=== PATIENT | male | born 1965 | race Caucasian/White ===

== ENCOUNTER 2023-05-30 07:38 | Outpatient (OUT) | payer BC, SELFPAY ==
--- NOTE | 2023-05-30 08:00 | XR_ITS ---
The [address] [address] Patient Name: OSCAR RILEY MRN: [id number] date: 1965 Sex: M Assigned Patient Location: LAB Current Patient Location: LAB Accession/Order Number: [id number] Exam Date: 05/30/2023 07:53 Report Date: 05/30/2023 08:59 At the request of: ADELITA KAPLAN Procedure: XR abdomen 1V EXAMINATION: XR abdomen 1V HISTORY: Unspecified Abdominal Pain R10.9 COMPARISON: No relevant comparison available. FINDINGS: KIDNEY/URETER - RIGHT: No visible renal or ureteral calcifications. KIDNEY/URETER - LEFT: No visible renal or ureteral calcifications. PELVIS: Right lower pelvic calcification, indeterminate BOWEL: No abnormal dilation or deviation. BONES: No acute abnormality. Degenerative spondylosis OTHER: Negative. No abnormal gaseous collections. XR/XR abdomen 1V IMPRESSION: Right pelvic calcification, phlebolith versus distal ureterolith Electronically authenticated by: LEANDRO LOPEZ Date: 05/30/2023 08:59
[2023-05-30 08:29] LABS: Basophils Percent Auto 0.4 % (0.2-2.0); Eosinophils Absolute Auto 0.3 10^3/uL (0.0-0.7); Eosinophils Percent Auto 3.2 % (0.9-7.0); Hematocrit 43.1 % (42.0-54.0); Hemoglobin 14.2 g/dL (14.0-18.0); Immature Granulocytes Abs Auto 0.06 10^3/uL (0.00-0.03); Immature Granulocytes Pct Auto 0.6 % (0.0-0.5); Lymphocytes Absolute Auto 2.9 10^3/uL (1.2-3.8); Lymphocytes Percent Auto 26.8 % (20.5-60.0); Mean Corpuscular HGB Conc 32.9 g/dL (29.9-35.2); Mean Corpuscular Hemoglobin 28.9 pg (25.9-34.0); Mean Corpuscular Volume 87.6 fL (80.0-94.0); Mean Platelet Volume 10.6 fL (9.5-13.5); Monocytes Absolute Auto 0.5 10^3/uL (0.3-0.8); Monocytes Percent Auto 4.6 % (1.7-12.0); Neutrophils Absolute Auto 6.9 10^3/uL (1.4-6.5); Neutrophils Percent Auto 64.4 % (43.0-75.0); Platelet Count 259 10^3/uL (150-450); Red Blood Count 4.92 10^6/uL (4.70-6.10); Red Cell Distribution Width 13.4 % (11.0-15.0); White Blood Count 10.7 10^3/uL (4.0-11.0)
[2023-05-30 09:02] LABS: Estimated Average Glucose 280 mg/dL; Glycohemoglobin A1C 11.4 % (4.5-6.2)
[2023-05-30 09:08] LABS: Alanine Aminotransferase 35 U/L (16-63); Albumin Globulin Ratio 0.9; Albumin Level 3.6 g/dL (3.4-5.0); Alkaline Phosphatase 123 U/L (46-116); Anion Gap 11.1; Aspartate Amino Transferase 14 U/L (15-37); BUN Creatinine Ratio 23.4; Bilirubin Total 0.7 mg/dL (0.2-1.0); Calcium 9.2 mg/dL (8.5-10.1); Carbon Dioxide 31.2 mmol/L (21.0-32.0); Chloride 97 mmol/L (98-107); Chol HDL Ratio 3.4; Cholesterol 125 mg/dL (<=200); Estimated GFR (African America >60 (>=60); Estimated GFR (Non-African Ame >60 (>=60); Globulin 3.9 g/dL; Glucose 231 mg/dL (74-106); HDL Cholesterol 37 mg/dL (40-60); Potassium 4.3 mmol/L (3.5-5.1); Sodium 135 mmol/L (136-145); Total Protein 7.5 g/dL (6.4-8.2); Triglycerides 188 mg/dL (<=150); VLDL CHOLESTEROL 37.6 mg/dL
[2023-05-30 09:42] LABS: Prostate Specific Antigen Scrn 0.48 ng/mL (<=4.00)
[2023-05-30 10:27] LABS: Bilirubin Urine NEGATIVE (NEGATIVE); Blood Urine NEGATIVE (NEGATIVE); Clarity Urine CLEAR (CLEAR); Color Urine LT. YELLOW (YELLOW); Glucose Urine UA 250 mg/dL (NEGATIVE); Ketones Urine NEGATIVE (NEGATIVE); Leukocyte Esterase Urine TRACE (NEGATIVE); Nitrite Urine NEGATIVE (NEGATIVE); Protein Urine NEGATIVE (NEG/TRACE); Specific Gravity Urine 1.025 (1.005-1.025); Urobilinogen Urine 0.2 EU/dL (0.2-1.0)
== END 2023-05-30 07:39 | disposition home or self-care (01) ==
LOC: LAB 07:41
PROVIDERS: PCP Family Medicine; Visit Provider Family Medicine
DX: Z00.00 Encounter for general adult medical examination without abnormal findings (principal); Z12.5 Encounter for screening for malignant neoplasm of prostate; R10.9 Unspecified abdominal pain
CPT/HCPCS: 36415; 74018; 80053; 80061; 81003; 82043; 83036; 85025; G0103

== ENCOUNTER 2023-07-19 07:00 | Outpatient (OUT) | payer BC, SELFPAY ==
[2023-07-19 07:15] LABS: Estimated GFR (African America >60 (>=60); Estimated GFR (Non-African Ame >60 (>=60)
--- NOTE | 2023-07-19 08:04 | CT_ITS ---
[address] [address] Patient Name: OSCAR RILEY MRN: [id number] date: 1965 Sex: M Assigned Patient Location: LAB Current Patient Location: Accession/Order Number: [id number] Exam Date: 07/19/2023 07:52 Report Date: 07/20/2023 13:09 At the request of: LAXMI QUINTERO Procedure: CT pelvis w con EXAMINATION: CT pelvis w con HISTORY: Testicle pain COMPARISON: No relevant comparison available. TECHNIQUE: Axial, Coronal, and Sagittal images were created without and with non-ionic intravenous contrast material.Dose reduction techniques were achieved by using automated exposure control and/or adjustment of mA and/or kV according to patient size and/or use of iterative reconstruction technique. FINDINGS: BOWEL/MESENTERY: No visible mass, obstruction, or bowel wall thickening. VASCULAR: Atherosclerosis RETROPERITONEUM: No mass or adenopathy. LYMPH NODES: No adenopathy. URINARY BLADDER: No visible focal wall thickening, lesion, or calculus. PELVIC ORGANS: Heterogeneous prostate gland without focal mass ABDOMINAL WALL: No mass or hernia. BONES: Degenerative changes of the spine OTHER: Negative. CT/CT pelvis w con IMPRESSION: No inguinal hernia observed Electronically authenticated by: LEANDRO LOPEZ Date: 07/20/2023 13:09
== END 2023-07-19 07:01 | disposition home or self-care (01) ==
LOC: LAB 07:00
PROVIDERS: PCP Family Medicine; Visit Provider Urology
DX: N50.811 Right testicular pain (principal)
CPT/HCPCS: 36415; 72193; 82565; Q9967

== ENCOUNTER 2023-08-08 12:33 | Outpatient (OUT) | payer BC, SELFPAY ==
--- NOTE | 2023-08-08 | US_ITS ---
The [address] [address] Patient Name: OSCAR RILEY MRN: [id number] date: 1965 Sex: M Assigned Patient Location: US Current Patient Location: US Accession/Order Number: [id number] Exam Date: 08/08/2023 12:45 Report Date: 08/08/2023 16:56 At the request of: LAXMI QUINTERO Procedure: US scrotum doppler US scrotum doppler, 08/08/2023 12:45 PM EST INDICATION:Testicular pain. Right groin pain x1 month. COMPARISON: Contrast-enhanced CT of the pelvis 07/19/2023 GRAYSCALE TECHNIQUE: Multi-planar real-time high-resolution ultrasound of the scrotum was performed. DOPPLER TECHNIQUE: Color and/or power Doppler combined with spectral Doppler analysis to evaluate blood flow to and from the testes was performed. FINDINGS: Right testicle: Normal size and echotexture 2.4 x 1.5 x 1.9 cm. Right epididymis: Vascularity is within normal limits. Left testicle: Normal size and echotexture 2.6 x 1.2 x 1.9 cm. Left epididymis: Vascularity is within normal limits. Normal color Doppler with arterial/venous spectral tracing to both testicles. No varicocele or hydrocele. No right inguinal hernia. US/US scrotum doppler IMPRESSION: Normal scrotal ultrasound. Electronically authenticated by: SCOTT RAPHAEL Date: 08/08/2023 16:56
== END 2023-08-08 12:34 | disposition home or self-care (01) ==
LOC: US 12:33
PROVIDERS: PCP Family Medicine; Visit Provider Urology
DX: N50.819 Testicular pain, unspecified (principal)
CPT/HCPCS: 76870; 93976

== ENCOUNTER 2024-12-27 07:21 | Outpatient (OUT) | payer BC, SELFPAY ==
--- OUTSIDE RECORDS SUMMARY | 2024-12-27 07:26 | XMS_ITS | CCD ---
Author Organization [facility] Care Team Providers Care Ad Operations Associate Name Role Phone REJI YUN Referring Unavailable AL-HOURANIREYES Admitting Unavailable AL-HOURANI, REYES Attending Unavailable ANGELA KAPLAN Primary Care Unavailable UNKNOWN, PROVIDER Surgeon Unavailable ME Procedure Practitioner Unavailab le ME Procedure Practitioner Unavailab EDGAR Roldan Surgeon Unavailable MEDICAL, MESFIN Primary Care Physician Unavailab le MOUKARBEL, DR ROGERS Admitting Unavailable MOUKARBEL, DR ROGERS Attending Unavailable KAPLAN, DR ANGELA Rosen Primary Care Unavailable MOUKARBEL, DR ROGERS Consulting Unavailable MOUKARBEL, DR ROGERS Admitting Unavailable MOUKARBEL, DR ROGERS Attending Unavailable KAPLAN, DR ANGELA Rosen Primary Care Unavailable MOUKARBEL, DR ROGERS Consulting Unavailable AGGIE, WILFRED Admitting Unavailable AGGIE, WILFRED Attending Unavailable KAPLAN, DR ANGELA Rosen Primary Care Unavailable AGGIE, WILFRED Consulting Unavailable KAPLAN, DR ANGELA Rosen Primary Care Unavailable HAY, DR RODRIGUEZ Admitting Unavailable HAY, DR RODRIGUEZ Attending Unavailable HAY, DR RODRIGUEZ Consulting Unavailable PRO, HENRY Consulting Unavailable KAPLAN, DR ANGELA Rosen Admitting Unavailable KAPLAN, DR ANGELA Rosen Attending Unavailable KAPLAN, DR ANGELA Rosen Primary Care Unavailable MOUKARBEL, DR ROGERS Admitting Unavailable MOUKARBEL, DR ROGERS Attending Unavailable KAPLAN, DR ANGELA Rosen Primary Care Unavailable Angela Kaplan Unavailable ANGELA KAPLAN Primary Care Physician [phone] ANGELA KAPLAN Referring Unavailable Henry MOJICA Attending Unavailable NILLHenry Attending Unavailable MOUKARBEL, KEN Attending Unavailable MOUKARBEL, KEN Attending Unavailable Allergies Allergy Classification Reported Allergen(s) Allergy Type Date of Onset Reaction(s) Facility (4 sources) Eggs or Egg-derived Products Drug allergy Unknown Tred Other (2 sources) Pollen Allergy to substance 4 Congested [facility] (2 sources) Egg Derived Allergy to substance 4 Upset stomach [facility] (1 source) No Known Medication Allergies; Translations: [No Known Medication Allergies] Propensity to adverse reactions (disorder) [facility] Repository Medications Current Medications Medication Drug Class(es) Dates Sig (Normalized) Sig (Original) acetaminophen 325 mg oral tablet (1 source) Start: 01-28-2015 Tylenol 325 mg, Oral, Refills(s) 0 Start Date: 01/28/15 Status: Ordered Allopurinol (11 sources) Xanthine Oxidase Inhibitor Start: 02-19-2024 Allopurinol Active 0 .ROUTE .COMPLEX 90 February 19, 2024 3:33pm TAKE 1 TABLET DAILY Start: 01-26-2015 End: 02-19-2024 take 300 mg by mouth once daily Allopurinol Discontinued 300 MG PO Daily February 19, 2024 12:00am February 19, 2024 3:33pm aspirin 81 mg delayed release oral tablet (5 sources) Platelet Aggregation Inhibitor, Nonsteroidal Anti-inflammatory Drug Start: 07-23-2024 take 1 tablet by mouth once daily aspirin 81 mg Oral EC Tab 81 mg = 1 tab(s), Oral, Daily, Refills(s) 0 Start Date: 07/23/24 Status: Ordered Start: 06-13-2022 take 1 tablet by jaylin th every twenty-four hours Aspirin Low Dose 81 MG 1 tablet Orally Once a day for 0 days May, Active atenolol 25 mg oral tablet (1 source) beta-Adrenergic Moncho Start: 01-26-2015 atenolol 25 mg oral tablet Refills(s) 0 Start Date: 01/26/15 Status: Ordered BD Pen Needle Jeanne U/F (4 sources) Start: 02-27-2022 BD Pen Needle Jeanne U/F BD Pen Needle Jeanne U/F , 1 (one) Each Each daily # 90, 02/27/2022, Ref. x3. Active daily for 0 for Levemir Feb, Active cholecalciferol 0.05 mg oral tablet (4 sources) Vitamin D Start: 06-13-2022 take 1 tablet by mouth every twenty-four hours Vitamin D 50 MCG (1999 UT) 1 tablet Orally Once a day for 0 days 27 Sep, 2022 Active clopidogrel 75 mg oral tablet (8 sources) P2Y12 Platelet Inhibitor Start: 06-13-2022 take 75 mg by mouth once daily Clopidogrel Active 75 MG PO Daily June 24, 2024 12:00am cyclobenzaprine hydrochloride 5 mg oral tablet (1 source) Muscle Relaxant Start: 06-21-2017 take 5 mg by mouth three times daily cyclobenzaprine 5 mg, Oral, TID, Refills(s) 0 Start Date: 06/21/17 Status: Ordered ezetimibe 10 mg oral tablet (9 sources) Dietary Cholesterol Absorption Inhibitor Start: 06-30-2024 take 1 tablet by mouth once daily Zetia 10 mg Tab 10 mg = 1 tab(s), Oral, Daily, Refills(s) 0 Start Date: 06/30/24 Status: Ordered Start: 06-24-2024 take 10 mg by mouth once daily Ezetimibe Active 10 MG PO Daily June 24, 2024 12:00am Start: 01-26-2015 Zetia 10 mg or al tablet Refills(s) 0 Start Date: 01/26/15 Status: Ordered FreeStyle [place] 14 Day [place] (4 sources) Start: 12-02-2020 FreeStyle Libr e 14 Day [place] FreeStyle [place] 14 Day [place] , 1 (one) Device Device q 2 weeks # 1, 12/02/2020, No Refill. Active q 2 weeks for 0 Nov, Active FreeStyle [place] 14 Day Sensor (4 sources) Start: 12-02-2020 FreeStyle Libr e 14 Day Sensor FreeStyle [place] 14 Day Sensor , 1 (one) Each Each q 2 weeks # 2, 12/02/2020, Ref. x3. Active q 2 weeks for 0 Nov, Active 3 ml insulin degludec 100 unt/ml pen injector (2 sources) Insulin Analog Start: 06-30-2024 inject 10 [IU] by subcutaneous injection once daily Tresiba FlexTouch 100 units/mL subcutaneous solution 10 unit(s), SubCutaneous, Daily, Refills(s) 0 Start Date: 06/30/24 Status: Ordered inject 10 [IU] by riojas bcutaneous injection once daily Tresiba FlexTouch 100 UNIT/ML 10 units Subcutaneous daily for 90 days Active Insulin Degludec (Tresiba Flextouch U-100) 100 unit/mL (3 mL) insulin pen (8 sources) Start: 05-05-2024 inject 10 [IU] by subcutaneous injection once daily Insulin Degludec (Tresiba Flextouch U-100) 100 unit/mL (3 mL) insulin pen Active 10 UNIT SUBCUT Daily May 05, 2024 11:15am Start: 04-02-2024 End: 05-05-2024 inject 10 [IU] by subcutaneous injection once daily Insulin Degludec (Tresiba Flextouch U-100) 100 unit/mL (3 mL) insulin pen Discontinued 10 UNIT SUBCUT Daily April 02, 2024 8:49am May 05, 2024 11:15am Start: 02-07-2024 End: 04-02-2024 inject 10 [IU] by subcutaneous injection once daily Insulin Degludec (Tresiba Flextouch U-100) 100 unit/mL (3 mL) insulin pen Discontinued 10 UNIT SUBCUT Daily February 07, 2024 4:20pm April 02, 2024 8:49am Start: 02-04-2024 End: 02-07-2024 inject 10 [IU] by subcutaneous injection once daily Insulin Degludec (Tresiba Flextouch U-100) 100 unit/mL (3 mL) insulin pen Discontinued 10 UNIT SUBCUT Daily February 04, 2024 12:00am February 07, 2024 4:20pm 3 ml insulin detemir 100 unt/ml pen injector (3 sources) Insulin Analog Start: 07-02-2023 Levemir FlexPe n 100 units/mL subcutaneous solution Refills(s) 0 Start Date: 07/02/23 Status: Ordered inject 10 [IU] by riojas bcutaneous injection once daily Levemir FlexPen 100 UNIT/ML INJECT 10 UNITS UNDER THE SKIN DAILY Active Levemir FlexTouch 100 UNIT/M L (2 sources) Levemir FlexTouc h 100 UNIT/ML 25 units daily Subcutaneous for 30 days 3 mL pen Active inject 10 [IU] by riojas bcutaneous injection once daily Levemir FlexTouch 100 UNIT/ML 10 units daily Subcutaneous for 30 days 3 mL pen Active lisinopril 30 mg oral tablet (9 sources) Angiotensin Converting Enzyme Inhibitor Start: 06-30-2024 take 1 tablet by mouth once daily lisinopril 30 mg Tab 30 mg = 1 tab(s), Oral, Daily, Refills(s) 0 Start Date: 06/30/24 Status: Ordered Start: 06-24-2024 take 30 mg by mouth once daily Lisinopril Active 30 MG PO Daily June 24, 2024 12:00am Start: 01-26-2015 lisinopril 40 mg Tab Refills(s) 0 Start Date: 01/26/15 Status: Ordered meloxicam 15 mg oral tablet (1 source) Nonsteroidal Anti-inflammatory Drug Start: 06-21-2017 take 1 tablet by mouth once daily meloxicam 15 mg Tab 15 mg = 1 tab(s), Oral, Daily, Refills(s) 0 Start Date: 06/21/17 Status: Ordered metFORMIN (10 sources) Biguanide Start: 03-31-2024 Metformin Acti ve 0 .ROUTE .COMPLEX 180 March 31, 2024 9:56am TAKE 1 TABLET TWICE A DAY Start: 07-02-2023 End: 03-31-2024 take 500 mg by mouth twice daily Metformin Discontinued 500 MG PO Twice daily March 31, 2024 12:00am March 31, 2024 9:56am metoprolol tartrate 25 mg oral tablet (8 sources) beta-Adrenergic Moncho Start: 07-02-2023 take 25 mg by mouth once daily Metoprolol Tartrate Active 25 MG PO Daily June 24, 2024 12:00am Start: 06-13-2022 take 1 tablet by jaylin th every twelve hours Metoprolol Tartrate 25 MG 1 tablet with food Orally Twice a day for 0 days May, Active Aleve (1 source) Nonsteroidal Anti-inflammatory Drug Start: 06-18-2015 Aleve Refills(s) 0 Start Date: 06/18/15 Status: Ordered simvastatin 40 mg oral tablet (9 sources) HMG-CoA Reductase Inhibitor Start: 06-30-2024 take 1 tablet by mouth once daily in the evening simvastatin 40 mg Tab 40 mg = 1 tab(s), Oral, qPM, Refills(s) 0 Start Date: 06/30/24 Status: Ordered Start: 06-24-2024 take 40 mg by mouth once daily Simvastatin Active 40 MG PO Daily June 24, 2024 12:00am Start: 06-13-2022 take 1 tablet by jaylin th every twenty-four hours Simvastatin 40 MG 1 tablet in the evening Orally Once a day for 0 days May, Active Start: 01-26-2015 simvastatin 20 mg Tab Refills(s) 0 Start Date: 01/26/15 Status: Ordered Problems Active Problems Problem Classification Problem Date Documented Date Episodic/Chronic Abdominal pain (1 source) Unspecified abdominal pain Episodic Acute myocardial infarction (1 source) Acute non-ST segment elevation myocardial infarction Onset: 04-01-2021 06-26-2024 Chronic Calculus of urinary tract (2 sources) Kidney stone 07-02-2023 Episodic Coronary atherosclerosis and other heart disease (9 sources) Atherosclerotic heart disease of [place] coronary artery without angina pectoris; Translations: [Coronary atherosclerosis] Onset: 04-01-2021 Chronic Coronary atherosclerosis and other heart disease (2 sources) Presence of coronary angioplasty implant and graft; Translations: [Presence of coronary angioplasty implant and graft] Onset: 12-22-2024 Episodic Diabetes mellitus with complications (14 sources) Type 2 diabetes mellitus; Translations: [Type 2 diabetes mellitus with hyperglycemia] Chronic Diabetes mellitus without complication (3 sources) Type 2 diabetes mellitus without complications; Translations: [Type 2 diabetes mellitus] Onset: 06-02-2022 07-02-2023 Chronic Disorders of lipid metabolism (7 sources) Hypercholesterolemia; Translations: [Pure hypercholesterolemia, unspecified] Onset: 08-15-2021 01-26-2015 Chronic Essential hypertension (16 sources) Hypertensive disorder; Translations: [Essential (primary) hypertension] Onset: 08-15-2021 01-26-2015 Chronic Genitourinary congenital anomalies (1 source) Absence and aplasia of testis Chronic Gout and other crystal arthropathies (4 sources) Gout 01-26-2015 Chronic Malaise and fatigue (4 sources) Other fatigue; Translations: [OTHER FATIGUE] Onset: 05-26-2022 Episodic Other aftercare (4 sources) Long-term current use of insulin; Translations: [[facility] (current) use of insulin] Episodic Other and ill-defined heart disease (2 sources) Heart disease Onset: 05-25-2022 07-02-2023 Chronic Other injuries and conditions due to external causes (1 source) Injury of head; Translations: [Unspecified injury of head, initial encounter] Onset: 07-03-2022 Episodic Other lower respiratory disease (2 sources) Shortness of breath; Translations: [Shortness of breath] Onset: 12-22-2024 Episodic Other male genital disorders (1 source) Pain in testicle; Translations: [Right testicular pain] Onset: 07-02-2023 Episodic Other male genital disorders (2 sources) Pain of right testicle 07-02-2023 Episodic Other nutritional; endocrine; and metabolic disorders (1 source) Morbid (severe) obesity due to excess calories; Translations: [Morbid (severe) obesity due to excess calories] Chronic Other nutritional; endocrine; and metabolic disorders (3 sources) Morbid obesity; Translations: [Morbid (severe) obesity due to excess calories] Chronic Other nutritional; endocrine; and metabolic disorders (1 source) Body mass index 30+ - obesity 07-23-2024 Chronic Other nutritional; endocrine; and metabolic disorders (1 source) Obese class III 06-30-2024 Chronic Other screening for suspected conditions (not mental disorders or infectious disease) (1 source) Encounter for screening for malignant neoplasm of prostate Episodic Other skin disorders (1 source) Trichilemmal cyst; Translations: [Pilar cyst] Onset: 07-23-2024 Episodic Other skin disorders (1 source) Pilar cyst of scalp 07-23-2024 Episodic Other upper respiratory disease (1 source) Nasal obstruction; Translations: [Other specified disorders of nose and nasal sinuses] 06-24-2024 Episodic Other upper respiratory disease (1 source) Other specified disorders of nose and nasal sinuses; Translations: [Other disease of nasal cavity and sinuses] 06-24-2024 Episodic Residual codes; unclassified (1 source) Obstructive sleep apnea (adult) (pediatric); Translations: [Obstructive sleep apnea] Chronic Residual codes; unclassified (4 sources) Obstructive sleep apnea syndrome; Translations: [Obstructive sleep apnea (adult) (pediatric)] 06-30-2024 Chronic Skin and subcutaneous tissue infections (2 sources) Abscess of scalp; Translations: [Cutaneous abscess of head [any part, except face]] 06-24-2024 Episodic Skull and face fractures (2 sources) Fractured nasal bones; Translations: [Fracture of nasal bones, initial encounter for closed fracture] 06-24-2024 Episodic Past or Other Problems Problem Classification Problem Date Documented Da te Episodic/Chronic E Codes: Natural/environment (1 source) Other and unspecified overexertion or strenuous movements or postures, initial encounter; Translations: [OTH AND UNS OVREXRT/STRN MVMT/POS INT] Onset: 08-15-2021 Episodic Other aftercare (1 source) [facility] (current) use of oral hypoglycemic drugs; Translations: [FISHER OYSTER USE ORAL HYPOGLYCEMIC DX] Onset: 08-15-2021 Episodic Other aftercare (1 source) [facility] (current) use of aspirin; Translations: [SHELTER CURRENT USE OF ASPIRIN] Onset: 08-15-2021 Episodic Other aftercare (1 source) Other half-way (current) drug therapy; Translations: [OTH SHELTER CURRENT DRUG THERAPY] Onset: 08-15-2021 Episodic Other non-traumatic joint disorders (3 sources) Pain in left ankle and joints of left foot; Translations: [PAIN IN LEFT ANKLE] Onset: 08-12-2021 Episodic Sprains and strains (1 source) Sprain of unspecified ligament of left ankle, initial encounter; Translations: [SPRAIN UNS LIGAMENT LT ANKLE INIT] Onset: 08-15-2021 Episodic Results Test Name Value Interpretation Reference Range Facility Office Visiton 12-22-2024 Follow-up visit [id number] Jah Riley 1965 M Date Provider Department Center 12/22/2024 KEN BLACKWOOD [facility] Family History Problem Relation Age of Onset Stroke Mother Cancer Father Family Status - Relation Status Age at Mother Alive Father Brother Alive Level of Service:87870 ME OFFICE/OUTPATIENT ESTABLISHED MOD MDM [address] [facility] 36on 08-04-[address] Mojica's office se nt paper requesting Plavix hold prior to cyst removal. Per Dr. Mukherjee's note from December 2023, Plavix was discontinued at that time. Echo that was ordered has not been completed yet. Per Dr. Mojica's office - patient is still taking Plavix. I asked them to have the patient contact us with questions, and to let him know order for echo has been refaxed to [facility]. She told me Dr. Mojica will be using local anesthetic for cyst removal so patient does not need cardiac clearance. [facility] Ambulatory Visit Summaryon 1 09-22-2023 Ambulatory Visit Summary Ambulatory Visit Summary RAN RILEY :1965 Visit Date:07/23/2024 Ambulatory Visit Instructions Your Care Team Attending Physician - MAGALY REED, Henry Arreaga Primary Care Physician - ANGELA KAPLAN MD Referring Physician - ANGELA KAPLAN MD This Is Your Medications List Contact prescribing physician if questions or concerns allopurinol (allopurinol 300 mg Tab) aspirin (aspirin 81 mg Oral EC Tab) clopidogrel (clopidogrel 75 mg Tab) ezetimibe (Zetia 10 mg Tab) insulin degludec (Tresiba FlexTouch 100 units/mL subcutaneous solution) lisinopril (lisinopril 30 mg Tab) metformin (metformin 500 mg Tab) metoprolol (Lopressor 25 mg oral tablet) simvastatin (simvastatin 40 mg Tab) Procedures Performed Appendectomy, Cardiac catheterization, Coronary artery stent. Discharge Vitals Heart Rate (Peripheral) 68 Respiratory Rate 16 Blood Pressure 116/66 Height 178 cm Height 70 in Weight 126 kg Weight 277.2 lb BMI 39.77 What to do next Scheduled Follow-Up Appointments Sunday 2:00 PM EST With: MAGALY REED, Henry Arreaga Where: [address] [address]- Medications What How Much When Instructions Unchanged allopurinol (allopurinol 300 mg Tab) 1 Tablets By Mouth Every day Contact prescribing physician if questions or concerns Unchanged aspirin (aspirin 81 mg Oral EC Tab) 1 Tablets By Mouth Every day Contact prescribing physician if questions or concerns Unchanged clopidogrel (clopidogrel 75 mg Tab) 1 Tablets By Mouth Every day Contact prescribing physician if questions or concerns Unchanged ezetimibe (Zetia 10 mg Tab) 1 Tablets By Mouth Every day Contact prescribing physician if questions or concerns Unchanged insulin degludec (Tresiba FlexTouch 100 units/ mL subcutaneous solution) 10 Units Subcutaneous Every day Contact prescribing physician if questions or concerns Unchanged lisinopril (lisinopril 30 mg Tab) 1 Tablets By Mouth Every day Contact prescribing physician if questions or concerns Unchanged metformin (metformin 500 mg Tab) 1 Tablets By Mouth 2 times a day Contact prescribing physician if questions or concerns Unchanged metoprolol (Lopressor 25 mg oral tablet) 1 Tablets By Mouth Every day Contact prescribing physician if questions or concerns Unchanged simvastatin (simvastatin 40 mg Tab) 1 Tablets By Mouth Once a day (in the evening) Contact prescribing physician if questions or concerns Allergies No Known Allergies No Known Medication Allergies Problems Ongoing - Any problem that you are currently receiving treatment for. Acute non-ST segment elevation myocardial infarction BMI 39.0-39.9,adult Class 3 obesity Coronary atherosclerosis Gout Heart disease HTN (hypertension) Kidney stone MARNI (obstructive sleep apnea) Pure hypercholesterolemia Type 2 diabetes mellitus Historical - Any problem that you are no longer receiving treatment for. Gout Hypercholesterolemia Hypertension Testicular pain, right Patient Survey You may receive a survey via text or e-mail asking about your office visit. Please share your experience with us by completing your survey. We appreciate your feedback and thank you for choosing us for your care. Normal [facility] Office Visiton 01-11-2024 Follow-up visit [id number] Jah Riley 1965 M Date Provider Department Center 01/11/2024 KEN BLACKWOOD [facility] Family History Problem Relation Age of Onset Stroke Mother Family Status - Relation Status Age at Mother Level of Service:[id number] ME OFFICE/OUTPATIENT ESTABLISHED MOD MDM 30 MIN Reason for Visit and Comments: Follow-up [192243] - 6 months Normal [facility] RAD - Ultrasound Reporton RAD - Ultrasound Report [id number] Normal [facility] T3, TOTAL (TRIIODOTHYRONINE) on 05-27-2022 T3, TOTAL 133 ng/dL Normal 71-180 [facility] Comment on above: Performed By: #### T 3TOTAL #### [facility] [address] [address] [address] Derek Frankel CRPon 05-26-2022 CRP 0.3 mg/dL Normal <=1.0 [facility] Comment on above: Performed By: #### C RP, TSH, CMP #### [facility] [address] [address] [address] Derek Frankel FREE T4on 05-26-2022 Free T4 [Mass/Vol] 1.03 ng/dL Normal 0.76-1.46 [facility] Comment on above: Performed By: #### F T4 #### [facility] [address] [place] [address] Dr. Derek Frankel GLYCOHEMOGLOBIN A1Con 2021 ADA RECOMMENDATION SEE BELOW Normal [facility] Comment on above: Result Comment: ADA RECOMMENDED LIMIT 4.0 - 6.0 ADA THERAPEUTIC TARGET < 7.0 ACTION SUGGESTED > 7.0 Performed By: #### A 1C #### [facility] [address] [place] [address] Dr. Derek Frankel Glucose [Mass/Vol] 283 mg/dL Normal [facility] Comment on above: Performed By: #### A 1C #### [facility] [address] [place] [address] Dr. Derek Frankel HbA1c (Bld) [Mass fraction] 11.5 % Critically high 4.5-6.2 [facility] Comment on above: Performed By: #### A 1C #### [facility] [address] [place] [address] Dr. Derek Frankel HEMOGRAM AND PLATELon 2021 Hematocrit (Bld) [Volume fraction] 44.1 % Normal 42.0-54.0 [facility] Comment on above: Performed By: #### H H #### [facility] [address] [place] [address] Dr. Derek Frankel Hemoglobin (Bld) [Mass/Vol] 14.7 g/dL Normal 14.0-18.0 [facility] Comment on above: Performed By: #### H H #### [facility] [address] [place] [address] Dr. Derek Frankel MCH (RBC) [Entitic mass] 29.2 pg Normal 25.9-34.0 [facility] Comment on above: Performed By: #### H H #### [facility] [address] [place] [address] Dr. Derek Frankel MCHC (RBC) [Mass/Vol] 33.3 g/dL Normal 29.9-35.2 [facility] Comment on above: Performed By: #### H H #### [facility] [address] [place] [address] Dr. Derek Frankel MCV (RBC) [Entitic vol] 87.7 fL Normal 80.0-94.0 [facility] Comment on above: Performed By: #### H H #### [facility] [address] [place] [address] Dr. Derek Frankel PLT 259 103/ul Normal 150-450 [facility] Comment on above: Performed By: #### H H #### [facility] [address] [place] [address] Dr. Derek Frankel RBC 5.03 106/ul Normal 4.70-6.10 [facility] Comment on above: Performed By: #### H H #### [facility] [address] [place] [address] Dr. Derek Frankel WBC 8.7 103/ul Normal 4.0-11.0 [facility] Comment on above: Performed By: #### H H #### [facility] [address] [place] [address] Dr. Derek Frankel PROF 14(COMP METB)on 022 Albumin [Mass/Vol] 3.7 g/dL Normal 3.4-5.0 [facility] Comment on above: Performed By: #### C RP, TSH, CMP #### [facility] [address] [place] [address] Dr. Derek Frankel Albumin/Globulin [Mass ratio] 0.9 {ratio} Normal [facility] Comment on above: Performed By: #### C RP, TSH, CMP #### [facility] [address] [place] [address] Dr. Derek Frankel ALP [Catalytic activity/Vol] 160 U/L Critically high 46-116 [facility] Comment on above: Performed By: #### C RP, TSH, CMP #### [facility] [address] [place] [address] Dr. Derek Frankel ALT [Catalytic activity/Vol] 41 U/L Normal 16-63 [facility] Comment on above: Performed By: #### C RP, TSH, CMP #### [facility] [address] [place] [address] Dr. Derek Frankel Anion gap [Moles/Vol] 13.3 mmol/L Normal [facility] Comment on above: Performed By: #### C RP, TSH, CMP #### [facility] [address] [place] [address] Dr. Derek Farnkel AST [Catalytic activity/Vol] 20 U/L Normal 15-37 [facility] Comment on above: Performed By: #### C RP, TSH, CMP #### [facility] [address] [place] [address] Dr. Derek Frankel Bilirubin [Mass/Vol] 0.6 mg/dL Normal 0.2-1.0 [facility] Comment on above: Performed By: #### C RP, TSH, CMP #### [facility] [address] [place] [address] Dr. Derek Frankel Calcium [Mass/Vol] 8.9 mg/dL Normal 8.5-10.1 [facility] Comment on above: Performed By: #### C RP, TSH, CMP #### [facility] [address] [place] [address] Dr. Derek Frankel Chloride [Moles/Vol] 94 mmol/L Critically low 98-107 [facility] Comment on above: Performed By: #### C RP, TSH, CMP #### [facility] [address] [place] [address] Dr. Derek Frankel CO2 [Moles/Vol] 29.2 mmol/L Normal 21.0-32.0 [facility] Comment on above: Performed By: #### C RP, TSH, CMP #### [facility] [address] [place] [address] Dr. Derek Frankel Creatinine [Mass/Vol] 0.98 mg/dL Normal 0.70-1.30 [facility] Comment on above: Performed By: #### C RP, TSH, CMP #### [facility] [address] [place] [address] Dr. Derek Frankel EGFR-AF KAZAKH >60 Normal >=60 [facility] Comment on above: Performed By: #### C RP, TSH, CMP #### [facility] [address] [place] [address] Dr. Derek Frankel EGFR-NON AF KAZAKH >60 Normal >=60 [facility] Comment on above: Performed By: #### C RP, TSH, CMP #### [facility] [address] [place] [address] Dr. Derek Frankel Globulin (S) [Mass/Vol] 3.9 g/dL Normal [facility] Comment on above: Performed By: #### C RP, TSH, CMP #### [facility] [address] [place] [address] Dr. Derek Frankel Glucose [Mass/Vol] 378 mg/dL Critically high 74-106 [facility] Comment on above: Performed By: #### C RP, TSH, CMP #### [facility] [address] [place] [address] Dr. Derek Frankel Potassium [Moles/Vol] 4.5 mmol/L Normal 3.5-5.1 [facility] Comment on above: Performed By: #### C RP, TSH, CMP #### [facility] [address] [place] [address] Dr. Derek Frankel Protein [Mass/Vol] 7.6 g/dL Normal 6.4-8.2 [facility] Comment on above: Performed By: #### C RP, TSH, CMP #### [facility] [address] [place] [address] Dr. Derek Frankel Sodium [Moles/Vol] 132 mmol/L Critically low 136-145 [facility] Comment on above: Performed By: #### C RP, TSH, CMP #### [facility] [address] [place] [address] Dr. Derek Frankel Urea nitrogen [Mass/Vol] 14.0 mg/dL Normal 7.0-18.0 [facility] Comment on above: Performed By: #### C RP, TSH, CMP #### [facility] [address] [place] [address] Dr. Derek Frankel Urea nitrogen/Creatinine [Mass ratio] 14.3 mg/mg Normal [facility] Comment on above: Performed By: #### C RP, TSH, CMP #### [facility] [address] [address] [address] Derek Frankel [facility] SED [facility]ATE 38 mm/hr Critically high <=20 [facility] Comment on above: Performed By: #### S EDR #### [facility] [address] [address] [address] Derek Frankel TSHon 05-26-2022 TSH 1.636 uIU/mL Normal 0.358-3.740 [facility] Comment on above: Performed By: #### C RP, TSH, CMP #### [facility] [address] [address] [address] Derek Frankel LIPID PROFILEon 05-25-2022 CHOL-HDL RATIO NORM SEE BELOW Normal [facility] Comment on above: Result Comment: 3.3 - 4.4 LOW RISK 4.4 - 7.1 AVERAGE RISK 7.1 - 11.0 MODERATE RISK >11.0 HIGH RISK Performed By: #### L IPID #### [facility] [address] [address] [address] Derek Frankel Cholesterol [Mass/Vol] 164 mg/dL Normal <=200 [facility] Comment on above: Performed By: #### L IPID #### [facility] [address] [address] [address] Derek Frankel Cholesterol in HDL [Mass/Vol] 36 mg/dL Critically low 40-60 [facility] Comment on above: Performed By: #### L IPID #### [facility] [address] [address] [address] Derek Frankel Cholesterol in LDL [Mass/Vol] 69.8 mg/dL Normal [facility] Comment on above: Performed By: #### L IPID #### [facility] [address] [address] [address] Derek Frankel Cholesterol.total/C holesterol in HDL [Mass ratio] 4.6 {ratio} Normal [facility] Comment on above: Performed By: #### L IPID #### [facility] [address] [address] [address] Derek Frankel HDL NORMAL > or = 60 mg/dl - LO W CARDIOVASCULAR RISK <40 mg/dl - HIGH CARDIOVASCULAR RISK Normal [facility] Comment on above: Performed By: #### L IPID #### [facility] [address] [address] [address] Derek Frankel LDL CALC NORMAL SEE BELOW Normal [facility] Comment on above: Result Comment: <100 mg/dl OPTIMAL 100 - 129 mg/dl NEAR OR ABOVE OPTIMAL 130 - 159 mg/dl BORDERLINE HIGH 160 - 189 mg/dl HIGH >190 mg/dl VERY HIGH Performed By: #### L IPID #### [facility] [address] [address] [address] Derek Frankel Triglyceride [Mass/Vol] 291 mg/dL Critically high <=150 [facility] Comment on above: Performed By: #### L IPID #### [facility] [address] [address] [address] Derek Frankel VLDL CALC 58.2 mg/dL Normal [facility] Comment on above: Performed By: #### L IPID #### [facility] [address] [address] [address] Derek Frankel LIPID PROFILEon 08-30-2021 CHOL-HDL RATIO NORM SEE BELOW Normal [facility] Comment on above: Result Comment: 3.3 - 4.4 LOW RISK 4.4 - 7.1 AVERAGE RISK 7.1 - 11.0 MODERATE RISK >11.0 HIGH RISK Performed By: #### L IPID ####[facility] [address] [id number]. Derek Frankel Cholesterol [Mass/Vol] 172 mg/dL Normal <=200 [facility] Comment on above: Performed By: #### L IPID ####[facility] [address] [id number]. Derek Frankel Cholesterol in HDL [Mass/Vol] 36 mg/dL Normal [facility] Comment on above: Performed By: #### L IPID ####[facility] [address] [id number]. Derek Frankel Cholesterol in LDL [Mass/Vol] 83.6 mg/dL Normal [facility] Comment on above: Performed By: #### L IPID ####[facility] [address] [id number]. Derek Frankel Cholesterol.total/C holesterol in HDL [Mass ratio] 4.8 {ratio} Normal [facility] Comment on above: Performed By: #### L IPID ####[facility] [address] [id number]. Derek Frankel HDL NORMAL > or = 60 mg/dl - LO W CARDIOVASCULAR RISK <40 mg/dl - HIGH CARDIOVASCULAR RISK Normal [facility] Comment on above: Performed By: #### L IPID ####[facility] [address] [id number]. Derek Frankel LDL CALC NORMAL SEE BELOW Normal [facility] Comment on above: Result Comment: <100 mg/dl OPTIMAL 100 - 129 mg/dl NEAR OR ABOVE OPTIMAL 130 - 159 mg/dl BORDERLINE HIGH 160 - 189 mg/dl HIGH >190 mg/dl VERY HIGH Performed By: #### L IPID ####[facility] [address] [id number]. Derek Frankel Triglyceride [Mass/Vol] 262 mg/dL Critically high <=150 [facility] Comment on above: Performed By: #### L IPID ####[facility] [address] [id number]. Derek Frankel VLDL CALC 52.4 mg/dL Normal [facility] Comment on above: Performed By: #### L IPID ####[facility] [address] [id number]. Derek Frankel XR ANKLE LT MIN 3 Von 2020 XR ANKLE LT MIN 3 V EXAM: Left ankle HISTORY: Pain for 2 days after a fall. TECHNIQUE: 3 views of the left ankle were obtained. FINDINGS: There is no evidence of fracture or dislocation. There are no suspicious bone lesions. There is a heel spur and a small tug enthesophyte at the insertion of the Achilles tendon. There is circumferential soft tissue swelling and a small joint effusion. IMPRESSION: No acute osseous injury. Circumferential soft tissue swelling with small joint effusion. Evidence of prior plantar fasciitis and Achilles tendinosis. Electronically authenticated by: HENRY MAST Date: 2021-08-12 08:21 Normal [facility] BASIC METABOLIC PANELon - Calcium [Mass/Vol] 9.2 mg/dL Normal 8.6-10.3 [facility] Comment on above: Order Comment: No: D o not add to previous draw Performed By: #### 1 0, 62222, 38972 #### [facility] [address] [place] [address], [place] Chloride [Moles/Vol] 96 mmol/L Low 98-107 [facility] Comment on above: Order Comment: No: D o not add to previous draw Performed By: #### 1 0, 58052, 29076 #### [facility] [address] [place] [address], [place] CO2 [Moles/Vol] 28 mmol/L Normal 21-31 [facility] Comment on above: Order Comment: No: D o not add to previous draw Performed By: #### 1 0, 81159, 74809 #### [facility] [address] [place] [address], [place] Creatinine [Mass/Vol] 0.73 mg/dL Normal 0.70-1.30 [facility] Comment on above: Order Comment: No: D o not add to previous draw Performed By: #### 1 0, 24146, 36259 #### [facility] [address] [place] [address], [place] GFR/1.73 sq M.predicted among blacks MDRD (S/P/Bld) [Vol rate/Area] mL/min/{1.73_m2} Normal >60 [facility] Comment on above: Order Comment: No: D o not add to previous draw Performed By: #### 1 0, 72066, 38114 #### [facility] [address] [place] [address], [place] GFR/1.73 sq M.predicted among non-blacks MDRD (S/P/Bld) [Vol rate/Area] mL/min/{1.73_m2} Normal >60 [facility] Comment on above: Order Comment: No: D o not add to previous draw Performed By: #### 1 0, 12495, 09856 #### [facility] [address] [place] [id number], [facility] Glucose [Mass/Vol] 290 mg/dL High 70-100 [facility] Comment on above: Order Comment: No: D o not add to previous draw Performed By: #### 1 0, 83214, 33150 #### [facility] [address] [place] [id number], [facility] Potassium [Moles/Vol] 4.3 mmol/L Normal 3.5-5.1 [facility] Comment on above: Order Comment: No: D o not add to previous draw Performed By: #### 1 0, 22289, 54695 #### [facility] [address] [place] [address], [facility] Sodium [Moles/Vol] 132 mmol/L Low 136-145 [facility] Comment on above: Order Comment: No: D o not add to previous draw Performed By: #### 1 0, 79392, 64113 #### [facility] [address] [place] [id number], [facility] Urea nitrogen [Mass/Vol] 13 mg/dL Normal 7-25 [facility] Comment on above: Order Comment: No: D o not add to previous draw Performed By: #### 1 0, 35187, 11969 #### [facility] [address] [place] [id number], [facility] CBC COMPLETE BLOOD COUNTon 0 6- Erythrocyte distribution width (RBC) [Ratio] 13.3 % Normal 11.5-15.0 [facility] Comment on above: Order Comment: No: D o not add to previous draw Performed By: #### 8 5499 #### [facility] [address] [place] [address], [facility] Hematocrit (Bld) [Volume fraction] 44.0 % Normal 39.0-50.0 [facility] Comment on above: Order Comment: No: D o not add to previous draw Performed By: #### 8 5499 #### [facility] [address] [place] [address], [facility] Hemoglobin (Bld) [Mass/Vol] 14.2 g/dL Normal 13.0-17.0 [facility] Comment on above: Order Comment: No: D o not add to previous draw Performed By: #### 8 5499 #### [facility] [address] [place] [id number], [facility] MCH (RBC) [Entitic mass] 28.6 pg Normal 27.0-33.0 [facility] Comment on above: Order Comment: No: D o not add to previous draw Performed By: #### 8 5499 #### [facility] [address] [place] [id number], [facility] MCHC (RBC) [Mass/Vol] 32.3 g/dL Normal 32.0-35.0 [facility] Comment on above: Order Comment: No: D o not add to previous draw Performed By: #### 8 5499 #### [facility] [address] [place] [id number], [facility] MCV (RBC) [Entitic vol] 88.7 fL Normal 82.0-98.0 [facility] Comment on above: Order Comment: No: D o not add to previous draw Performed By: #### 8 5499 #### [facility] [address] [place] [id number], [facility] Nucleated RBC/100 WBC (Bld) [Ratio] 0 % Normal 0-0 [facility] Comment on above: Order Comment: No: D o not add to previous draw Performed By: #### 8 5499 #### [facility] [address] [facility] [place] [address], [facility] PLAT CNT 228 10*3/uL Normal 150-400 [facility] Comment on above: Order Comment: No: D o not add to previous draw Performed By: #### 8 5499 #### [facility] [address] [facility] [place] [address], [facility] RBC (Bld) [#/Vol] 4.96 10*6/uL Normal 4.20-5.70 [facility] Comment on above: Order Comment: No: D o not add to previous draw Performed By: #### 8 5499 #### [facility] [address] [facility] [place] [address], [facility] WBC (Bld) [#/Vol] 11.47 10*3/uL High 4.00-10.60 [facility] Comment on above: Order Comment: No: D o not add to previous draw Performed By: #### 8 5499 #### [facility] [address] Cardiovascular Lab Reporton 03-04-2021 Cardiovascular Lab Report [facility] Patient Name: Ran Riley MR #: [id number] [facility] Physician: Ken Mukherjee M.D. Department of Service Date: 03/03/2021 Medicine Birthdate: 1965 Division of Room #: 3AB [id number] Cardiology Adult Cardiovascular Services [place] [address] Cardiovascular Laboratory Report INDICATION: The patient is a 55-year-old man who presented to the [facility] with chest pain and elevated cardiac enzymes. He was referred to our center for cardiac catheterization. PROCEDURE: 1. Bilateral selective coronary angiography from the right radial access. 2. Successful balloon angioplasty and drug-eluting stenting of 99% stenosis in the distal RCA as well as 100% occlusion of the ostial PDA with both reduced to 0% by deployment of a Synergy 2.75 x 20 mm drug-eluting stent post dilated to 3.0 mm at high pressures. 3. Administration of intracoronary nitroglycerin. METHODS: Procedure was explained to the patient with risks and benefits. He signed the informed consent. He was brought to cytology laboratory manager in a fasting state. The right wrist area was prepped and draped in usual fashion. Modified Sigifredo's test was favorable. Access in the right radial artery was obtained using micropuncture technique. A 6-Setswana x 11 cm Hydrophilic sheath was advanced. Verapamil was given through the sheath and heparin was administered intravenously. Bilateral selective coronary angiography was then performed using 6-Setswana JL3.5 and JR5 diagnostic catheters. Additional heparin was given as needed and therapeutic ACT confirmed during the rest of the procedure. A 6-Setswana JR4 guiding catheter was then advanced and used to engage the right coronary ostium. A Guided Surgery Solutionswater wire was advanced into the distal RCA and used to cross the 99% stenosis in the distal RCA as well as the 100% occlusion in the ostial PDA. Balloon angioplasty was performed using Emerge 2.5 x 15 mm balloon, inflated at 18 atmospheres with recanalization of the PDA. A Synergy 2.75 x 20 mm drug-eluting stent was then deployed covering both distal RCA and ostial PDA stenosis. This was deployed at 11 atmospheres and post dilated using NC Emerge 3.0 x 15 mm noncompliant balloon inflated at 20 atmospheres repeatedly. Angiography after administration of intracoronary nitroglycerin showed excellent result with reduction of the stenosis to 0%. No evidence of dissection or perforation. During angiography, there was inadvertent injection of air bubbles that was seen on fluoroscopy. The patient showed evidence of slight ST elevation on EKG that resolved immediately after placing the patient on high-flow oxygen. The episode was short-lived. Angiography was repeated confirming LIDA-3 flow in the right coronary artery and branches. The patient was hemodynamically stable with no chest pain and EKG returned promptly to baseline. Guiding catheter was removed. A TR band was used for hemostasis in the right radial artery. He was loaded with 600 mg of Plavix at the end of the procedure. He was transferred back to his room. TOTAL FLUORO TIME: 19 minutes. TOTAL AIR KERMA: 2511 mGy. TOTAL CONTRAST VOLUME: 215 mL. TOTAL SEDATION TIME: 83 minutes. HEMODYNAMICS: AO 106/76, mean 90. CORONARY ANGIOGRAPHY: This is a right dominant circulation. Left main: This arises from left coronary cusp. It bifurcates into left anterior descending and circumflex vessels. The left main has a 20% diffuse ostial to proximal stenosis. Left anterior descending: This has diffuse 30% mid segment stenosis. Circumflex vessel: This is large and nondominant. It gives rise to a moderate-sized 1st obtuse marginal branch, which has mild disease in the proximal segment. The circumflex in the mid segment has a tubular 60% stenosis. Right coronary artery: This arises from the right coronary cusp. It is a large and dominant vessel. It has mild diffuse disease throughout its proximal to mid segment. Distally, there is a 99% stenosis right before the bifurcation of PDA and PLV branches, following which the PDA branch appears to be occluded at its ostium with retrograde filling seen from the left coronary circulation. The distal RCA stenosis and ostial PDA occlusion were recanalized by balloon angioplasty and a Synergy drug-eluting stent. SUMMARY OF THE FINDINGS: 1. Severe single-vessel coronary artery disease. 2. 99% distal RCA stenosis and 100% occlusion of the ostial PDA, both were reduced to 0% by a Synergy drug-eluting stent. 3. 20% left main, 30% mid LAD, and 60% mid circumflex stenosis. RECOMMENDATIONS: 1. Aspirin and statin therapy for life. 2. Plavix therapy for a minimum of 1 year after acute CO and drug-eluting stenting. 3. Follow up in Cardiology Clinic. Electronically Signed by: Ken Mukherjee M.D. 03/08/2021 07:01 A (more content not included)... Normal [facility] MAGNESIUM BLOODon 03-04-2021 Magnesium [Mass/Vol] 1.7 mg/dL Low 1.9-2.7 [facility] Comment on above: Order Comment: No: D o not add to previous draw Performed By: #### 1 0070, 58891, 17171 #### [facility] [address] [place] [address], [facility] POC GLUCOSE LABon 03-04-2021 Glucose [Mass/Vol] 260 mg/dL High 70-100 [facility] Comment on above: Performed By: #### 8 3879 #### [facility] [address] [place] [address], [facility] Glucose [Mass/Vol] 252 mg/dL High 70-100 [facility] Comment on above: Performed By: #### 8 5499 #### [facility] [address] [place] [address], [facility] TROPONIN-Ion 03-04-2021 Troponin I.cardiac [Mass/Vol] 1.04 ng/mL Critically high 0.00-0.04 [facility] Comment on above: Order Comment: No: D o not add to previous draw Result Comment: M-ME EVIOUS CRITICAL RESULT REFERENCE RANGES: 0.00 - 0.04 ng/ml NORMAL 0.05 - 0.50 ng/ml INDETERMINATE > 0.50 ng/ml CONSISTENT WITH AN M.I. Performed By: #### 1 0070, 87700, 52842 #### [facility] [address] [facility] [place] [address], [facility] APTTon 03-03-2021 aPTT Coag (Bld) [Time] 27.1 s Normal 25.0-35.0 [facility] Comment on above: Order Comment: No: D o not add to previous draw Result Comment: ALL RESULTS MUST BE INTERPRETED WITH RESPECT TO BLOOD DRAWING ARTIFACT OR DILUTION ERROR OF ANTICOAGULANT AT THE TIME OF SAMPLING. THE APTT SHOULD NOT BE USED TO MONITOR UNFRACTIONATED HEPARIN THERAPY, THIS LABORATORY NO LONGER HAS AN ESTABLISHED THERAPEUTIC RANGE BASED ON THE APTT. IT IS RECOMMENDED THAT THE UFH - HEPARIN ASSAY (ANTI-XA ACTIVITY) BE USED FOR THIS PURPOSE. Performed By: #### 8 5499 #### [facility] [address] [facility]. [place] [id number], [facility] BASIC METABOLIC PANELon 02-15 Calcium [Mass/Vol] 9.4 mg/dL Normal 8.6-10.3 [facility] Comment on above: Order Comment: No: D o not add to previous draw Performed By: #### 9 9909, 12773, 03209, 78078 #### [facility] [address] [place] [address], [place] Chloride [Moles/Vol] 95 mmol/L Low 98-107 [facility] Comment on above: Order Comment: No: D o not add to previous draw Performed By: #### 9 9909, 17271, 95953, 83939 #### [facility] [address] [place] [address], [place] CO2 [Moles/Vol] 30 mmol/L Normal 21-31 [facility] Comment on above: Order Comment: No: D o not add to previous draw Performed By: #### 9 9909, 71569, 13123, 55462 #### [facility] [address] [place] [address], [place] Creatinine [Mass/Vol] 0.73 mg/dL Normal 0.70-1.30 [facility] Comment on above: Order Comment: No: D o not add to previous draw Performed By: #### 9 9909, 29309, 68250, 31608 #### [facility] [address] [place] [address], [place] GFR/1.73 sq M.predicted among blacks MDRD (S/P/Bld) [Vol rate/Area] mL/min/{1.73_m2} Normal >60 [facility] Comment on above: Order Comment: No: D o not add to previous draw Performed By: #### 9 9909, 70770, 85174, 12386 #### [facility] [address] [place] [address], [place] GFR/1.73 sq M.predicted among non-blacks MDRD (S/P/Bld) [Vol rate/Area] mL/min/{1.73_m2} Normal >60 [facility] Comment on above: Order Comment: No: D o not add to previous draw Performed By: #### 9 9909, 17976, 78961, 31728 #### [facility] [address] [place] [address], [place] Glucose [Mass/Vol] 169 mg/dL High 70-100 [facility] Comment on above: Order Comment: No: D o not add to previous draw Performed By: #### 9 9909, 51189, 06983, 41772 #### [facility] [address] [place] [address], [place] Potassium [Moles/Vol] 4.2 mmol/L Normal 3.5-5.1 [facility] Comment on above: Order Comment: No: D o not add to previous draw Performed By: #### 9 9909, 62084, 45094, 18834 #### [facility] [address] [place] [address], [place] Sodium [Moles/Vol] 133 mmol/L Low 136-145 [facility] Comment on above: Order Comment: No: D o not add to previous draw Performed By: #### 9 9909, 52760, 55125, 00753 #### [facility] [address] [place] [address], [facility] Urea nitrogen [Mass/Vol] 15 mg/dL Normal 7-25 [facility] Comment on above: Order Comment: No: D o not add to previous draw Performed By: #### 9 9909, 43985, 14467, 29220 #### [facility] [address] [place] [address], [facility] CBC COMPLETE BLOOD COUNTon 0 - Erythrocyte distribution width (RBC) [Ratio] 13.4 % Normal 11.5-15.0 [facility] Comment on above: Order Comment: No: D o not add to previous draw Performed By: #### 5 0608 #### [facility] [address] [place] [address], [place] Hematocrit (Bld) [Volume fraction] 43.2 % Normal 39.0-50.0 [facility] Comment on above: Order Comment: No: D o not add to previous draw Performed By: #### 5 0608 #### [facility] [address] [place] [address], [facility] Hemoglobin (Bld) [Mass/Vol] 14.2 g/dL Normal 13.0-17.0 [facility] Comment on above: Order Comment: No: D o not add to previous draw Performed By: #### 5 0608 #### [facility] [address] [place] [address], [facility] MCH (RBC) [Entitic mass] 28.8 pg Normal 27.0-33.0 [facility] Comment on above: Order Comment: No: D o not add to previous draw Performed By: #### 5 0608 #### [facility] [address] [facility] [place] [address], [facility] MCHC (RBC) [Mass/Vol] 32.9 g/dL Normal 32.0-35.0 [facility] Comment on above: Order Comment: No: D o not add to previous draw Performed By: #### 5 0608 #### [facility] [address] [place] [id number], [facility] MCV (RBC) [Entitic vol] 87.6 fL Normal 82.0-98.0 [facility] [facility] Comment on above: Order Comment: No: D o not add to previous draw Performed By: #### 5 [id number] #### [facility] [address] [place] [address], [facility] Nucleated RBC/100 WBC (Bld) [Ratio] 0 % Normal 0-0 [facility] Comment on above: Order Comment: No: D o not add to previous draw Performed By: #### 5 [id number] #### [facility] [address] [place] [address], [facility] PLAT CNT 239 10*3/uL Normal 150-400 [facility] Comment on above: Order Comment: No: D o not add to previous draw Performed By: #### 5 [id number] #### [facility] [address] [place] [id number], [facility] RBC (Bld) [#/Vol] 4.93 10*6/uL Normal 4.20-5.70 [facility] Comment on above: Order Comment: No: D o not add to previous draw Performed By: #### 5 [id number] #### [facility] [address] [place] [address], [place] WBC (Bld) [#/Vol] 11.12 10*3/uL High 4.00-10.60 [facility] Comment on above: Order Comment: No: D o not add to previous draw Performed By: #### 5 [id number] #### [facility] [address] [place] [address], [facility] HEMOGLOBIN A1Con 03-03-2021 Glucose [Moles/Vol] 286 mmol/L Normal [facility] Comment on above: Order Comment: Yes: Add to Previous draw if able Performed By: #### 3 1791 #### [facility] [address] [place] [address], [facility] HbA1c (Bld) [Mass fraction] 11.6 % High 4.0-6.0 [facility] Comment on above: Order Comment: Yes: Add to Previous draw if able Performed By: #### 3 1791 #### [facility] [address] [place] [address], [facility] LIPID PROFILEon 03-03-2021 Cholesterol [Mass/Vol] 163 mg/dL Normal 120-200 [facility] Comment on above: Result Comment: CHOL ESTEROL REFERENCE RANGE: 20 YEARS AND OLDER CARDIOVASCULAR RISK Less than 200 mg/dl Low Risk 200 to 239 mg/dl Borderline Risk 240 mg/dl and greater High Risk Performed By: #### 9 [id number], 41762, 80972, 90221 #### [facility] [address] [place] [address], [place] Cholesterol in HDL [Mass/Vol] 30 mg/dL Normal 23-92 [facility] Comment on above: Result Comment: Slig ht variation in normal range could be due to gender and/or age. HDL CHOLESTEROL REFERENCE RANGE: 20 years and older Cardiovascular Risk > or =60 mg/dL Desirable 40 TO 59 mg/dL Low Risk <40 mg/dL High Risk Performed By: #### 9 [id number], 08704, 56303, 67473 #### [facility] [address] [place] [address], [place] Cholesterol in LDL [Mass/Vol] 66 mg/dL Normal 0-130 [facility] Comment on above: Result Comment: LDL IS A CALCULATION LDL IS ONLY VALID IF THE TRIG IS LESS THAN 400. Performed By: #### 9 9909, 22944, 25443, 38492 #### [facility] [address] [place] [address], [facility] Cholesterol.total/C holesterol in HDL [Mass ratio] 5.4 {ratio} High 0.0-4.5 [facility] Comment on above: Performed By: #### 9 99, 42302, 45426, 25600 #### [facility] [address] [place] [address], [place] NON-HDL CHOLESTEROL 133 mg/dL Normal [facility] Comment on above: Performed By: #### 9 99, 07153, 92133, 89087 #### [facility] [address] [place] [address], [place] Triglyceride [Mass/Vol] 333 mg/dL High 40-149 [facility] Comment on above: Result Comment: TRIG LYCERIDE REFERENCE RANGE: 20 YEARS AND OLDER CARDIOVASCULAR RISK LESS THAN 150 mg/dl LOW RISK 150 TO 199 mg/dl BORDERLINE RISK 200 mg/dl AND GREATER HIGH RISK Performed By: #### 9 9909, 55476, 14591, 15236 #### [facility] [address] [place] [address], [place] VLDL CHOL 67 mg/dL High 0-40 [facility] Comment on above: Performed By: #### 9 9909, 57273, 82842, 51043 #### [facility] [address] [place] [address], [place] LIVER BATTERYon 03-03-2021 Albumin [Mass/Vol] 4.0 g/dL Normal 3.5-5.7 [facility] Comment on above: Order Comment: No: D o not add to previous draw Performed By: #### 9 9909, 29932, 23452, 49538 #### [facility] [address] [place] [address], [place] ALKALINE PHOSPH 96 IU/L Normal 34-104 [facility] Comment on above: Order Comment: No: D o not add to previous draw Performed By: #### 9 9909, 53494, 71335, 92445 #### [facility] [address] [place] [address], [place] ALT [Catalytic activity/Vol] 20 U/L Normal 7-52 [facility] Comment on above: Order Comment: No: D o not add to previous draw Performed By: #### 9 9909, 90996, 52164, 06144 #### [facility] [address] [place] [address], [place] AST [Catalytic activity/Vol] 19 U/L Normal 13-39 [facility] Comment on above: Order Comment: No: D o not add to previous draw Performed By: #### 9 9909, 56558, 07455, 51435 #### [facility] [address] [place] [address], [place] Bilirubin [Mass/Vol] 0.7 mg/dL Normal 0.3-1.0 [facility] Comment on above: Order Comment: No: D o not add to previous draw Performed By: #### 9 9909, 33559, 92546, 15974 #### [facility] [address] [place] [address], [place] Bilirubin.direct [Mass/Vol] 0.1 mg/dL Normal 0.0-0.2 [facility] Comment on above: Order Comment: No: D o not add to previous draw Performed By: #### 9 9909, 11683, 71620, 37320 #### [facility] [address] [place] [address], [facility] Protein [Mass/Vol] 6.7 g/dL Normal 6.0-8.3 [facility] Comment on above: Order Comment: No: D o not add to previous draw Performed By: #### 9 9909, 41398, 28349, 80821 #### [facility] [address] [place] [address], [facility] TROPONIN-Ion 03-03-2021 Troponin I.cardiac [Mass/Vol] 1.12 ng/mL Critically high 0.00-0.04 [facility] Comment on above: Order Comment: No: D o not add to previous draw Result Comment: M-TR OPONIN INITIAL CRITICAL HIGH; RESPUN AND RETESTED M-CRITICAL RESULT(S) REVIEWED, CALLED TO AND READ BACK BY Adriana Phelan RN at 1930. REFERENCE RANGES: 0.00 - 0.04 ng/ml NORMAL 0.05 - 0.50 ng/ml INDETERMINATE > 0.50 ng/ml CONSISTENT WITH AN M.I. Performed By: #### 8 [id number] #### [facility] [address] UFH HEPARIN ASSAYon 03-03-20 21 UNFRACTIONATED HEPARIN <0.10 Critically low 0.30-0.70 [facility] Comment on above: Result Comment: Mikki roxaban and Apixaban will interfere with the anti Xa assay used to monitor UFH and LMWH. RESULTS CHECKED AND CALLED. ACCURATELY READ BACK BY kevan sauceda r.n. 2056 Performed By: #### 8 5499 #### [facility] [address] Vital Signs Date Time Vital Sign Value Performing Clinician Facility 07-23-2024 13:34-0500 Blood Pressure Location Henry MOJICA [facility] 07-23-2024 13:34-0500 Diastolic blood pressure 66 mm[Hg] Henry NILL [facility] 07-23-2024 13:34-0500 Heart rate 68 /min Henry NILL [facility] 07-23-2024 13:34-0500 Respiratory rate 16 /min Henry NILL [facility] 07-23-2024 13:34-0500 Systolic blood pressure 116 mm[Hg] Henry NILL [facility] 06-24-2024 08:17-0400 Body height 177.8 cm [facility] 06-24-2024 08:17-0400 Body mass index (BMI) [Ratio] 39.2 kg/m2 [facility] 06-24-2024 08:17-0400 Body weight 123.94 kg [facility] 06-24-2024 08:17-0400 Diastolic blood pressure 80 mm[Hg] [facility] 06-24-2024 08:17-0400 Heart rate 73 /min [facility] 06-24-2024 08:17-0400 Respiratory rate 16 /min [facility] 06-24-2024 08:17-0400 SaO2% (BldA) [Mass fraction] 98 % [facility] 06-24-2024 08:17-0400 Systolic blood pressure 118 mm[Hg] [facility] 07-02-2023 13:41-0400 Blood Pressure Location Pedrito QUINTERO [facility] 07-02-2023 13:41-0400 Diastolic blood pressure 87 mm[Hg] Pedrito QUINTERO [facility] 07-02-2023 13:41-0400 Heart rate 80 /min Pedrito QUINTERO [facility] 07-02-2023 13:41-0400 Respiratory rate 16 /min Pedrito QUINTERO [facility] 07-02-2023 13:41-0400 Systolic blood pressure 141 mm[Hg] Pedrito QUINTERO [facility] 07-02-2023 09:00-0400 Body height 177.8 cm Angela Kaplan Other [facility] [employer] Other 07-02-2023 09:00-0400 Body mass index (BMI) [Ratio] 40.69 kg/m2 Angela Kaplan Other [facility] Other 07-02-2023 09:00-0400 Body weight 128.64 kg Angela Kaplan Other [facility] Other 07-02-2023 09:00-0400 Diastolic blood pressure 75 mm[Hg] Angela Kaplan Other [facility] Other 07-02-2023 09:00-0400 Systolic blood pressure 111 mm[Hg] Angela Kaplan Other [facility] Other 05-28-2023 08:45-0400 Body height 177.8 cm Angela Kaplan Other [facility] Other 05-28-2023 08:45-0400 Body mass index (BMI) [Ratio] 41 kg/m2 Angela Kaplan Other [facility] Other 05-28-2023 08:45-0400 Body weight 129.64 kg Angela Kaplan Other [facility] Other 05-28-2023 08:45-0400 Diastolic blood pressure 76 mm[Hg] Angela Kaplan Other [facility] [employer] Other 05-28-2023 08:45-0400 Respiratory rate 16 /min Angela Kaplan Other [facility] Other 05-28-2023 08:45-0400 Systolic blood pressure 109 mm[Hg] Angela Kaplan Other [facility] Other 07-03-2022 12:18-0400 Body temperature 97.7 [degF] [facility] 07-03-2022 12:18-0400 Diastolic blood pressure 72 mm[Hg] [facility] 07-03-2022 12:18-0400 Heart rate 88 /min [facility] 07-03-2022 12:18-0400 Respiratory rate 18 /min [facility] 07-03-2022 12:18-0400 SaO2% (BldA) [Mass fraction] 93 % [facility] 07-03-2022 12:18-0400 Systolic blood pressure 147 mm[Hg] [facility] Encounters Encounter Date Encounter Type Care Provider Facility Start: 12-22-2024 End: 12-22-2024 ambulatory [facility] Start: 09-02-2024 ambulatory [facility] Start: 07-23-2024 End: 07-23-2024 ambulatory ANGELA KAPLAN Facility:[facility] Start: 07-23-2024 End: 07-23-2024 Patient encounter procedure Henry MOJICA [facility] [place] Start: 07-21-2024 ambulatory ANGELA KAPLAN Facility:[facility] Start: 06-26-2024 ambulatory ANGELA KAPLAN Facility:[facility] Start: 06-24-2024 Patient encounter status [facility] Start: 06-24-2024 End: 06-24-2024 ambulatory [facility] Work Phone: Start: 06-24-2024 End: 06-24-2024 Encounter for general adult medical examination without abnormal findings [facility] Start: 06-24-2024 End: 06-24-2024 Patient encounter procedure [facility] Work Phone: Start: 01-11-2024 End: 01-11-2024 ambulatory [facility] Start: 08-30-2023 End: 08-30-2023 ambulatory Angela Kaplan Other [facility] Other Start: 08-30-2023 Telephone encounter Angela Kaplan [facility] Start: 07-02-2023 End: 07-02-2023 ambulatory Angela Kaplan Other [facility] Other Start: 07-02-2023 Office outpatient vi sit 15 minutes Angela Kaplan [facility] Start: 07-02-2023 End: 07-02-2023 Patient encounter procedure Pedrito QUINTERO [facility] Start: 06-06-2023 End: 06-06-2023 ambulatory Angela Kaplan Other [facility] Other Start: 06-06-2023 Telephone encounter Angela Kaplan [facility] Start: 05-28-2023 End: 05-28-2023 ambulatory Angela Kaplan Other [facility] Other Start: 05-28-2023 Office outpatient vi sit 25 minutes Angela Kaplan [facility] Start: 07-05-[address] ANGELA KAPLAN [facility] ity:[facility]1 Start: 07-03-2022 End: 07-03-2022 Emergency department patient visit [facility] Start: 05-26-2022 End: 05-27-2022 ambulatory WILFREDCOCO MARCIAL Facility:[facility] Start: 05-25-2022 End: 05-26-[address] KEN MUKHERJEE Facility:[facility] Start: 02-16-[address] KEN MUKHERJEE Fac ility:[facility] Start: 08-30-2021 End: 08-31-[address] KEN MUKHERJEE Facility:[facility] Start: 08-12-2021 End: 08-12-[address] ANGELA KAPLAN Facility:[facility] Start: 03-03-2021 End: 03-04-2021 Evaluation and management of inpatient REJI YUN Facility:[facility] Procedures Date Procedure Procedure Detail Performing Clinician Start: 03-03-2021 DILATION OF 1 COR AR T WITH DRUG-ELUT INTRA, PERC APPROACH KEN MUKHERJEE Start: 03-03-2021 FLUOROSCOPY OF MULT COR ART USING L OSM CONTRAST KEN MUKHERJEE Start: 03-03-2021 MEASURE OF CARDIAC S AMPL \T\ PRESSURE, L HEART, PERC APPROACH KEN MUKHERJEE Start: 03-03-2021 ULTRASONOGRAPHY OF R IGHT AND LEFT HEART, TRANSESOPHAGEAL SAMER J ADRIANNA Appendectomy [facility] Comment on above: 2005 Cardiac catheterization Vladimir MOJICA Coronary artery sten t (physical object) Pedrito QUINTERO Plan of Treatment Date Care Activity Detail Author Start: 06-24-2024 Patient referral [facility] Work Phone: Comprehensive metabo lic 2000 panel - Serum or Plasma [facility] Microalbumin [Mass/v olume] in Urine [facility] Patient referral [facility] Work Phone: [facility] Immunizations Immunization Date Immunization Notes Care Provider Lu nugent 06-27-2021 SARS-CoV-2 (COVID-19 ) mRNA-1273 vaccine Henry MOJICA [facility] [place] 05-28-2021 SARS-CoV-2 (COVID-19 ) mRNA-1273 vaccine Henry MOJICA [facility] [place] Payers Date Payer Category Payer Unknown [id number] 47 1966 Unknown [id number] 93 1966 Unknown [id number] 93 1966 Unknown [id number] 93 1966 Unknown [id number] 93 1966 Unknown [id number] 93 1966 Unknown [id number] 93 1966 Unknown [id number] 27 1966 Unknown [id number] 27 1959 Self-pay [id number] 1959 Unknown [id number] Worker's Compensation [employer] Misc [id number] Social History Date Type Detail Facility Tobacco smoking status [facility] Sex Assigned At Male [facility] Start: 07-02-2023 End: 07-23-2024 Tobacco smoking status Never smoked tobacco (finding) [facility] Tobacco smoking status Never [facility] Start: 1965 Sex Assigned At Male [facility] Functional Status Date Assessment Result Facility 07-23-2024 Functional Status N/A [facility] 07-02-2023 Functional Status N/A [facility] 07-03-2022 Functional Status N/A [facility] Clinical Notes 03-07-2021 to 12-22-2024 Note Date & Type Note Facility 12-22-2024 Note [facility] Subjective Ran Riley is a 59 y.o. year old male patient being seen for 1 year follow up. Echo not done. Patient states he is feel good other than seasonal allergies have kicked in. Denies chest pain, palpitation, abnormal bleeding/bruising. Leg swelling while standing at work, and dyspnea on exertion. Patient Active Problem List Diagnosis Other abscess of pharynx Coronary atherosclerosis H/O non-ST elevation myocardial infarction (NSTEMI) Diabetes mellitus (CMS/HCC) Essential hypertension History of percutaneous coronary intervention Back pain DDD (degenerative disc disease), lumbar High cholesterol Sprain of lumbar region Family History Problem Relation Name Age of Onset Stroke Mother Cancer Father Social History Tobacco Use Smoking status: Never Passive exposure: Never Smokeless tobacco: Former Types: Snuff Substance Use Topics Alcohol use: Never Drug use: Never HPI Ran is seen in follow-up. He is a 59-year-old man who was admitted with NSTEMI in February 2021 and underwent PCI to the RCA and ostial PDA using a drug-eluting stent. At that time he had mild to moderate disease in the left coronary system. He has not required any intervention since the procedure. He has not had any cardiac testing since the procedure. PMHx: CAD with CO s/p PCI RCA 03/03/21, HTN, DM type II, obesity I last saw him on 01/11/2024 and I had ordered an cardiogram but this has not been done. At that visit I also reduce lisinopril from 40 mg daily to 30 mg daily due to low blood pressure. I also stopped Plavix given that it had been 3 years since the ACS and SANDEEP. Today he reports that he has been free from chest pain. He does have shortness of breath on going up 3 flights of stairs at work. He says that this has been stable. He has mild occasional lower extremity edema. No palpitations. No dizziness or lightheadedness. His blood pressure has been well-controlled. Review of Systems Constitutional: Negative. Cardiovascular: Positive for dyspnea on exertion and leg swelling (while standing at work). Negative for chest pain, claudication, cyanosis, irregular heartbeat, near-syncope, orthopnea, palpitations, paroxysmal nocturnal dyspnea and syncope. All other systems reviewed and are negative. Objective Visit Vitals BP 110/78 (BP Location: Left arm, Patient Position: Sitting) Pulse 84 Ht 1.778 m (5' 10 ) Wt 118 kg (260 lb) SpO2 93% BMI 37.31 kg/m??? Smoking Status Never BSA 2.41 m??? Physical Exam Constitutional: Appearance: He is well-developed. He is obese. He is not ill-appearing. HENT: Head: Normocephalic and atraumatic. Nose: Nose normal. Eyes: General: No scleral icterus. Pupils: Pupils are equal, round, and reactive to light. Neck: Thyroid: No thyromegaly. Vascular: No JVD. Cardiovascular: Rate and Rhythm: Normal rate and regular rhythm. Pulses: Radial pulses are 2+ on the right side and 2+ on the left side. Heart sounds: Normal heart sounds. No murmur heard. No friction rub. No gallop. Pulmonary: Effort: Pulmonary effort is normal. No respiratory distress. Breath sounds: Normal breath sounds. No wheezing or rales. Chest: Chest wall: No tenderness. Abdominal: General: Bowel sounds are normal. There is no distension. Palpations: Abdomen is soft. Tenderness: There is no abdominal tenderness. Musculoskeletal: General: No swelling. Cervical back: Neck supple. Skin: General: Skin is warm and dry. Neurological: General: No focal deficit present. Mental Status: He is alert and oriented to person, place, and time. Psychiatric: Mood and Affect: Mood normal. Behavior: Behavior is cooperative. Judgment: Judgment normal. Allergies No Known Allergies Medications Current Outpatient Medications: allopurinol (Zyloprim) 300 mg tablet, Take 300 mg by mouth in the morning., Disp: , Rfl: aspirin 81 mg chewable tablet, aspirin 81 mg chewable tablet TAKE ONE TABLET BY MOUTH EVERY DAY, Disp: , Rfl: cetirizine (ZyrTEC) 10 mg tablet, Take 10 mg by mouth in the morning., Disp: , Rfl: cholecalciferol (Vitamin D3) 25 MCG (1000 units) tablet, Take 2,000 Units by mouth in the morning., Disp: , Rfl: ezetimibe (Zetia) 10 mg tablet, TAKE 1 TABLET DAILY DIRECTED, Disp: 90 tablet, Rfl: 3 glipiZIDE XL (Glucotrol XL) 10 mg 24 hr tablet, glipizide ER 10 mg tablet, extended release 24 hr TK 1 T PO QD AT NOON, Disp: , Rfl: lisinopril 30 mg tablet, Take 1 tablet (30 mg) by mouth in the morning., Disp: 90 tablet, Rfl: 3 metFORMIN (Glucophage) 500 mg tablet, Take 500 mg by mouth in the morning and at bedtime., Disp: , Rfl: metoprolol tartrate (Lopressor) 25 mg tablet, TAKE 1 TABLET IN THE MORNING AND AT BEDTIME, Disp: 180 tablet, Rfl: 3 simvastatin (Zocor) 40 mg tablet, TAKE 1 TABLET AT BEDTIME, Disp: 90 tablet, Rfl: 3 Tresiba FlexTouch U-100 100 unit/mL (3 mL) injection, , D (more content not included)... [facility] 07-23-2024 Note General Surgery Offi ce/Clinic Note Chief Complaint consultation for scalp cyst HPI Staff 58 year old male presents on consultation from Dr. Kaplan for posterior scalp cyst. Reports noting hard nodule at base of neck approximately one year ago. Denies change in size since first noted. Reports recent episode of increased pain. He squeezed area with minimal serous drainage. Patient on Plavix for history of coronary artery stent. History of Present Illness 58 yo male with h/o CAD, CO, cardiac stenting, DMII, htn, hypercholesterolemia, MARNI, referred for enlarging scalp cyst; present for 1 year, got sore and patient tried to squeeze it, only serous drainage; no pain currently, increasing in size. on Plavix and baby asa daily, no NSAID use; no tobacco use. Review of Systems PHQ Score Initial Depression Screen Score: 0 SCORE ROS - Provider Constitutional: no fever, no sweats, no weight loss. Eyes: no glasses, no blurred vision, no visual loss. ENMT: no dentures, no hoarseness, no swallowing difficulties, no hearing loss, no ear infection(s), no nose bleeds. Cardiovascular: normal blood pressure, no chest pain, regular heartbeat, no heart murmur. Respiratory: no shortness of breath, no cough, no asthma, no wheezing. Gastrointestinal: no nausea, no vomiting, no diarrhea, no constipation, no blood in stool, no change in bowel habits, no abdominal pain, no hepatitis. Genitourinary: no kidney stones, no urine infection, no dysuria. Musculoskeletal: no pain, no weakness. Skin: no changing moles, no rash, yes skin lumps. Neurologic: no seizures, no epilepsy, no headache. Psychiatric: no emotional or psychiatric problem. Heme/Lymph: no bleeding problems, no anemia, no blood clots, no transfusions. Allergy/Immunologic: no swollen lymph nodes/glands, no IV drug abuse. Other: Additional ROS info: Except as noted in the above Review of Systems and in the History of Present Illness, all other systems have been reviewed and are negative or noncontributory. Physical Exam Vitals & Measurements HR: 68(Peripheral) RR: 16 BP: 116/66 HT: 70 in HT: 178 cm WT: 126 kg WT: 277.2 lb BMI: 39.77 HEENT: normal conjunctiva, sclera clear, no scleral icterus, EOM intact, PERRLA, oral mucosa moist without lesions. Neck: trachea midline, no mass, symmetric, no thyromegaly or nodules, no adenopathy Respiratory: lungs CTA, respirations non labored. Cardiovascular: regular rate and rhythm, no murmur, no pedal edema or varicosities. Musculoskeletal: normal gait, digits and nails without infection, nodes, cyanosis, clubbing. Skin: no rashes, no lesions, no ulcers, 2.5 cm mid occipital cyst, firm, no erythema or drainage Psychiatric/Neuro: oriented to time, place, person, judgement normal, affect appropriate for age, insight intact, no focal deficits. Tests: review of old records completed , Discussed surgical options, risks, and possible complications with patient. Assessment/Plan 1. Pilar cyst of scalp (L72.11: Pilar cyst) plan excisional biopsy under local anesthesia at [facility], informed consent obtained. Follow-up No qualifying data available Problem List/Past Medical History Ongoing Acute non-ST segment elevation myocardial infarction BMI 39.0-39.9,adult Class 3 obesity Coronary atherosclerosis Gout Heart disease HTN (hypertension) Kidney stone MARNI (obstructive sleep apnea) Pilar cyst of scalp Pure hypercholesterolemia Type 2 diabetes mellitus Historical Gout Hypercholesterolemia Hypertension Testicular pain, right Procedure/Surgical History Appendectomy, Cardiac catheterization, Coronary artery stent. Medications allopurinol 300 mg Tab, 300 mg= 1 tab(s), Oral, Daily aspirin 81 mg Oral EC Tab, 81 mg= 1 tab(s), Oral, Daily clopidogrel 75 mg Tab, 75 mg= 1 tab(s), Oral, Daily lisinopril 30 mg Tab, 30 mg= 1 tab(s), Oral, Daily Lopressor 25 mg oral tablet, 25 mg= 1 tab(s), Oral, Daily metformin 500 mg Tab, 500 mg= 1 tab(s), Oral, BID simvastatin 40 mg Tab, 40 mg= 1 tab(s), Oral, qPM Tresiba FlexTouch 100 units/mL subcutaneous solution, 10 unit(s), SubCutaneous, Daily Zetia 10 mg Tab, 10 mg= 1 tab(s), Oral, Daily Allergies No Known Allergies No Known Medication Allergies Social History Alcohol - Denies Alcohol Use, 01/26/2015 Never., 07/18/2024 Substance Abuse - Denies Substance Abuse, 01/26/2015 Never., 07/18/2024 Tobacco - Denies Tobacco Use, 01/26/2015 Never (less than 100 in lifetime) Tobacco Use:. Smokeless tobacco user within last 30 days Smokeless Tobacco Use:. Oral, Yes, 07/23/2024 Family History Heart disease: Mother and Father. Hypertension: Mother and Father. Immunizations Vaccine Date Status SARS-CoV-2 (COVID-19) mRNA-1273 vaccine 06/27/2021 Recorded SARS-CoV-2 (COVID-19) mRNA-1273 vaccine 05/28/2021 Recorded [facility] Comment on above: Result Comment: Elec tronically Signed By: MAGALY REED, Henry Faustin\Date and Time Signed: 07/23/24 14:24 EST 01-11-2024 Note [place] [facility] Subjective Ran Riley is a 58 y.o. year old male patient being seen for Follow-up (6 months) Patient Active Problem List Diagnosis Other abscess of pharynx Coronary atherosclerosis H/O non-ST elevation myocardial infarction (NSTEMI) Diabetes mellitus (CMS/HCC) Essential hypertension History of percutaneous coronary intervention Back pain DDD (degenerative disc disease), lumbar High cholesterol Sprain of lumbar region Family History Problem Relation Name Age of Onset Stroke Mother Social History Tobacco Use Smoking status: Never Passive exposure: Never Smokeless tobacco: Former Types: Snuff Substance Use Topics Alcohol use: Never Drug use: Never HPI Ran is seen in follow-up. He is a 58-year-old man who was admitted with NSTEMI in February 2021 and underwent PCI to the RCA and ostial PDA using a drug-eluting stent. At that time he had mild to moderate disease in the left coronary system. He has not required any intervention since the procedure. He has not had any cardiac testing since the procedure. PMHx: CAD with CO s/p PCI RCA 03/03/21, HTN, DM type II, obesity He is doing well with no chest pain, no shortness of breath. No palpitations and no leg edema. He is taking medications as prescribed. No bleeding issues. His blood pressure today is low. He does not feel dizzy or lightheaded. Review of Systems Cardiovascular: Negative. Negative for chest pain, claudication, cyanosis, dyspnea on exertion, irregular heartbeat, leg swelling, near-syncope, orthopnea, palpitations, paroxysmal nocturnal dyspnea and syncope. Objective Visit Vitals BP 98/62 (BP Location: Left arm, Patient Position: Sitting, BP Cuff Size: Adult) Pulse 73 Resp 16 Ht 1.778 m (5' 10 ) Wt 126 kg (277 lb 6.4 oz) SpO2 93% BMI 39.80 kg/m??? Smoking Status Never BSA 2.49 m??? Physical Exam Constitutional: Appearance: He is well-developed. He is obese. He is not ill-appearing. HENT: Head: Normocephalic and atraumatic. Nose: Nose normal. Eyes: General: No scleral icterus. Pupils: Pupils are equal, round, and reactive to light. Neck: Thyroid: No thyromegaly. Vascular: No JVD. Cardiovascular: Rate and Rhythm: Normal rate and regular rhythm. Pulses: Radial pulses are 2+ on the right side and 2+ on the left side. Heart sounds: Normal heart sounds. No murmur heard. No friction rub. No gallop. Pulmonary: Effort: Pulmonary effort is normal. No respiratory distress. Breath sounds: Normal breath sounds. No wheezing or rales. Chest: Chest wall: No tenderness. Abdominal: General: Bowel sounds are normal. There is no distension. Palpations: Abdomen is soft. Tenderness: There is no abdominal tenderness. Musculoskeletal: General: No swelling. Cervical back: Neck supple. Skin: General: Skin is warm and dry. Neurological: General: No focal deficit present. Mental Status: He is alert and oriented to person, place, and time. Psychiatric: Mood and Affect: Mood normal. Behavior: Behavior is cooperative. Judgment: Judgment normal. Allergies No Known Allergies Medications Current Outpatient Medications: allopurinol (Zyloprim) 300 mg tablet, Take 300 mg by mouth in the morning., Disp: , Rfl: aspirin 81 mg chewable tablet, aspirin 81 mg chewable tablet TAKE ONE TABLET BY MOUTH EVERY DAY, Disp: , Rfl: cetirizine (ZyrTEC) 10 mg tablet, Take 10 mg by mouth in the morning., Disp: , Rfl: cholecalciferol (Vitamin D3) 25 MCG (1000 units) tablet, Take 2,000 Units by mouth in the morning., Disp: , Rfl: clopidogrel (Plavix) 75 mg tablet, Take 1 tablet (75 mg) by mouth in the morning., Disp: 90 tablet, Rfl: 3 ezetimibe (Zetia) 10 mg tablet, Take 1 tablet (10 mg) by mouth once daily as directed., Disp: 90 tablet, Rfl: 3 glipiZIDE XL (Glucotrol XL) 10 mg 24 hr tablet, glipizide ER 10 mg tablet, extended release 24 hr TK 1 T PO QD AT NOON, Disp: , Rfl: metFORMIN (Glucophage) 500 mg tablet, Take 500 mg by mouth in the morning and at bedtime., Disp: , Rfl: metoprolol tartrate (Lopressor) 25 mg tablet, Take 1 tablet (25 mg) by mouth in the morning and at bedtime., Disp: 180 tablet, Rfl: 3 simvastatin (Zocor) 40 mg tablet, Take 1 tablet (40 mg) by mouth at bedtime., Disp: 90 tablet, Rfl: 3 Levemir FlexPen 100 unit/mL (3 mL) pen, INJECT 10 UNITS UNDER THE SKIN DAILY, Disp: , Rfl: lisinopril 30 mg tablet, Take 1 tablet (30 mg) by mouth in the morning., Disp: 90 tablet, Rfl: 3 Tresiba FlexTouch U-100 100 unit/mL (3 mL) injection, , Disp: , Rfl: Recent Labs No visits with results within 6 Month(s) from this visit. Latest known visit with results is: [facility] on 03/04/2021 Component Date Value Glucose POC 03/04/2021 260 (H) Blood testing 05/30/23: CBC stable, BUN 18, CR 0.77- normal, K+ 4.3 LFT normal, Chol 125, Trig 188, HDL 37, LDL 51, A1C 11.4 Lipids 03/03/2021: Cholesterol 163, trig 333, HD (more content not included)... [facility] 07-02-2023 Hospital Discharge instructions Patient Education 07/02/2023 14:43:30 How to Take a Sitz Bath How to Take a Sitz Bath A sitz bath is a warm water bath that may be used to care for your rectum, genital area, or the area between your rectum and genitals (perineum). In a sitz bath, the water only comes up to your hips and covers your buttocks. A sitz bath may be done in a bathtub or with a portable sitz bath that fits over the toilet. Your health care provider may recommend a sitz bath to help: Relieve pain and discomfort after delivering a baby. Relieve pain and itching from hemorrhoids or anal fissures. Relieve pain after certain surgeries. Relax muscles that are sore or tight. How to take a sitz bath Take 3 4 sitz baths a day, or as many as told by your health care provider. Bathtub sitz bath To take a sitz bath in a bathtub: 1.Partially fill a bathtub with warm water. The water should be deep enough to cover your hips and buttocks when you are sitting in the tub. 2.Follow your health care provider's instructions if you are told to put medicine in the water. 3.Sit in the water. Open the tub drain a little, and leave it open during your bath. 4.Turn on the warm water again, enough to replace the water that is draining out. Keep the water running throughout your bath. This helps keep the water at the right level and temperature. 5.Soak in the water for 15 20 minutes, or as long as told by your health care provider. 6.When you are done, be careful when you stand up. You may feel dizzy. 7.After the sitz bath, pat yourself dry. Do not rub your skin to dry it. Rvmu-knj-otnypi sitz bath To take a sitz bath with an jycz-lll-pynkhs basin: 1.Follow the manager fitness's instructions. 2.Fill the basin with warm water. 3.Follow your health care provider's instructions if you were told to put medicine in the water. 4.Sit on the seat. Make sure the water covers your buttocks and perineum. 5.Soak in the water for 15 20 minutes, or as long as told by your health care provider. 6.After the sitz bath, pat yourself dry. Do not rub your skin to dry it. 7.Clean and dry the basin between uses. 8.Discard the basin if it cracks, or according to the manager fitness's instructions. Contact a health care provider if: Your pain or itching gets worse. Do not continue with sitz baths if your symptoms get worse. You have new symptoms. Do not continue with sitz baths until you talk with your health care provider. Summary A sitz bath is a warm water bath in which the water only comes up to your hips and covers your buttocks. A sitz bath may help relieve pain and discomfort after delivering a baby. It also may help with pain and itching from hemorrhoids or anal fissures, or pain after certain surgeries. It can also help to relax muscles that are sore or tight. Take 3 4 sitz baths a day, or as many as told by your health care provider. Soak in the water for 15 20 minutes. Do not continue with sitz baths if your symptoms get worse. This information is not intended to replace advice given to you by your health care provider. Make sure you discuss any questions you have with your health care provider. Document Revised: 05/17/2021 Document Reviewed: 05/19/2021 [employer] Patient Education 2022 [email or web address]. Follow Up Care 07/02/2023 09:18:48 With:INGRID REED, Pedrito Arreaga, URL Address: [facility] [address] , [place] [address]- When: Unknown Comments:Will call pt pending CT results. [facility] 07-02-2023 Evaluation note Encounter Date Diagnosis Assessment Notes Jun, Absence of testicle in scrotum (ICD-10 - Q55.0) Diagnose based on patient's report. He states this has been a problem for a month. When he was here 1 month ago, he talked about R lumbar pain radiating to his abd. I called [facility] and they will see him today at 1:15. Notes faxed over. 16 Jun, 2023 Type 2 diabetes mellitus with hyperglycemia (ICD-10 - E11.65) Glucose 226 fasting. Increase insulin to 25 units. [facility] 09-11-2023 Evaluation note* Encounter Date Diagnosis Assessment Notes Treatment Notes Treatment Clinical Notes May, Right flank pain (ICD-10 - R10.9) Discussed options of CT v. KUB. With his insurance, he opts for KUB. Will also assess UA for hematuria to r/o kidney stone. May, Controlled type 2 diabetes mellitus with hyperglycemia (ICD-10 - E11.65) Handwrote order for new glucometer Check A1C Healthy diet and exercise encouraged. Weight loss helps to reduce blood sugars and A1C. Wear supportive shoes, avoid open toed shoes. Check feet daily. May, Essential hypertension (ICD-10 - I10) Low sodium (2gm) diet was advised. Limit caffeine. Routine CV exercise also recommended Will have labs also sent to [facility] who he sees next month. May, Prostate cancer screening (ICD-10 - Z12.5) [facility] 10-17-2022 Hospital Discharge instructions Patient Education 07/03/2022 13:34:22 Concussion, Adult, Ksfo-tw-Fitg Concussion, Adult A concussion is a brain injury from a hard, direct hit (trauma) to your head or body. This direct hit causes the brain to quickly shake back and forth inside the skull. A concussion may also be called a mild traumatic brain injury (TBI). Healing from this injury can take time. What are the causes? This condition is caused by: A direct hit to your head, such as: ?Running into a player during a game. ?Being hit in a fight. ?Hitting your head on a hard surface. A quick and sudden movement (jolt) of the head or neck, such as in a car crash. What are the signs or symptoms? The signs of a concussion can be hard to notice. They may be missed by you, family members, and doctors. You may look fine on the outside but may not act or feel normal. Physical symptoms Headaches. Being tired (fatigued). Being dizzy. Problems with body balance. Problems seeing or hearing. Being sensitive to light or noise. Feeling sick to your stomach (nausea) or throwing up (vomiting). Not sleeping or eating as you used to. Loss of feeling (numbness) or tingling in the body. Seizure. Mental and emotional symptoms Problems remembering things. Trouble focusing your mind (concentrating), organizing, or making decisions. Being slow to think, act, react, speak, or read. Feeling grouchy (irritable). Having mood changes. Feeling worried or nervous (anxious). Feeling sad (depressed). How is this treated? This condition may be treated by: Stopping sports or activity if you are injured. If you hit your head or have signs of concussion: ?Do not return to sports or activities the same day. ?Get checked by a doctor before you return to your activities. Resting your body and your mind. Being watched carefully, often at home. Medicines to help with symptoms such as: ?Feeling sick to your stomach. ?Headaches. ?Problems with sleep. ?Avoid taking strong pain medicines (opioids) for a concussion. Avoiding alcohol and drugs. Being asked to go to a concussion clinic or a place to help you recover (rehabilitation center). Recovery from a concussion can take time. Return to activities only: When you are fully healed. When your doctor says it is safe. Follow these instructions at home: Activity Limit activities that need a lot of thought or focus, such as: ?Homework or work for your job. ?Watching TV. ?Using the computer or phone. ?Playing memory games and puzzles. Rest. Rest helps your brain heal. Make sure you: ?Get plenty of sleep. Most adults should get 7 9 hours of sleep each night. ?Rest during the day. Take naps or breaks when you feel tired. Avoid activity like exercise until your doctor says its safe. Stop any activity that makes symptomsworse. Do not do activities that could cause a second concussion, such as riding a bike or playing sports. Ask your doctor when you can return to your normal activities, such as school, work, sports, and driving. Your ability to react may be slower. Do not do these activities if you are dizzy. General instructions Take cvmw-fey-znbdkdl and prescription medicines only as told by your doctor. Do not drink alcohol until your doctor says you can. Watch your symptoms and tell other people to do the same. Other problems can occur after a concussion. Older adults have a higher risk of serious problems. Tell your panel lay up worker, teachers, school nurse, school counselor, assistant men's soccer coach, or field trainer about your injury and symptoms. Tell them about what you can or cannot do. Keep all follow-up visits as told by your doctor. This is important. How is this prevented? It is very important that you do not get another brain injury. In rare cases, another injury can cause brain damage that will not go away, brain swelling, or . The risk of this is greatest in the first 7 10 days after a head injury. To avoid injuries: ?Stop activities that could lead to a second concussion, such as contact sports, until your doctor says it is okay. ?When you return to sports or activities: ?Do not crash into other players. This is how most concussions happen. ?Follow the rules. ?Respect other players. ?Get regular exercise. Do strength and balance training. ?Wear a helmet that fits you well during sports, biking, or other activities. ?Helmets can help protect you from serious skull and brain injuries, but they do not protect you from a concussion. Even when wearing a helmet, you should avoid being hit in the head. Contact a doctor if: Your symptoms get worse or they do not get better. You have new symptoms. You have another injury. Get help right away if: You have bad headaches or your headaches get worse. You feel weak or numb in any part of your body. You are mixed up (confused). Your balance gets worse. You keep throwing up. You feel more sleepy than normal. Your speech is not clear (is slurred). You cannot recognize people or places. You have a seizure. Others have trouble waking you up. You have behavior changes. You have changes in how you see (vision). You pass out (lose consciousness). Summary A concussion is a brain injury from a hard, direct hit (trauma) to your head or body. This condition is treated with rest and careful watching of symptoms. If you keep having symptoms, call your doctor. This information is not intended to replace advice given to you by your health care provider. Make sure you discuss any questions you have with your health care provider. Document Released: 08/22/2010 Document Revised: 04/24/2019 Document Reviewed: 04/24/2019 [employer] Patient Education 2020 [email or web address]. 07/03/2022 13:34:22 Head Injury, Adult Head Injury, Adult There are many types of head injuries. Head injuries can be as minor as a bump, or they can be a serious medical issue. More severe head injuries include: A jarring injury to the brain (concussion). A bruise (contusion) of the brain. This means there is bleeding in the brain that can cause swelling. A cracked skull (skull fracture). Bleeding in the brain that collects, clots, and forms a bump (hematoma). After a head injury, most problems occur within the first 24 hours, but side effects may occur up to 7 10 days after the injury. It is important to watch your condition for any changes. You may need to be observed in the emergency department or urgent care, or you may be admitted to the hospital. What are the causes? There are many possible causes of a head injury. A serious head injury may be caused by a car accident, bicycle or motorcycle accidents, sports injuries, and falls. What are the symptoms? Symptoms of a head injury include a contusion, bump, or bleeding at the site of the injury. Other physical symptoms may include: Headache. Nausea or vomiting. Dizziness. Feeling tired. Being uncomfortable around bright lights or loud noises. Seizures. Trouble being awakened. Fainting. Mental or emotional symptoms may include: Irritability. Confusion and memory problems. Poor attention and concentration. Changes in eating or sleeping habits. Anxiety or depression. How is this diagnosed? This condition can usually be diagnosed based on your symptoms, a description of the injury, and a physical exam. You may also have imaging tests done, such as a CT scan or MRI. How is this treated? Treatment for this condition depends on the severity and type of injury you have. The main goal of treatment is to prevent complications and to allow the brain time to heal. Mild head injury If you have a mild head injury, you may be sent home and treatment may include: Observation. A responsible adult should stay with you for 24 hours after your injury and check on you often. Physical rest. Brain rest. Pain medicines. Severe head injury If you have a severe head injury, treatment may include: Close observation. This includes hospitalization with frequent physical exams. Medicines to relieve pain, prevent seizures, and decrease brain swelling. Breathing support. This may include using a ventilator. Treatments to manage the swelling inside the brain. Brain surgery. This may be needed to: ?Remove a blood clot. ?Stop the bleeding. ?Remove a part of the skull to allow room for the brain to swell. Follow these instructions at home: Activity Rest and avoid activities that are physically hard or tiring. Make sure you get enough sleep. Limit activities that require a lot of thought or attention, such as: ?Watching TV. ?Playing memory games and puzzles. ?Job-related work or homework. ?Working on the computer, using social media, and texting. Avoid activities that could cause another head injury, such as playing sports, until your health care provider approves. Having another head injury, especially before the first one has healed, can bedangerous. Ask your health care provider when it is safe for you to return to your regular activities, including work or school. Ask your health care provider for a impv-if-efof plan for gradually returning to activities. Ask your health care provider when you can drive, ride a bicycle, or use heavy machinery. Your ability to react may be slower after a brain injury. Do not do these activities if you are dizzy. Lifestyle Do not drink alcohol until your health care provider approves. Do not use drugs. Alcohol and certain drugs may slow your recovery and can put you at risk of further injury. If it is harder than usual to remember things, write them down. If you are easily distracted, try to do one thing at a time. Talk with family members or close friends when making important decisions. Tell your friends, family, a trusted colleague, and panel lay up worker about your injury, symptoms, and restrictions. Have them watch for any new or worsening problems. General instructions Take qrtl-pvp-ebevixs and prescription medicines only as told by your health care provider. Have someone stay with you for 24 hours after your head injury. This person should watch you for any changes in your symptoms and be ready to seek medical help. Keep all follow-up visits as told by your health care provider. This is important. How is this prevented? Work on improving your balance and strength to avoid falls. Wear a seatbelt when you are in a moving vehicle. Wear a helmet when riding a bicycle, skiing, or doing any other sport or activity that has a risk of injury. If you drink alcohol: ?Limit how much you use to: ?0 1 drink a day for women. ?0 2 drinks a day for men. ?Be aware of how much alcohol is in your drink. In the [place] one drink equals one 12 oz bottle of beer (355 mL), one 5 oz glass of wine (148 mL), or one 1 oz glass of hard liquor (44 mL). Take safety measures in your home, such as: ?Removing clutter and tripping hazards from floors and stairways. ?Using grab bars in bathrooms and handrails by stairs. ?Placing non-slip mats on floors and in bathtubs. ?Improving lighting in dim areas. Get help right away if: You have: ?A severe headache that is not helped by medicine. ?Trouble walking or weakness in your arms and legs. ?Clear or bloody fluid coming from your nose or ears. ?Changes in your vision. ?A seizure. You lose your balance. You vomit. Your pupils change size. Your speech is slurred. Your dizziness gets worse. You faint. You are sleepier than normal and have trouble staying awake. Your symptoms get worse. These symptoms may represent a serious problem that is an emergency. Do not wait to see if the symptoms will go away. Get medical help right away. Call your local emergency services (911 in the [place] Do not drive yourself to the hospital. Summary Head injuries can be minor or they can be a serious medical issue requiring immediate attention. Treatment for this condition depends on the severity and type of injury you have. Ask your health care provider when it is safe for you to return to your regular activities, including work or school. Head injury prevention includes wearing a seat belt in a motor vehicle, using a helmet on a bicycle, limiting alcohol use, and taking safety measures in your home. This information is not intended to replace advice given to you by your health care provider. Make sure you discuss any questions you have with your health care provider. Document Released: 09/03/2006 Document Revised: 10/01/2019 Document Reviewed: 09/26/2019 [employer] Patient Education 2019 [email or web address]. Follow Up Care 07/03/2022 12:15:09 With:[facility] Address:Unknown When:07/06/2022 13:18:40 Comments:Follow-up with your primary care provider in 3 to 5 days. If symptoms worsen, do not improve, or new symptoms arise please report back to emergency department for further evaluation. [facility]10-17-2022 Evaluation + Plan noteExtracted from: Title:ED Note Author:Josh Murphy PA-C te:07/03/22 Closed head injury without l oss of consciousness (S09.90XA: Unspecified injury of head, initial encounter) [facility]06-21-2021 NoteMR#: [id number] I [facility] Pt. Name: Ran Riley Admitted: 03/03/2021 Discharged: 03/04/2021 Date of : 1965 Physician: Reyes Thompson MD DISCHARGE SUMMARY PRIMARY DIAGNOSIS: Non-ST segment elevation myocardial infarction. SECONDARY DIAGNOSES: 1. Hypertension. 2. Diabetes. 3. Obesity. HISTORY OF PRESENT ILLNESS: This patient is a 55-year-old male with past history of hypertension and diabetes, who was sent from [facility] due to NSTEMI. The patient presented to the ER due to substernal pressure-like chest pain radiated to his left arm. His troponin was elevated. HOSPITAL COURSE: 1. NSTEMI status post PCI. The patient was discharged on aspirin, Plavix, Lopressor, and simvastatin. T 2. Iqa-aenqyoi-aiunkvutc diabetes, uncontrolled. His A1c was 11. The patient is on metformin. The patient stated that his PCP is going to start him on insulin. Continue to follow up with PCP. 2. Hypertension. The patient si to continue lisinopril. PHYSICAL EXAMINATION: GENERAL: Alert and oriented, not in acute distress. NECK: Supple. CARDIOVASCULAR: Normal rhythm. No murmur. RESPIRATORY: Lungs are clear to auscultation. GI: Soft. Nontender, nondistended. EXTREMITIES: No pitting edema. DISCHARGE MEDICATIONS: Allopurinol 100 mg daily, aspirin 81 mg daily, Plavix 75 mg daily, lisinopril 40 mg daily, metformin 500 mg daily, Lopressor 25 mg b.i.d., simvastatin 20 mg daily, Zetia 10 mg daily. DISPOSITION: Discharged home in stable condition. INSTRUCTION: The patient to take cardiac medications. The patient followup with Cardiology and PCP. TIME SPENT: 45 minutes spent with the patient working on discharge planning. Electronically Signed by: Reyes Thompson MD 03/07/2021 02:34 P Reyes Thompson MD Date Dict: 03/07/2021/08:40 A/Reyes Thompson MD Date Trans: 03/07/2021 08:53 A/germaine [id number] cc: Reji Yun M.D. [address] [id number] Future Appointments Appointment Date:09/02/2024 02:00:00 PM Scheduled Provider:Henry MOJICA MD Location:[facility] Appointment Type: Post Op 15 [facility] Evaluation noteNo InformationNortUniversal Health Services Incident [employer] Other Evaluation note* Diagnosis Onset Date Resolution Status Essential hypertension acute Type 2 diabetes mellitus with hyperglycemia acute Wellness examination [facility] Work Phone: Evaluation note* Diagnosis Onset Date Resolution Status Abscess, scalp acute Essential hypertension acute Nasal fracture acute Nasal obstruction acute Type 2 diabetes mellitus with hyperglycemia acute Wellness examination [facility] Work Phone: History general Narrative - Reported* Type Description Date Medical History Obstructive sleep apnea Medical History Essential hypertension Medical History Controlled type 2 diabetes melli tus with hyperglycemia Medical History Morbid (severe) obesity due to e xcess calories Surgical History Appendectomy Surgical History PCI, WITH STENT INSERTION Hospitalization History see surgical history [facility] Other Hospital course Narrative No data available for this section [facility]* Referral to ENT Time Frame: 06/24/24, Location: None Selected * Referral to General Surgery Time Frame: 06/24/24, Location: None Selected [facility] Work Phone: Hospital Discharge instructions No data available for this section [facility] General Surgery [place] Progress note No data available for this section [facility] Summary Purpose Family History No Family History Records FoundNo Family History Records Found No data available for this section No data available for this section No Family History Records FoundNo Family History Records Found Advance Directives No Advanced Directives Records Found Advance Directive Response Recorded Date/ Time Advance Directives No June 24, 2024 8:45am Chief Complaint and Reason for Visit Chief Complaint Wellness Reason for Visit Essential hypertensi on Type 2 diabetes mellitus with hyperglycemia Wellness examination Chief Complaint Wellness Reason for Visit Abscess, scalp Essential hypertension Nasal fracture Nasal obstruction Type 2 diabetes mellitus with hyperglycemia Wellness examination Additional Source Comments (unrecognized sect ion and content) No Status Records FoundNo Status Records FoundNo Status Records FoundNo Status Records Found INFORMATION SOURCE (unrecogn ized section and content) DATE CREATED AUTHOR 03/08/2021 [facility] DATE CREATED AUTHOR AUTHOR'S ORGANIZ ATION 07/24/2022 [facility] DATE CREATED AUTHOR AUTHOR'S ORGANIZ ATION 07/25/2024 [facility] DATE CREATED AUTHOR AUTHOR'S ORGANIZ ATION 12/23/2024 [facility] Patient Care team informatio n (unrecognized section and content) Team Status: Active Member Role Status Dates Angela Kaplan MD Primary Care Provider Active Team Status: Inactive Member Role Status Dates Angela Kaplan MD Primary Care Provide r, Attending Provider Active Start: June 24, 2024 End: June 24, 2024 REASON FOR VISIT (unrecogniz ed section and content) possible kidney stoneresults pain in groinmessage Goals (unrecognized section and content) Goals may be documented in a n alternate section FOR RECORDS PERTAINING TO PATIENTS WHO ARE OR HAVE BEEN ENROLLED IN A CHEMICAL DEPENDENCY/SUBSTANCEABUSE PROGRAM, SOME INFORMATION MAY BE OMITTED. This clinical summary was aggregated from multiple sources. Caution should be exercised in using it in the provision of clinical care. This summary normalizes information from multiple sources, and as a consequence, information in this document may materially change the coding, format and clinical context of patient data. In addition, data may be omitted in some cases. CLINICAL DECISIONS SHOULD BE BASED ON THE PRIMARY CLINICAL RECORDS. [facility]. provides no warranty or guarantee of the accuracy or completeness of information in this document.
[2024-12-27 07:38] LABS: Basophils Absolute Auto 0.1 10^3/uL (0.0-0.1); Basophils Percent Auto 0.6 % (0.2-2.0); Eosinophils Absolute Auto 0.6 10^3/uL (0.0-0.7); Eosinophils Percent Auto 5.7 % (0.9-7.0); Hemoglobin 14.9 g/dL (14.0-18.0); Immature Granulocytes Abs Auto 0.06 10^3/uL (0.00-0.03); Immature Granulocytes Pct Auto 0.6 % (0.0-0.5); Lymphocytes Absolute Auto 3.2 10^3/uL (1.2-3.8); Lymphocytes Percent Auto 33.1 % (20.5-60.0); Mean Corpuscular HGB Conc 33.9 g/dL (29.9-35.2); Mean Corpuscular Hemoglobin 29.7 pg (25.9-34.0); Mean Corpuscular Volume 87.8 fL (80.0-94.0); Mean Platelet Volume 10.8 fL (9.5-13.5); Monocytes Absolute Auto 0.5 10^3/uL (0.3-0.8); Monocytes Percent Auto 5.4 % (1.7-12.0); Neutrophils Absolute Auto 5.2 10^3/uL (1.4-6.5); Neutrophils Percent Auto 54.6 % (43.0-75.0); Platelet Count 246 10^3/uL (150-450); Red Blood Count 5.01 10^6/uL (4.70-6.10); Red Cell Distribution Width 12.4 % (11.0-15.0); White Blood Count 9.6 10^3/uL (4.0-11.0)
[2024-12-27 08:04] LABS: Alanine Aminotransferase 22 U/L (16-63); Albumin Globulin Ratio 1.1; Alkaline Phosphatase 138 U/L (46-116); Anion Gap 10.2; Aspartate Amino Transferase 14 U/L (15-37); BUN Creatinine Ratio 15.9; Bilirubin Total 0.8 mg/dL (0.2-1.0); Calcium 9.4 mg/dL (8.5-10.1); Carbon Dioxide 31.2 mmol/L (21.0-32.0); Chloride 99 mmol/L (98-107); Chol HDL Ratio 3.6; Cholesterol 131 mg/dL (<=200); Estimated GFR (African America >60 (>=60 mL/min/1.73m^2); Estimated GFR (Non-African Ame >60 (>=60 mL/min/1.73m^2); Globulin 3.6 g/dL; Glucose 275 mg/dL (74-106); HDL Cholesterol 36 mg/dL (40-60); Potassium 4.4 mmol/L (3.5-5.1); Sodium 136 mmol/L (136-145); Total Protein 7.6 g/dL (6.4-8.2); Triglycerides 308 mg/dL (<=150); VLDL CHOLESTEROL 61.6 mg/dL
== END 2024-12-27 07:22 | disposition home or self-care (01) ==
PROVIDERS: PCP Family Medicine; Visit Provider Internal Medicine Interventional Cardiology
DX: I25.10 Atherosclerotic heart disease of native coronary artery without angina pectoris (principal); I10 Essential (primary) hypertension; E78.2 Mixed hyperlipidemia
CPT/HCPCS: 36415; 80053; 80061; 85025

== ENCOUNTER 2025-02-12 07:03 | Outpatient (OUT) | payer BC, SELFPAY ==
--- OUTSIDE RECORDS SUMMARY | 2025-02-12 07:04 | XMS_ITS | Clinical Summary ---
Author Organization [facility] Address [address] [place] [address] Care Team Providers Care Power System Operator Name Role Phone Angela Robles MD Primary Care Provider [phone] Allergies No known active allergies Medications Medication Sig Dispensed Refills Start Date End Date Status allopurinol (Zyloprim) 300 mg tablet Take 300 mg by mouth in the morning. 11/25/2022 Active aspirin 81 mg chewable tablet aspirin 81 mg chewable tablet TAKE ONE TABLET BY MOUTH EVERY DAY Active glipiZIDE XL (Glucotrol XL) 10 mg 24 hr tablet glipizide ER 10 mg tablet, extended release 24 hr TK 1 T PO QD AT NOON Active Levemir FlexPen 100 unit/mL (3 mL) pen INJECT 10 UNITS UNDER THE SKIN DAILY 12/07/2022 Active metFORMIN (Glucophage) 500 mg tablet Take 500 mg by mouth in the morning and at bedtime. 10/23/2022 Active cholecalciferol (Vitamin D3) 25 MCG (1000 units) tablet Take 2,000 Units by mouth in the morning. Active Tresiba FlexTouch U-100 100 unit/mL (3 mL) injection 11/27/2023 Active cetirizine (ZyrTEC) 10 mg tablet Take 10 mg by mouth in the morning. Active lisinopril 30 mg tabletIndications:Pr imary hypertension Take 1 tablet (30 mg) by mouth in the morning. 90 tablet 3 01/11/2024 Active simvastatin (Zocor) 40 mg tabletIndications:Co ronary artery disease, unspecified vessel or lesion type, unspecified whether angina present, unspecified whether [place] or transplanted heart TAKE 1 TABLET AT BEDTIME 90 tablet 3 05/13/2024 Active ezetimibe (Zetia) 10 mg tabletIndications:Co ronary artery disease, unspecified vessel or lesion type, unspecified whether angina present, unspecified whether [place] or transplanted heart TAKE 1 TABLET DAILY DIRECTED 90 tablet 3 05/13/2024 Active metoprolol tartrate (Lopressor) 25 mg tabletIndications:Pa lpitations TAKE 1 TABLET IN THE MORNING AND AT BEDTIME 180 tablet 3 06/27/2024 Active Active Problems Problem Noted Date Diagnosed Date Back pain 12/15/2022 High cholesterol 12/15/2022 Assessment & Plan (07/06/2023 4:57 PM EDT): Lipid abnormalities are currently well controlled, continue simvastatin, and zetia Assessment & Plan (12/15/2022 11:19 AM EDT): Lipid abnormalities are well controlled with simvastatin Other abscess of pharynx 04/01/2021 Coronary atherosclerosis 04/01/2021 Assessment & Plan (07/06/2023 1:44 PM EDT): Coronary artery disease is stable Continue GDMT- ASA, plavix, zocor, zetia, metoprolol, lisinopril continue risk factor modifications- heart healthy diet, regular exercise as tolerated and continue all medications. Assessment & Plan (12/15/2022 11:07 AM EDT): Coronary artery disease is stable Continue GDMT- ASA, simvastatin, metoprolol, plavix and lisinopril. continue risk factor modifications- heart healthy diet, regular exercise as tolerated and continue all medications. H/O non-ST elevation myocardial infarction (NSTE SD) 04/01/2021 Assessment & Plan (12/15/2022 11:20 AM EDT): Stable Essential hypertension 04/01/2021 Assessment & Plan (07/06/2023 1:43 PM EDT): Hypertension is well controlled 113/77 continue lisinopril, metoprolol Assessment & Plan (12/15/2022 11:07 AM EDT): Hypertension is well controlled 120/81 Continue lisinopril and metoprolol History of percutaneous coronary intervention Diabetes mellitus 09/05/2016 Assessment & Plan (12/15/2022 11:20 AM EDT): Diabetes is referral to endocrinology in [place] DDD (degenerative disc disease), lumbar 05/27/20 15 Sprain of lumbar region 05/27/2015 Encounters Date Type Department Care Team Description 01/21/2025 [address] [facility] [address] [place] [address] Maribell Arndt MA 12/22/2024 3:00 PM EDT Office Visit [facility] [address] [facility] [place] [phone] Franco Fox MD Coronary artery disease involving [place] coronary artery of [place] heart without angina pectoris (Primary Dx); Shortness of breath; Status post insertion of drug eluting coronary artery stent; Primary hypertension; Mixed hyperlipidemia; History of myocardial infarction from Last 3 Months Immunizations Name Administration Dates Next Due Moderna SARS-CoV-2 Vaccination 06/27/2021,2020 Family History Medical History Relation Name Comments Cancer Father Stroke Mother Relation Name Status Comments Brother Alive Father Mother Alive Social History Tobacco Use Types Packs/Day Years Used Date Smoking Tobacco: Never Passive Smoke Exposure: Never Smokeless Tobacco: Former Snuff Alcohol Use Standard Drinks/Week Comments Never 0 (1 standard drink = 0.6 oz pur e alcohol) [place] Safety & Environment Answer Date Rec orded Fear of Current or Ex-Partner Not on file Emotionally Abused Not on file 11/08/2023 Physically Abused Not on file 11/08/2023 Sexually Abused Not on file 11/08/2023 Physically or Sexually Abused Not on file Sex and Gender Information Value Date Recorded Sex Assigned at Not on file Gender Identity Not on file Sexual Orientation Not on file Last Filed Vital Signs Vital Sign Reading Time Taken Comments Blood Pressure 110/78 12/22/2024 3:31 PM EDT Pulse 84 12/22/2024 3:31 PM EDT Temperature - - Respiratory Rate 16 01/11/2024 10:06 AM EDT Oxygen Saturation 93% 12/22/2024 3:31 PM EDT Inhaled Oxygen Concentration - - Weight 118 kg (260 lb) 12/22/2024 3:31 PM EDT Height 177.8 cm (5' 10 ) 12/22/2024 3:31 PM EDT Body Mass Index 37.31 12/22/2024 3:31 PM EDT Plan of Treatment Health Maintenance Due Date Last Done Comments CT Colonography 1966 Colonoscopy 1966 Colorectal Cancer Screening 1966 FIT-DNA 1966 FIT 1966 FOBT 1966 Sigmoidoscopy 1966 Pneumococcal Vaccine: Pediatrics (0 to 5 Years) and At-Risk Patients (6 to 64 Years) (1 of 2 - PCV) 1972 Diabetes: Retinopathy Screening 1976 Depression Screening 1978 Diabetes: Urine Protein Screening 1985 Hepatitis B Vaccines (1 of 3 - 19+ 3-dose series) 1985 Adult Tetanus 1988 Zoster Vaccines (1 of 2) 2016 Diabetes: Hemoglobin A1C 06/03/2021 03/03/2021 COVID-19 Vaccine ( season) 2024 06/27/2021, 06/27/2021, 05/28/2021, Additional history exists Influenza Vaccine (Season Ended) 2025 HIB Vaccines Aged Out No longer eligi ble based on patient's age to complete this topic HPV Vaccines Aged Out No longer eligi ble based on patient's age to complete this topic IPV Vaccines Aged Out No longer eligi ble based on patient's age to complete this topic Meningococcal B Vaccine Aged Out No l onger eligible based on patient's age to complete this topic Meningococcal Vaccine Aged Out No carina gardenia eligible based on patient's age to complete this topic Rotavirus Vaccines Aged Out No longer eligible based on patient's age to complete this topic Procedures Procedure Name Priority Date/Time Associated Diagnosis Comments HEMOGLOBIN A1C Routine 03/03/2021 4:48 PM EDT from Last 3 Months or Most Recently Relevant to Health Maintenance Results * (ABNORMAL) Hemoglobin A1c (03/03/2021 4:48 PM EDT) Hemoglobin A1C 11.6(H) 4.0 - 6.0 % LAB CONVERSIONS Estimated Average Glucose 286 mmol/L LAB CONVERSIONS 03/03/2021 4:48 PM EDT 03/03/2021 5:47 PM EDT Narrative LAB CONVERSIONS - 03/04/2021 11:00 AM EDT Yes: Add to Previous draw if able Generic Provider Conversion LAB BLOOD OR DERABLES LAB CONVERSIONS from Last 3 Months or Most Recently Relevant to Health Maintenance Care Teams Power System Operator Relationship Specialty Start Date End Date Angela Robles MD [address] [facility] PCP - General 12/15/22
--- OUTSIDE RECORDS SUMMARY | 2025-02-12 07:04 | XMS_ITS | Clinical Summary ---
Author Organization [facility] Address [address] [place], [place] [id number] Care Team Providers Care Door To Door Lead Generation Name Role Phone Donn Lebron JrHernesto Primary Care Provider [phone] Allergies No known active allergies Medications lisinopril (ZESTRIL, PRINIVIL) 40 mg tablet Take 40 mg by mouth once daily. Active ezetimibe (ZETIA) 10 mg tablet Take 10 mg by mouth once daily. Active atenolol (TENORMIN) 25 mg tablet Take 25 mg by mouth once daily. Active allopurinol (ZYLOPRIM) 300 mg tablet Take 300 mg by mouth once daily. Active simvastatin (ZOCOR) 20 mg tablet Take 20 mg by mouth daily at bedtime. Active naproxen (NAPROSYN) 500 mg tablet Take 500 mg by mouth twice daily with meals. Active Active Problems Problem Noted Date Diagnosed Date Sprain of lumbar region 05/27/2015 DDD (degenerative disc disease), lumbar 05/27/20 15 High blood pressure High cholesterol Back pain Family History Medical History Relation Comments Cancer Other Stroke Other high blood pressure [Other] Other Relation Status Comments Other Social History Tobacco Use Types Packs/Day Years Used Date Smoking Tobacco: Never Smokeless Tobacco: Former Chew Comments:quit age 43, chewed 1 can over 2 days Alcohol Use Standard Drinks/Week Comments No 0 (1 standard drink = 0.6 oz pur e alcohol) Sex and Gender Information Value Date Recorded Sex Assigned at Not on file Legal Sex Male 9:50 AM EDT Gender Identity Not on file Sexual Orientation Not on file 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 Not on file Not on file Not on file Last Filed Vital Signs Vital Sign Reading Time Taken Comments Blood Pressure 108/68 05/27/2015 12:50 PM EDT Pulse 68 05/27/2015 12:50 PM EDT Temperature - - Respiratory Rate 20 05/27/2015 12:5 0 PM EDT Oxygen Saturation - - Inhaled Oxygen Concentration - - Weight 117.9 kg (260 lb) 05/27/2015 12: 50 PM EDT self report ht/wt Height 177.8 cm (5' 10 ) 05/27/2015 12: 50 PM EDT Body Mass Index 37.31 05/27/2015 12:50 PM EDT Plan of Treatment Health Maintenance Due Date Last Done Comments Anxiety Screening 1984 Depression Screening 1984 HIV Screening 1984 Hepatitis C Screening 1984 DTaP,Tdap,Td Vaccine (1 - Tdap) 1985 Hepatitis B Vaccine (1 of 3 - 19+ 3-dose series) 11/[address] Colonography 2011 Cologuard (FIT-DNA) 2011 Colonoscopy 2011 Colorectal Cancer Screening 2011 Diabetes Screening 2011 Fecal Occult Blood 2011 Prostate Cancer Screening Discussion 2011 Sigmoidoscopy 2011 Pneumococcal Vaccine: 50+ (1 of 1 - PCV) 2016 Shingrix Vaccine (1 of 2) 2016 Covid-19 Vaccine ( - 2023- season) 2024 Influenza Vaccine (Season Ended) 2025 Insurance [facility] Care Teams Door To Door Lead Generation Relationship Specialty Start Date End Date Donn Lebron Jr. [address] [place] [address] PCP - General Orthopedics 05/17/15
--- OUTSIDE RECORDS SUMMARY | 2025-02-12 07:05 | XMS_ITS | CCD ---
Author Organization [facility] Care Team Providers Care Genetics Teacher Name Role Phone REJI YUN Referring Unavailable AL-HOURANIREYES Admitting Unavailable AL-HOURANI, REYES Attending Unavailable ANGELA KAPLAN Primary Care Unavailable UNKNOWN, PROVIDER Surgeon Unavailable MT Procedure Practitioner Unavailab le MT Procedure Practitioner Unavailab EDGAR Roldan Surgeon Unavailable MEDICAL, MESFIN Primary Care Physician Unavailab le MOUKARBEL, DR ROGERS Admitting Unavailable MOUKARBEL, DR ROGERS Attending Unavailable KAPLAN, DR ANGELA Rosen Primary Care Unavailable MOUKARBEL, DR ROGERS Consulting Unavailable MOUKARBEL, DR ROGERS Admitting Unavailable MOUKARBEL, DR ROGERS Attending Unavailable KAPLAN, DR ANGELA Rosen Primary Care Unavailable MOUKARBEL, DR ROGERS Consulting Unavailable AGGIE, WILFRED Admitting Unavailable AGGIEWILFRED Attending Unavailable KAPLAN, DR ANGELA Rosen Primary [...] Kaplan Unavailable ANGELA KAPLAN Primary Care Physician [phone] ANGELA KAPLAN Referring Unavailable Henry MOJICA Attending Unavailable NILLHenry Attending Unavailable MOUKARBEL, KEN Attending Unavailable Allergies Allergy Classification Reported Allergen(s) Allergy Type Date of Onset Reaction(s) Facility (4 sources) Eggs or Egg-derived Products Drug allergy Unknown [place] Other (2 sources) Pollen Allergy to substance 4 [facility] (2 sources) Egg Derived Allergy to substance Upset stomach [facility] (1 source) No Known Medication Allergies; Translations: [No Known Medication Allergies] Propensity to adverse reactions (disorder) [facility] Repository Medications Current Medications Medication Drug Class(es) [...] a day for 0 days May, Active clopidogrel 75 mg oral tablet (8 [...] 01/26/15 Status: Ordered FreeStyle [place] 14 Day [place] (4 sources) Start: 12-02-2020 FreeStyle Libr e 14 Day [place] FreeStyle [place] 14 Day [place] , 1 (one) Device Device q 2 [...] disease (9 sources) Atherosclerotic heart disease of [place] coronary artery without angina pectoris; Translations: [Coronary [...] sources) Long-term current use of insulin; Translations: [FCI (current) use of insulin] Episodic Other and [...] Onset: 08-15-2021 Episodic Other aftercare (1 source) 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; Translations: [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 USE ORAL HYPOGLYCEMIC DX] Onset: 08-15-2021 Episodic Other aftercare (1 source) 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; Translations: [SENIOR LIVING CURRENT USE OF ASPIRIN] Onset: 08-15-2021 Episodic Other aftercare (1 source) 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; Translations: [OTH 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 CURRENT DRUG THERAPY] Onset: 08-15-2021 Episodic Other non-traumatic joint disorders (3 sources) Pain in left ankle and joints of left foot; Translations: [PAIN IN LEFT ANKLE] Onset: 08-12-2021 Episodic Sprains and strains (1 source) Sprain of unspecified ligament of left ankle, initial encounter; Translations: [SPRAIN UNS LIGAMENT LT ANKLE INIT] Onset: 08-15-2021 Episodic Results Test Name Value Interpretation Reference Range Facility 36on 01-21-2025 36 Regarding lab result s from 12/27/2024: MD Maribell Stovall MA His triglycerides are high and this is due to uncontrolled diabetes (blood sugar 275!) he need to discuss with his PCP. Has he had the echo? Confirmed with [facility] scheduling that echo has not been performed yet. They have left him messages with no call back. I just left him a message also. Lab results faxed to Dr. Kaplan. [facility] Office Visiton 12-22-2024 Follow-up visit [id number] Jah Riley 1965 M Date Provider Department Center 12/22/2024 Crystal-KEN MUKHERJEE SANDY [facility] Family History Problem Relation Age of Onset Stroke Mother Cancer Father Family Status - Relation Status Age at Mother Alive Father Brother Alive Level of Service:65203 MT OFFICE/OUTPATIENT ESTABLISHED MOD MDM 30 MIN [facility] 36on 08-04-[address] Mojica's office se [...] order for echo has been refaxed to [facility]. She told me Dr. Mojica will be using local anesthetic for cyst removal so patient does not need cardiac clearance. [facility] Ambulatory Visit Summaryon 1 09-22-2023 Ambulatory Visit Summary Ambulatory Visit Summary RAN RILEY :1965 Visit Date:07/23/2024 Ambulatory Visit Instructions Your Care Team Attending Physician - MAGALY REED, Henry Arreaga Primary Care Physician - EUSEBIO REED, ANGELA Referring Physician - ANGELA KAPLAN MD This [...] EST With: MAGALY REED, Henry Arreaga Where: [facility] [address], [address], [place] [address]- Medications What How Much When Instructions Unchanged [...] for choosing us for your care. Normal [facility] RAD - Ultrasound Reporton RAD - Ultrasound Report [id number] Normal [facility] T3, TOTAL (TRIIODOTHYRONINE) on 05-27-2022 T3, TOTAL 133 ng/dL Normal 71-180 [facility] Comment on above: Performed By: #### T 3TOTAL #### [facility] [address] [address] [address] Derek Frankel CRPon 05-26-2022 CRP 0.3 mg/dL Normal <=1.0 [facility] Comment on above: Performed By: #### C RP, TSH, CMP #### [facility] [address] [address] [address] Derek Frankel FREE T4on 05-26-2022 Free T4 [Mass/Vol] 1.03 ng/dL Normal 0.76-1.46 [facility] Comment on above: Performed By: #### F T4 #### [facility] [address] [place] [address] Dr. Derek Frankel GLYCOHEMOGLOBIN A1Con 2021 ADA RECOMMENDATION SEE BELOW Normal [facility] Comment on above: Result Comment: ADA RECOMMENDED LIMIT 4.0 - 6.0 ADA THERAPEUTIC TARGET < 7.0 ACTION SUGGESTED > 7.0 Performed By: #### A 1C #### [facility] [address] [place] [address] Dr. Derek Frankel Glucose [Mass/Vol] 283 mg/dL Normal [facility] Comment on above: Performed By: #### A 1C #### [facility] [address] [place] [address] Dr. Derek Frankel HbA1c (Bld) [Mass fraction] 11.5 % Critically high 4.5-6.2 [facility] Comment on above: Performed By: #### A 1C #### [facility] [address] [place] [address] Dr. Derek Frankel HEMOGRAM AND PLATELon 2021 Hematocrit (Bld) [Volume fraction] 44.1 % Normal 42.0-54.0 [facility] Comment on above: Performed By: #### H H #### [facility] [address] [place] [address] Dr. Derek Frankel Hemoglobin (Bld) [Mass/Vol] 14.7 g/dL Normal 14.0-18.0 [facility] Comment on above: Performed By: #### H H #### [facility] [address] [place] [address] Dr. Derek Frankel MCH (RBC) [Entitic mass] 29.2 pg Normal 25.9-34.0 [facility] Comment on above: Performed By: #### H H #### [facility] [address] [place] [address] Dr. Dreek Frankel MCHC (RBC) [Mass/Vol] 33.3 g/dL Normal 29.9-35.2 [facility] Comment on above: Performed By: #### H H #### [facility] [address] [place] [address] Dr. Derek Frankel MCV (RBC) [Entitic vol] 87.7 fL Normal 80.0-94.0 [facility] Comment on above: Performed By: #### H H #### [facility] [address] [place] [address] Dr. Derek Frankel PLT 259 103/ul Normal 150-450 [facility] Comment on above: Performed By: #### H H #### [facility] [address] [place] [address] Dr. Derek Frankel RBC 5.03 106/ul Normal 4.70-6.10 [facility] Comment on above: Performed By: #### H H #### [facility] [address] [place] [address] Dr. Derek Frankel WBC 8.7 103/ul Normal 4.0-11.0 [facility] Comment on above: Performed By: #### H H #### [facility] [address] [place] [address] Dr. Derek Frankel PROF 14(COMP METB)on 022 Albumin [Mass/Vol] 3.7 g/dL Normal 3.4-5.0 [facility] Comment on above: Performed By: #### C RP, TSH, CMP #### [facility] [address] [place] [address] Dr. Derek Frankel Albumin/Globulin [Mass ratio] 0.9 {ratio} Normal [facility] Comment on above: Performed By: #### C RP, TSH, CMP #### [facility] [address] [place] [address] Dr. Derek Frankel ALP [Catalytic activity/Vol] 160 U/L Critically high 46-116 [facility] Comment on above: Performed By: #### C RP, TSH, CMP #### [facility] [address] [place] [address] Dr. Derek Frankel ALT [Catalytic activity/Vol] 41 U/L Normal 16-63 [facility] Comment on above: Performed By: #### C RP, TSH, CMP #### [facility] [address] [place] [address] Dr. Derek Frankel Anion gap [Moles/Vol] 13.3 mmol/L Normal [facility] Comment on above: Performed By: #### C RP, TSH, CMP #### [facility] [address] [place] [address] Dr. Derek Frankel AST [Catalytic activity/Vol] 20 U/L Normal 15-37 [facility] Comment on above: Performed By: #### C RP, TSH, CMP #### [facility] [address] [place] [address] Dr. Derek Frankel Bilirubin [Mass/Vol] 0.6 mg/dL Normal 0.2-1.0 [facility] Comment on above: Performed By: #### C RP, TSH, CMP #### [facility] [address] [place] [address] Dr. Derek Frankel Calcium [Mass/Vol] 8.9 mg/dL Normal 8.5-10.1 [facility] Comment on above: Performed By: #### C RP, TSH, CMP #### [facility] [address] [place] [address] Dr. Derek Frankel Chloride [Moles/Vol] 94 mmol/L Critically low 98-107 [facility] Comment on above: Performed By: #### C RP, TSH, CMP #### [facility] [address] [place] [address] Dr. Derek Frankel CO2 [Moles/Vol] 29.2 mmol/L Normal 21.0-32.0 [facility] Comment on above: Performed By: #### C RP, TSH, CMP #### [facility] [address] [place] [address] Dr. Derek Frankel Creatinine [Mass/Vol] 0.98 mg/dL Normal 0.70-1.30 [facility] Comment on above: Performed By: #### C RP, TSH, CMP #### [facility] [address] [place] [address] Dr. Derek Frankel EGFR-AF BENINESE >60 Normal >=60 [facility] Comment on above: Performed By: #### C RP, TSH, CMP #### [facility] [address] [place] [address] Dr. Derek Frankel EGFR-NON AF BENINESE >60 Normal >=60 [facility] Comment on above: Performed By: #### C RP, TSH, CMP #### [facility] [address] [address] [address] Derek Frankel Globulin (S) [Mass/Vol] 3.9 g/dL Normal [facility] Comment on above: Performed By: #### C RP, TSH, CMP #### [facility] [address] [address] [address] Derek Frankel Glucose [Mass/Vol] 378 mg/dL Critically high 74-106 [facility] Comment on above: Performed By: #### C RP, TSH, CMP #### [facility] [address] [place] [address] Dr. Derek Frankel Potassium [Moles/Vol] 4.5 mmol/L Normal 3.5-5.1 [facility] Comment on above: Performed By: #### C RP, TSH, CMP #### [facility] [address] [place] [address] Dr. Derek Frankel Protein [Mass/Vol] 7.6 g/dL Normal 6.4-8.2 [facility] Comment on above: Performed By: #### C RP, TSH, CMP #### [facility] [address] [place] [address] Dr. Derek Frankel Sodium [Moles/Vol] 132 mmol/L Critically low 136-145 [facility] Comment on above: Performed By: #### C RP, TSH, CMP #### [facility] [address] [place] [address] Dr. Derek Frankel Urea nitrogen [Mass/Vol] 14.0 mg/dL Normal 7.0-18.0 [facility] Comment on above: Performed By: #### C RP, TSH, CMP #### [facility] [address] [place] [address] Dr. Derek Frankel Urea nitrogen/Creatinine [Mass ratio] 14.3 mg/mg Normal [facility] Comment on above: Performed By: #### C RP, TSH, CMP #### [facility] [address] [address] [address] Derek Frankel SED RATE WESTERGRENon 2021 SED RATE 38 mm/hr Critically high <=20 [facility] Comment on above: Performed By: #### S EDR #### [facility] [address] [address] [address] Derek Frankel TSHon 05-26-2022 TSH 1.636 uIU/mL Normal 0.358-3.740 [facility] Comment on above: Performed By: #### C RP, TSH, CMP #### [facility] [address] [address] [address] Derek Frankel LIPID PROFILEon 05-25-2022 CHOL-HDL RATIO NORM SEE BELOW Normal [facility] Comment on above: Result Comment: 3.3 - 4.4 LOW RISK 4.4 - 7.1 AVERAGE RISK 7.1 - 11.0 MODERATE RISK >11.0 HIGH RISK Performed By: #### L IPID #### [facility] [address] [address] [address] Derek Frankel Cholesterol [Mass/Vol] 164 mg/dL Normal <=200 [facility] Comment on above: Performed By: #### L IPID #### [facility] [address] [place] [address] Dr. Derek Frankel Cholesterol in HDL [Mass/Vol] 36 mg/dL Critically low 40-60 [facility] Comment on above: Performed By: #### L IPID #### [facility] [address] [address] [address] Derek Frankel Cholesterol in LDL [Mass/Vol] 69.8 mg/dL Normal [facility] Comment on above: Performed By: #### L IPID #### [facility] [address] [address] [address] Derek Frankel Cholesterol.total/C holesterol in HDL [Mass ratio] 4.6 {ratio} Normal [facility] Comment on above: Performed By: #### L IPID #### [facility] [address] [address] [address] Derek Frankel HDL NORMAL > or = 60 mg/dl - LO W CARDIOVASCULAR RISK <40 mg/dl - HIGH CARDIOVASCULAR RISK Normal [facility] Comment on above: Performed By: #### L IPID #### [facility] [address] [place], [place] [address] Dr. Derek Frankel LDL CALC NORMAL SEE BELOW Normal [facility] Comment on above: Result Comment: <100 mg/dl OPTIMAL 100 - 129 mg/dl NEAR OR ABOVE OPTIMAL 130 - 159 mg/dl BORDERLINE HIGH 160 - 189 mg/dl HIGH >190 mg/dl VERY HIGH Performed By: #### L IPID #### [facility] [address] [address] [address] Derek Frankel Triglyceride [Mass/Vol] 291 mg/dL Critically high <=150 [facility] Comment on above: Performed By: #### L IPID #### [facility] [address] [address] [address] Derek Frankel VLDL CALC 58.2 mg/dL Normal [facility] Comment on above: Performed By: #### L IPID #### [facility] [address] [id number] Derek Frankel LIPID PROFILEon 08-30-2021 CHOL-HDL RATIO NORM SEE BELOW Normal [facility] Comment on above: Result Comment: 3.3 - 4.4 LOW RISK 4.4 - 7.1 AVERAGE RISK 7.1 - 11.0 MODERATE RISK >11.0 HIGH RISK Performed By: #### L IPID ####[facility] [address] [id number][address] Derek Frankel Cholesterol [Mass/Vol] 172 mg/dL Normal <=200 [facility] Comment on above: Performed By: #### L IPID ####[facility] [address] [place], [place] [address]WiDr. Derek Frankel Cholesterol in HDL [Mass/Vol] 36 mg/dL Normal [facility] Comment on above: Performed By: #### L IPID ####[facility] [address] [place], [place] [address]GsDr. Derek Frankel Cholesterol in LDL [Mass/Vol] 83.6 mg/dL Normal [facility] Comment on above: Performed By: #### L IPID ####[facility] [address] [id number][address] Derek Frankel Cholesterol.total/C holesterol in HDL [Mass ratio] 4.8 {ratio} Normal [facility] Comment on above: Performed By: #### L IPID ####[facility] [address] [id number]. Derek Frankel HDL NORMAL > or = 60 mg/dl - LO W CARDIOVASCULAR RISK <40 mg/dl - HIGH CARDIOVASCULAR RISK Normal [facility] Comment on above: Performed By: #### L IPID ####[facility] [address] [place] [id number]. Derek Frankel LDL CALC NORMAL SEE BELOW Normal [facility] Comment on above: Result Comment: <100 mg/dl OPTIMAL 100 - 129 mg/dl NEAR OR ABOVE OPTIMAL 130 - 159 mg/dl BORDERLINE HIGH 160 - 189 mg/dl HIGH >190 mg/dl VERY HIGH Performed By: #### L IPID ####[facility] [address] [id number]. Derek Frankel Triglyceride [Mass/Vol] 262 mg/dL Critically high <=150 [facility] Comment on above: Performed By: #### L IPID ####[facility] [address] [place], [place] [address]Pq. Derek Frankel VLDL CALC 52.4 mg/dL Normal [facility] Comment on above: Performed By: #### L IPID ####[facility] [address] [place], [place] [address]Cv. Derek Frankel XR ANKLE LT MIN 3 [...] and Achilles tendinosis. Electronically authenticated by: HENRY PRO Date: 2021-08-12 08:21 Normal [facility] BASIC METABOLIC PANEL 02-15 Calcium [Mass/Vol] 9.2 mg/dL Normal 8.6-10.3 [facility] Comment on above: Order Comment: No: D o not add to previous draw Performed By: #### 1 0070, 07378, 67507 #### [facility] [address] [place] [address], [place] Chloride [Moles/Vol] 96 mmol/L Low 98-107 [facility] Comment on above: Order Comment: No: D o not add to previous draw Performed By: #### 1 0, 37777, 47511 #### [facility] [address] [place] [address], [place] CO2 [Moles/Vol] 28 mmol/L Normal 21-31 [facility] Comment on above: Order Comment: No: D o not add to previous draw Performed By: #### 1 0, 68480, 96408 #### [facility] [address] [place] [address], [place] Creatinine [Mass/Vol] 0.73 mg/dL Normal 0.70-1.30 [facility] Comment on above: Order Comment: No: D o not add to previous draw Performed By: #### 1 0, 16055, 67214 #### [facility] [address] [place] [address], [place] GFR/1.73 sq M.predicted among blacks MDRD (S/P/Bld) [Vol rate/Area] mL/min/{1.73_m2} Normal >60 [facility] Comment on above: Order Comment: No: D o not add to previous draw Performed By: #### 1 0, 39362, 89796 #### [facility] [address] [place] [address], [place] GFR/1.73 sq M.predicted among non-blacks MDRD (S/P/Bld) [Vol rate/Area] mL/min/{1.73_m2} Normal >60 [facility] Comment on above: Order Comment: No: D o not add to previous draw Performed By: #### 1 0, 15588, 72057 #### [facility] [address] [place] [address], [facility] Glucose [Mass/Vol] 290 mg/dL High 70-100 [facility] Comment on above: Order Comment: No: D o not add to previous draw Performed By: #### 1 0, 67398, 92848 #### [facility] [address] [place] [id number], [facility] Potassium [Moles/Vol] 4.3 mmol/L Normal 3.5-5.1 [facility] Comment on above: Order Comment: No: D o not add to previous draw Performed By: #### 1 0, 37524, 11366 #### [facility] [address] [place] [address], [facility] Sodium [Moles/Vol] 132 mmol/L Low 136-145 [facility] Comment on above: Order Comment: No: D o not add to previous draw Performed By: #### 1 0, 45192, 76554 #### [facility] [address] [place] [address], [facility] Urea nitrogen [Mass/Vol] 13 mg/dL Normal 7-25 [facility] Comment on above: Order Comment: No: D o not add to previous draw Performed By: #### 1 0, 59846, 70270 #### [facility] [address] [place] [address], [facility] CBC COMPLETE BLOOD COUNTon 0 03-04-2021 Erythrocyte distribution width (RBC) [Ratio] 13.3 % Normal 11.5-15.0 [facility] Comment on above: Order Comment: No: D o not add to previous draw Performed By: #### 8 5499 #### [facility] [address] [place] [address], [facility] Hematocrit (Bld) [Volume fraction] 44.0 % Normal 39.0-50.0 [facility] Comment on above: Order Comment: No: D o not add to previous draw Performed By: #### 8 5499 #### [facility] [address] [place] [address], [facility] Hemoglobin (Bld) [Mass/Vol] 14.2 g/dL Normal 13.0-17.0 [facility] Comment on above: Order Comment: No: D o not add to previous draw Performed By: #### 8 5499 #### [facility] [address] [place] [id number], [facility] MCH (RBC) [Entitic mass] 28.6 pg Normal 27.0-33.0 [facility] Comment on above: Order Comment: No: D o not add to previous draw Performed By: #### 8 5499 #### [facility] [address] [place] [address], [facility] MCHC (RBC) [Mass/Vol] 32.3 g/dL Normal 32.0-35.0 [facility] Comment on above: Order Comment: No: D o not add to previous draw Performed By: #### 8 5499 #### [facility] [address] [place] [address], [facility] MCV (RBC) [Entitic vol] 88.7 fL Normal 82.0-98.0 [facility] Comment on above: Order Comment: No: D o not add to previous draw Performed By: #### 8 5499 #### [facility] [address] [place] [id number], [facility] Nucleated RBC/100 WBC (Bld) [Ratio] 0 % Normal 0-0 [facility] Comment on above: Order Comment: No: D o not add to previous draw Performed By: #### 8 5499 #### [facility] [address] [facility] [place] [address], [facility] PLAT CNT 228 10*3/uL Normal 150-400 [facility] Comment on above: Order Comment: No: D o not add to previous draw Performed By: #### 8 5499 #### [facility] [address] [place] [address], [facility] RBC (Bld) [#/Vol] 4.96 10*6/uL Normal 4.20-5.70 [facility] Comment on above: Order Comment: No: D o not add to previous draw Performed By: #### 8 5499 #### [address] WBC (Bld) [#/Vol] 11.47 10*3/uL High 4.00-10.60 [facility] Comment on above: Order Comment: No: D o not add to previous draw Performed By: #### 8 5499 #### [address] Cardiovascular Lab Reporton 03-04-2021 Cardiovascular Lab Report [facility] Patient Name: Ran Riley MR #: [id number] [facility] Physician: Ken Mukherjee M.D. Department of Service Date: 03/03/2021 Medicine Birthdate: 1965 Division of Room #: 3AB [id number] Cardiology Adult Cardiovascular Services [place] [address] Cardiovascular Laboratory Report INDICATION: The patient is a 55-year-old man who presented to the [facility] with chest pain and elevated cardiac [...] the informed consent. He was brought to rags laborer in a fasting state. The right wrist area was prepped and draped in usual fashion. Modified Sigifredo's test was favorable. Access in the right radial artery was obtained using micropuncture technique. A 6-Icelandic x 11 cm Hydrophilic sheath was advanced. Verapamil was given through the sheath and heparin was administered intravenously. Bilateral selective coronary angiography was then performed using 6-Icelandic JL3.5 and JR5 diagnostic catheters. Additional heparin was given as needed and therapeutic ACT confirmed during the rest of the procedure. A 6-Icelandic JR4 guiding catheter was then advanced and used to engage the right coronary ostium. A [place] wire was advanced into the distal RCA [...] a minimum of 1 year after acute DE and drug-eluting stenting. 3. Follow up in Cardiology Clinic. Electronically Signed by: Ken Mukherjee M.D. 03/08/2021 07:01 A (more content not included)... Normal [facility] MAGNESIUM BLOODon 03-04-2021 Magnesium [Mass/Vol] 1.7 mg/dL Low 1.9-2.7 [facility] Comment on above: Order Comment: No: D o not add to previous draw Performed By: #### 1 0070, 54875, 01023 #### [facility] [address] POC GLUCOSE LABon 03-04-2021 Glucose [Mass/Vol] 260 mg/dL High 70-100 [facility] Comment on above: Performed By: #### 8 [id number] #### [facility] [address] [place] [address], [facility] Glucose [Mass/Vol] 252 mg/dL High 70-100 [facility] Comment on above: Performed By: #### 8 5499 #### [facility] [address] [place] [address], [facility] TROPONIN-Ion 03-04-2021 Troponin I.cardiac [Mass/Vol] 1.04 ng/mL Critically high 0.00-0.04 [facility] Comment on above: Order Comment: No: D o not add to previous draw Result Comment: M-MT EVIOUS CRITICAL RESULT REFERENCE RANGES: 0.00 - 0.04 ng/ml NORMAL 0.05 - 0.50 ng/ml INDETERMINATE > 0.50 ng/ml CONSISTENT WITH AN M.I. Performed By: #### 1 0070, 81098, 78540 #### [facility] [address] [facility]. [address] APTTon 03-03-2021 aPTT Coag (Bld) [Time] 27.1 s Normal 25.0-35.0 [facility] Comment on above: Order Comment: No: [...] PURPOSE. Performed By: #### 8 5499 #### [facility] [address] [facility] [place] [address], [facility] BASIC METABOLIC PANELon 02-15 Calcium [Mass/Vol] 9.4 mg/dL Normal 8.6-10.3 [facility] Comment on above: Order Comment: No: D o not add to previous draw Performed By: #### 9 9909, 70662, 40643, 34449 #### [facility] [address] [facility] [place] [address], [place] Chloride [Moles/Vol] 95 mmol/L Low 98-107 [facility] Comment on above: Order Comment: No: D o not add to previous draw Performed By: #### 9 9909, 53000, 92154, 19580 #### [facility] [address] [place] [address], [place] CO2 [Moles/Vol] 30 mmol/L Normal 21-31 [facility] Comment on above: Order Comment: No: D o not add to previous draw Performed By: #### 9 9909, 80624, 57352, 62826 #### [facility] [address] [place] [address], [place] Creatinine [Mass/Vol] 0.73 mg/dL Normal 0.70-1.30 [facility] Comment on above: Order Comment: No: D o not add to previous draw Performed By: #### 9 9909, 73674, 11245, 95467 #### [facility] [address] [place] [address], [place] GFR/1.73 sq M.predicted among blacks MDRD (S/P/Bld) [Vol rate/Area] mL/min/{1.73_m2} Normal >60 [facility] Comment on above: Order Comment: No: D o not add to previous draw Performed By: #### 9 9909, 07093, 49808, 37756 #### [facility] [address] [place] [address], [place] GFR/1.73 sq M.predicted among non-blacks MDRD (S/P/Bld) [Vol rate/Area] mL/min/{1.73_m2} Normal >60 [facility] Comment on above: Order Comment: No: D o not add to previous draw Performed By: #### 9 9909, 08128, 54838, 51666 #### [facility] [address] [place] [address], [place] Glucose [Mass/Vol] 169 mg/dL High 70-100 [facility] Comment on above: Order Comment: No: D o not add to previous draw Performed By: #### 9 9909, 00864, 00369, 47605 #### [facility] [address] [place] [address], [place] Potassium [Moles/Vol] 4.2 mmol/L Normal 3.5-5.1 [facility] Comment on above: Order Comment: No: D o not add to previous draw Performed By: #### 9 9909, 92156, 37905, 28716 #### [facility] [address] [place] [address], [place] Sodium [Moles/Vol] 133 mmol/L Low 136-145 [facility] Comment on above: Order Comment: No: D o not add to previous draw Performed By: #### 9 9909, 04690, 46651, 07085 #### [facility] [address] [place] [address], [place] Urea nitrogen [Mass/Vol] 15 mg/dL Normal 7-25 [facility] Comment on above: Order Comment: No: D o not add to previous draw Performed By: #### 9 9909, 95777, 43687, 64912 #### [facility] [address] [place] [address], [facility] CBC COMPLETE BLOOD COUNTon 0 - Erythrocyte distribution width (RBC) [Ratio] 13.4 % Normal 11.5-15.0 [facility] Comment on above: Order Comment: No: D o not add to previous draw Performed By: #### 5 0608 #### [facility] [address] [place] [address], [place] Hematocrit (Bld) [Volume fraction] 43.2 % Normal 39.0-50.0 [facility] Comment on above: Order Comment: No: D o not add to previous draw Performed By: #### 5 0608 #### [facility] [address] [place] [address], [facility] Hemoglobin (Bld) [Mass/Vol] 14.2 g/dL Normal 13.0-17.0 [facility] Comment on above: Order Comment: No: D o not add to previous draw Performed By: #### 5 0608 #### [facility] [address] [place] [id number], [facility] MCH (RBC) [Entitic mass] 28.8 pg Normal 27.0-33.0 [facility] Comment on above: Order Comment: No: D o not add to previous draw Performed By: #### 5 0608 #### [facility] [address] [place] [address], [facility] MCHC (RBC) [Mass/Vol] 32.9 g/dL Normal 32.0-35.0 [facility] Comment on above: Order Comment: No: D o not add to previous draw Performed By: #### 5 0608 #### [facility] [address] [place] [address], [facility] MCV (RBC) [Entitic vol] 87.6 fL Normal 82.0-98.0 [facility] Comment on above: Order Comment: No: D o not add to previous draw Performed By: #### 5 0608 #### [facility] [address] [facility] [place] [address], [facility] Nucleated RBC/100 WBC (Bld) [Ratio] 0 % Normal 0-0 [facility] Comment on above: Order Comment: No: D o not add to previous draw Performed By: #### 5 0608 #### [facility] [address] [facility] [place] [address], [facility] PLAT CNT 239 10*3/uL Normal 150-400 [facility] Comment on above: Order Comment: No: D o not add to previous draw Performed By: #### 5 0608 #### [facility] [address] [place] [address], [facility] RBC (Bld) [#/Vol] 4.93 10*6/uL Normal 4.20-5.70 [facility] Comment on above: Order Comment: No: D o not add to previous draw Performed By: #### 5 0608 #### [facility] [address] [place] [address], [place] WBC (Bld) [#/Vol] 11.12 10*3/uL High 4.00-10.60 [facility] Comment on above: Order Comment: No: D o not add to previous draw Performed By: #### 5 0608 #### [facility] [address] [place] [address], [facility] HEMOGLOBIN A1Con 03-03-2021 Glucose [Moles/Vol] 286 mmol/L Normal [facility] Comment on above: Order Comment: Yes: Add to Previous draw if able Performed By: #### 3 1791 #### [facility] [address] [place] [address], [facility] HbA1c (Bld) [Mass fraction] 11.6 % High 4.0-6.0 [facility] Comment on above: Order Comment: Yes: Add to Previous draw if able Performed By: #### 3 1791 #### [facility] [address] [place] [address], [facility] LIPID PROFILEon 03-03-2021 Cholesterol [Mass/Vol] 163 mg/dL Normal 120-200 [facility] Comment on above: Result Comment: CHOL ESTEROL REFERENCE RANGE: 20 YEARS AND OLDER CARDIOVASCULAR RISK Less than 200 mg/dl Low Risk 200 to 239 mg/dl Borderline Risk 240 mg/dl and greater High Risk Performed By: #### 9 9909, 38141, 11878, 39355 #### [facility] [address] [place] [address], [place] Cholesterol in HDL [Mass/Vol] 30 mg/dL Normal 23-92 [facility] Comment on above: Result Comment: Slig ht variation in normal range could be due to gender and/or age. HDL CHOLESTEROL REFERENCE RANGE: 20 years and older Cardiovascular Risk > or =60 mg/dL Desirable 40 TO 59 mg/dL Low Risk <40 mg/dL High Risk Performed By: #### 9 9909, 45881, 31932, 72933 #### [facility] [address] [place] [address], [facility] Cholesterol in LDL [Mass/Vol] 66 mg/dL Normal 0-130 [facility] Comment on above: Result Comment: LDL IS A CALCULATION LDL IS ONLY VALID IF THE TRIG IS LESS THAN 400. Performed By: #### 9 9909, 06285, 70608, 13898 #### [facility] [address] [place] [address], [facility] Cholesterol.total/C holesterol in HDL [Mass ratio] 5.4 {ratio} High 0.0-4.5 [facility] Comment on above: Performed By: #### 9 99, 53330, 01769, 64179 #### [facility] [address] [place] [address], [place] NON-HDL CHOLESTEROL 133 mg/dL Normal [facility] Comment on above: Performed By: #### 9 99, 13670, 34541, 68960 #### [facility] [address] [place] [address], [place] Triglyceride [Mass/Vol] 333 mg/dL High 40-149 [facility] Comment on above: Result Comment: TRIG LYCERIDE REFERENCE RANGE: 20 YEARS AND OLDER CARDIOVASCULAR RISK LESS THAN 150 mg/dl LOW RISK 150 TO 199 mg/dl BORDERLINE RISK 200 mg/dl AND GREATER HIGH RISK Performed By: #### 9 9909, 45120, 08109, 30088 #### [facility] [address] [place] [address], [place] VLDL CHOL 67 mg/dL High 0-40 [facility] Comment on above: Performed By: #### 9 9909, 03476, 66833, 79923 #### [facility] [address] [place] [address], [place] LIVER BATTERYon 03-03-2021 Albumin [Mass/Vol] 4.0 g/dL Normal 3.5-5.7 [facility] Comment on above: Order Comment: No: D o not add to previous draw Performed By: #### 9 9909, 57499, 16038, 70179 #### [facility] [address] [place] [address], [place] ALKALINE PHOSPH 96 IU/L Normal 34-104 [facility] Comment on above: Order Comment: No: D o not add to previous draw Performed By: #### 9 9909, 47522, 26318, 67198 #### [facility] [address] [place] [address], [place] ALT [Catalytic activity/Vol] 20 U/L Normal 7-52 [facility] Comment on above: Order Comment: No: D o not add to previous draw Performed By: #### 9 9909, 16324, 84328, 60952 #### [facility] [address] [place] [address], [place] AST [Catalytic activity/Vol] 19 U/L Normal 13-39 [facility] Comment on above: Order Comment: No: D o not add to previous draw Performed By: #### 9 9909, 77657, 75784, 45448 #### [facility] [address] [place] [address], [place] Bilirubin [Mass/Vol] 0.7 mg/dL Normal 0.3-1.0 [facility] Comment on above: Order Comment: No: D o not add to previous draw Performed By: #### 9 9909, 21466, 42640, 20790 #### [facility] [address] [place] [address], [place] Bilirubin.direct [Mass/Vol] 0.1 mg/dL Normal 0.0-0.2 [facility] Comment on above: Order Comment: No: D o not add to previous draw Performed By: #### 9 9909, 07020, 12525, 85581 #### [facility] [address] [place] [address], [facility] Protein [Mass/Vol] 6.7 g/dL Normal 6.0-8.3 [facility] Comment on above: Order Comment: No: D o not add to previous draw Performed By: #### 9 9909, 15891, 68199, 77847 #### [facility] [address] [place] [address], [facility] TROPONIN-Ion 03-03-2021 Troponin I.cardiac [Mass/Vol] 1.12 ng/mL Critically high 0.00-0.04 [facility] Comment on above: Order Comment: No: D o not add to previous draw Result Comment: M-TR OPONIN INITIAL CRITICAL HIGH; RESPUN AND RETESTED M-CRITICAL RESULT(S) REVIEWED, CALLED TO AND READ BACK BY Adriana Phelan RN at 1930. REFERENCE RANGES: 0.00 - 0.04 ng/ml NORMAL 0.05 - 0.50 ng/ml INDETERMINATE > 0.50 ng/ml CONSISTENT WITH AN M.I. Performed By: #### 8 5499 #### [facility] [address] [facility] [address] UFH HEPARIN ASSAYon 03-03-20 21 UNFRACTIONATED HEPARIN <0.10 Critically low 0.30-0.70 [facility] Comment on above: Result Comment: Mikki roxaban and Apixaban will interfere with the anti Xa assay used to monitor UFH and LMWH. RESULTS CHECKED AND CALLED. ACCURATELY READ BACK BY kevan sauceda r.n. 2056 Performed By: #### 8 5499 #### [facility] [address] Vital Signs Date Time Vital Sign Value Performing Clinician Facility 07-23-2024 13:34-0500 Blood Pressure Location Henry MAGALY [facility] 07-23-2024 13:34-0500 Diastolic blood pressure 66 mm[Hg] Henry NILL [facility] 07-23-2024 13:34-0500 Heart rate 68 /min Henry NILL [facility] 07-23-2024 13:34-0500 Respiratory rate 16 /min Henry NILL [facility] 07-23-2024 13:34-0500 Systolic blood pressure 116 mm[Hg] Henry NILL [facility] 06-24-2024 08:17-0400 Body height 177.8 cm [facility] 06-24-2024 08:17-0400 Body mass index (BMI) [Ratio] 39.2 kg/m2 [facility] 06-24-2024 08:17-0400 Body weight 123.94 kg [facility] 06-24-2024 08:17-0400 Diastolic blood pressure 80 mm[Hg] [facility] 06-24-2024 08:17-0400 Heart rate 73 /min [facility] 06-24-2024 08:17-0400 Respiratory rate 16 /min [facility] 06-24-2024 08:17-0400 SaO2% (BldA) [Mass fraction] 98 % [facility] 06-24-2024 08:17-0400 Systolic blood pressure 118 mm[Hg] [facility] 07-02-2023 13:41-0400 Blood Pressure Location Pedrito QUINTERO [facility] 07-02-2023 13:41-0400 Diastolic blood pressure 87 mm[Hg] Pedrito QUINTERO [facility] 07-02-2023 13:41-0400 Heart rate 80 /min Pedrito QUINTERO [facility] 07-02-2023 13:41-0400 Respiratory rate 16 /min Pedrito QUINTERO [facility] 07-02-2023 13:41-0400 Systolic blood pressure 141 mm[Hg] Pedrito QUINTERO [facility] 07-02-2023 09:00-0400 Body height 177.8 cm Angela Kaplan Other [facility] [employer] Other 07-02-2023 09:00-0400 Body mass index (BMI) [Ratio] 40.69 kg/m2 Angela Kaplan Other [facility] Other 07-02-2023 09:00-0400 Body weight 128.64 kg Angela Kaplan Other [facility] Other 07-02-2023 09:00-0400 Diastolic blood pressure 75 mm[Hg] Angela Kaplan Other [facility] Other 07-02-2023 09:00-0400 Systolic blood pressure 111 mm[Hg] Angela Kaplan Other [facility] Other 05-28-2023 08:45-0400 Body height 177.8 cm Angela Kaplan Other [facility] Other 05-28-2023 08:45-0400 Body mass index (BMI) [Ratio] 41 kg/m2 Angela Kaplan Other [facility] Other 05-28-2023 08:45-0400 Body weight 129.64 kg Angela Kaplan Other [facility] Other 05-28-2023 08:45-0400 Diastolic blood pressure 76 mm[Hg] Angela Kaplan Other [place] [employer] Other 05-28-2023 08:45-0400 Respiratory rate 16 /min Angela Kaplan Other [facility] Other 05-28-2023 08:45-0400 Systolic blood pressure 109 mm[Hg] Angela Kaplan Other [facility] Other 07-03-2022 12:18-0400 Body temperature 97.7 [degF] [facility] 07-03-2022 12:18-0400 Diastolic blood pressure 72 mm[Hg] [facility] 07-03-2022 12:18-0400 Heart rate 88 /min [facility] 07-03-2022 12:18-0400 Respiratory rate 18 /min [facility] 07-03-2022 12:18-0400 SaO2% (BldA) [Mass fraction] 93 % [facility] 07-03-2022 12:18-0400 Systolic blood pressure 147 mm[Hg] [facility] Encounters Encounter Date Encounter Type Care Provider Facility Start: 12-22-2024 End: 12-22-2024 ambulatory [facility] Start: 09-02-2024 ambulatory Henry MOJICA Facility : [place] Start: 07-23-2024 End: 07-23-2024 ambulatory ANGELA KAPLAN Facility: [place] Start: 07-23-2024 End: 07-23-2024 Patient encounter procedure Henry MOJICA [facility] [place] Start: 07-21-2024 ambulatory ANGELA KAPLAN Facility:[facility] Start: 06-26-2024 ambulatory ANGELA KAPLAN Facility:[facility] Start: 06-24-2024 Patient encounter status [facility] Start: 06-24-2024 End: 06-24-2024 ambulatory [facility] Work Phone: Start: 06-24-2024 End: 06-24-2024 Encounter for general adult medical examination without abnormal findings [facility] Start: 06-24-2024 End: 06-24-2024 Patient encounter procedure [facility] Work Phone: Start: 08-30-2023 End: 08-30-2023 ambulatory Angela Kaplan Other [facility] Other Start: 08-30-2023 Telephone encounter Angela Kaplan [facility] Start: 07-02-2023 End: 07-02-2023 ambulatory Angela Kaplan Other [facility] Other Start: 07-02-2023 Office outpatient vi sit 15 minutes Angela Kaplan [facility] Start: 07-02-2023 End: 07-02-2023 Patient encounter procedure Pedrito QUINTERO [facility] Start: 06-06-2023 End: 06-06-2023 ambulatory Angela Kaplan Other [facility] Other Start: 06-06-2023 Telephone encounter Angela Kaplan [facility] Start: 05-28-2023 End: 05-28-2023 ambulatory Angela Kaplan Other [facility] Other Start: 05-28-2023 Office outpatient vi sit 25 minutes Angela Kaplan [facility] Start: 07-05-[address] ANGELA KAPLAN Facil ity:[facility] Start: 07-03-2022 End: 07-03-2022 Emergency department patient visit Abrahamjose carlos [facility] Start: 05-26-2022 End: 05-27-2022 ambulatory WILFRED MARCIAL Facility:[facility] Start: 05-25-2022 End: 05-26-[address] KEN MUKHERJEE Facility:[facility] Start: 02-16-[address] KEN MUKHERJEE Fac ility:[facility] Start: 08-30-2021 End: 08-31-[address] KEN MUKHERJEE Facility:[facility] Start: 08-12-2021 End: 08-12-[address] ANGELA KAPLAN Facility:[facility] Start: 03-03-2021 End: 03-04-2021 Evaluation and management of inpatient REJI YUN Facility:[facility] Procedures Date Procedure Procedure Detail [...] ADRIANNA Append[facility] [place] Comment on above: 2006 Cardiac catheterization Vladimir MOJICA Coronary artery sten t (physical object) Pedrito INGRID Plan of Treatment Date Care Activity Detail Author Start: 06-24-2024 Patient referral [facility] Work Phone: Comprehensive metabo lic 2000 panel - Serum or Plasma [facility] Microalbumin [Mass/v olume] in Urine [facility] Patient referral [facility] Work Phone: [facility] Immunizations Immunization Date Immunization Notes Care Provider Fa raffi 06-27-2021 SARS-CoV-2 (COVID-19 ) mRNA-1273 vaccine Henry MOJICA [facility] [place] 05-28-2021 SARS-CoV-2 (COVID-19 ) mRNA-1273 vaccine Henry MOJICA [facility] Payers Date Payer Category Payer Unknown [id number] 47 1966 Unknown [id number] 93 1966 Unknown [id number] 93 1966 Unknown [id number] 93 1966 Unknown [id number] 93 1966 Unknown [id number] 93 1966 Unknown [id number] 93 1966 Unknown [id number] 27 1966 Unknown [id number] 27 1959 Self-pay [id number] 1959 Unknown [id number] Worker's Compensation [employer] [facility] [id number] Social History Date Type Detail Facility Tobacco smoking status [facility] Sex Assigned At Male [facility] Start: 07-02-2023 End: 07-23-2024 Tobacco smoking status Never smoked tobacco (finding) [facility] Tobacco smoking status Never [facility] Start: 1965 Sex Assigned At Male [facility] Functional Status Date Assessment Result Facility 07-23-2024 Functional Status N/A [facility] [place] 07-02-2023 Functional Status N/A [facility] 07-03-2022 Functional Status N/A [facility] Clinical Notes 03-07-2021 to 12-22-2024 Note Date & Type Note Facility 12-22-2024 Note [place] [facility] Subjective Ran Riley is a [...] testing since the procedure. PMHx: CAD with DE s/p PCI RCA 03/03/21, HTN, DM type [...] injection, , D (more content not included)... [facility] 07-23-2024 Note General Surgery Offi ce/Clinic [...] Illness 58 yo male with h/o CAD, DE, cardiac stenting, DMII, htn, hypercholesterolemia, MARNI, referred [...] plan excisional biopsy under local anesthesia at [facility], informed consent obtained. Follow-up No qualifying [...] Recorded SARS-CoV-2 (COVID-19) mRNA-1273 vaccine 05/28/2021 Recorded [facility] Comment on above: Result Comment: Elec tronically Signed By: MAGALY REED, Henry Faustin\Date and Time Signed: 07/23/24 14:24 EST 07-02-2023 Hospital Discharge instructions Patient Education 07/02/2023 [...] not rub your skin to dry it. Epgm-vkw-bckkge sitz bath To take a sitz bath with an kags-vlb-bsbcot basin: 1.Follow the sales representative's instructions. 2.Fill the basin with warm water. [...] if it cracks, or according to the sales representative's instructions. Contact a health care provider if: [...] provider. Document Revised: 05/17/2021 Document Reviewed: 05/19/2021 [employer] [place] Patient Education 2022 [employer]. Follow Up Care 07/02/2023 09:18:48 With:INGRID REED, Pedrito Arreaga, URL Address: [facility] [address] , [place] [address]- When: Unknown Comments:Will call pt pending CT results. [facility] 07-02-2023 Evaluation note Encounter Date Diagnosis Assessment [...] him today at 1:15. Notes faxed over. Jun, Type 2 diabetes mellitus with hyperglycemia (ICD-10 - E11.65) Glucose 226 fasting. Increase insulin to 25 units. [facility] Other 09-11-2023 Evaluation note* Encounter Date Diagnosis [...] recommended Will have labs also sent to [facility] Cardiology who he sees next month. May, Prostate cancer screening (ICD-10 - Z12.5) [facility] Other 10-17-2022 Hospital Discharge instructions Patient Education 07/03/2022 13:34:22 Concussion, Adult, Dedi-hk-Kyuw Concussion, Adult A concussion is a brain [...] if you are dizzy. General instructions Take njpg-qic-blminpv and prescription medicines only as told by your doctor. Do not drink alcohol until your doctor says you can. Watch your symptoms and tell other people to do the same. Other problems can occur after a concussion. Older adults have a higher risk of serious problems. Tell your billet worker, teachers, school nurse, school counselor, middle school volleyball coach, or certified athletic trainer about your injury and symptoms. Tell [...] 08/22/2010 Document Revised: 04/24/2019 Document Reviewed: 04/24/2019 [employer] Patient Education 2020 [employer] 07/03/2022 13:34:22 Head Injury, Adult Head Injury, [...] Ask your health care provider for a [id number] plan for gradually returning to activities. Ask [...] your friends, family, a trusted colleague, and billet worker about your injury, symptoms, and restrictions. Have them watch for any new or worsening problems. General instructions Take ydtq-tvf-zaebzuc and prescription medicines only as told by [...] 09/03/2006 Document Revised: 10/01/2019 Document Reviewed: 09/26/2019 [employer] Patient Education 2020 [employer]. Follow Up Care 07/03/2022 12:15:09 With:[facility] Address:Unknown When:07/06/2022 13:18:40 Comments:Follow-up with your primary care provider in 3 to 5 days. If symptoms worsen, do not improve, or new symptoms arise please report back to emergency department for further evaluation. [facility]10-17-2022 Evaluation + Plan noteExtracted from: Title:ED Note Author:Josh Murphy PA-C te:07/03/22 Closed head injury without l oss of consciousness (S09.90XA: Unspecified injury of head, initial encounter) [facility]06-21-2021 NoteMR#: [id number] I [facility] Pt. Name: Ran Riley Admitted: 03/03/2021 Discharged: 03/04/2021 Date of : 1965 Physician: Reyes Thompson MD DISCHARGE SUMMARY PRIMARY DIAGNOSIS: Non-ST segment elevation myocardial infarction. SECONDARY DIAGNOSES: 1. Hypertension. 2. Diabetes. 3. Obesity. HISTORY OF PRESENT ILLNESS: This patient is a 55-year-old male with past history of hypertension and diabetes, who was sent from [facility] due to NSTEMI. The patient presented to the ER due to substernal pressure-like chest pain radiated to his left arm. His troponin was elevated. HOSPITAL COURSE: 1. NSTEMI status post PCI. The patient was discharged on aspirin, Plavix, Lopressor, and simvastatin. T 2. Wvt-nxdeqeo-wymtdanus diabetes, uncontrolled. His A1c was 11. The [...] Thompson MD Date Trans: 03/07/2021 08:53 A/germaine [id number] cc: Reji Yun M.D. [address] [facility] [address]BwdKindred HealthcareEvaluation + Plan note Future Appointments Appointment Date:09/02/2024 02:00:00 PM Scheduled Provider:Henry MOJICA MD Location:[facility] [place] Appointment Type:GS Post Op 15 [facility] Evaluation noteNo [facility]No[facility] [employer] Other Evaluation note* Diagnosis Onset Date Resolution Status Essential hypertension acute Type 2 diabetes mellitus with hyperglycemia acute Wellness examination acute [facility] Work Phone: Evaluation note* Diagnosis Onset Date Resolution Status Abscess, scalp acute Essential hypertension acute Nasal fracture acute Nasal obstruction acute Type 2 diabetes mellitus with hyperglycemia acute Wellness examination acute [facility] Work Phone: History general Narrative - Reported* Type Description Date Medical History Obstructive sleep apnea Medical History Essential hypertension Medical History Controlled type 2 diabetes melli tus with hyperglycemia Medical History Morbid (severe) obesity due to e xcess calories Surgical History Appendectomy Surgical History PCI, WITH STENT INSERTION Hospitalization History see surgical history [facility] [employer] Other Hospital course Narrative No data available for this section [facility] Orders* Referral to ENT Time Frame: 06/24/24, Location: None Selected * Referral to General Surgery Time Frame: 06/24/24, Location: None Selected [facility] Work Phone: Hospital Discharge instructions No data available for this section [facility] Progress note No data available for this section [facility] Summary Purpose Family History No Family History [...] section and content) DATE CREATED AUTHOR 03/08/2021 [facility] DATE CREATED AUTHOR AUTHOR'S ORGANIZ ATION 07/24/2022 [facility] DATE CREATED AUTHOR AUTHOR'S ORGANIZ ATION 07/25/2024 [facility] DATE CREATED AUTHOR AUTHOR'S ORGANIZ ATION 01/24/2025 [facility] Patient Care team informatio n (unrecognized [...] BE BASED ON THE PRIMARY CLINICAL RECORDS. [facility] [employer] [facility]. provides no warranty or guarantee of the accuracy or completeness of information in this document.
--- NOTE | 2025-02-12 07:15 | CA_ITS ---
Patient Name: OSCAR RILEY MR#: [id number] : 1965 Exam Date: 02/12/2025 Ordering Doctor: DR KEN FOX M.D. ECHOCARDIOGRAM REPORT PROCEDURE: CA ECHO DOPPLER COMPLETE INDICATIONS: Coronary artery disease, AK, cardiac stents, hypertension, diabetes COMPARISON: None. DESCRIPTION: COMPLETE ECHOCARDIOGRAM Real-time transthoracic echocardiography with 2D, M-mode, spectral and color flow Doppler performed. QUALITY: Technical quality was good. LEFT VENTRICLE: Normal chamber size. Moderate concentric left ventricular hypertrophy. Normal systolic function. LV EF: Normal left ventricular ejection fraction, (55%). DIASTOLIC: Normal diastolic function. ATRIAL SEPTUM: Visually appears intact. LEFT ATRIUM: Normal chamber size. RIGHT ATRIUM: Normal chamber size. RIGHT VENTRICLE: Normal chamber size. Normal right ventricular systolic function. TRICUSPID VALVE: Normal mobility and thickness. No stenosis with no regurgitation. Unable to assess right-sided pressures due to lack of measurable tricuspid regurgitation. MITRAL VALVE: Normal mobility and thickness. No evidence of mitral valve stenosis. There is no mitral annular calcification. No mitral regurgitation. AORTIC VALVE: Normal trileaflet appearance. No visible sclerosis. Normal leaflet mobility. No evidence of aortic valve stenosis. No aortic regurgitation. AORTIC ROOT: Normal diameter and appearance, measuring 3.8 cm. Ascending aorta is normal in size, measuring 2.9 cm. PULMONIC VALVE: Normal thickness and mobility. No stenosis. Trivial regurgitation. PERICARDIUM: No evidence of pericardial effusion. IVC: Collapses with inspirations. IVC is normal in size. PLEURA: CONCLUSION: 1. Moderate concentric left ventricular hypertrophy with normal systolic function. LVEF is estimated at 55%. 2. Normal right ventricular size and systolic function. 3. Normal diastolic function. 4. No significant valvular dysfunction. 5. Unable to assess right-sided pressures due to lack of measurable tricuspid regurgitation. Adult Echocardiography Procedure Report Left Ventricle LVEDD (3.7 - 5.6 cm): 4.50 cm LVESD (2.2 - 4.0 cm): 2.78 cm LVIVS thickness (0.6 - 1.2 cm): 1.52 cm LVPW thickness (0.5 - 1.0 cm): 1.18 cm e': 0.11 m/s E - e': 6.66 LVOT Max Gradient: 2.92 mm[Hg] LVOT Area (cm2): 0.86 m/s Peak Velocity (LVOT): 0.86 m/s Mean Velocity (LVOT): 0.50 m/s LVOT Diameter 2.49 cm Left Atrium LA Volume Index (2D A2C): 30.08 ml/m2 Left Atrium Systolic Dimension: 3.59 cm Mitral Valve MV E to A Ratio: 1.21 Mitral Valve A-Wave Peak Velocity: 0.62 m/s Mitral Valve E-Wave Peak Velocity: 0.75 m/s Right Ventricle Aorta AO Root Diam: 3.8 cm Ascending Ao Diam: 2.95 cm Aortic Valve AoV Area (Peak Oliver): 4.67 cm2, 4.67 cm2 AoV Area (VTI): 4.80 cm2, 4.80 cm2 Peak Velocity(Antegrade Flow): 0.89 m/s Peak Gradient(Antegrade Flow): 3.16 mm[Hg] Mean Velocity(Antegrade Flow): 0.53 m/s Mean Gradient(Antegrade Flow): 1.40 mm[Hg] Velocity Time Integral: 18.91 cm Tricuspid Valve Pulmonic Valve Mean Gradient: 1.39 mm[Hg] Mean Velocity: 0.53 m/s Peak Velocity: 0.89 m/s, 0.87 m/s Peak Gradient: 3.01 mm[Hg], 3.17 mm[Hg] Right Atrium Right Atrium Systolic Pressure: 44.73 ml, 44.73 ml Dictated by: Ken Fox M.D. on 02/12/2025 at 20:34 Approved by: Ken Fox M.D. on 02/12/2025 at 20:38
== END 2025-02-12 07:04 | disposition home or self-care (01) ==
LOC: CARD 07:03
PROVIDERS: PCP Family Medicine; Visit Provider Internal Medicine Interventional Cardiology
DX: I25.10 Atherosclerotic heart disease of native coronary artery without angina pectoris (principal); Z95.5 Presence of coronary angioplasty implant and graft
CPT/HCPCS: 93306

== ENCOUNTER 2025-04-03 07:28 | Outpatient (OUT) | payer OTHER, BC, SELFPAY ==
--- OUTSIDE RECORDS SUMMARY | 2025-04-03 07:29 | XMS_ITS | Clinical Summary ---
Author Organization [facility] Address [address] [place] [address] Care Team Providers Care Dietary Internship Name Role Phone Angela Robles MD Primary Care Provider [phone] Allergies No known active allergies Medications allopurinol (Zyloprim) 300 mg tablet Take 300 mg by mouth in the morning. 11/26/19 23 Active aspirin 81 mg chewable tablet aspirin 81 mg chewable tablet TAKE ONE TABLET BY MOUTH EVERY DAY Active glipiZIDE XL (Glucotrol XL) 10 mg 24 hr tablet glipizide ER 10 mg tablet, extended release 24 hr TK 1 T PO QD AT NOON Active Levemir FlexPen 100 unit/mL (3 mL) pen INJECT 10 UNITS UNDER THE SKIN DAILY 12/08/19 23 Active metFORMIN (Glucophage) 500 mg tablet Take 500 mg by mouth in the morning and at bedtime. 10/23/19 23 Active cholecalciferol (Vitamin D3) 25 MCG (1000 units) tablet Take 2,000 Units by mouth in the morning. Active Tresiba FlexTouch U-100 100 unit/mL (3 mL) injection 11/27/19 24 Active cetirizine (ZyrTEC) 10 mg tablet Take 10 mg by mouth in the morning. Active simvastatin (Zocor) 40 mg tabletIndication s:Coronary artery disease, unspecified vessel or lesion type, unspecified whether angina present, unspecified whether grayling or transplanted heart TAKE 1 TABLET AT BEDTIME 90 tablet 3 05/13/20 24 Active ezetimibe (Zetia) 10 mg tabletIndication s:Coronary artery disease, unspecified vessel or lesion type, unspecified whether angina present, unspecified whether grayling or transplanted heart TAKE 1 TABLET DAILY DIRECTED 90 tablet 3 05/13/20 24 Active metoprolol tartrate (Lopressor) 25 mg tabletIndication s:Palpitations TAKE 1 TABLET IN THE MORNING AND AT BEDTIME 180 tablet 3 06/27/20 24 Active lisinopril 30 mg tabletIndication s:Primary hypertension TAKE 1 TABLET IN THE MORNING 90 tablet 3 03/10/20 25 Active lisinopril 30 mg tabletIndication s:Primary hypertension Take 1 tablet (30 mg) by mouth in the morning. 90 tablet 3 01/11/20 24 025 Discontinued Active Problems Problem Noted Date Diagnosed Date [...] medications. H/O non-ST elevation myocardial infarction (NSTE MO) 04/01/2021 Assessment & Plan (12/15/2022 11:20 AM [...] EDT): Diabetes is referral to endocrinology in [place] DDD (degenerative disc disease), lumbar 05/27/20 15 Sprain of lumbar region 05/27/2015 Encounters Date Type Department Care Team Description 03/07/2025 Refill [facility] [address] [place] [facility] [address] Franco Fox MD Primary hypertension (Primary Dx) 02/19/2025 Telephone [facility] [address] [place] [facility] [place] [address] Amber Cancino MA 02/13/2025 Orders Only [facility] [address] [place] [facility] [place] [address] Provider, MD Shantal 01/21/2025 Telephone [facility] [address] [place] [facility] [place] [address] YrisMaribell MA from Last 3 Months Immunizations Immunization Administration Dates Next Due Moderna SARS-CoV-2 Vaccination [...] at Not on file Legal Sex Male 10:59 PM EDT Gender Identity Not on file Sexual [...] 1965 FIT 1965 FOBT 1965 Sigmoidoscopy 1965 Diabetes: Retinopathy Screening 1976 Depression Screening 1978 Diabetes: Urine Protein Screening 1985 Hepatitis B Vaccines (1 of 3 - 19+ 3-dose series) 1985 Pneumococcal Vaccine: Pediatrics (0 to 5 Years) and At-Risk Patients (6 to 64 Years) (1 of 2 - PCV) 1985 Adult Tetanus 1988 Zoster Vaccines (1 of 2) 2016 Diabetes: Hemoglobin A1C 06/03/2021 03/03/2021 COVID-19 Vaccine ( season) 2024 06/27/2021, 06/27/2021, 05/28/2021, Additional history exists Influenza Vaccine (#1) 2025 HIB Vaccines Aged Out No longer [...] Procedure Name Priority Date/Time Associated Diagnosis Comments COMPLETE TRANSTHORACIC ECHO (TTE) W/WO IMAGING AGENT, STRAIN, 3D, BUBBLE STUDY Routine 02/12/2025 9:41 AM EDT HEMOGLOBIN A1C Routine 03/03/2021 4:48 PM EDT from Last 3 Months or Most Recently Relevant to Health Maintenance Results * Complete Echo (TTE) w/wo Imaging Agent, Strain, 3D, Bubble Study (02/12/2025 9:41 AM EDT) Anatomical Region Laterality Modality Ultrasound us Historical Provider MD ROSAS ECHO PROCEDURES Final Result * (ABNORMAL) Hemoglobin A1c (03/03/2021 4:48 PM EDT) Hemoglobin A1C 11.6(H) 4.0 - 6.0 % LAB CONVERSIONS Estimated Average Glucose 286 mmol/L LAB CONVERSIONS 03/03/2021 4:48 PM EDT 03/03/2021 5:47 PM EDT Narrative LAB CONVERSIONS - 03/04/2021 11:00 AM EDT Yes: Add to Previous draw if able us Generic Provider Conversion LAB BLOOD ORDERABLES Final Result LAB CONVERSIONS from Last 3 Months or Most Recently Relevant to Health Maintenance [place] [address] [place] [phone] Care Teams Dietary Internship Relationship Specialty [place] [address] [place] [address] #A PCP - General 12/15/22
--- OUTSIDE RECORDS SUMMARY | 2025-04-03 07:29 | XMS_ITS | Clinical Summary ---
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 [address] [place] [address] PCP - General Orthopedics 05/17/15
--- OUTSIDE RECORDS SUMMARY | 2025-04-03 07:29 | XMS_ITS | CCD ---
Author Organization [facility] Care Team Providers Care Pharmaceutical Laboratory Technician Name Role Phone REJI YUN Referring Unavailable AL-HOURANIREYES Admitting Unavailable AL-HOURANI, REYES Attending Unavailable ANGELA KPALAN Primary Care Unavailable UNKNOWN, PROVIDER Surgeon Unavailable MD Procedure Practitioner Unavailab le MD Procedure Practitioner Unavailab EDGAR Roldan Surgeon Unavailable MEDICAL, MESFIN Primary Care Physician Unavailab le MOUKARBAILEEN, DR ROGERS Admitting Unavailable MOUKARBEL, DR ROGERS Attending Unavailable KAPLAN, DR ANGELA Rosen Primary Care Unavailable MOUKARBEL, DR ROGERS Consulting Unavailable MOUKARBEL, DR ROGERS Admitting Unavailable MOUKARBEL, DR ROGERS Attending Unavailable KAPLAN, DR ANGELA Rosen Primary Care Unavailable MOUKARBEL, DR ROGERS Consulting Unavailable AGGIEWILFRED Admitting Unavailable AGGIE, WILFRED Attending Unavailable KAPLAN, DR ANGELA Rosen Primary Care Unavailable AGGIEWILFRED [place] Consulting Unavailable KAPLAN, DR ANGELA Rosen Primary Care Unavailable HAY, DR RODRIGUEZ Admitting Unavailable HAY, DR RODRIGUEZ Attending Unavailable HAY, DR RODRIGUEZ Consulting Unavailable PROHENRY Unavailable KAPLAN, DR ANGELA Rosen Admitting Unavailable KAPLAN, DR ANGELA Rosen Attending Unavailable EUSEBIO, DR ANGELA Rosen Primary Care Unavailable MOUKARBEL, DR ROGERS Admitting Unavailable MOUKARBEL, DR ROGERS Attending Unavailable KAPLAN, DR ANGELA Rosen Primary Care Unavailable Angela Kaplan Unavailable ANGELA KAPALN Primary Care Physician ANGELA KAPLAN Referring Unavailable Henry MOJICA Attending Unavailable Henry MOJICA Attending Unavailable MOUKAKEN BLEDSOE Attending Unavailable Angela Kaplan MD Primary Care Provider [phone] Angela Kaplan MD Attending Provider [phone] Ba Moscoso APRN Attending Provider [phone] Doe Culp DO Attending Provider Angela Kaplan Primary Care Unavailable Doe Culp Jr Attending Unavailable Doe Culp Jr Admitting Unavailable Allergies Allergy Classification Reported Allergen(s) Allergy Type Date of Onset Reaction(s) Facility (4 sources) Eggs or Egg-derived Products Drug allergy Unknown [facility] Other (5 sources) Pollen; Translations: [pollen extracts] Allergy to substance 4 Congested [facility] Comment on above: sneezing (5 sources) Egg Derived; Translations: [Egg Derived] Allergy to substance 4 Upset stomach [facility] (1 source) No Known Medication Allergies; Translations: [No Known Medication Allergies] Propensity to adverse reactions (disorder) [facility] Repository Medications Current Medications Medication Drug Class(es) Dates Sig (Normalized) Sig (Original) acetaminophen 325 mg oral tablet (1 source) Start: 01-28-2015 Tylenol 325 mg, Oral, Refills(s) 0 Start Date: 01/28/15 Status: Ordered allopurinol 300 mg oral tablet (19 sources) Xanthine Oxidase Inhibitor Start: 02-02-2025 Allopurinol 300 mg tablet Active 0 .ROUTE .COMPLEX February 02, 2025 12:27pm TAKE 1 TABLET DAILY Start: 02-19-2024 End: 02-02-2025 Allopurinol 300 mg tablet Discontinued 0 .ROUTE .COMPLEX August 26, 2024 9:27am February 02, 2025 12:27pm TAKE 1 TABLET DAILY Start: 02-19-2024 End: 08-26-2024 Allopurinol 300 mg tablet Discontinued 0 .ROUTE .COMPLEX February 19, 2024 3:33pm August 26, 2024 9:27am TAKE 1 TABLET DAILY Start: 02-19-2024 Allopurinol Ac tive 0 .ROUTE .COMPLEX February 19, 2024 3:33pm TAKE 1 TABLET DAILY Start: 01-26-2015 End: 02-19-2024 take 1 tablet by mouth once daily Allopurinol 300 mg tablet Discontinued 300 MG PO Daily February 19, 2024 12:00am February 19, 2024 3:33pm aspirin 81 mg oral tablet (7 sources) Platelet Aggregation Inhibitor, Nonsteroidal Anti-inflammatory Drug Start: 02-12-2025 take 1 tablet by mouth once daily Start: 07-23-2024 take 1 tablet by jaylin th once daily aspirin 81 mg Oral EC Tab 81 mg = 1 tab(s), Oral, Daily, Refills(s) 0 Start Date: 07/23/24 Status: Ordered Start: 06-13-2022 take 1 tablet by jaylin every twenty-four hours Aspirin Low Dose 81 [...] daily for 0 for Levemir Feb, Active Blood-Glucose Sensor (Freestyle Chioma 3 Plus Sensor) device (2 sources) Start: 02-12-2025 Blood-Glucose Sensor (Freestyle Chioma 3 Plus Sensor) device Active 0 .ROUTE .MEDSUPPLY February 12, 2025 12:00am change every 15 days cholecalciferol 0.025 mg oral capsule (6 sources) Vitamin D Start: 02-12-2025 take 1 capsule by mouth once daily Start: 06-13-2022 take 1 tablet by [facility] every twenty-four hours Vitamin D 50 MCG (1999 UT) 1 tablet Orally Once a day for 0 days May, Active clopidogrel 75 mg oral tablet (10 sources) P2Y12 Platelet Inhibitor Start: 06-13-2022 take 1 tablet by mouth once daily cyclobenzaprine hydrochloride 5 mg oral tablet (1 source) Muscle Relaxant Start: 06-21-2017 take 5 mg by mouth three times daily cyclobenzaprine 5 mg, Oral, TID, Refills(s) 0 Start Date: 06/21/17 Status: Ordered empagliflozin 25 mg oral tablet (2 sources) Sodium-Glucose Cotransporter 2 Inhibitor Start: 02-12-2025 take 1 tablet by mouth once daily ezetimibe 10 mg oral tablet (11 sources) Dietary Cholesterol Absorption Inhibitor Start: 06-24-2024 take 1 tablet by mouth once daily Start: 01-26-2015 Zetia 10 mg or al tablet Refills(s) 0 Start Date: 01/26/15 Status: Ordered FreeStyle Chioma 14 Day Goodman (4 sources) Start: 12-02-2020 FreeStyle Libr e 14 Day Goodman FreeStyle Chioma 14 Day Goodman , 1 (one) Device Device q 2 [...] ml insulin degludec 100 unt/ml pen injector (9 sources) Insulin Analog Start: 02-12-2025 Start: 06-30-2024 inject 10 [IU] by riojas bcutaneous injection once daily Tresiba FlexTouch 100 units/mL subcutaneous solution 10 unit(s), SubCutaneous, Daily, Refills(s) 0 Start Date: 06/30/24 Status: Ordered Start: 02-04-2024 End: 02-12-2025 inject 10 [IU] by subcutaneous injection once daily Insulin Degludec (Tresiba Flextouch U-100) 100 unit/mL (3 mL) insulin pen Discontinued 10 UNIT SUBCUT Daily August 27, 2024 2:37pm February 12, 2025 10:45am inject 10 [IU] by riojas bcutaneous injection once daily Tresiba FlexTouch 100 UNIT/ML 10 units Subcutaneous daily for 90 days Active Insulin Degludec (Tresiba Flextouch U-100) 100 unit/mL (3 mL) insulin pen (15 sources) Start: 02-12-2025 Insulin Deglud ec (Tresiba Flextouch U-100) 100 unit/mL (3 mL) insulin pen Active 20 UNIT SUBCUT Every morning February 12, 2025 10:43am Start: 08-27-2024 End: 02-12-2025 inject 10 [IU] by subcutaneous injection once daily Insulin Degludec (Tresiba Flextouch U-100) 100 unit/mL (3 mL) insulin pen Discontinued 10 UNIT SUBCUT Daily August 27, 2024 2:37pm February 12, 2025 10:45am Start: 07-14-2024 End: 08-27-2024 inject 10 [IU] by subcutaneous injection once daily Insulin Degludec (Tresiba Flextouch U-100) 100 unit/mL (3 mL) insulin pen Discontinued 10 UNIT SUBCUT Daily July 14, 2024 4:18pm August 27, 2024 2:37pm Start: 05-05-2024 End: 07-14-2024 inject 10 [IU] by subcutaneous injection once daily Insulin Degludec (Tresiba Flextouch U-100) 100 unit/mL (3 mL) insulin pen Discontinued 10 UNIT SUBCUT Daily May 05, 2024 11:15am July 14, 2024 4:18pm Start: 05-05-2024 inject 10 [IU] by riojas bcutaneous injection once daily Insulin Degludec (Tresiba Flextouch [...] pen Active lisinopril 30 mg oral tablet (11 sources) Angiotensin Converting Enzyme Inhibitor Start: 06-24-2024 take 1 tablet by mouth once daily Start: 01-26-2015 lisinopril 40 mg Tab Refills(s) 0 Start Date: 01/26/15 Status: Ordered meloxicam 15 mg oral tablet (1 source) Nonsteroidal Anti-inflammatory Drug Start: 06-21-2017 take 1 tablet by mouth once daily meloxicam 15 mg Tab 15 mg = 1 tab(s), Oral, Daily, Refills(s) 0 Start Date: 06/21/17 Status: Ordered metFORMIN hydrochloride 500 mg oral tablet (16 sources) Biguanide Start: 06-30-2024 Metformin 500 mg tablet Active 0 .ROUTE .COMPLEX 180 June 30, 2024 8:21am TAKE 1 TABLET TWICE A DAY Start: 03-31-2024 End: 06-30-2024 Start: 03-31-2024 End: 06-30-2024 Metformin 500 mg tablet Disc ontinued 0 .ROUTE .COMPLEX 180 March 31, 2024 9:56am June 30, 2024 8:21am TAKE 1 TABLET TWICE A DAY Start: 03-31-2024 Metformin Acti ve 0 .ROUTE .COMPLEX 180 March 31, 2024 9:56am TAKE 1 TABLET TWICE A DAY Start: 07-02-2023 End: 03-31-2024 take 1 tablet by mouth twice daily Metformin 500 mg tablet Discontinued 500 MG PO Twice daily March 31, 2024 12:00am March 31, 2024 9:56am metoprolol tartrate 25 mg oral tablet (10 sources) beta-Adrenergic Moncho Start: 07-02-2023 take 1 tablet by mouth once daily Start: 06-13-2022 take 1 tablet by jaylin th every twelve hours Metoprolol Tartrate 25 MG 1 tablet with food Orally Twice a day for 0 days May, Active Aleve (1 source) Nonsteroidal Anti-inflammatory Drug Start: 06-18-2015 Aleve Refills(s) 0 Start Date: 06/18/15 Status: Ordered Semaglutide (2 sources) Start: 02-12-2025 Start: 02-12-2025 Semaglutide (O zempic) 0.25 mg or 0.5 mg (2 mg/3 mL) pen injector Active 0.5 MG SUBCUT every week February 12, 2025 12:00am simvastatin 40 mg oral tablet (13 sources) HMG-CoA Reductase Inhibitor Start: 06-24-2024 End: 02-12-2025 take 1 tablet by mouth once daily at bedtime Start: 06-13-2022 take 1 tablet by jaylin th every twenty-four hours Simvastatin 40 MG 1 tablet in the evening Orally Once a day for 0 days May, Active Start: 01-26-2015 simvastatin 20 mg Tab Refills(s) 0 Start Date: 01/26/15 Status: Ordered Completed/Discontinued Medications Medication Drug Class(es) Dates Sig (Normalized) Sig (Original) Blood-Glucose Meter misc (2 sources) Start: 06-25-2024 End: 02-12-2025 Blood-Glucose Meter misc Discontinued 0 .Route 1 June 25, 2024 12:00am February 12, 2025 10:44am to test blood sugar once daily Problems Active Problems Problem Classification Problem Date Documented Date Episodic/Chronic Abdominal pain (1 source) Unspecified abdominal pain Episodic Acute myocardial infarction (1 source) Acute non-ST segment elevation myocardial infarction Onset: 04-01-2021 06-26-2024 Chronic Administrative/social admission (4 sources) Patient encounter status; Translations: [Dietary counseling and surveillance] 02-12-2025 Episodic Calculus of urinary tract (2 sources) Kidney stone 07-02-2023 Episodic Coronary atherosclerosis and other heart disease (11 sources) Atherosclerotic heart disease of [place] coronary artery without angina pectoris; Translations: [Coronary atherosclerosis] Onset: 04-01-2021 Chronic Coronary atherosclerosis and other heart disease (2 sources) Presence of coronary angioplasty implant and graft; Translations: [Presence of coronary angioplasty implant and graft] Onset: 12-22-2024 Episodic Diabetes mellitus with complications (18 sources) Type 2 diabetes mellitus; Translations: [Type 2 diabetes mellitus with hyperglycemia] Chronic Diabetes mellitus without complication (3 sources) Type 2 diabetes mellitus without complications; Translations: [Type 2 diabetes mellitus] Onset: 06-02-2022 07-02-2023 Chronic Disorders of lipid metabolism (11 sources) Hypercholesterolemia; Translations: [Pure hypercholesterolemia, unspecified] Onset: 08-15-2021 01-26-2015 Chronic Essential hypertension (20 sources) Hypertensive disorder; Translations: [Essential (primary) hypertension] Onset: 08-15-2021 01-26-2015 Chronic Genitourinary congenital anomalies (1 source) Absence and aplasia of testis Chronic Gout and other crystal arthropathies (4 sources) Gout 01-26-2015 Chronic Malaise and fatigue (4 sources) Other fatigue; Translations: [OTHER FATIGUE] Onset: 05-26-2022 Episodic Other aftercare (4 sources) Long-term current use of insulin; Translations: [intermediate card tender (current) use of insulin] Episodic Other and [...] source) Obese class III 06-30-2024 Chronic Other nutritional; endocrine; and metabolic disorders (2 sources) Obese class II; Translations: [Class 2 obesity] 02-12-2025 Chronic Other screening for suspected conditions (not mental disorders or infectious disease) (3 sources) Encounter for screening for malignant neoplasm of prostate; Translations: [Patient encounter status] Episodic Other skin disorders (1 source) Trichilemmal cyst; Translations: [Pilar cyst] Onset: 07-23-2024 Episodic Other skin disorders (1 source) Pilar cyst of scalp 07-23-2024 Episodic Other upper respiratory disease (3 sources) Nasal obstruction; Translations: [Other specified disorders of [...] 06-30-2024 Chronic Skin and subcutaneous tissue infections (4 sources) Abscess of scalp; Translations: [Cutaneous abscess of head [any part, except face]] 06-24-2024 Episodic Skull and face fractures (4 sources) Fractured nasal bones; Translations: [Fracture of nasal bones, initial encounter for closed fracture] 06-24-2024 Episodic Sprains and strains (2 sources) Sprain of unspecified ligament of left ankle, initial encounter; Translations: [Unspecified sprain of left shoulder joint, initial encounter] Onset: 08-15-2021 Episodic Past or Other Problems Problem Classification Problem Date Documented Da te Episodic/Chronic E Codes: Natural/environment (1 source) Other and unspecified overexertion or strenuous movements or postures, initial encounter; Translations: [OTH AND UNS OVREXRT/STRN MVMT/POS INT] Onset: 08-15-2021 Episodic Other aftercare (1 source) snf (current) use of oral hypoglycemic drugs; Translations: [INDUSTRIAL NURSE USE ORAL HYPOGLYCEMIC DX] Onset: 08-15-2021 Episodic Other aftercare (1 source) snf (current) use of aspirin; Translations: [INDUSTRIAL NURSE CURRENT USE OF ASPIRIN] Onset: 08-15-2021 Episodic Other aftercare (1 source) Other exterminator termite (current) drug therapy; Translations: [OTH INDUSTRIAL NURSE CURRENT DRUG THERAPY] Onset: 08-15-2021 Episodic Other non-traumatic joint disorders (3 sources) Pain in left ankle and joints of left foot; Translations: [PAIN IN LEFT ANKLE] Onset: 08-12-2021 Episodic Results Test Name Value Interpretation Reference Range Facility X-ray reportOrdered By: Gera Hale on 03-25-2025 Study report [facility] [address] [place] [address] XRay Report Signed Patient: Ran Riley MR#: [id number] : 1965 Acct:[id number] Age/Sex: 59 / M ADM Date: 5 Loc: [place] Room: Type: [facility] Attending Dr: Doe Culp Jr, DO Copies to: Doe Culp DO~ Ordering Provider: Doe Culp DO Date of Service: 03/25/25 XR/XR shoulder LT min 2V*: [facility] XR shoulder LT min 2V* 03/25/2025 9:05 AM SIGNS AND SYMPTOMS: Pain in the head of the humerus with tingling into left arm and wrist PROTOCOL: Frontal, Grashey, and scapular Y views of the left shoulder COMPARISON: None FINDINGS: There is mild narrowing of the glenohumeral joint. The acromioclavicular joint is preserved. No acute displaced fracture. Mild subcortical sclerosis is notedalong the greater tuberosity of the humeral head suspicious for underlying rotator cuff pathology. The visualized left hemithorax is grossly intact. XR/XR shoulder LT min 2V* IMPRESSION: No fracture or dislocation. Mild degenerative changes are noted in the glenohumeral joint with findings suspicious for underlying rotator cuff pathology as above. Impression dictated by: Gera Hale M.D. 03/25/2025 9:07 AM Dictation Location: [place] [address] Transcribed By: [facility] 03/25/25 09 Dictated By: Gera Hale II, MD 03/25/25 09 Signed By: 03/25/25906 [facility] Work Phone: XR shoulder LT min 2V*on XR shoulder LT min 2V* [facility] [address] [facility] [address] [place] [id number] XRay Report Signed Patient: Ran Riley MR#: [id number] : 1965 Acct:[id number] Age/Sex: 59 / M ADM Date: 03/25/25 Loc: [place] Room: Type: [facility] Attending Dr: Doe Culp Jr, DO Copies to: Doe Culp DO Ordering Provider: Doe Culp DO Date of Service: 03/25/25 XR/XR shoulder LT min 2V*: [facility] XR shoulder LT min 2V* 03/25/2025 9:05 AM SIGNS AND SYMPTOMS: Pain in the head of the humerus with tingling into left arm and wrist PROTOCOL: Frontal, Grashey, and scapular Y views of the left shoulder COMPARISON: None FINDINGS: There is mild narrowing of the glenohumeral joint. The acromioclavicular joint is preserved. No acute displaced fracture. Mild subcortical sclerosis is noted along the greater tuberosity of the humeral head suspicious for underlying rotator cuff pathology. The visualized left hemithorax is grossly intact. XR/XR shoulder LT min 2V* IMPRESSION: No fracture or dislocation. Mild degenerative changes are noted in the glenohumeral joint with findings suspicious for underlying rotator cuff pathology as above. Impression dictated by: Gera Hale M.D. 03/25/2025 9:07 AM Dictation Location: [place] [address] Transcribed By: [facility] 03/25/25906 Dictated By: Gera Hale II, MD 03/25/25905 Signed By: 03/25/25906 Normal [facility] 36on 02-19-2025 36 ----- Message ----- From: Ken Mukherjee MD Sent: 02/14/2025 3:56 PM EDT To: Maribell Arndt MA His echo is ok. Blood testing is ok except for high glucose and triglycerides. He needs better control of diabetes, to discuss with PCP. Advised patient of Dr. Mukherjee's findings. Patient states he is seeing a Diabetic provider in [place] and is starting to get better control of his diabetes. [facility] Orders Onlyon 02-13-2025 Orders Only [id number] Jah Riley Silas 1965 M Date Provider Department Center 02/13/2025 [id number], HISTORICAL CARD [facility] Family History Problem Relation Age of Onset Stroke Mother Cancer Father Family Status - Relation Status Age at Mother Alive Father Brother Alive [facility] HbA1c HPLC (Bld) [Mass fract ion]on 02-12-2025 HbA1c (Bld) [Mass fraction] 10.5 % [facility] No Panel Informationon 02-12 Bedside Glucose 222 [facility] 36on 01-21-2025 36 Regarding lab result s from 12/27/2024: MD Maribell Stovall MA His triglycerides are high and this is due to uncontrolled diabetes (blood sugar 275!) he need to discuss with his PCP. Has he had the echo? Confirmed with [facility] scheduling that echo has not been performed yet. They have left him messages with no call back. I just left him a message also. Lab results faxed to Dr. Kaplan. [facility] Basophils Auto (Bld) [#/Vol] on 12-27-2024 Basophils (Bld) [#/Vol] Automated basophil count 0.0-0.1 [facility] Basophils (Bld) [#/Vol] 0.1 10 3/uL 0.0-0.1 [facility] Basophils/100 WBC Auto (Bld) on 12-27-2024 Basophils/100 WBC (Bld) Automated basophil % 0.2-2.0 [facility] Basophils/100 WBC (Bld) 0.6 % 0.2-2.0 [facility] Cholesterol in LDL Calc [Mas s/Vol]on 12-27-2024 Cholesterol in LDL [Mass/Vol] Cholesterol in LDL [Mass/volume] in Serum or Plasma by calculation [facility] Comment on above: <100 mg/dl [id number] 0-129 mg/dl NEAR OR ABOVE [id number] mg/dl BORDERLINE [id number] mg/dl HIGH>190 mg/dl VERY HIGH Cholesterol in LDL [Mass/Vol] 34.0 mg/dL [facility] Comment on above: <100 mg/dl [id number] 0-129 mg/dl NEAR OR ABOVE [id number] mg/dl BORDERLINE [id number] mg/dl HIGH>190 mg/dl VERY HIGH Cholesterol in VLDL Calc [Ma ss/Vol]on 12-27-2024 Cholesterol in VLDL [Mass/Vol] Cholesterol in VLDL [Mass/volume] in Serum or Plasma by calculation [facility] Cholesterol in VLDL [Mass/Vol] 61.6 mg/dL [facility] Eosinophils/100 WBC Auto (Bl d)on 12-27-2024 Eosinophils/100 WBC (Bld) Automated eosinophil % 0.9-7.0 [facility] Eosinophils/100 WBC (Bld) 5.7 % 0.9-7.0 [facility] Erythrocyte distribution wid th Auto (RBC) [Ratio]on 12-27-2024 Erythrocyte distribution width (RBC) [Ratio] Erythrocyte distribution width [Ratio] by Automated count 11.0-15.0 [facility] Erythrocyte distribution width (RBC) [Ratio] 12.4 % 11.0-15.0 [facility] Estimated glomerular filtrat ion rate (GFR) non- Americanon 12-27-2024 GFR/1.73 sq M.predicted among non-blacks MDRD (S/P/Bld) [Vol rate/Area] Estimated glomerular filtration rate (GFR) non- >=60 mL/min/1.73m 2 [facility] GFR/1.73 sq M.predicted among non-blacks MDRD (S/P/Bld) [Vol rate/Area] mL/min/{1.73_m2} >=60 mL/min/1.73m 2 [facility] Globulin Calc (S) [Mass/Vol] on 12-27-2024 Globulin (S) [Mass/Vol] Serum globulin measurement by calculation (mass/volume) [facility] Globulin (S) [Mass/Vol] 3.6 g/dL [facility] Hematocrit Auto (Bld) [Volum e fraction]on 12-27-2024 Hematocrit (Bld) [Volume fraction] Hematocrit [Volume Fraction] of Blood by Automated count 42.0-54.0 [facility] Hematocrit (Bld) [Volume fraction] 44.0 % 42.0-54.0 [facility] Hemoglobin [Mass/volume] in Bloodon 12-27-2024 Hemoglobin (Bld) [Mass/Vol] Hemoglobin [Mass/volume] in Blood 14.0-18.0 [facility] Hemoglobin (Bld) [Mass/Vol] 14.9 g/dL 14.0-18.0 [facility] Laboratory - Chemistry and C hemistry - challengeon 12-27-2024 Albumin [Mass/Vol] 4.0 g/dL 3.4-5.0 [facility] ALP [Catalytic activity/Vol] 138 U/L High 46-116 [facility] ALT [Catalytic activity/Vol] 22 U/L 16-63 [facility] AST [Catalytic activity/Vol] 14 U/L Low 15-37 [facility] Bilirubin [Mass/Vol] 0.8 mg/dL 0.2-1.0 [facility] Calcium [Mass/Vol] 9.4 mg/dL 8.5-10.1 [facility] Chloride [Moles/Vol] 99 mmol/L 98-107 [facility] Cholesterol [Mass/Vol] 131 mg/dL <=200 [facility] Cholesterol in HDL [Mass/Vol] 36 mg/dL Low 40-60 [facility] Comment on above: > or =60 mg/dl - LOW CARDIOVASCULAR RISK<40 mg/dl - HIGH CARDIOVASCULAR RISK CO2 [Moles/Vol] 31.2 mmol/L 21.0-32.0 [facility] Creatinine [Mass/Vol] 0.88 mg/dL 0.70-1.30 [facility] GFR/1.73 sq M.predicted MDRD (S/P/Bld) [Vol rate/Area] mL/min/{1.73_m2} >=60 mL/min/1.73m 2 [facility] Glucose [Mass/Vol] 275 mg/dL High 74-106 [facility] Potassium [Moles/Vol] 4.4 mmol/L 3.5-5.1 [facility] Protein [Mass/Vol] 7.6 g/dL 6.4-8.2 [facility] Sodium [Moles/Vol] 136 mmol/L 136-145 [facility] Triglyceride [Mass/Vol] 308 mg/dL High <=150 [facility] Urea nitrogen [Mass/Vol] 14.0 mg/dL 7.0-18.0 [facility] Urea nitrogen/Creatinine [Mass ratio] 15.9 mg/mg [facility] Laboratory - Hematology and Cell countson 12-27-2024 Immature granulocytes/100 WBC (Bld) 0.6 % High 0.0-0.5 [facility] Leukocytes [#/volume] correc [place] for nucleated erythrocytes in Blood by Automated counon 12-27-2024 WBC corrected for nucl RBC Auto (Bld) [#/Vol] Leukocytes [#/volume] corrected for nucleated erythrocytes in Blood by Automated coun .0-11.0 [facility] WBC corrected for nucl RBC Auto (Bld) [#/Vol] 9.6 10 3/uL 4.0-11.0 [facility] Lymphocytes Auto (Bld) [#/Vo l]on 12-27-2024 Lymphocytes (Bld) [#/Vol] Lymphocytes [#/volume] in Blood by Automated count 1.2-3.8 [facility] Lymphocytes (Bld) [#/Vol] 3.2 10 3/uL 1.2-3.8 [facility] Lymphocytes/100 WBC Auto (Bl d)on 12-27-2024 Lymphocytes/100 WBC (Bld) Lymphocytes/100 leukocytes in Blood by Automated count 20.5-60.0 [facility] Lymphocytes/100 WBC (Bld) 33.1 % 20.5-60.0 [facility] MCH Auto (RBC) [Entitic mass ]on 12-27-2024 MCH (RBC) [Entitic mass] MCH [Entitic mass] by Automated count 25.9-34.0 [facility] MCH (RBC) [Entitic mass] 29.7 pg 25.9-34.0 [facility] MCHC Auto (RBC) [Mass/Vol]on 12-27-2024 MCHC (RBC) [Mass/Vol] MCHC [Mass/volume] by Automated count 29.9-35.2 [facility] MCHC (RBC) [Mass/Vol] 33.9 g/dL 29.9-35.2 [facility] MCV Auto (RBC) [Entitic vol] on 12-27-2024 MCV (RBC) [Entitic vol] MCV [Entitic volume] by Automated count 80.0-94.0 [facility] MCV (RBC) [Entitic vol] 87.8 fL 80.0-94.0 [facility] Monocytes Auto (Bld) [#/Vol] on 12-27-2024 Monocytes (Bld) [#/Vol] Automated blood monocyte count 0.3-0.8 [facility] Monocytes (Bld) [#/Vol] 0.5 10 3/uL 0.3-0.8 [facility] Monocytes/100 WBC Auto (Bld) on 12-27-2024 Monocytes/100 WBC (Bld) Automated monocyte % 1.7-12.0 [facility] Monocytes/100 WBC (Bld) 5.4 % 1.7-12.0 [facility] Neutrophils Auto (Bld) [#/Vo l]on 12-27-2024 Neutrophils (Bld) [#/Vol] Neutrophils [#/volume] in Blood by Automated count 1.4-6.5 [facility] Neutrophils (Bld) [#/Vol] 5.2 10 3/uL 1.4-6.5 [facility] Neutrophils/100 WBC Auto (Bl d)on 12-27-2024 Neutrophils/100 WBC (Bld) Automated neutrophil % 43.0-75.0 [facility] Neutrophils/100 WBC (Bld) 54.6 % 43.0-75.0 [facility] No Panel Informationon 12-27 Eosinophils # (Auto) 0.6 10 3/uL 0.0-0.7 [facility] Immature Granulocyte # (Auto) 0.06 10 3/uL High 0.00-0.03 [facility] Platelet mean volume Auto (B ld) [Entitic vol]on 12-27-2024 Platelet mean volume (Bld) [Entitic vol] Platelet mean volume [Entitic volume] in Blood by Automated count 9.5-13.5 [facility] Platelet mean volume (Bld) [Entitic vol] 10.8 fL 9.5-13.5 [facility] Platelets Auto (Bld) [#/Vol] on 12-27-2024 Platelets (Bld) [#/Vol] Platelets [#/volume] in Blood by Automated count 150-450 [facility] Platelets (Bld) [#/Vol] 246 10 3/uL 150-450 [facility] RBC Auto (Bld) [#/Vol]on RBC (Bld) [#/Vol] Erythrocytes [#/volu me] in Blood by Automated count 4.70-6.10 [facility] RBC (Bld) [#/Vol] 5.01 10 6/uL 4.70-6.10 [facility] Serum or plasma albumin/glob ulin mass ratioon 12-27-2024 Albumin/Globulin [Mass ratio] Serum or plasma albumin/globulin mass ratio [facility] Albumin/Globulin [Mass ratio] 1.1 {ratio} [facility] Serum or plasma anion gap de terminationon 12-27-2024 Anion gap [Moles/Vol] Serum or plasma anion gap determination [facility] Anion gap [Moles/Vol] 10.2 mmol/L [facility] Serum or plasma total choles terol/high density lipoprotein (HDL) cholesterol mass gustavo 12-27-2024 Cholesterol.total/C holesterol in HDL [Mass ratio] Serum or plasma total cholesterol/high density lipoprotein (HDL) cholesterol mass rat [facility] Comment on above: 3.3 - 4.4 LOW RISK4. 4 - 7.1 AVERAGE RISK7.1 - 11.0 MODERATE RISK>11.0 HIGH RISK Cholesterol.total/C holesterol in HDL [Mass ratio] 3.6 {ratio} [facility] Comment on above: 3.3 - 4.4 LOW RISK4. 4 - 7.1 AVERAGE RISK7.1 - 11.0 MODERATE RISK>11.0 HIGH RISK Office Visiton 12-22-2024 Follow-up visit [id number] Jah Riley n E 1965 M Date Provider Department Center 12/22/2024 KEN BLACKWOOD [facility] Family History Problem Relation Age of Onset Stroke Mother Cancer Father Family Status - Relation Status Age at Mother Alive Father Brother Alive Level of Service:95247 MD OFFICE/OUTPATIENT ESTABLISHED MOD MDM 30 MIN [facility] 36on 08-04-[address] Mojica's office [...] order for echo has been refaxed to [facility]. She told me Dr. Mojica will be using local anesthetic for cyst removal so patient does not need cardiac clearance. [facility] Ambulatory Visit Summaryon 1 09-22-2023 Ambulatory [...] EST With: MAGALY REED, Henry Arreaga Where: [facility] General Surgery [address], [address], [place] [id number]- Medications What How Much When Instructions Unchanged [...] for choosing us for your care. Normal [facility] [place] RAD - Ultrasound Reporton RAD - Ultrasound Report [id number] Normal [facility] [place] T3, TOTAL (TRIIODOTHYRONINE) on 05-27-2022 T3, TOTAL 133 ng/dL Normal 71-180 [facility] Comment on above: Performed By: #### T 3TOTAL #### [facility] Laboratory [address] [place] [address] Dr. Derek Frankel CRPon 05-26-2022 CRP 0.3 mg/dL Normal <=1.0 [facility] Comment on above: Performed By: #### C RP, TSH, CMP #### [facility] Laboratory [address] [place] [address] Dr. Derek Frankel FREE T4on 05-26-2022 Free T4 [Mass/Vol] 1.03 ng/dL Normal 0.76-1.46 [facility] Comment on above: Performed By: #### F T4 #### [facility] [address] [place] [address] Dr. Derek Frankel GLYCOHEMOGLOBIN A1Con 2021 ADA RECOMMENDATION SEE BELOW Normal [facility] Comment on above: Result Comment: ADA RECOMMENDED LIMIT 4.0 - 6.0 ADA THERAPEUTIC TARGET < 7.0 ACTION SUGGESTED > 7.0 Performed By: #### A 1C #### [facility] [address] [place] [address] Dr. Derek Frankel Glucose [Mass/Vol] 283 mg/dL Normal [facility] Comment on above: Performed By: #### A 1C #### [facility] [address] [place] [address] Dr. Derek Frankel HbA1c (Bld) [Mass fraction] 11.5 % Critically high 4.5-6.2 [facility] Comment on above: Performed By: #### A 1C #### [facility] [address] [place] [address] Dr. Derek Frankel HEMOGRAM AND PLATELon 2021 Hematocrit (Bld) [Volume fraction] 44.1 % Normal 42.0-54.0 [facility] Comment on above: Performed By: #### H H #### [facility] [address] [place] [address] Dr. Derek Frankel Hemoglobin (Bld) [Mass/Vol] 14.7 g/dL Normal 14.0-18.0 [facility] Comment on above: Performed By: #### H H #### [facility] [address] [place] [address] [address] Derek Frankel MCH (RBC) [Entitic mass] 29.2 pg Normal 25.9-34.0 [facility] Comment on above: Performed By: #### H H #### [facility] [address] [place] [address] Dr. Derek Frankel MCHC (RBC) [Mass/Vol] 33.3 g/dL Normal 29.9-35.2 [facility] Comment on above: Performed By: #### H H #### [facility] [address] [place] [address] Dr. Derek Frankel MCV (RBC) [Entitic vol] 87.7 fL Normal 80.0-94.0 [facility] Comment on above: Performed By: #### H H #### [facility] [address] [place] [address] Dr. Derek Frankel PLT 259 103/ul Normal 150-450 [facility] Comment on above: Performed By: #### H H #### [facility] [address] [place] [address] Dr. Derek Frankel RBC 5.03 106/ul Normal 4.70-6.10 [facility] Comment on above: Performed By: #### H H #### [facility] [address] [place] [address] Dr. Derek Frankel WBC 8.7 103/ul Normal 4.0-11.0 [facility] Comment on above: Performed By: #### H H #### [facility] [address] [place] [address] Dr. Derek Frankel PROF 14(COMP METB)on 022 Albumin [Mass/Vol] 3.7 g/dL Normal 3.4-5.0 [facility] Comment on above: Performed By: #### C RP, TSH, CMP #### [facility] [address] [place] [address] Dr. Derek Frankel Albumin/Globulin [Mass ratio] 0.9 {ratio} Normal [facility] Comment on above: Performed By: #### C RP, TSH, CMP #### [facility] [address] [place] [address] [address] Derek Frankel ALP [Catalytic activity/Vol] 160 U/L Critically high 46-116 [facility] Comment on above: Performed By: #### C RP, TSH, CMP #### [facility] [address] [place] [address] [address] Derek Frankel ALT [Catalytic activity/Vol] 41 U/L Normal 16-63 [facility] Comment on above: Performed By: #### C RP, TSH, CMP #### [facility] [address] [place] [address] [address] Derek Frankel Anion gap [Moles/Vol] 13.3 mmol/L Normal [facility] Comment on above: Performed By: #### C RP, TSH, CMP #### [facility] [address] [place] [address] Dr. Derek Frankel AST [Catalytic activity/Vol] 20 U/L Normal 15-37 [facility] Comment on above: Performed By: #### C RP, TSH, CMP #### [facility] [address] [place] [address] [address] Derek Frankel Bilirubin [Mass/Vol] 0.6 mg/dL Normal 0.2-1.0 [facility] Comment on above: Performed By: #### C RP, TSH, CMP #### [facility] [address] [place] [address] [address] Derek Frankel Calcium [Mass/Vol] 8.9 mg/dL Normal 8.5-10.1 [facility] Comment on above: Performed By: #### C RP, TSH, CMP #### [facility] [address] [place] [address] [address] Derek Frankel Chloride [Moles/Vol] 94 mmol/L Critically low 98-107 [facility] Comment on above: Performed By: #### C RP, TSH, CMP #### [facility] [address] [place] [address] [address] Derek Frankel CO2 [Moles/Vol] 29.2 mmol/L Normal 21.0-32.0 [facility] Comment on above: Performed By: #### C RP, TSH, CMP #### [facility] [address] [place] [address] [address] Derek Frankel Creatinine [Mass/Vol] 0.98 mg/dL Normal 0.70-1.30 [facility] Comment on above: Performed By: #### C RP, TSH, CMP #### [facility] [address] [place] [address] [address] Derek Frankel EGFR-AF SIERRA LEONEAN >60 Normal >=60 [facility] Comment on above: Performed By: #### C RP, TSH, CMP #### [facility] [address] [place] [address] [address] Derek Frankel EGFR-NON AF SIERRA LEONEAN >60 Normal >=60 [facility] Comment on above: Performed By: #### C RP, TSH, CMP #### [facility] [address] [place] [address] [address] Derek Frankel Globulin (S) [Mass/Vol] 3.9 g/dL Normal [facility] Comment on above: Performed By: #### C RP, TSH, CMP #### [facility] [address] [place] [address] [address] Derek Frankel Glucose [Mass/Vol] 378 mg/dL Critically high 74-106 [facility] Comment on above: Performed By: #### C RP, TSH, CMP #### [facility] [address] [place] [address] [address] Derek Frankel Potassium [Moles/Vol] 4.5 mmol/L Normal 3.5-5.1 [facility] Comment on above: Performed By: #### C RP, TSH, CMP #### [facility] [address] [place] [address] [address] Derek Frankel Protein [Mass/Vol] 7.6 g/dL Normal 6.4-8.2 [facility] Comment on above: Performed By: #### C RP, TSH, CMP #### [facility] [address] [place] [address] [address] Derek Frankel Sodium [Moles/Vol] 132 mmol/L Critically low 136-145 [facility] Comment on above: Performed By: #### C RP, TSH, CMP #### [facility] [address] [place] [address] [address] Derek Frankel Urea nitrogen [Mass/Vol] 14.0 mg/dL Normal 7.0-18.0 [facility] Comment on above: Performed By: #### C RP, TSH, CMP #### [facility] [address] [place] [address] [address] Derek Frankel Urea nitrogen/Creatinine [Mass ratio] 14.3 mg/mg Normal [facility] Comment on above: Performed By: #### C RP, TSH, CMP #### [facility] [address] [place] [address] [address] Derek Frank[facility] 38 mm/hr Critically high <=20 [facility] Comment on above: Performed By: #### S EDR #### [facility] [address] [place] [address] Dr. Derek Frankel TSHon 05-26-2022 TSH 1.636 uIU/mL Normal 0.358-3.740 [facility] Comment on above: Performed By: #### C RP, TSH, CMP #### [facility] [address] [place] [address] Dr. Derek Frankel LIPID PROFILEon 05-25-2022 CHOL-HDL RATIO NORM SEE BELOW Normal [facility] Comment on above: Result Comment: 3.3 - 4.4 LOW RISK 4.4 - 7.1 AVERAGE RISK 7.1 - 11.0 MODERATE RISK >11.0 HIGH RISK Performed By: #### L IPID #### [facility] [address] [place] [address] Dr. Derek Frankel Cholesterol [Mass/Vol] 164 mg/dL Normal <=200 [facility] Comment on above: Performed By: #### L IPID #### [facility] [address] [place] [address] Dr. Derek Frankel Cholesterol in HDL [Mass/Vol] 36 mg/dL Critically low 40-60 [facility] Comment on above: Performed By: #### L IPID #### [facility] [address] [place] [address] [address] Derek Frankel Cholesterol in LDL [Mass/Vol] 69.8 mg/dL Normal [facility] Comment on above: Performed By: #### L IPID #### [facility] [address] [place] [address] [address] Derek Frankel Cholesterol.total/C holesterol in HDL [Mass ratio] 4.6 {ratio} Normal [facility] Comment on above: Performed By: #### L IPID #### [facility] [address] [place] [address] [address] Derek Frankel HDL NORMAL > or = 60 mg/dl - LO W CARDIOVASCULAR RISK <40 mg/dl - HIGH CARDIOVASCULAR RISK Normal [facility] Comment on above: Performed By: #### L IPID #### [facility] [address] [place] [address] Dr. Derek Frankel LDL CALC NORMAL SEE BELOW Normal [facility] Comment on above: Result Comment: <100 mg/dl OPTIMAL 100 - 129 mg/dl NEAR OR ABOVE OPTIMAL 130 - 159 mg/dl BORDERLINE HIGH 160 - 189 mg/dl HIGH >190 mg/dl VERY HIGH Performed By: #### L IPID #### [facility] [address] [address] [address] Derek Frankel Triglyceride [Mass/Vol] 291 mg/dL Critically high <=150 [facility] Comment on above: Performed By: #### L IPID #### [facility] [address] [place] [address] [address] Derek Frankel VLDL CALC 58.2 mg/dL Normal [facility] Comment on above: Performed By: #### L IPID #### [facility] [address] [place] [address] [address] Derek Frankel LIPID PROFILEon 08-30-2021 CHOL-HDL RATIO NORM SEE BELOW Normal [facility] Comment on above: Result Comment: 3.3 - 4.4 LOW RISK 4.4 - 7.1 AVERAGE RISK 7.1 - 11.0 MODERATE RISK >11.0 HIGH RISK Performed By: #### L IPID ####[facility] [address] [place], [place] [address]Vp. Derek Frankel Cholesterol [Mass/Vol] 172 mg/dL Normal <=200 [facility] Comment on above: Performed By: #### L IPID ####[facility] [address] [place], [place] [address]Gp. Derek Frankel Cholesterol in HDL [Mass/Vol] 36 mg/dL Normal [facility] Comment on above: Performed By: #### L IPID ####[facility] [id number] [place], [place] [address]Zy. Derek Frankel Cholesterol in LDL [Mass/Vol] 83.6 mg/dL Normal [facility] Comment on above: Performed By: #### L IPID ####[facility] [address] [place], [place] [address]Ei. Derek Frankel Cholesterol.total/C holesterol in HDL [Mass ratio] 4.8 {ratio} Normal [facility] Comment on above: Performed By: #### L IPID ####[facility] [address] [place], [place] [address]Au. Derek Frankel HDL NORMAL > or = 60 mg/dl - LO W CARDIOVASCULAR RISK <40 mg/dl - HIGH CARDIOVASCULAR RISK Normal [facility] Comment on above: Performed By: #### L IPID ####[facility] [id number] [place], [place] [address]Uj. Derek Frankel LDL CALC NORMAL SEE BELOW Normal [facility] Comment on above: Result Comment: <100 mg/dl OPTIMAL 100 - 129 mg/dl NEAR OR ABOVE OPTIMAL 130 - 159 mg/dl BORDERLINE HIGH 160 - 189 mg/dl HIGH >190 mg/dl VERY HIGH Performed By: #### L IPID ####[facility] [address] [place] [id number]. Derek Frankel Triglyceride [Mass/Vol] 262 mg/dL Critically high <=150 [facility] Comment on above: Performed By: #### L IPID ####[facility] [address] [place], [place] [address]Gv. Abiolamatthieu Jostin VLDL CALC 52.4 mg/dL Normal [facility] Comment on above: Performed By: #### L IPID ####[facility] [address] [place], [place] [address]JbHernesto Frankel XR ANKLE LT MIN 3 Von [...] HENRY MAST Date: 2021-08-12 08:21 Normal [facility] BASIC METABOLIC PANELon - Calcium [Mass/Vol] 9.2 mg/dL Normal 8.6-10.3 [facility] Comment on above: Order Comment: No: D o not add to previous draw Performed By: #### 1 0070, 87165, 78020 #### [facility] [address] [place] [address], [facility] Chloride [Moles/Vol] 96 mmol/L Low 98-107 [facility] Comment on above: Order Comment: No: D o not add to previous draw Performed By: #### 1 0070, 84751, 73383 #### [facility] [address] [place] [address], [place] CO2 [Moles/Vol] 28 mmol/L Normal 21-31 [facility] Comment on above: Order Comment: No: D o not add to previous draw Performed By: #### 1 0070, 77081, 92591 #### [facility] [address] [place] [address], [place] Creatinine [Mass/Vol] 0.73 mg/dL Normal 0.70-1.30 [facility] Comment on above: Order Comment: No: D o not add to previous draw Performed By: #### 1 0070, 18188, 42086 #### [facility] [address] [place] [address], [place] GFR/1.73 sq M.predicted among blacks MDRD (S/P/Bld) [Vol rate/Area] mL/min/{1.73_m2} Normal >60 [facility] Comment on above: Order Comment: No: D o not add to previous draw Performed By: #### 1 0, 16831, 47811 #### [facility] [address] [place] [address], [place] GFR/1.73 sq M.predicted among non-blacks MDRD (S/P/Bld) [Vol rate/Area] mL/min/{1.73_m2} Normal >60 [facility] Comment on above: Order Comment: No: D o not add to previous draw Performed By: #### 1 0, 85222, 33540 #### [facility] [address] [place] [address], [place] Glucose [Mass/Vol] 290 mg/dL High 70-100 [facility] Comment on above: Order Comment: No: D o not add to previous draw Performed By: #### 1 69, 77684, 94677 #### [facility] [address] [place] [address], [place] Potassium [Moles/Vol] 4.3 mmol/L Normal 3.5-5.1 [facility] Comment on above: Order Comment: No: D o not add to previous draw Performed By: #### 1 0, 31151, 13142 #### [facility] [address] [place] [address], [place] Sodium [Moles/Vol] 132 mmol/L Low 136-145 [facility] Comment on above: Order Comment: No: D o not add to previous draw Performed By: #### 1 0, 91705, 10996 #### [facility] [address] Urea nitrogen [Mass/Vol] 13 mg/dL Normal 7-25 [facility] Comment on above: Order Comment: No: D o not add to previous draw Performed By: #### 1 0070, 97610, 15924 #### [facility] [address] [place] [address], [facility] CBC COMPLETE BLOOD COUNTon 0 - Erythrocyte distribution width (RBC) [Ratio] 13.3 % Normal 11.5-15.0 [facility] Comment on above: Order Comment: No: D o not add to previous draw Performed By: #### 8 [id number] #### [facility] [address] [place] [address], [facility] Hematocrit (Bld) [Volume fraction] 44.0 % Normal 39.0-50.0 [facility] Comment on above: Order Comment: No: D o not add to previous draw Performed By: #### 8 [id number] #### [facility] [address] [place] [address], [facility] Hemoglobin (Bld) [Mass/Vol] 14.2 g/dL Normal 13.0-17.0 [facility] Comment on above: Order Comment: No: D o not add to previous draw Performed By: #### 8 [id number] #### [facility] [address] [place] [address], [facility] MCH (RBC) [Entitic mass] 28.6 pg Normal 27.0-33.0 [facility] Comment on above: Order Comment: No: D o not add to previous draw Performed By: #### 8 [id number] #### [facility] [address] [place] [address], [facility] MCHC (RBC) [Mass/Vol] 32.3 g/dL Normal 32.0-35.0 [facility] Comment on above: Order Comment: No: D o not add to previous draw Performed By: #### 8 5499 #### [facility] [address] [place] [address], [facility] MCV (RBC) [Entitic vol] 88.7 fL Normal 82.0-98.0 [facility] Comment on above: Order Comment: No: D o not add to previous draw Performed By: #### 8 [id number] #### [facility] [address] [facility] [place] [place] [address], [facility] Nucleated RBC/100 WBC (Bld) [Ratio] 0 % Normal 0-0 [facility] Comment on above: Order Comment: No: D o not add to previous draw Performed By: #### 8 [id number] #### [facility] [address] [facility] [address], [facility] PLAT CNT 228 10*3/uL Normal 150-400 [facility] Comment on above: Order Comment: No: D o not add to previous draw Performed By: #### 8 [id number] #### [facility] [address] [facility] [place] [address], [facility] RBC (Bld) [#/Vol] 4.96 10*6/uL Normal 4.20-5.70 [facility] Comment on above: Order Comment: No: D o not add to previous draw Performed By: #### 8 [id number] #### [facility] [address] [facility] [place] [address], [facility] WBC (Bld) [#/Vol] 11.47 10*3/uL High 4.00-10.60 [facility] Comment on above: Order Comment: No: D o not add to previous draw Performed By: #### 8 [id number] #### [facility] [address] [facility]. [address] Cardiovascular Lab Reporton 03-04-2021 Cardiovascular Lab Report [facility] Patient Name: Ran Riley MR #: [id number] [facility] Physician: Ken Mukherjee M.D. Department of Service Date: 03/03/2021 Medicine Birthdate: 1965 Division of Room #: 3AB [id number] Cardiology Adult Cardiovascular Services [facility] [address] Heydi King. [place] [id number] Cardiovascular Laboratory Report INDICATION: The patient is a 55-year-old man who presented to the [facility] with chest pain and elevated cardiac enzymes. [...] the informed consent. He was brought to manager labor delivery in a fasting state. The right wrist area was prepped and draped in usual fashion. Modified Sigifredo's test was favorable. Access in the right radial artery was obtained using micropuncture technique. A 6-Sami x 11 cm Hydrophilic sheath was advanced. Verapamil was given through the sheath and heparin was administered intravenously. Bilateral selective coronary angiography was then performed using 6-Sami JL3.5 and JR5 diagnostic catheters. Additional heparin was given as needed and therapeutic ACT confirmed during the rest of the procedure. A 6-Sami JR4 guiding catheter was then advanced and used to engage the right coronary ostium. A Prowater wire was advanced into the distal RCA [...] a minimum of 1 year after acute VA and drug-eluting stenting. 3. Follow up in Cardiology Clinic. Electronically Signed by: Ken Mukherjee M.D. 03/08/2021 07:01 A (more content not included)... Normal [facility] MAGNESIUM BLOODon 03-04-2021 Magnesium [Mass/Vol] 1.7 mg/dL Low 1.9-2.7 [facility] Comment on above: Order Comment: No: D o not add to previous draw Performed By: #### 1 0, 49825, 01080 #### [facility] [address] [place] [address], [facility] POC GLUCOSE LABon 03-04-2021 Glucose [Mass/Vol] 260 mg/dL High 70-100 [facility] Comment on above: Performed By: #### 8 5499 #### [facility] [address] [place] [address], [facility] Glucose [Mass/Vol] 252 mg/dL High 70-100 [facility] Comment on above: Performed By: #### 8 5499 #### [facility] [address] [facility] [place] [place] [address], [facility] TROPONIN-Ion 03-04-2021 Troponin I.cardiac [Mass/Vol] 1.04 ng/mL Critically high 0.00-0.04 [facility] Comment on above: Order Comment: No: D o not add to previous draw Result Comment: M-MD EVIOUS CRITICAL RESULT REFERENCE RANGES: 0.00 - 0.04 ng/ml NORMAL 0.05 - 0.50 ng/ml INDETERMINATE > 0.50 ng/ml CONSISTENT WITH AN M.I. Performed By: #### 1 0, 96780, 84995 #### [facility] [address] [place] [address], [facility] APTTon 03-03-2021 aPTT Coag (Bld) [Time] 27.1 s Normal 25.0-35.0 [facility] Comment on above: Order Comment: No: D [...] PURPOSE. Performed By: #### 8 5499 #### [facility] [address] [place] [address], [facility] BASIC METABOLIC PANELon 06- Calcium [Mass/Vol] 9.4 mg/dL Normal 8.6-10.3 [facility] Comment on above: Order Comment: No: D o not add to previous draw Performed By: #### 9 9909, 45198, 82709, 44107 #### [facility] [address] [place] [address], [facility] Chloride [Moles/Vol] 95 mmol/L Low 98-107 [facility] Comment on above: Order Comment: No: D o not add to previous draw Performed By: #### 9 9909, 93206, 43611, 14609 #### [facility] [address] [place] [address], [facility] CO2 [Moles/Vol] 30 mmol/L Normal 21-31 [facility] Comment on above: Order Comment: No: D o not add to previous draw Performed By: #### 9 9909, 14114, 67327, 41238 #### [facility] [address] [place] [address], [facility] Creatinine [Mass/Vol] 0.73 mg/dL Normal 0.70-1.30 [facility] Comment on above: Order Comment: No: D o not add to previous draw Performed By: #### 9 9909, 09040, 26050, 64066 #### [facility] [address] [place] [address], [place] GFR/1.73 sq M.predicted among blacks MDRD (S/P/Bld) [Vol rate/Area] mL/min/{1.73_m2} Normal >60 [facility] Comment on above: Order Comment: No: D o not add to previous draw Performed By: #### 9 9909, 18222, 83032, 20612 #### [facility] [address] [place] [address], [place] GFR/1.73 sq M.predicted among non-blacks MDRD (S/P/Bld) [Vol rate/Area] mL/min/{1.73_m2} Normal >60 [facility] Comment on above: Order Comment: No: D o not add to previous draw Performed By: #### 9 9909, 21276, 67205, 75320 #### [facility] [address] [place] [address], [place] Glucose [Mass/Vol] 169 mg/dL High 70-100 [facility] Comment on above: Order Comment: No: D o not add to previous draw Performed By: #### 9 9909, 41463, 27036, 29805 #### [facility] [address] [place] [address], [place] Potassium [Moles/Vol] 4.2 mmol/L Normal 3.5-5.1 [facility] Comment on above: Order Comment: No: D o not add to previous draw Performed By: #### 9 99, 84866, 21078, 91812 #### [facility] [address] [place] [address], [place] Sodium [Moles/Vol] 133 mmol/L Low 136-145 [facility] Comment on above: Order Comment: No: D o not add to previous draw Performed By: #### 9 9909, 70478, 63337, 61251 #### [facility] [address] [place] [address], [place] Urea nitrogen [Mass/Vol] 15 mg/dL Normal 7-25 [facility] Comment on above: Order Comment: No: D o not add to previous draw Performed By: #### 9 9909, 93299, 14199, 07916 #### [facility] [address] [place] [address], [place] CBC COMPLETE BLOOD COUNTon 0 03-03-2021 Erythrocyte distribution width (RBC) [Ratio] 13.4 % Normal 11.5-15.0 [facility] Comment on above: Order Comment: No: D o not add to previous draw Performed By: #### 5 0608 #### [facility] [address] [place] [address], [facility] Hematocrit (Bld) [Volume fraction] 43.2 % Normal 39.0-50.0 [facility] Comment on above: Order Comment: No: D o not add to previous draw Performed By: #### 5 0608 #### [facility] [address] [place] [address], [facility] Hemoglobin (Bld) [Mass/Vol] 14.2 g/dL Normal 13.0-17.0 [facility] Comment on above: Order Comment: No: D o not add to previous draw Performed By: #### 5 0608 #### [facility] [address] [place] [address], [facility] MCH (RBC) [Entitic mass] 28.8 pg Normal 27.0-33.0 [facility] Comment on above: Order Comment: No: D o not add to previous draw Performed By: #### 5 0608 #### [facility] [address] [place] [address], [facility] MCHC (RBC) [Mass/Vol] 32.9 g/dL Normal 32.0-35.0 [facility] Comment on above: Order Comment: No: D o not add to previous draw Performed By: #### 5 0608 #### [facility] [address] [place] [address], [facility] MCV (RBC) [Entitic vol] 87.6 fL Normal 82.0-98.0 [facility] Comment on above: Order Comment: No: D o not add to previous draw Performed By: #### 5 0608 #### [facility] [address] [place] [id number], [facility] Nucleated RBC/100 WBC (Bld) [Ratio] 0 % Normal 0-0 [facility] Comment on above: Order Comment: No: D o not add to previous draw Performed By: #### 5 0608 #### [facility] [address] [place] [address], [place] PLAT CNT 239 10*3/uL Normal 150-400 [facility] Comment on above: Order Comment: No: D o not add to previous draw Performed By: #### 5 0608 #### [facility] [address] [place] [address], [place] RBC (Bld) [#/Vol] 4.93 10*6/uL Normal 4.20-5.70 [facility] Comment on above: Order Comment: No: D o not add to previous draw Performed By: #### 5 0608 #### [facility] [address] [place] [address], [place] WBC (Bld) [#/Vol] 11.12 10*3/uL High 4.00-10.60 [facility] Comment on above: Order Comment: No: D o not add to previous draw Performed By: #### 5 0608 #### [facility] [address] [place] [address], [facility] HEMOGLOBIN A1Con 03-03-2021 Glucose [Moles/Vol] 286 mmol/L Normal [facility] Comment on above: Order Comment: Yes: Add to Previous draw if able Performed By: #### 3 1791 #### [facility] [address] [place] [address], [place] HbA1c (Bld) [Mass fraction] 11.6 % High 4.0-6.0 [facility] Comment on above: Order Comment: Yes: Add to Previous draw if able Performed By: #### 3 1791 #### [facility] [address] [place] [address], [facility] LIPID PROFILEon 03-03-2021 Cholesterol [Mass/Vol] 163 mg/dL Normal 120-200 [facility] Comment on above: Result Comment: CHOL ESTEROL REFERENCE RANGE: 20 YEARS AND OLDER CARDIOVASCULAR RISK Less than 200 mg/dl Low Risk 200 to 239 mg/dl Borderline Risk 240 mg/dl and greater High Risk Performed By: #### 9 9909, 94739, 62115, 78015 #### [facility] [address] [place] [address], [place] Cholesterol in HDL [Mass/Vol] 30 mg/dL Normal 23-92 [facility] Comment on above: Result Comment: Slig ht variation in normal range could be due to gender and/or age. HDL CHOLESTEROL REFERENCE RANGE: 20 years and older Cardiovascular Risk > or =60 mg/dL Desirable 40 TO 59 mg/dL Low Risk <40 mg/dL High Risk Performed By: #### 9 9909, 28431, 34892, 75371 #### [facility] [address] [place] [address], [place] Cholesterol in LDL [Mass/Vol] 66 mg/dL Normal 0-130 [facility] Comment on above: Result Comment: LDL IS A CALCULATION LDL IS ONLY VALID IF THE TRIG IS LESS THAN 400. Performed By: #### 9 9909, 74179, 68716, 13576 #### [facility] [address] [place] [address], [place] Cholesterol.total/C holesterol in HDL [Mass ratio] 5.4 {ratio} High 0.0-4.5 [facility] Comment on above: Performed By: #### 9 9909, 58454, 85348, 48001 #### [facility] [address] [place] [address], [place] NON-HDL CHOLESTEROL 133 mg/dL Normal [facility] Comment on above: Performed By: #### 9 9909, 63410, 16313, 74259 #### [facility] [address] [place] [address], [place] Triglyceride [Mass/Vol] 333 mg/dL High 40-149 [facility] Comment on above: Result Comment: TRIG LYCERIDE REFERENCE RANGE: 20 YEARS AND OLDER CARDIOVASCULAR RISK LESS THAN 150 mg/dl LOW RISK 150 TO 199 mg/dl BORDERLINE RISK 200 mg/dl AND GREATER HIGH RISK Performed By: #### 9 9909, 99037, 61167, 64946 #### [facility] [address] [place] [address], [place] VLDL CHOL 67 mg/dL High 0-40 [facility] Comment on above: Performed By: #### 9 9909, 30270, 71711, 15929 #### [facility] [address] [place] [address], [place] LIVER BATTERYon 03-03-2021 Albumin [Mass/Vol] 4.0 g/dL Normal 3.5-5.7 [facility] Comment on above: Order Comment: No: D o not add to previous draw Performed By: #### 9 9909, 99119, 35117, 33633 #### [facility] [address] [place] [address], [place] ALKALINE PHOSPH 96 IU/L Normal 34-104 [facility] Comment on above: Order Comment: No: D o not add to previous draw Performed By: #### 9 9909, 44393, 42202, 71368 #### [facility] [address] [place] [address], [place] ALT [Catalytic activity/Vol] 20 U/L Normal 7-52 [facility] Comment on above: Order Comment: No: D o not add to previous draw Performed By: #### 9 9909, 99612, 47101, 60463 #### [facility] [address] [place] [address], [place] AST [Catalytic activity/Vol] 19 U/L Normal 13-39 [facility] Comment on above: Order Comment: No: D o not add to previous draw Performed By: #### 9 9909, 83737, 75943, 66592 #### [facility] [address] [place] [address], [facility] Bilirubin [Mass/Vol] 0.7 mg/dL Normal 0.3-1.0 [facility] Comment on above: Order Comment: No: D o not add to previous draw Performed By: #### 9 9909, 75982, 60344, 54416 #### [facility] [address] [place] [address], [facility] Bilirubin.direct [Mass/Vol] 0.1 mg/dL Normal 0.0-0.2 [facility] Comment on above: Order Comment: No: D o not add to previous draw Performed By: #### 9 9909, 89259, 09364, 74802 #### [facility] [address] [place] [address], [facility] Protein [Mass/Vol] 6.7 g/dL Normal 6.0-8.3 [facility] Comment on above: Order Comment: No: D o not add to previous draw Performed By: #### 9 9909, 77103, 30464, 88374 #### [facility] [address] [place] [address], [facility] TROPONIN-Ion 03-03-2021 Troponin I.cardiac [Mass/Vol] 1.12 ng/mL Critically high 0.00-0.04 [facility] Comment on above: Order Comment: No: D o not add to previous draw Result Comment: M-TR OPONIN INITIAL CRITICAL HIGH; RESPUN AND RETESTED M-CRITICAL RESULT(S) REVIEWED, CALLED TO AND READ BACK BY Adriana Phelan RN at 1930. REFERENCE RANGES: 0.00 - 0.04 ng/ml NORMAL 0.05 - 0.50 ng/ml INDETERMINATE > 0.50 ng/ml CONSISTENT WITH AN M.I. Performed By: #### 8 5499 #### [facility] [address] UFH HEPARIN ASSAYon 03-03-20 UNFRACTIONATED HEPARIN <0.10 Critically low 0.30-0.70 [facility] Comment on above: Result Comment: Mikki roxaban and Apixaban will interfere with the anti Xa assay used to monitor UFH and LMWH. RESULTS CHECKED AND CALLED. ACCURATELY READ BACK BY kevan sauceda r.n. 2056 Performed By: #### 8 5499 #### [facility] [address] Vital Signs Date Time Vital Sign Value Performing Clinician Facility 02-12-2025 10:41-0400 Body height 177.8 cm [facility] 02-12-2025 10:41-0400 Body mass index (BMI) [Ratio] 37.3 kg/m2 [facility] 02-12-2025 10:41-0400 Body weight 117.9 kg [facility] 02-12-2025 10:41-0400 Diastolic blood pressure 72 mm[Hg] [facility] 02-12-2025 10:41-0400 Heart rate 66 /min [facility] 02-12-2025 10:41-0400 Respiratory rate 18 /min [facility] 02-12-2025 10:41-0400 SaO2% (BldA) [Mass fraction] 97 % [facility] 02-12-2025 10:41-0400 Systolic blood pressure 114 mm[Hg] [facility] 07-23-2024 13:34-0500 Blood Pressure Location [facility] 07-23-2024 13:34-0500 Diastolic blood pressure 66 mm[Hg] Henry CertessL [facility] 07-23-2024 13:34-0500 Heart rate 68 /min Henry CertessL [facility] 07-23-2024 13:34-0500 Respiratory rate 16 /min Henry MAURERL [facility] 07-23-2024 13:34-0500 Systolic blood pressure 116 mm[Hg] Henry MAURERL [facility] [place] 06-24-2024 08:17-0400 Body height 177.8 cm [facility] 06-24-2024 08:17-0400 Body mass index (BMI) [Ratio] 39.2 kg/m2 [facility] 06-24-2024 08:17-0400 Body weight 123.94 kg [facility] 06-24-2024 08:17-0400 Diastolic blood pressure 80 mm[Hg] [facility] 06-24-2024 08:17-0400 Heart rate 73 /min [facility] 06-24-2024 08:17-0400 Respiratory rate 16 /min [facility] 06-24-2024 08:17-0400 SaO2% (BldA) [Mass fraction] 98 % [facility] 06-24-2024 08:17-0400 Systolic blood pressure 118 mm[Hg] [facility] 07-02-2023 13:41-0400 Blood Pressure Location Pedrito QUINTERO [facility] 07-02-2023 13:41-0400 Diastolic blood pressure 87 mm[Hg] Pedrito QUINTERO [facility] 07-02-2023 13:41-0400 Heart rate 80 /min Pedrito QUINTERO [facility] 07-02-2023 13:41-0400 Respiratory rate 16 /min Pedrito QUINTERO [facility] 07-02-2023 13:41-0400 Systolic blood pressure 141 mm[Hg] Pedrito QUINTERO [facility] 07-02-2023 09:00-0400 Body height 177.8 cm Angela Kaplan Other [facility] Other 07-02-2023 09:00-0400 Body mass index (BMI) [Ratio] 40.69 kg/m2 Angela Kaplan Other [facility] Other 07-02-2023 09:00-0400 Body weight 128.64 kg Angela Kaplan Other [facility] Other 07-02-2023 09:00-0400 Diastolic blood pressure 75 mm[Hg] Angela Kaplan Other [facility] Other 07-02-2023 09:00-0400 Systolic blood pressure 111 mm[Hg] Angela Kaplan Other [facility] Other 05-28-2023 08:45-0400 Body height 177.8 cm Angela Kaplan Other [facility] Other 05-28-2023 08:45-0400 Body mass index (BMI) [Ratio] 41 kg/m2 Angela Kaplan Other [facility] Other 05-28-2023 08:45-0400 Body weight 129.64 kg Angela Kaplan Other [facility] Other 05-28-2023 08:45-0400 Diastolic blood pressure 76 mm[Hg] Angela Kaplan Other [facility] Other 05-28-2023 08:45-0400 Respiratory rate 16 /min Angela Kaplan Other [facility] Other 05-28-2023 08:45-0400 Systolic blood pressure 109 mm[Hg] Angela Kaplan Other [facility] Other 07-03-2022 12:18-0400 Body temperature 97.7 [degF] [facility] 07-03-2022 12:18-0400 Diastolic blood pressure 72 mm[Hg] [facility] 07-03-2022 12:18-0400 Heart rate 88 /min [facility] 07-03-2022 12:18-0400 Respiratory rate 18 /min [facility] 07-03-2022 12:18-0400 SaO2% (BldA) [Mass fraction] 93 % [facility] 07-03-2022 12:18-0400 Systolic blood pressure 147 mm[Hg] [facility] Encounters Encounter Date Encounter Type Care Provider Facility Start: 03-25-2025 End: 03-25-2025 Patient encounter procedure Doe Culp DO -[facility] [address] Work Phone: Start: 03-25-2025 End: 03-25-2025 ambulatory Angela Kaplan MD Work Phone: [facility] Work Phone: Start: 02-12-2025 End: 02-12-2025 ambulatory [facility] Work Phone: Start: 02-12-2025 End: 02-12-2025 Patient encounter procedure [facility] Work Phone: Start: 12-27-2024 Non-patient / Non-visit [facility] Work Phone: Start: 12-22-2024 End: 12-22-2024 ambulatory [facility] Start: 09-02-2024 ambulatory Henry MOJICA Facility : [place] Start: 07-23-2024 End: 07-23-2024 ambulatory ANGELA KAPLAN Facility: [place] Start: 07-23-2024 End: 07-23-2024 Patient encounter procedure Henry MOJICA [facility] Start: 07-21-2024 ambulatory ANGELA KAPLAN Facility:[facility] Start: 06-26-2024 ambulatory ANGELA KAPLAN Facility:[facility] Start: 06-24-2024 Patient encounter status [facility] Start: 06-24-2024 End: 06-24-2024 ambulatory [facility] Work Phone: Start: 06-24-2024 End: 06-24-2024 Encounter for general adult medical examination without abnormal findings [facility] Start: 06-24-2024 End: 06-24-2024 Patient encounter procedure [facility] Work Phone: Start: 08-30-2023 End: 08-30-2023 ambulatory Angela Kaplan Other [facility] Other Start: 08-30-2023 Telephone encounter Angela Kaplan [facility] Start: 07-02-2023 End: 07-02-2023 ambulatory Angela Kaplan Other [facility] Other Start: 07-02-2023 Office outpatient vi sit 15 minutes Angela Kaplan [facility] Start: 07-02-2023 End: 07-02-2023 Patient encounter procedure Pedrito QUINTERO [facility] Start: 06-06-2023 End: 06-06-2023 ambulatory Angela Kaplan Other [facility] Other Start: 06-06-2023 Telephone encounter Angela Kaplan [facility] Start: 05-28-2023 End: 05-28-2023 ambulatory Angela Kaplan Other [facility] Other Start: 05-28-2023 Office outpatient vi sit 25 minutes Angela Kaplan [facility] Start: 07-05-[address] ANGELA KAPLAN Facil ity:[facility] Start: 07-03-2022 End: 07-03-2022 Emergency department patient visit Pacheco Urrutia [facility] Start: 05-26-2022 End: 05-27-2022 ambulatory WILFRED MARCIAL Facility:[facility] Start: 05-25-2022 End: 05-26-[address] KEN MUKHERJEE Facility:[facility] Start: 02-16-[address] KEN MUKHERJEE Fac ility:[facility] Start: 08-30-2021 End: 08-31-[address] KEN MUKHERJEE Facility:[facility] Start: 08-12-2021 End: 08-12-[address] ANGELA KAPLAN Facility:[facility] Start: 03-03-2021 End: 03-04-2021 Evaluation and management of inpatient REJI YUN Facility:[facility] Procedures Date Procedure Procedure Detail Performing Clinician Start: 03-25-2025 Plain X-ray of left shoulder Angela Kaplan MD Work Phone: Start: 03-03-2021 DILATION OF 1 COR AR [...] Comment on above: 2005 Cardiac catheterization Vladimir ael NILL Coronary artery sten t (physical object) Pedrito QUINTERO Plan of Treatment Date Care Activity Detail Author Start: 06-24-2024 Patient referral [facility] Work Phone: Comprehensive metabo lic 2000 panel - Serum or Plasma [facility] Microalbumin [Mass/v olume] in Urine [facility] Patient Education Diabetes and diet [facility] Work Phone: Patient referral [facility] Work Phone: [facility] Immunizations Immunization Date Immunization Notes Care Provider Fa raffi 06-27-2021 SARS-CoV-2 (COVID-19 ) mRNA-1273 vaccine Henry MOJICA [facility] [place] 05-28-2021 SARS-CoV-2 (COVID-19 ) mRNA-1273 vaccine Henry MOJICA [facility] Payers Date Payer Category Payer Self-pay 2025 Worker's Compensation [id number] 1966 Unknown [id number] 2.16.8 [id number] 1966 Unknown [id number] 2.16.84 [id number] 1966 Unknown [id number] 2.16.84 [id number] 1966 Unknown [id number] 2.16.84 [id number] 1966 Unknown [id number] 2.16.84 [id number] 1966 Unknown [id number] 2.16.84 [id number] 1966 Unknown [id number] 2.16.84 [id number] 1966 Unknown [id number] 2.16.8 [id number] 1966 Unknown [id number] 2.16.8 [id number] 1959 Self-pay [id number] 1959 Unknown [id number] Unknown [id number] 2.16.8 [id number] Social History Date Type Detail Facility Tobacco smoking status [facility] Sex Assigned At Male [facility] Start: 07-02-2023 End: 07-23-2024 Tobacco smoking status Never smoked tobacco (finding) [facility] Tobacco smoking status Never [facility] Start: 1965 Sex Assigned At Male [facility] Start: 02-12-2025 Tobacco smoking stat us NHIS Ex-smoker (finding) [facility] Start: 02-12-2025 Sex Male (finding) [facility] Medical Equipment Procedure Code Equipment Code Equipment Origin al Text Equipment Identifier Dates Blood Sugar Diagnostic (Onetouch Verio Test Strips) strip Start: 06-25-2024 Lancets (Onetouc h Delica Safety Lancet) 30 gauge misc Start: 06-25-2024 Blood Sugar Diagnostic (Onetouch Verio Test Strips) strip Start: 06-25-2024 Lancets (Onetouc h Delica Safety Lancet) 30 gauge misc Start: 06-25-2024 Functional Status Date Assessment Result Facility 07-23-2024 Functional Status N/A [facility] General Surgery [place] 07-02-2023 Functional Status N/A [facility] 07-03-2022 Functional Status N/A [facility] Clinical Notes 03-07-2021 to 02-12-2025 Note Date & Type Note Facility 02-12-2025 Evaluation note Diagnosis Onset Date Resolution CAD (coronary artery disease) acute February 12, 2025 10:31am Dietary counseling and surveillance acute February 12, 2025 10:31am Essential hypertension acute Ma 2024 10:31am Mixed hyperlipidemia acute February 12, 2025 10:31am Obesity, Class II, BMI 35-39.9 acute February 12, 2025 10:31am Type 2 diabetes mellitus with hyperglycemia acute February 12 10:31am [facility] Work Phone: 1(113) 487-268004-07-2025 NoteUT Cardiology - [facility] Subjective Ran Riley is a 59 [...] testing since the procedure. PMHx: CAD with VA s/p PCI RCA 03/03/21, HTN, DM type [...] mL) injection, , D (more content not included)...[facility]11-06-2024 NoteGeneral Surgery Office/Clinic Note Chief Complaint consultation for scalp cyst [...] Illness 58 yo male with h/o CAD, VA, cardiac stenting, DMII, htn, hypercholesterolemia, MARNI, referred [...] swallowing difficulties, no hearing loss, no ear infection(s),no nose bleeds. Cardiovascular: normal blood pressure, no [...] plan excisional biopsy under local anesthesia at [facility], informed consent obtained. Follow-up No qualifying data [...] 06/27/2021 Recorded SARS-CoV-2 (COVID-19) mRNA-1273 vaccine 05/28/2021 RecordedKing[facility] OhioComment on above:Result Comment: Electronically Signed By: MAGALY REED, Henry Faustin\Date and Time Signed: 07/23/24 14:24 [id number] Hospital Discharge instructions Patient Education 07/02/2023 14:43:30 [...] not rub your skin to dry it. Xnnd-yic-bsgszv sitz bath To take a sitz bath with an bbyh-anu-dclcth basin: 1.Follow the painting machine operator's instructions. 2.Fill the basin with warm water. [...] if it cracks, or according to the painting machine operator's instructions. Contact a health care provider if: [...] provider. Document Revised: 05/17/2021 Document Reviewed: 05/19/2021 [employer] Patient Education 2022 [employer]. Follow Up Care 07/02/2023 09:18:48 With:INGRID REED, Pedrito Arreaga, URL Address: [facility] [address], [place] [address]- When: Unknown Comments:Will call pt pending CT results. [facility] 10-16-2023 Evaluation note* Encounter Date Diagnosis Assessment Notes Treatment Notes Treatment Clinical Notes Jun, Absence of testicle in scrotum [...] 226 fasting. Increase insulin to 25 units. [facility] Other 09-11-2023 Evaluation note* Encounter Date Diagnosis [...] recommended Will have labs also sent to [facility] who he sees next month. May, Prostate cancer screening (ICD-10 - Z12.5) [facility] Other 10-17-2022 Hospital Discharge instructions Patient Education 07/03/2022 13:34:22 Concussion, Adult, Hgqp-qe-Zynz Concussion, Adult A concussion is a brain [...] if you are dizzy. General instructions Take jviw-wih-umrbaim and prescription medicines only as told by your doctor. Do not drink alcohol until your doctor says you can. Watch your symptoms and tell other people to do the same. Other problems can occur after a concussion. Older adults have a higher risk of serious problems. Tell your dairy cattle farm worker, teachers, school nurse, school counselor, womens volleyball coach, or lion trainer about your injury and symptoms. Tell [...] 08/22/2010 Document Revised: 04/24/2019 Document Reviewed: 04/24/2019 [employer] Patient Education 2020 [employer]. 07/03/2022 13:34:22 Head Injury, Adult Head Injury, [...] Ask your health care provider for a fdcj-xh-fkps plan for gradually returning to activities. Ask [...] your friends, family, a trusted colleague, and dairy cattle farm worker about your injury, symptoms, and restrictions. Have them watch for any new or worsening problems. General instructions Take bsau-foo-cfdvjng and prescription medicines only as told by [...] 09/03/2006 Document Revised: 10/01/2019 Document Reviewed: 09/26/2019 [employer] Patient Education 2020 [employer]. Follow Up Care 07/03/2022 12:15:09 With:[facility] Address:Unknown When:07/06/2022 13:18:40 Comments:Follow-up with your primary care provider in 3 to 5 days. If symptoms worsen, do not improve, or new symptoms arise please report back to emergency department for further evaluation. [facility]10-17-2022 Evaluation + Plan noteExtracted from: Title:ED Note Author:Josh Murphy PA-C te:07/03/22 Closed head injury without l oss of consciousness (S09.90XA: Unspecified injury of head, initial encounter) [facility]06-21-2021 NoteMR#: [id number] I [facility] Pt. Name: Ran Riley Admitted: 03/03/2021 Discharged: 03/04/2021 Date of : 1965 Physician: Reyes Thompson MD DISCHARGE SUMMARY PRIMARY DIAGNOSIS: Non-ST segment elevation myocardial infarction. SECONDARY DIAGNOSES: 1. Hypertension. 2. Diabetes. 3. Obesity. HISTORY OF PRESENT ILLNESS: This patient is a 55-year-old male with past history of hypertension and diabetes, who was sent from [facility] due to NSTEMI. The patient presented to the ER due to substernal pressure-like chest pain radiated to his left arm. His troponin was elevated. HOSPITAL COURSE: 1. NSTEMI status post PCI. The patient was discharged on aspirin, Plavix, Lopressor, and simvastatin. T 2. Awj-ihufgus-ddjubobcm diabetes, uncontrolled. His A1c was 11. The [...] Thompson MD Date Trans: 03/07/2021 08:53 A/germaine DN_[id number] cc: Reji Yun M.D. [address] [place] [facility] [id number] HospitalEvaluation + Plan note Future Appointments Appointment Date:09/02/2024 02:00:00 PM Scheduled Provider:Henry MOJICA MD Location:[facility] Appointment Type: Post Op [facility] Surgery [place] Evaluation noteNo InformationNorth [employer] Other Evaluation note* Diagnosis Onset Date Resolution Status Essential hypertension acute Type 2 diabetes mellitus with hyperglycemia acute Wellness examination acute [facility] Work Phone: Evaluation note* Diagnosis Onset Date Resolution Status Abscess, scalp acute Essential hypertension acute Nasal fracture acute Nasal obstruction acute Type 2 diabetes mellitus with hyperglycemia acute Wellness examination acute [facility] Work Phone: Evaluation note* Diagnosis Onset Date Resolution Status Admit Date Dietary counseling and surveillance acute February 12, 2025 1 0:31am Essential hypertension acute Ma y 2024 10:31am Mixed hyperlipidemia acute February 12, 2025 10:31am Type 2 diabetes mellitus wit h hyperglycemia acute February 12, 2025 1 0:31am [facility] Work Phone: History general Narrative - Reported* Type Description Date Medical History Obstructive sleep apnea Medical History Essential hypertension Medical History Controlled type 2 diabetes nisha you with hyperglycemia Medical History Morbid (severe) obesity due to e xcess calories Surgical History Appendectomy Surgical History PCI, WITH STENT INSERTION Hospitalization History see surgical history [facility] Cell>Point Other Hospital course Narrative No data available for this section [facility] Dis[facility] instructionsAmbulatory Orders* Referral to ENT Time Frame: 06/24/24, Location: None Selected * Referral to General Surgery Time Frame: 06/24/24, Location: None Selected [facility] Work Phone: Hospital Discharge instructions No data available for this section [facility] General Surgery [place] Progress note No data available for this section [facility] HospitalReason for referral (narrative)No reason for referral information availableOhiohealth [facility] Work Phone: Summary Purpose Family History No Family History Records Found Relationship Condition Age at Onset Recorded Date/T elise mother Congestive heart failure Unknown Chronic obstructive pulmonary disease Unk nown father Unknown Malignant neoplasm Unknown Congestive heart failure Unknown brother Parkinson's disease Unknown Diabetes mellitus Unknown son End stage renal failure on dialysis Unkno wn Advance Directives No Advanced Directives Records Found [...] mellitus with hyperglycemia Wellness examination Chief Complaint Admit Date Dr. Ranjith bradley February 12, 2025 10:31 am Reason for Visit Admit Date Dietary counseling and surveillance February 12, 2025 10:31am Essential hypertension February 12, 2025 10 :31am Mixed hyperlipidemia February 12, 2025 10:3 1am Type 2 diabetes mellitus with hyperglyce fátima February 12, 2025 10:31am Chief Complaint Admit Date Dr. Ranjith bradley February 12, 2025 10:31 am [facility] kjbdqky-B-vlw March 25, 2025 8:46a m Reason for Visit Admit Date CAD (coronary artery disease) February 12, 2025 10:31am Dietary counseling and surveillance February 12, 2025 10:31am Essential hypertension February 12, 2025 10 :31am Mixed hyperlipidemia February 12, 2025 10:3 1am Obesity, Class II, BMI 35-39.9 February 12, 2025 10:31am Type 2 diabetes mellitus with hyperglyce fátima February 12, 2025 10:31am Additional Source Comments (unrecognized sect ion and content) No Status Records FoundNo Status Records FoundNo Status Records FoundNo Status Records FoundNo Status Records Found INFORMATION SOURCE (unrecogn ized section and content) DATE CREATED AUTHOR 03/08/2021 [facility] DATE CREATED AUTHOR AUTHOR'S ORGANIZ ATION 07/24/2022 [facility] DATE CREATED AUTHOR AUTHOR'S ORGANIZ ATION 07/25/2024 [facility] DATE CREATED AUTHOR AUTHOR'S ORGANIZ ATION 02/21/2025 [facility] DATE CREATED AUTHOR AUTHOR'S ORGANIZ ATION 03/29/2025 [facility] Patient Care team informatio n (unrecognized section and content) Team Status: Active Member Role Status Dates Angela Kaplan MD Primary Care Provider Active Team Status: Active Member Role Status Dates Angela Kaplan MD Primary Care Provide r, Attending Provider Active Start: December 27, 2024 Team Status: Inactive Member Role Status Dates Angela Kaplan MD Primary Care Provider Active Start: February 12, 2025 End: February 12, 2025 Ba Moscoso APRN Attending Provider Active Start: February 12, 2025 End: February 12, 2025 Team Status: Inactive Member Role Status Dates Angela Kaplan MD Primary Care Provide r, Attending Provider Active Start: June 24, 2024 End: June 24, 2024 Team Status: Active Member Role Status Dates Angela Kaplan MD Primary Care Provider Active Start: December 27, 2024 Angela Kaplan MD Attending Provider Active St art: December 27, 2024 Team Status: Inactive Member Role Status Dates Angela Kaplan MD Primary Care Provider Active Start: March 25, 2025 End: March 25, 2025 Doe Culp Jr, DO Attending Provider Active S tart: March 25, 2025 End: March 25, 2025 REASON FOR VISIT (unrecogniz ed section and [...] BE BASED ON THE PRIMARY CLINICAL RECORDS. [employer] provides no warranty or guarantee of the accuracy or completeness of information in this document.
--- NOTE | 2025-04-03 07:30 | MR_ITS ---
[place] [id number] Patient Name: OSCAR RILEY MRN: [id number] date: 1965 Sex: M Assigned Patient Location: MRI Current Patient Location: MRI Accession/Order Number: [id number] Exam Date: 04/03/2025 16:26 Report Date: 04/03/2025 16:33 At the request of: LOVELY LOPEZ DO Procedure: MR shoulder LT wo con MRI left Shoulder without contrast TECHNIQUE: Multiplanar T1 and T2-weighted imaging obtained without contrast. HISTORY: Acute left shoulder pain. Injury. COMPARISON: None BONE MARROW EDEMA: No bony contusion of the greater tuberosity. FRACTURE: Nondisplaced fracture of the greater tuberosity. AC JOINT: Degenerative spurring. Subchondral edema and soft tissue edema. SHOULDER ROOF LIGAMENTS: The coracoacromial and coracoclavicular ligaments are intact. ROTATOR CUFF: Heterogeneous signal changes of the supraspinatus tendon suggesting tendinosis. Thinning of the tendon articular region of greater tuberosity insertion. May suggest partial tear. No retracted full-thickness tear. Intact infraspinatus tendon. Intact teres minor tendon. Intact subscapularis tendon. ROTATOR CUFF INTERVAL: Unremarkable BURSAL FLUID: Moderate subacromial subdeltoid bursal fluid. May be secondary to trauma or inflammatory change. GLENOID: Intact BICEPS LABRAL COMPLEX: Intact LONG HEAD OF BICEPS TENDON: Tendon intact. Signal intensity adequate. Fluid surrounds the tendon and bicipital groove. May represent tenosynovitis. GLENOHUMERAL LIGAMENTS: The superior glenohumeral ligament is intact. The middle glenohumeral ligament is intact. The anterior and posterior glenohumeral ligaments are intact. JOINT EFFUSION: Small joint effusion MUSCLES: Normal signal intensity of the muscles. NO SUBCUTANEOUS TISSUES: No subcutaneous abnormalities identified. MR/MR shoulder LT wo con IMPRESSION: Bony contusion and incomplete fracture of the greater tuberosity. No significant retraction. Tendinosis of the supraspinatus tendon. Potential small articular surface tear near the greater tuberosity insertion. Moderate subacromial subdeltoid bursal fluid suggesting trauma or inflammatory change. Arthrosis of acromioclavicular joint with inflammatory change. Possible tenosynovitis of long head of biceps tendon. Impression dictated by: Sajan Worthy M.D. 04/03/2025 4:33 PM Dictation Location: [facility] Electronically authenticated by: [id number] Y Date: 04/03/2025 16:33
== END 2025-04-03 07:29 | disposition home or self-care (01) ==
LOC: MRI 07:28
PROVIDERS: PCP Family Medicine; Visit Provider Emergency Medicine Emergency Medical Services
DX: S43.402A Unspecified sprain of left shoulder joint, initial encounter (principal); S42.92XA Fracture of left shoulder girdle, part unspecified, initial encounter for closed fracture
CPT/HCPCS: 73221

== ENCOUNTER 2025-05-17 09:47 | Emergency (ER) | payer BC, SELFPAY ==
--- OUTSIDE RECORDS SUMMARY | 2025-05-13 08:45 | XMS_ITS | Encounter Summary ---
Author Organization [facility] Address [address] [place] [address] Care Team Providers Care Stoneworking Belt Sander Name Role Phone Angela Robles MD Primary Care Provider [phone] Encounter Details Date Type Department Care Team (Late st Contact Info) Description 05/13/2025 8:45 AM EDT Ancillary Procedure [facility] [address] [place] [address] Social History Tobacco Use Types Packs/Day Years Used Date Smoking Tobacco: Never Smokeless Tobacco: Never Alcohol Use Standard Drinks/Week Comments Not Currently 0 (1 standard drink = 0.6 oz pur e alcohol) Sex and Gender Information Value Date Recorded Sex Assigned at Not on file Legal Sex Male 1:03 PM EDT Gender Identity Not on file Sexual Orientation Not on file documented as of this encounter Plan of Treatment Upcoming Encounters Date Type Department Care Team (Late st Contact Info) Description 06/10/2025 8:30 AM EDT Office Visit [facility] [address] [place] [address] Fredy Cheng DO [address] [place] [place] [address] documented as of this encounter Procedures Procedure Name Priority Date/Time Associated Diagnosis Comments XR SHOULDER 2+ VIEWS LEFT Routine 05/13/2025 8:40 AM EDT Left shoulder pain, unspecified chronicity documented in this encounter Results * XR shoulder 2+ views left (05/13/2025 8:40 AM EDT) Anatomical Region Laterality Modality Upper Extremities, Shoulder Left Radi ographic Imaging Narrative 05/15/2025 8:04 AM EDT Imaging Result: X-rays 03-25-2025 coupled with AP and lateral views of the left shoulder here today with permanent images are saved to the record does show a downsloping acromion. He does have some sclerosis at the greater tuberosity. No evidence of fracture or healing fracture. The acromiohumeral interval is well maintained. us Fredy Cheng DO IMG XR PROCEDURES Final Result documented in this encounter Visit Diagnoses Not on filedocumented in this encounter Care Teams Stoneworking Belt Sander Relationship Specialty Start Date End Date Angela Robles MD PCP - General Family Medicine 06/25/24 documented as of this encounter
--- OUTSIDE RECORDS SUMMARY | 2025-05-13 08:45 | XMS_ITS | Encounter Summary ---
Author Organization [facility] Address [address] [facility] [place] [address] Care Team Providers Care Metal Sorter Name Role Phone Angela Robles MD Primary Care Provider [phone] Reason for Visit * Reason Comments Pain Encounter Details Date Type Department Care Team (Late st Contact Info) Description 05/13/2025 8:45 AM EDT Office Visit [facility] [address] [place] [address] Fredy Cheng DO [address] [place] [address] Left shoulder pain, unspecified chronicity [...] left shoulder injury. Consult from Dr. Culp, [facility]. HPI: Ran is a 59-year-old right hand dominant white male who presents with a left shoulder injury related to work. He does work at [employer]. Date of injury 03-11-2025. He states [...] not takebecause he did not have a [facility] card where it was covered. He has [...] of flexion abduction. He has no atrophy. Lander's is negative. Examination of the right shoulder [...] The acromiohumeral interval is wellmaintained. MRI 04-03-2025 [place], this is a relatively suboptimal study as [...] 06/10/2025 8:30 AM EDT Office Visit [facility] [address] [place] [address] Fredy Cheng DO [address] [place] [address] documented as of this encounter Procedures Procedure [...] encounter documented in this encounter Care Teams Metal Sorter Relationship Specialty Start Date End Date Angela Robles MD PCP - General Family Medicine 06/25/24 documented as of this encounter
[2025-05-17 09:51] VITALS: BP 124/76; PULSE 73; TEMP 36.8; O2SAT 95; BMI 33.7
--- OUTSIDE RECORDS SUMMARY | 2025-05-17 09:54 | XMS_ITS | Clinical Summary ---
Author Organization [facility] Address [address] [place] [address] Care Team Providers Care Vp Product Marketing Name Role Phone Angela Robles MD Primary Care Provider [phone] Allergies No known active allergies Medications allopurinol [...] mg by mouth in the morning. Active metoprolol tartrate (Lopressor) 25 mg tabletIndication s:Palpitations TAKE 1 TABLET IN THE MORNING AND AT BEDTIME 180 tablet 3 06/27/20 24 Active lisinopril 30 mg tabletIndication s:Primary hypertension TAKE 1 TABLET IN THE MORNING 90 tablet 3 03/10/20 25 Active ezetimibe (Zetia) 10 mg tabletIndication s:Coronary artery disease, unspecified vessel or lesion type, unspecified whether angina present, unspecified whether grayling or transplanted heart TAKE 1 TABLET DAILY DIRECTED 90 tablet 3 05/04/20 25 Active simvastatin (Zocor) 40 mg tabletIndication s:Coronary artery disease, unspecified vessel or lesion type, unspecified whether angina present, unspecified whether grayling or transplanted heart TAKE 1 TABLET AT BEDTIME 90 tablet 3 05/04/20 25 Active simvastatin (Zocor) 40 mg tabletIndication s:Coronary artery disease, unspecified vessel or lesion type, unspecified whether angina present, unspecified whether grayling or transplanted heart TAKE 1 TABLET AT BEDTIME 90 tablet 3 05/13/20 24 025 Discontinued ezetimibe (Zetia) 10 mg tabletIndication s:Coronary artery disease, unspecified vessel or lesion type, unspecified whether angina present, unspecified whether grayling or transplanted heart TAKE 1 TABLET DAILY DIRECTED 90 tablet 3 05/13/20 24 025 Discontinued Active Problems Problem Noted [...] medications. H/O non-ST elevation myocardial infarction (NSTE TX) 04/01/2021 Assessment & Plan (12/15/2022 11:20 AM [...] EDT): Diabetes is referral to endocrinology in [place] DDD (degenerative disc disease), lumbar 05/27/20 15 Sprain of lumbar region 05/27/2015 Encounters Date Type Department Care Team Description 05/02/[address] [place] [address] Franco Fox MD Coronary artery disease, unspecified vessel or lesion type, unspecified whether angina present, unspecified whether grayling or transplanted heart 03/07/[address] [place] [address] Franco Fox MD Primary hypertension (Primary Dx) 02/19/[address] [place] [address] Amber Cancino MA from Last 3 Months Immunizations Immunization [...] Most Recently Relevant to Health Maintenance Insurance Member Subscriber Plan / Payer (Ef fective 2015-Present) Name:Ran Jara Relation to Subscriber:Self Name:Ran Jara Payer ID:[id number] (NAIC) Type:Not on file Address: [facility] [id number] [place] [id number] Care Teams Vp Product Marketing Relationship Specialty Start Date End Date Angela Robles MD [address] [facility] [address] PCP - General 12/15/22
--- OUTSIDE RECORDS SUMMARY | 2025-05-17 09:54 | XMS_ITS | Encounter Summary ---
Author Organization [facility] Address [address] [facility] [place] [address] Care Team Providers Care Machine Adjuster Leader Name Role Phone Angela Robles MD Primary Care Provider [phone] Encounter Details Date Type Department Care Team (Late st Contact Info) Description 05/06/2025 Orders Only [place] [facility] [address] [place] [address] oDe Culp MD [address] [place] [address] Social History Tobacco Use Types Packs/Day Years Used Date Smoking Tobacco: Never Assessed Sex and Gender Information Value Date Recorded Sex Assigned at Not on file Legal Sex Male 1:03 PM EDT Gender Identity Not on file Sexual Orientation Not on file documented as of this encounter Plan of Treatment Upcoming Encounters Date Type Department Care Team (Late st Contact Info) Description 06/10/2025 8:30 AM EDT [facility] [address] [place] [address] Fredy Cheng DO [address] [place] [address] documented as of this encounter Procedures Procedure Name Priority Date/Time Associated Diagnosis Comments XR SHOULDER 2+ VIEWS LEFT Routine 03/25/2025 8:07 AM EDT documented in this encounter Results * XR shoulder 2+ views left (03/25/2025 8:07 AM EDT) Anatomical Region Laterality Modality Upper Extremities, Shoulder Left Radi ographic Imaging Doe Culp MD IMG XR PROCEDURES Final Resul t documented in this encounter Visit Diagnoses Not on filedocumented in this encounter Care Teams Machine Adjuster Leader Relationship Specialty Start Date End Date Angela Robles MD PCP - General Family Medicine 06/25/24 documented as of this encounter
--- OUTSIDE RECORDS SUMMARY | 2025-05-17 09:54 | XMS_ITS | Clinical Summary ---
Author Organization [facility] Address [address] [place] [address] Care Team Providers Care Rag Cutting Machine Feeder Name Role Phone Angela Robles MD Primary Care Provider [phone] Allergies Active Allergy Reactions Criticality Noted Date Comments Egg-Derived Products GI intolerance High 06/24/2024 Pollen Extract High 06/24/2024 Other Reaction(s): Congested Medications allopurinol (Zyloprim) 300 MG tablet Take 300 mg by mouth in the morning. Active aspirin 81 MG chewable tablet aspirin 81 mg chewable tablet TAKE ONE TABLET BY MOUTH EVERY DAY Active Continuous Glucose Sensor (FreeStyle Chioma 3 Plus Sensor) misc 5 Active Jardiance 25 MG 5 Active ezetimibe (Zetia) 10 MG tablet Take 10 mg by mouth in the morning. 4 Active Tresiba FlexTouch 100 UNIT/ML injection Inject under the skin 4 Active lisinopril 30 MG tablet Take 30 mg by mouth in the morning. 4 Active metFORMIN (Glucophage) 500 MG tablet 5 Active metoprolol tartrate (Lopressor) 25 MG tablet 25 mg in the morning and 25 mg in the evening. 4 Active Ozempic, 0.25 or 0.5 MG/DOSE, 2 MG/3ML solution pen-injector 5 Active simvastatin (Zocor) 40 MG tablet Take 40 mg by mouth at bedtime 4 Active diclofenac (Voltaren) 75 MG EC tabletIndication s:Left shoulder pain, unspecified chronicity Take 1 tablet (75 mg) by mouth in the morning and 1 tablet (75 mg) before bedtime. Do not crush, chew, or split. 60 tablet 2 5 06/12/20 25 Active Active Problems No known active problems Encounters Date Type Department Care Team Description 05/14/[address] [facility] [address] [place] [phone] Fredy Cheng, 05/13/2025 8:45 AM EDT Ancillary Procedure [facility] [address] [place] [address] 05/13/2025 8:45 AM EDT Office Visit [facility] [address] [place] [address] Fredy Cheng, Left shoulder pain, unspecified chronicity (Primary Dx); Sprain of left shoulder, subsequent encounter; Left shoulder strain, initial encounter 05/13/2025 Bamboo flowsheet [facility] [address] [facility] [address] [place] [address] Fredy Cheng, 05/13/2025 Travel 05/06/[address] [facility] [address] [facility] [place] [address] Doe Culp MD 05/05/[address] [facility] [address] [facility] [place] [address] Unallocated, Gómez Toro MD from Last 3 Months Family History Relation Name Status Comments Father Mother Alive Social History Tobacco Use [...] Mass Index 35.29 05/13/2025 8:30 AM EDT Plan of Treatment Upcoming Encounters Date Type Department Care Team (Late st Contact Info) Description 06/10/2025 8:30 AM EDT Office Visit [facility] [address] [facility] [place] [phone] Fredy Cheng DO [address] [place] [address] Health Maintenance Due Date Last Done Comments CT Colonography 1966 Colonoscopy 1966 Colorectal Cancer Screening 1966 FIT-DNA 1966 FIT 1966 FOBT 1966 Sigmoidoscopy 1966 Influenza Vaccine (#1) 2025 Procedures Procedure Name Priority Date/Time Associated Diagnosis Comments XR SHOULDER 2+ VIEWS LEFT Routine 05/13/2025 8:40 AM EDT Left shoulder pain, unspecified chronicity MR SHOULDER LEFT WO IV CONTRAST Routine 04/03/2025 3:29 PM EDT XR SHOULDER 2+ VIEWS LEFT Routine 03/25/2025 8:07 AM EDT from Last 3 Months Results * XR shoulder 2+ views left (05/13/2025 8:40 AM EDT) Only the most recent of2 resultswithin the time period is included. Anatomical Region Laterality Modality Upper Extremities, Shoulder [...] Cheng DO IMG XR PROCEDURES Final Result * MR shoulder left wo IV contrast (04/03/2025 3:29 PM EDT) Anatomical Region Laterality Modality Upper Extremities, Shoulder Left Magn etic Resonance us Noms Provider Unallocated MD PATEL MRI PROCEDURES Final Result from Last 3 Months Insurance Care Teams Rag Cutting Machine Feeder Relationship Specialty Start Date End Date Angela Robles MD PCP - General Family Medicine 06/25/24
--- OUTSIDE RECORDS SUMMARY | 2025-05-17 09:54 | XMS_ITS | Clinical Summary ---
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 Care Teams Research Food Technologist Relationship Specialty Start Date End Date Donn Lebron Jr. [address] [place] [id number] PCP - General Orthopedics 05/17/15
--- OUTSIDE RECORDS SUMMARY | 2025-05-17 09:54 | XMS_ITS | Encounter Summary ---
Author Organization [facility] Address [address] [facility] [place] [address] Care Team Providers Care Audio Recording Engineer Name Role Phone Angela Robles MD Primary Care Provider [phone] Encounter Details Date Type Department Care Team (Late Contact Info) Description 05/14/2025 Abstract [facility] [place] [facility] [address] [place] [address] Fredy Cheng DO [address] [place], [place] [phone] Social History Tobacco Use Types Packs/Day Years [...] Encounters Date Type Department Care Team (Late Contact Info) Description 06/10/2025 8:30 AM EDT [facility] [address] [place] [address] Fredy Cheng DO [address] [place], [place] [phone] documented as of this encounter Visit Diagnoses Not on filedocumented in this encounter Care Teams Audio Recording Engineer Relationship Specialty Start Date End Date Angela Robles MD PCP - General Family Medicine 06/25/24 documented as of this encounter
--- OUTSIDE RECORDS SUMMARY | 2025-05-17 09:54 | XMS_ITS | Encounter Summary ---
Author Organization [facility] Address [address] [facility] [place] [address] Care Team Providers Care Manager Assembly Name Role Phone Angela Robles MD Primary Care Provider [phone] Encounter Details Date Type Department Care Team (Late st Contact Info) Description 05/05/2025 Orders Only [facility] [address] [place] [address] Unallocated, Noms Provider, [address] [place] [address] Social History Tobacco Use Types Packs/Day Years [...] Description 06/10/2025 8:30 AM EDT Office Visit [facility] [address] [facility] [place] [address] Fredy Cheng DO [address] [place] [address] documented as of this encounter Procedures Procedure Name Priority Date/Time Associated Diagnosis Comments MR SHOULDER LEFT WO IV CONTRAST Routine 04/03/2025 3:29 PM EDT documented in this encounter Results * MR shoulder left wo IV contrast (04/03/2025 3:29 PM EDT) Anatomical Region Laterality Modality Upper Extremities, Shoulder Left Magn etic Resonance us Noms Provider Unallocated IMG MRI PROCEDURES Final Result documented in this encounter Visit Diagnoses Not on filedocumented in this encounter Care Teams Manager Assembly Relationship Specialty Start Date End Date Angela Robles MD PCP - General Family Medicine 06/25/24 documented as of this encounter
--- OUTSIDE RECORDS SUMMARY | 2025-05-17 09:54 | XMS_ITS | Encounter Summary ---
Author Organization [facility] Address [address] [place] [address] Care Team Providers Care Manuscripts Curator Name Role Phone Angela Robles MD Primary Care Provider [phone] Encounter Details Date Type Department Care Team (Latest Contact Info) Description 05/13/2025 Travel Social History Tobacco Use Types Packs/Day Years [...] 06/10/2025 8:30 AM EDT Office Visit [facility] [place] [facility] [address] [place] [phone] Fredy Cheng DO [address] [place] [address] documented as of this encounter Visit Diagnoses Not on filedocumented in this encounter Care Teams Manuscripts Curator Relationship Specialty Start Date End Date Angela Robles MD PCP - General Family Medicine 06/25/24 documented as of this encounter
--- OUTSIDE RECORDS SUMMARY | 2025-05-17 09:54 | XMS_ITS | Encounter Summary ---
Author Organization [facility] Address [address] [facility] [place] [address] Care Team Providers Care Fitness And Wellness Instructor Name Role Phone Angela Robles MD Primary Care Provider [phone] Encounter Details Date Type Department Care Team (Late st Contact Info) Description 05/13/2025 Bamboo flowsheet [facility] [facility] [address] [address] [facility] [address] [place] [address] Fredy Cheng DO [address] [place] [address] Social History Tobacco Use Types Packs/Day Years [...] 06/10/2025 8:30 AM EDT Office Visit [facility] [address] [facility] [place] [phone] Fredy Cheng DO [address] [place] [address] documented as of this encounter Visit Diagnoses Not on filedocumented in this encounter Care Teams Fitness And Wellness Instructor Relationship Specialty Start Date End Date Angela Robles MD PCP - General Family Medicine 06/25/24 documented as of this encounter
--- OUTSIDE RECORDS SUMMARY | 2025-05-17 09:55 | XMS_ITS | CCD ---
Author Organization [facility] Care Team Providers Care Funeral Location Manager Name Role Phone RAVINDRA YUN Referring Unavailable AL-HOURANIYANELI Admitting Unavailable AL-HOURANI, YANELI Attending Unavailable ADELITA KAPLAN Primary Care Unavailable UNKNOWN, PROVIDER Surgeon Unavailable [place] Procedure Practitioner Unavailab le [place] Procedure Practitioner Unavailab EDGAR Roldan Surgeon Unavailable MEDICAL, MESFIN Primary Care Physician Unavailab le MOUKARBEL, DR ROGERS Admitting Unavailable MOUKARBEL, DR ROGERS Attending Unavailable KAPLAN, DR ADLEITA Rosen Primary Care Unavailable MOUKARBEL, DR ROGERS Consulting Unavailable MOUKARBEL, DR ROGERS Admitting Unavailable MOUKARBEL, DR ROGERS Attending Unavailable KAPLAN, DR ADELITA Rosen Primary Care Unavailable MOUKARBEL, DR ROGERS Consulting Unavailable AGGIE, WILFRED Admitting Unavailable AGGIE, WILFRED Attending Unavailable KAPLAN, DR ADELITA Rosen Primary Care Unavailable AGGIE, WILFRED Consulting Unavailable KAPLAN, DR ADELITA Rosen Primary Care Unavailable HAY, DR RODRIGUEZ Admitting Unavailable HAY, DR RODRIGUEZ Attending Unavailable HAY, DR RODRIGUEZ Consulting Unavailable PRO, HENRY Barraza Unavailable KAPLAN, DR ADELITA Rosen Admitting Unavailable KAPLAN, DR ADELITA Rosen Attending Unavailable KAPLAN, DR ADELITA Rosen Primary Care Unavailable MOUKARBEL, DR ROGERS Admitting Unavailable MOUKARBEL, DR ROGERS Attending Unavailable KAPLAN, DR ADELITA Rosen Primary Care Unavailable Adelita Kaplan Unavailable ADELITA KAPLAN Primary Care Physician ADELITA KAPLAN Referring Unavailable Henry MOJICA Attending Unavailable Henry MOJICA Attending Unavailable MOUKARBKEN GALLAGHER Attending Unavailable Adelita Kaplan MD Primary Care Provider [phone] Adelita Kaplan MD Attending Provider Ba Moscoso APRN Attending Provider Doe Culp DO Attending Provider Adelita Kaplan MD Primary Care Provider Doe Culp Jr Attending Unavailable Adelita Kaplan Primary Care Unavailable Doe Culp Jr Admitting Unavailable Adelita Kaplan Primary Care Unavailable Suni Chen Edryan Admitting Unavailable Doe Culp Jr Attending Unavailable Adelita Kaplan MD Primary Care Provider LEANDRO SANTOYO Attending Unavailable LEANDRO SANTOYO Referring Unavailable Allergies Allergy Classification Reported Allergen(s) Allergy Type Date of Onset Reaction(s) Facility (4 sources) Eggs or Egg-derived Products Drug allergy Unknown [facility] Other (6 sources) Pollen; Translations: [pollen extracts] Allergy to substance 4 Congested [facility] Comment on above: sneezing (6 sources) Egg Derived; Translations: [Egg Derived] Allergy to substance 4 Upset stomach [facility] (1 source) No Known Medication Allergies; Translations: [No Known Medication Allergies] Propensity to adverse reactions (disorder) [facility] Repository (2 sources) Pollen Allergy to substance 4 [facility] Healthcare (2 sources) Egg-Derived Products Drug Allergy 4 GI intolerance [facility] Medications Current Medications Medication Drug Class(es) Dates Sig (Normalized) Sig (Original) acetaminophen 325 mg oral tablet (1 source) Start: 01-28-2015 Tylenol 325 mg, Oral, Refills(s) 0 Start Date: 01/28/15 Status: Ordered allopurinol 300 mg oral tablet (20 sources) Xanthine Oxidase Inhibitor Start: 02-02-2025 Allopurinol [...] 02-19-2024 Allopurinol Ac tive 0 .ROUTE .COMPLEX 90 February 19, 2024 3:33pm TAKE 1 TABLET DAILY Start: 01-26-2015 End: 02-19-2024 take 1 tablet by mouth once daily Allopurinol 300 mg tablet Discontinued 300 MG PO Daily February 19, 2024 12:00am February 19, 2024 3:33pm aspirin 81 mg oral tablet (10 sources) Platelet Aggregation Inhibitor, Nonsteroidal Anti-inflammatory Drug [...] a day for 0 days May, Active take 1 tablet by jaylin th once daily aspirin 81 MG chewable tablet aspirin 81 mg chewable tablet TAKE ONE TABLET BY MOUTH EVERY DAY Active atenolol 25 mg oral tablet (1 [...] Sensor (Freestyle Chioma 3 Plus Sensor) device (3 sources) Start: 02-12-2025 Blood-Glucose Sensor (Freestyle Chioma 3 Plus Sensor) device Active 0 .ROUTE .MEDSUPPLY February 12, 2025 12:00am change every 15 days cholecalciferol 0.025 mg oral capsule (7 sources) Vitamin D Start: 02-12-2025 take 1 capsule by mouth once daily Start: 06-13-2022 take 1 tablet by jaylin th every twenty-four hours Vitamin D 50 MCG (1999 UT) 1 tablet Orally Once a day for 0 days May, Active clopidogrel 75 mg oral tablet (11 sources) P2Y12 Platelet Inhibitor Start: 06-13-2022 take 1 tablet by mouth once daily Continuous Glucose Sensor (FreeStyle Chioma 3 Plus Sensor) [facility] (2 sources) Start: 04-30-2025 Continuous Glucose Sensor (FreeStyle Chioma 3 Plus Sensor) [facility] 04/30/2025 Active cyclobenzaprine hydrochloride 5 mg oral tablet (1 source) Muscle Relaxant Start: 06-21-2017 take 5 mg by mouth three times daily cyclobenzaprine 5 mg, Oral, TID, Refills(s) 0 Start Date: 06/21/17 Status: Ordered diclofenac sodium 75 mg delayed release oral tablet (2 sources) Nonsteroidal Anti-inflammatory Drug Start: 05-13-2025 End: 06-12-2025 take 1 tablet by mouth in the morning diclofenac (Voltaren) 75 MG EC tablet Indications: Left shoulder pain, unspecified chronicity Take 1 tablet (75 mg) by mouth in the morning and 1 tablet (75 mg) before bedtime. Do not crush, chew, or split. 60 tablet 2 05/13/2025 06/12/2025 Active empagliflozin 25 mg oral tablet (5 sources) Sodium-Glucose Cotransporter 2 Inhibitor Start: 02-12-2025 Jardiance 25 MG 02/12/2025 Active ezetimibe 10 mg oral tablet (14 sources) Dietary Cholesterol Absorption Inhibitor Start: 06-24-2024 take 1 tablet by mouth in the morning ezetimibe (Zetia) 10 MG tablet Take 10 mg by mouth in the morning. 06/24/2024 Active Start: 01-26-2015 Zetia 10 mg or al tablet Refills(s) 0 Start Date: 01/26/15 Status: Ordered FreeStyle Chioma 14 Day [place] (4 sources) Start: 12-02-2020 FreeStyle Libr e 14 Day [place] FreeStyle Chioma 14 Day [place] , 1 (one) Device Device q 2 [...] ml insulin degludec 100 unt/ml pen injector (18 sources) Insulin Analog Start: 02-12-2025 Start: 06-30-2024 Tresiba FlexTo uch 100 UNIT/ML injection Inject under the skin 06/30/2024 Active Start: 06-30-2024 inject 10 [IU] by riojas [...] pen Active lisinopril 30 mg oral tablet (14 sources) Angiotensin Converting Enzyme Inhibitor Start: 06-24-2024 take 1 tablet by mouth in the morning lisinopril 30 MG tablet Take 30 mg by mouth in the morning. 06/24/2024 Active Start: 01-26-2015 lisinopril 40 mg Tab Refills(s) 0 Start Date: 01/26/15 Status: Ordered meloxicam 15 mg oral tablet (1 source) Nonsteroidal Anti-inflammatory Drug Start: 06-21-2017 take 1 tablet by mouth once daily meloxicam 15 mg Tab 15 mg = 1 tab(s), Oral, Daily, Refills(s) 0 Start Date: 06/21/17 Status: Ordered metFORMIN hydrochloride 500 mg oral tablet (20 sources) Biguanide Start: 03-25-2025 metFORMIN (Glucophage) 500 MG tablet 03/25/2025 Active Start: 06-30-2024 Metformin 500 mg tablet Active [...] 9:56am metoprolol tartrate 25 mg oral tablet (13 sources) beta-Adrenergic Moncho Start: 07-02-2023 metopr olol tartrate (Lopressor) 25 MG tablet 25 mg in the morning and 25 mg in the evening. 06/24/2024 Active Start: 06-13-2022 take 1 tablet by jaylin th every twelve hours Metoprolol Tartrate 25 MG 1 tablet with food Orally Twice a day for 0 days May, Active Aleve (1 source) Nonsteroidal Anti-inflammatory Drug Start: 06-18-2015 Aleve Refills(s) 0 Start Date: 06/18/15 Status: Ordered Ozempic, 0.25 or 0.5 MG/DOSE, 2 MG/3ML solution pen-injector (2 sources) Start: 02-12-2025 Ozempic, 0.25 or 0.5 MG/DOSE, 2 MG/3ML solution pen-injector 02/12/2025 Active Semaglutide (3 sources) Start: 02-12-2025 Start: 02-12-2025 Semaglutide (O zempic) 0.25 mg or 0.5 mg (2 mg/3 mL) pen injector Active 0.5 MG SUBCUT every week February 12, 2025 12:00am simvastatin 40 mg oral tablet (17 sources) HMG-CoA Reductase Inhibitor Start: 06-24-2024 End: 02-12-2025 take 1 tablet by mouth at bedtime simvastatin (Zocor) 40 MG tablet Take 40 mg by mouth at bedtime 06/24/2024 Active Start: 06-13-2022 take 1 tablet by jaylin th every twenty-four hours Simvastatin 40 MG 1 tablet in the evening Orally Once a day for 0 days May, Active Start: 01-26-2015 simvastatin 20 mg Tab Refills(s) 0 Start Date: 01/26/15 Status: Ordered Completed/Discontinued Medications Medication Drug Class(es) Dates Sig (Normalized) Sig (Original) Blood-Glucose Meter misc (3 sources) Start: 06-25-2024 End: 02-12-2025 Blood-Glucose Meter misc Discontinued 0 .Route 1 June 25, 2024 12:00am February 12, 2025 10:44am to test blood sugar once daily Problems Active Problems Problem Classification Problem Date Documented Date Episodic/Chronic Abdominal pain (1 source) Unspecified abdominal pain Episodic Acute myocardial infarction (1 source) Acute non-ST segment elevation myocardial infarction Onset: 04-01-2021 06-26-2024 Chronic Administrative/social admission (6 sources) Patient encounter status; Translations: [Dietary counseling and surveillance] 02-12-2025 Episodic Calculus of urinary tract (2 sources) Kidney stone 07-02-2023 Episodic Coronary atherosclerosis and other heart disease (13 sources) Atherosclerotic heart disease of tribal coronary artery without angina pectoris; Translations: [Coronary atherosclerosis] Onset: 04-01-2021 Chronic Coronary atherosclerosis and other heart disease (2 sources) Presence of coronary angioplasty implant and graft; Translations: [Presence of coronary angioplasty implant and graft] Onset: 12-22-2024 Episodic Diabetes mellitus with complications (20 sources) Type 2 diabetes mellitus; Translations: [Type 2 diabetes mellitus with hyperglycemia] Chronic Diabetes mellitus without complication (3 sources) Type 2 diabetes mellitus without complications; Translations: [Type 2 diabetes mellitus] Onset: 06-02-2022 07-02-2023 Chronic Disorders of lipid metabolism (13 sources) Hypercholesterolemia; Translations: [Pure hypercholesterolemia, unspecified] Onset: [...] sources) Long-term current use of insulin; Translations: [[facility] (current) use of insulin] Episodic Other and [...] Pain of right testicle 07-02-2023 Episodic Other non-traumatic joint disorders (2 sources) Pain in left shoulder; Translations: [Pain in joint, shoulder region] 05-13-2025 Episodic Other nutritional; endocrine; and metabolic disorders [...] Chronic Other nutritional; endocrine; and metabolic disorders (4 sources) Obese class II; Translations: [Class 2 obesity] 02-12-2025 Chronic Other screening for suspected conditions (not mental disorders or infectious disease) (4 sources) Encounter for screening for malignant neoplasm of prostate; Translations: [Patient encounter status] Episodic Other skin disorders (1 source) Trichilemmal cyst; Translations: [Pilar cyst] Onset: 07-23-2024 Episodic Other skin disorders (1 source) Pilar cyst of scalp 07-23-2024 Episodic Other upper respiratory disease (4 sources) Nasal obstruction; Translations: [Other specified disorders [...] 06-30-2024 Chronic Skin and subcutaneous tissue infections (5 sources) Abscess of scalp; Translations: [Cutaneous abscess of head [any part, except face]] 06-24-2024 Episodic Skull and face fractures (5 sources) Fractured nasal bones; Translations: [Fracture of nasal bones, initial encounter for closed fracture] 06-24-2024 Episodic Sprains and strains (6 sources) Sprain of unspecified ligament of left ankle, initial encounter; Translations: [Unspecified sprain of left shoulder joint, initial encounter] Onset: 08-15-2021 05-13-2025 Episodic Past or Other Problems Problem Classification Problem Date Documented Da te Episodic/Chronic E Codes: Natural/environment (1 source) Other and unspecified overexertion or strenuous movements or postures, initial encounter; Translations: [OTH AND UNS OVREXRT/STRN MVMT/POS INT] Onset: 08-15-2021 Episodic Other aftercare (1 source) exterminator helper 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 (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) use of oral hypoglycemic drugs; Translations: [RESIDENTIAL USE ORAL HYPOGLYCEMIC DX] Onset: 08-15-2021 Episodic Other aftercare (1 source) exterminator helper termite (current) use of aspirin; Translations: [RESIDENTIAL CURRENT USE OF ASPIRIN] Onset: 08-15-2021 Episodic Other aftercare (1 source) Other spool winder (current) drug therapy; Translations: [OTH RESEARCH CONSULTANT CURRENT DRUG THERAPY] Onset: 08-15-2021 Episodic Other non-traumatic joint disorders (3 sources) Pain in left ankle and joints of left foot; Translations: [PAIN IN LEFT ANKLE] Onset: 08-12-2021 Episodic Results Test Name Value Interpretation Reference Range Facility X-ray reportOrdered By: Gera Hale on 03-25-2025 Study report [facility] [address] [place] [address] XRay Report Signed Patient: Oscar Riley MR#: [id number] : 1965 Acct:[id number] Age/Sex: 59 / M ADM Date: 5 Loc: [place] Room: Type: [facility] Attending Dr: Doe Culp Jr, DO Copies to: Doe Culp DO~ Ordering Provider: Doe Culp DO Date of Service: 03/25/25 XR/XR shoulder LT min 2V*: [facility] XR shoulder LT min 2V* 03/25/2025 9:05 [...] Hale M.D. 03/25/2025 9:07 AM Dictation Location: RADIO-PC-23 Transcribed By: KEYA 03/25/25906 Dictated By: Gera Hale II, MD 03/25/25905 Signed By: 03/25/25906 [facility] Work Phone: XR shoulder LT min 2V*on XR shoulder LT min 2V* [facility] [address] [place] [address] XRay Report Signed Patient: Oscar Riley MR#: [id number] : 1965 Acct:[id number] Age/Sex: 59 / M ADM Date: 03/25/25 Loc: [place] Room: Type: [facility] Attending Dr: Doe Culp Jr, DO Copies to: Doe Culp DO Ordering Provider: Doe Culp DO Date of Service: 03/25/25 XR/XR shoulder LT min 2V*: [facility] XR shoulder LT min 2V* 03/25/2025 9:05 [...] Hale M.D. 03/25/2025 9:07 AM Dictation Location: RADIO-PC-23 Transcribed By: KEYA 03/25/25906 Dictated By: Gera Hale II, MD 03/25/25905 Signed By: 07/09/25 0907 Normal [facility] 36on 02-19-2025 36 ----- Message ----- From: Ken Mukherjee MD Sent: 02/14/2025 3:56 PM EDT To: Maribell Arndt MA His echo is ok. Blood testing is ok except for high glucose and triglycerides. He needs better control of diabetes, to discuss with PCP. Advised patient of Dr. Mukherjee's findings. Patient states he is seeing a Diabetic provider in [place] and is starting to get better control of his diabetes. Normal [facility] Orders Onlyon 02-13-2025 Orders Only [id number] Jah Riley willian Rosen 1965 M Date Provider Department Center 02/13/2025 [id number], HISTORICAL SANDY Hansen Family History Problem Relation Age of Onset Stroke Mother Cancer Father Family Status - Relation Status Age at Mother Alive Father Brother Alive [facility] HbA1c HPLC (Bld) [Mass fract ion]on 02-12-2025 HbA1c (Bld) [Mass fraction] 10.5 % [facility] No Panel Informationon 02-12 Bedside Glucose 222 [facility] 36on 01-21-2025 36 Regarding lab result s from 12/27/2024: MD Maribell Stovall MA His triglycerides are high and this is due to uncontrolled diabetes (blood sugar 275!) he need to discuss with his PCP. Has he had the echo? Confirmed with [facility] scheduling that echo has not been performed yet. They have left him messages with no call back. I just left him a message also. Lab results faxed to Dr. Kaplan. [facility] Basophils Auto (Bld) [#/Vol] on 12-27-2024 Basophils (Bld) [#/Vol] Automated basophil count 0.0-0.1 [facility] Basophils (Bld) [#/Vol] 0.1 10 3/uL 0.0-0.1 [facility] Basophils/100 WBC Auto (Bld) on 12-27-2024 Basophils/100 WBC (Bld) Automated basophil % 0.2-2.0 [facility] Basophils/100 WBC (Bld) 0.6 % 0.2-2.0 [facility] Cholesterol in LDL Calc [Mas s/Vol]on 12-27-2024 Cholesterol in LDL [Mass/Vol] Cholesterol in LDL [Mass/volume] in Serum or Plasma by calculation [facility] Comment on above: <100 mg/dl [id number] 0-129 mg/dl NEAR OR ABOVE [id number] mg/dl BORDERLINE [id number] mg/dl HIGH>190 mg/dl VERY HIGH Cholesterol in LDL [Mass/Vol] 34.0 mg/dL [facility] Comment on above: <100 mg/dl [id number] 0-129 mg/dl NEAR OR ABOVE [id number] mg/dl BORDERLINE [id number] mg/dl HIGH>190 mg/dl VERY HIGH Cholesterol in VLDL Calc [Ma ss/Vol]on 12-27-2024 Cholesterol in VLDL [Mass/Vol] Cholesterol in VLDL [Mass/volume] in Serum or Plasma by calculation [facility] Cholesterol in VLDL [Mass/Vol] 61.6 mg/dL [facility] Eosinophils/100 WBC Auto (Bl d)on 12-27-2024 Eosinophils/100 WBC (Bld) Automated eosinophil % 0.9-7.0 [facility] Eosinophils/100 WBC (Bld) 5.7 % 0.9-7.0 [facility] Erythrocyte distribution wid th Auto (RBC) [Ratio]on 12-27-2024 Erythrocyte distribution width (RBC) [Ratio] Erythrocyte distribution width [Ratio] by Automated count 11.0-15.0 [facility] Erythrocyte distribution width (RBC) [Ratio] 12.4 % 11.0-15.0 [facility] Estimated glomerular filtrat ion rate (GFR) non- Americanon 12-27-2024 GFR/1.73 sq M.predicted among non-blacks MDRD (S/P/Bld) [Vol rate/Area] Estimated glomerular filtration rate (GFR) non- >=60 mL/min/1.73m 2 [facility] GFR/1.73 sq M.predicted among non-blacks MDRD (S/P/Bld) [Vol rate/Area] mL/min/{1.73_m2} >=60 mL/min/1.73m 2 [facility] Globulin Calc (S) [Mass/Vol] on 12-27-2024 Globulin (S) [Mass/Vol] Serum globulin measurement by calculation (mass/volume) [facility] Globulin (S) [Mass/Vol] 3.6 g/dL [facility] Hematocrit Auto (Bld) [Volum e fraction]on 12-27-2024 Hematocrit (Bld) [Volume fraction] Hematocrit [Volume Fraction] of Blood by Automated count 42.0-54.0 [facility] Hematocrit (Bld) [Volume fraction] 44.0 % 42.0-54.0 [facility] Hemoglobin [Mass/volume] in Bloodon 12-27-2024 Hemoglobin (Bld) [Mass/Vol] Hemoglobin [Mass/volume] in Blood 14.0-18.0 [facility] Hemoglobin (Bld) [Mass/Vol] 14.9 g/dL 14.0-18.0 [facility] Laboratory - Chemistry and C hemistry - challengeon 12-27-2024 Albumin [Mass/Vol] 4.0 g/dL 3.4-5.0 [facility] ALP [Catalytic activity/Vol] 138 U/L High 46-116 [facility] ALT [Catalytic activity/Vol] 22 U/L 16-63 [facility] AST [Catalytic activity/Vol] 14 U/L Low 15-37 [facility] Bilirubin [Mass/Vol] 0.8 mg/dL 0.2-1.0 [facility] Calcium [Mass/Vol] 9.4 mg/dL 8.5-10.1 [facility] Chloride [Moles/Vol] 99 mmol/L 98-107 [facility] Cholesterol [Mass/Vol] 131 mg/dL <=200 [facility] Cholesterol in HDL [Mass/Vol] 36 mg/dL Low 40-60 [facility] Comment on above: > or =60 mg/dl - LOW CARDIOVASCULAR RISK<40 mg/dl - HIGH CARDIOVASCULAR RISK CO2 [Moles/Vol] 31.2 mmol/L 21.0-32.0 [facility] Creatinine [Mass/Vol] 0.88 mg/dL 0.70-1.30 [facility] GFR/1.73 sq M.predicted MDRD (S/P/Bld) [Vol rate/Area] mL/min/{1.73_m2} >=60 mL/min/1.73m 2 [facility] Glucose [Mass/Vol] 275 mg/dL High 74-106 [facility] Potassium [Moles/Vol] 4.4 mmol/L 3.5-5.1 [facility] Protein [Mass/Vol] 7.6 g/dL 6.4-8.2 [facility] Sodium [Moles/Vol] 136 mmol/L 136-145 [facility] Triglyceride [Mass/Vol] 308 mg/dL High <=150 [facility] Urea nitrogen [Mass/Vol] 14.0 mg/dL 7.0-18.0 [facility] Urea nitrogen/Creatinine [Mass ratio] 15.9 mg/mg [facility] Laboratory - Hematology and Cell countson 12-27-2024 Immature granulocytes/100 WBC (Bld) 0.6 % High 0.0-0.5 [facility] Leukocytes [#/volume] correc [place] for nucleated erythrocytes in Blood by Automated counon 12-27-2024 WBC corrected for nucl RBC Auto (Bld) [#/Vol] Leukocytes [#/volume] corrected for nucleated erythrocytes in Blood by Automated coun .0-11.0 [facility] WBC corrected for nucl RBC Auto (Bld) [#/Vol] 9.6 10 3/uL 4.0-11.0 [facility] Lymphocytes Auto (Bld) [#/Vo l]on 12-27-2024 Lymphocytes (Bld) [#/Vol] Lymphocytes [#/volume] in Blood by Automated count 1.2-3.8 [facility] Lymphocytes (Bld) [#/Vol] 3.2 10 3/uL 1.2-3.8 [facility] Lymphocytes/100 WBC Auto (Bl d)on 12-27-2024 Lymphocytes/100 WBC (Bld) Lymphocytes/100 leukocytes in Blood by Automated count 20.5-60.0 [facility] Lymphocytes/100 WBC (Bld) 33.1 % 20.5-60.0 [facility] MCH Auto (RBC) [Entitic mass ]on 12-27-2024 MCH (RBC) [Entitic mass] MCH [Entitic mass] by Automated count 25.9-34.0 [facility] MCH (RBC) [Entitic mass] 29.7 pg 25.9-34.0 [facility] MCHC Auto (RBC) [Mass/Vol]on 12-27-2024 MCHC (RBC) [Mass/Vol] MCHC [Mass/volume] by Automated count 29.9-35.2 [facility] MCHC (RBC) [Mass/Vol] 33.9 g/dL 29.9-35.2 [facility] MCV Auto (RBC) [Entitic vol] on 12-27-2024 MCV (RBC) [Entitic vol] MCV [Entitic volume] by Automated count 80.0-94.0 [facility] MCV (RBC) [Entitic vol] 87.8 fL 80.0-94.0 [facility] Monocytes Auto (Bld) [#/Vol] on 12-27-2024 Monocytes (Bld) [#/Vol] Automated blood monocyte count 0.3-0.8 [facility] Monocytes (Bld) [#/Vol] 0.5 10 3/uL 0.3-0.8 [facility] Monocytes/100 WBC Auto (Bld) on 12-27-2024 Monocytes/100 WBC (Bld) Automated monocyte % 1.7-12.0 [facility] Monocytes/100 WBC (Bld) 5.4 % 1.7-12.0 [facility] Neutrophils Auto (Bld) [#/Vo l]on 12-27-2024 Neutrophils (Bld) [#/Vol] Neutrophils [#/volume] in Blood by Automated count 1.4-6.5 [facility] Neutrophils (Bld) [#/Vol] 5.2 10 3/uL 1.4-6.5 [facility] Neutrophils/100 WBC Auto (Bl d)on 12-27-2024 Neutrophils/100 WBC (Bld) Automated neutrophil % 43.0-75.0 [facility] Neutrophils/100 WBC (Bld) 54.6 % 43.0-75.0 [facility] No Panel Informationon 12-27 Eosinophils # (Auto) 0.6 10 3/uL 0.0-0.7 [facility] Immature Granulocyte # (Auto) 0.06 10 3/uL High 0.00-0.03 [facility] Platelet mean volume Auto (B ld) [Entitic vol]on 12-27-2024 Platelet mean volume (Bld) [Entitic vol] Platelet mean volume [Entitic volume] in Blood by Automated count 9.5-13.5 [facility] Platelet mean volume (Bld) [Entitic vol] 10.8 fL 9.5-13.5 [facility] Platelets Auto (Bld) [#/Vol] on 12-27-2024 Platelets (Bld) [#/Vol] Platelets [#/volume] in Blood by Automated count 150-450 [facility] Platelets (Bld) [#/Vol] 246 10 3/uL 150-450 [facility] RBC Auto (Bld) [#/Vol]on RBC (Bld) [#/Vol] Erythrocytes [#/volu me] in Blood by Automated count 4.70-6.10 [facility] RBC (Bld) [#/Vol] 5.01 10 6/uL 4.70-6.10 [facility] Serum or plasma albumin/glob ulin mass ratioon 12-27-2024 Albumin/Globulin [Mass ratio] Serum or plasma albumin/globulin mass ratio [facility] Albumin/Globulin [Mass ratio] 1.1 {ratio} [facility] Serum or plasma anion gap de terminationon 12-27-2024 Anion gap [Moles/Vol] Serum or plasma anion gap determination [facility] Anion gap [Moles/Vol] 10.2 mmol/L [facility] Serum or plasma total choles terol/high density lipoprotein (HDL) cholesterol mass gustavo 12-27-2024 Cholesterol.total/C holesterol in HDL [Mass ratio] Serum or plasma total cholesterol/high density lipoprotein (HDL) cholesterol mass rat [facility] Comment on above: 3.3 - 4.4 LOW RISK4. 4 - 7.1 AVERAGE RISK7.1 - 11.0 MODERATE RISK>11.0 HIGH RISK Cholesterol.total/C holesterol in HDL [Mass ratio] 3.6 {ratio} [facility] Comment on above: 3.3 - 4.4 LOW RISK4. 4 - 7.1 AVERAGE RISK7.1 - 11.0 MODERATE RISK>11.0 HIGH RISK Office Visiton 12-22-2024 Follow-up visit [id number] Jah Riley Silas 1965 M Date Provider Department Center 12/22/2024 Crystal-KEN MUKHERJEE CARD [facility] Family History Problem Relation Age of Onset Stroke Mother Cancer Father Family Status - Relation Status Age at Mother Alive Father Brother Alive Level of Service:26390 [place] OFFICE/OUTPATIENT ESTABLISHED MOD MDM 30 MIN [facility] 36on 08-04-[address] Mojica's [...] order for echo has been refaxed to [facility]. She told me Dr. Mojica will be using local anesthetic for cyst removal so patient does not need cardiac clearance. [facility] Ambulatory Visit Summaryon 1 09-22-2023 Ambulatory Visit Summary Ambulatory Visit Summary OSCAR RILEY :1965 Visit Date:07/23/2024 Ambulatory Visit Instructions Your Care Team Attending Physician - MAGALY REED, Henry Arreaga Primary Care Physician - ADELITA KAPLAN MD Referring Physician - ADELITA KAPLAN MD This Is Your Medications List [...] Follow-Up Appointments Sunday 2:00 PM EST With: Henry MOJICA MD Where: [address], [address], [place] [id number]- Medications What How Much When Instructions Unchanged [...] for choosing us for your care. Normal [facility] RAD - Ultrasound Reporton RAD - Ultrasound Report [id number] Normal [facility] T3, TOTAL (TRIIODOTHYRONINE) on 05-27-2022 T3, TOTAL 133 ng/dL Normal 71-180 [facility] Comment on above: Performed By: #### T 3TOTAL #### [facility] [address] [place] [address] Dr. Derek Frankel CRPon 05-26-2022 CRP 0.3 mg/dL Normal <=1.0 [facility] Comment on above: Performed By: #### C RP, TSH, CMP #### [facility] [address] [place] [address] Dr. Derek Frankel FREE T4on 05-26-2022 Free T4 [Mass/Vol] 1.03 ng/dL Normal 0.76-1.46 [facility] Comment on above: Performed By: #### F T4 #### [facility] [address] [place] [address] Dr. Derek Frankel GLYCOHEMOGLOBIN A1Con 2021 ADA RECOMMENDATION SEE BELOW Normal [facility] Comment on above: Result Comment: ADA RECOMMENDED LIMIT 4.0 - 6.0 ADA THERAPEUTIC TARGET < 7.0 ACTION SUGGESTED > 7.0 Performed By: #### A 1C #### [facility] [address] [place] [address] Dr. Derek Frankel Glucose [Mass/Vol] 283 mg/dL Normal [facility] Comment on above: Performed By: #### A 1C #### [facility] [address] [place] [address] Dr. Derek Frankel HbA1c (Bld) [Mass fraction] 11.5 % Critically high 4.5-6.2 [facility] Comment on above: Performed By: #### A 1C #### [facility] [address] [place] [address] Dr. Derek Frankel HEMOGRAM AND PLATELon 2021 Hematocrit (Bld) [Volume fraction] 44.1 % Normal 42.0-54.0 [facility] Comment on above: Performed By: #### H H #### [facility] [address] [place] [address] Dr. Derek Frankel Hemoglobin (Bld) [Mass/Vol] 14.7 g/dL Normal 14.0-18.0 [facility] Comment on above: Performed By: #### H H #### [facility] [address] [place] [address] Dr. Derek Frankel MCH (RBC) [Entitic mass] 29.2 pg Normal 25.9-34.0 [facility] Comment on above: Performed By: #### H H #### [facility] [address] [place] [address] Dr. Derek Frankel MCHC (RBC) [Mass/Vol] 33.3 g/dL Normal 29.9-35.2 [facility] Comment on above: Performed By: #### H H #### [facility] [address] [place] [address] Dr. Derek Frankel MCV (RBC) [Entitic vol] 87.7 fL Normal 80.0-94.0 [facility] Comment on above: Performed By: #### H H #### [facility] [address] [place] [address] Dr. Derek Frankel PLT 259 103/ul Normal 150-450 [facility] Comment on above: Performed By: #### H H #### [facility] [address] [place] [address] Dr. Derek Frankel RBC 5.03 106/ul Normal 4.70-6.10 [facility] Comment on above: Performed By: #### H H #### [facility] [address] [place] [address] Dr. Derek Frankel WBC 8.7 103/ul Normal 4.0-11.0 [facility] Comment on above: Performed By: #### H H #### [facility] [address] [place] [address] Dr. Derek Frankel PROF 14(COMP METB)on 022 Albumin [Mass/Vol] 3.7 g/dL Normal 3.4-5.0 [facility] Comment on above: Performed By: #### C RP, TSH, CMP #### [facility] [address] [place] [address] [address] Derek Frankel Albumin/Globulin [Mass ratio] 0.9 {ratio} Normal [facility] Comment on above: Performed By: #### C RP, TSH, CMP #### [facility] [address] [place] [address] [address] Derek Frankel ALP [Catalytic activity/Vol] 160 U/L Critically high 46-116 [facility] Comment on above: Performed By: #### C RP, TSH, CMP #### [facility] [address] [place] [address] [address] Derek Frankel ALT [Catalytic activity/Vol] 41 U/L Normal 16-63 [facility] Comment on above: Performed By: #### C RP, TSH, CMP #### [facility] [address] [place] [address] [address] Derek Frankel Anion gap [Moles/Vol] 13.3 mmol/L Normal [facility] Comment on above: Performed By: #### C RP, TSH, CMP #### [facility] [address] [place] [address] [address] Derek Frankel AST [Catalytic activity/Vol] 20 U/L Normal 15-37 [facility] Comment on above: Performed By: #### C RP, TSH, CMP #### [facility] [address] [place] [address] [address] Derek Frankel Bilirubin [Mass/Vol] 0.6 mg/dL Normal 0.2-1.0 [facility] Comment on above: Performed By: #### C RP, TSH, CMP #### [facility] [address] [place] [address] [address] Derek Frankel Calcium [Mass/Vol] 8.9 mg/dL Normal 8.5-10.1 [facility] Comment on above: Performed By: #### C RP, TSH, CMP #### [facility] [address] [place] [address] [address] Derek Frankel Chloride [Moles/Vol] 94 mmol/L Critically low 98-107 [facility] Comment on above: Performed By: #### C RP, TSH, CMP #### [facility] [address] [place] [address] [address] Derek Frankel CO2 [Moles/Vol] 29.2 mmol/L Normal 21.0-32.0 [facility] Comment on above: Performed By: #### C RP, TSH, CMP #### [facility] [address] [place] [address] [address] Derek Frankel Creatinine [Mass/Vol] 0.98 mg/dL Normal 0.70-1.30 [facility] Comment on above: Performed By: #### C RP, TSH, CMP #### [facility] [address] [place] [address] [address] Derek Frankel EGFR-AF SLOVENIAN >60 Normal >=60 [facility] Comment on above: Performed By: #### C RP, TSH, CMP #### [facility] [address] [place] [address] [address] Derek Frankel EGFR-NON AF SLOVENIAN >60 Normal >=60 [facility] Comment on above: Performed By: #### C RP, TSH, CMP #### [facility] [address] [place] [address] [address] Derek Frankel Globulin (S) [Mass/Vol] 3.9 g/dL Normal [facility] Comment on above: Performed By: #### C RP, TSH, CMP #### [facility] [address] [place] [address] [address] Derek Frankel Glucose [Mass/Vol] 378 mg/dL Critically high 74-106 [facility] Comment on above: Performed By: #### C RP, TSH, CMP #### [facility] [address] [place] [address] [address] Derek Frankel Potassium [Moles/Vol] 4.5 mmol/L Normal 3.5-5.1 [facility] Comment on above: Performed By: #### C RP, TSH, CMP #### [facility] [address] [place] [address] [address] Derek Frankel Protein [Mass/Vol] 7.6 g/dL Normal 6.4-8.2 [facility] Comment on above: Performed By: #### C RP, TSH, CMP #### [facility] [address] [place] [address] [address] Derek Frankel Sodium [Moles/Vol] 132 mmol/L Critically low 136-145 [facility] Comment on above: Performed By: #### C RP, TSH, CMP #### [facility] [address] [place] [address] Dr. Derek Frankel Urea nitrogen [Mass/Vol] 14.0 mg/dL Normal 7.0-18.0 [facility] Comment on above: Performed By: #### C RP, TSH, CMP #### [facility] [address] [place] [address] Dr. Derek Frankel Urea nitrogen/Creatinine [Mass ratio] 14.3 mg/mg Normal [facility] Comment on above: Performed By: #### C RP, TSH, CMP #### [facility] [address] [place] [address] Dr. Derek Frankel [facility] SED RATE 38 mm/hr Critically high <=20 [facility] Comment on above: Performed By: #### S EDR #### [facility] [address] [place] [address] Dr. Derek Frankel TSHon 05-26-2022 TSH 1.636 uIU/mL Normal 0.358-3.740 [facility] Comment on above: Performed By: #### C RP, TSH, CMP #### [facility] [address] [place] [address] Dr. Derek Frankel LIPID PROFILEon 05-25-2022 CHOL-HDL RATIO NORM SEE BELOW Normal [facility] Comment on above: Result Comment: 3.3 - 4.4 LOW RISK 4.4 - 7.1 AVERAGE RISK 7.1 - 11.0 MODERATE RISK >11.0 HIGH RISK Performed By: #### L IPID #### [facility] [address] [place] [address] Dr. Derek Frankel Cholesterol [Mass/Vol] 164 mg/dL Normal <=200 [facility] Comment on above: Performed By: #### L IPID #### [facility] [address] [place] [address] [address] Derek Frankel Cholesterol in HDL [Mass/Vol] 36 mg/dL Critically low 40-60 [facility] Comment on above: Performed By: #### L IPID #### [facility] [address] [place] [address] [address] Derek Frankel Cholesterol in LDL [Mass/Vol] 69.8 mg/dL Normal [facility] Comment on above: Performed By: #### L IPID #### [facility] [address] [place] [address] [address] Derek Frankel Cholesterol.total/C holesterol in HDL [Mass ratio] 4.6 {ratio} Normal [facility] Comment on above: Performed By: #### L IPID #### [facility] [address] [place] [address] [address] Derek Frankel HDL NORMAL > or = 60 mg/dl - LO W CARDIOVASCULAR RISK <40 mg/dl - HIGH CARDIOVASCULAR RISK Normal [facility] Comment on above: Performed By: #### L IPID #### [facility] [address] [place] [address] [address] Derek Frankel LDL CALC NORMAL SEE BELOW Normal [facility] Comment on above: Result Comment: <100 mg/dl OPTIMAL 100 - 129 mg/dl NEAR OR ABOVE OPTIMAL 130 - 159 mg/dl BORDERLINE HIGH 160 - 189 mg/dl HIGH >190 mg/dl VERY HIGH Performed By: #### L IPID #### [facility] [address] [place] [address] [address] Derek Frankel Triglyceride [Mass/Vol] 291 mg/dL Critically high <=150 [facility] Comment on above: Performed By: #### L IPID #### [facility] [address] [place] [address] [address] Derek Frankel VLDL CALC 58.2 mg/dL Normal [facility] Comment on above: Performed By: #### L IPID #### [facility] [address] [place] [address] [address] Derek Frankel LIPID PROFILEon 08-30-2021 CHOL-HDL RATIO NORM SEE BELOW Normal [facility] Comment on above: Result Comment: 3.3 - 4.4 LOW RISK 4.4 - 7.1 AVERAGE RISK 7.1 - 11.0 MODERATE RISK >11.0 HIGH RISK Performed By: #### L IPID ####[facility] [address] [place], [place] [address]Wz. Abiolamatthieu Jostin Cholesterol [Mass/Vol] 172 mg/dL Normal <=200 [facility] Comment on above: Performed By: #### L IPID ####[facility] [address] [place], [place] [address]Ka. Derek Frankel Cholesterol in HDL [Mass/Vol] 36 mg/dL Normal [facility] Comment on above: Performed By: #### L IPID ####[facility] [address] [place] [id number]. Derek Frankel Cholesterol in LDL [Mass/Vol] 83.6 mg/dL Normal [facility] Comment on above: Performed By: #### L IPID ####[facility] [address] [place], [place] [address]Hf. Derek Frankel Cholesterol.total/C holesterol in HDL [Mass ratio] 4.8 {ratio} Normal [facility] Comment on above: Performed By: #### L IPID ####[facility] [address] [place] [id number]. Derek Frankel HDL NORMAL > or = 60 mg/dl - LO W CARDIOVASCULAR RISK <40 mg/dl - HIGH CARDIOVASCULAR RISK Normal [facility] Comment on above: Performed By: #### L IPID ####[facility] [address] [place] [id number]. Derek Frankel LDL CALC NORMAL SEE BELOW Normal [facility] Comment on above: Result Comment: <100 mg/dl OPTIMAL 100 - 129 mg/dl NEAR OR ABOVE OPTIMAL 130 - 159 mg/dl BORDERLINE HIGH 160 - 189 mg/dl HIGH >190 mg/dl VERY HIGH Performed By: #### L IPID ####[facility] [address] [place] [id number] Frankel Triglyceride [Mass/Vol] 262 mg/dL Critically high <=150 [facility] Comment on above: Performed By: #### L IPID ####[facility] [address] [place], [place] [address]NmHernesto Frankel VLDL CALC 52.4 mg/dL Normal [facility] Comment on above: Performed By: #### L IPID ####[facility] [address] [place], [place] [address]BhHernesto Frankel XR ANKLE LT MIN 3 Von [...] HENRY MAST Date: 2021-08-12 08:21 Normal [facility] BASIC METABOLIC PANELon 02-15 Calcium [Mass/Vol] 9.2 mg/dL Normal 8.6-10.3 [facility] Comment on above: Order Comment: No: D o not add to previous draw Performed By: #### 1 0, 55143, 25716 #### [facility] [address] [facility] [place] [address], [facility] Chloride [Moles/Vol] 96 mmol/L Low 98-107 [facility] Comment on above: Order Comment: No: D o not add to previous draw Performed By: #### 1 0070, 93223, 89466 #### [facility] [address] [facility] [place] [address], [facility] CO2 [Moles/Vol] 28 mmol/L Normal 21-31 [facility] Comment on above: Order Comment: No: D o not add to previous draw Performed By: #### 1 0070, 84747, 00076 #### [facility] [address] [place] [address], [place] Creatinine [Mass/Vol] 0.73 mg/dL Normal 0.70-1.30 [facility] Comment on above: Order Comment: No: D o not add to previous draw Performed By: #### 1 0, 63354, 24768 #### [facility] [address] [place] [address], [place] GFR/1.73 sq M.predicted among blacks MDRD (S/P/Bld) [Vol rate/Area] mL/min/{1.73_m2} Normal >60 [facility] Comment on above: Order Comment: No: D o not add to previous draw Performed By: #### 1 0, 30439, 71528 #### [facility] [address] [place] [address], [place] GFR/1.73 sq M.predicted among non-blacks MDRD (S/P/Bld) [Vol rate/Area] mL/min/{1.73_m2} Normal >60 [facility] Comment on above: Order Comment: No: D o not add to previous draw Performed By: #### 1 69, 26885, 42309 #### [facility] [address] [place] [address], [place] Glucose [Mass/Vol] 290 mg/dL High 70-100 [facility] Comment on above: Order Comment: No: D o not add to previous draw Performed By: #### 1 69, 67634, 53759 #### [facility] [address] [place] [address], [place] Potassium [Moles/Vol] 4.3 mmol/L Normal 3.5-5.1 [facility] Comment on above: Order Comment: No: D o not add to previous draw Performed By: #### 1 69, 85056, 90570 #### [facility] [address] [place] [address], [place] Sodium [Moles/Vol] 132 mmol/L Low 136-145 [facility] Comment on above: Order Comment: No: D o not add to previous draw Performed By: #### 1 0, 16749, 28408 #### [facility] [address] [place] [address], [place] Urea nitrogen [Mass/Vol] 13 mg/dL Normal 7-25 [facility] Comment on above: Order Comment: No: D o not add to previous draw Performed By: #### 1 0, 97088, 38353 #### [facility] [address] [place] [address], [facility] CBC COMPLETE BLOOD COUNTon 03-04-2021 Erythrocyte distribution width (RBC) [Ratio] 13.3 % Normal 11.5-15.0 [facility] Comment on above: Order Comment: No: D o not add to previous draw Performed By: #### 8 5499 #### [facility] [address] [place] [address], [facility] Hematocrit (Bld) [Volume fraction] 44.0 % Normal 39.0-50.0 [facility] Comment on above: Order Comment: No: D o not add to previous draw Performed By: #### 8 5499 #### [facility] [address] [place] [address], [place] Hemoglobin (Bld) [Mass/Vol] 14.2 g/dL Normal 13.0-17.0 [facility] Comment on above: Order Comment: No: D o not add to previous draw Performed By: #### 8 5499 #### [facility] [address] [place] [address], [place] MCH (RBC) [Entitic mass] 28.6 pg Normal 27.0-33.0 [facility] Comment on above: Order Comment: No: D o not add to previous draw Performed By: #### 8 3739 #### [facility] [address] MCHC (RBC) [Mass/Vol] 32.3 g/dL Normal 32.0-35.0 [facility] Comment on above: Order Comment: No: D o not add to previous draw Performed By: #### 8 5499 #### [facility] [address] [place] [address], [facility] MCV (RBC) [Entitic vol] 88.7 fL Normal 82.0-98.0 [facility] Comment on above: Order Comment: No: D o not add to previous draw Performed By: #### 8 5499 #### [facility] [address] [place] [address], [facility] Nucleated RBC/100 WBC (Bld) [Ratio] 0 % Normal 0-0 [facility] Comment on above: Order Comment: No: D o not add to previous draw Performed By: #### 8 5499 #### [facility] [address] [place] [address], [facility] PLAT CNT 228 10*3/uL Normal 150-400 [facility] Comment on above: Order Comment: No: D o not add to previous draw Performed By: #### 8 5499 #### [facility] [address] [place] [address], [facility] RBC (Bld) [#/Vol] 4.96 10*6/uL Normal 4.20-5.70 [facility] Comment on above: Order Comment: No: D o not add to previous draw Performed By: #### 8 5499 #### [facility] [address] [place] [id number], [facility] WBC (Bld) [#/Vol] 11.47 10*3/uL High 4.00-10.60 [facility] Comment on above: Order Comment: No: D o not add to previous draw Performed By: #### 8 5499 #### [facility] [address] [place] [address], [facility] Cardiovascular Lab Reporton 03-04-2021 Cardiovascular Lab Report [facility] Patient Name: Oscar Riley MR #: [id number] [facility] Physician: Ken Mukherjee M.D. Department of Service Date: 03/03/2021 Medicine Birthdate: 1965 Division of Room #: 3AB [id number] Cardiology Adult Cardiovascular Services [facility] [address] [facility]. [place] [address] Cardiovascular Laboratory Report INDICATION: The patient is a 55-year-old man who presented to the [facility] with chest pain and elevated cardiac [...] the informed consent. He was brought to matlab developer in a fasting state. The right wrist area was prepped and draped in usual fashion. Modified Sigifredo's test was favorable. Access in the right radial artery was obtained using micropuncture technique. A 6-New Zealander x 11 cm Hydrophilic sheath was advanced. Verapamil was given through the sheath and heparin was administered intravenously. Bilateral selective coronary angiography was then performed using 6-New Zealander JL3.5 and JR5 diagnostic catheters. Additional heparin was given as needed and therapeutic ACT confirmed during the rest of the procedure. A 6-New Zealander JR4 guiding catheter was then advanced and [...] a minimum of 1 year after acute CA and drug-eluting stenting. 3. Follow up in Cardiology Clinic. Electronically Signed by: Ken Mukherjee M.D. 03/08/2021 07:01 A (more content not included)... Normal [facility] MAGNESIUM BLOODon 03-04-2021 Magnesium [Mass/Vol] 1.7 mg/dL Low 1.9-2.7 [facility] Comment on above: Order Comment: No: D o not add to previous draw Performed By: #### 1 0070, 23245, 02412 #### [facility] [address] [place] [address], [facility] POC GLUCOSE LABon 03-04-2021 Glucose [Mass/Vol] 260 mg/dL High 70-100 [facility] Comment on above: Performed By: #### 8 5499 #### [facility] [address] [facility] [place] [address], [facility] Glucose [Mass/Vol] 252 mg/dL High 70-100 [facility] Comment on above: Performed By: #### 8 5499 #### [facility] [address] [facility] [place] [address], [facility] TROPONIN-Ion 03-04-2021 Troponin I.cardiac [Mass/Vol] 1.04 ng/mL Critically high 0.00-0.04 [facility] Comment on above: Order Comment: No: D o not add to previous draw Result Comment: M-NY EVIOUS CRITICAL RESULT REFERENCE RANGES: 0.00 - 0.04 ng/ml NORMAL 0.05 - 0.50 ng/ml INDETERMINATE > 0.50 ng/ml CONSISTENT WITH AN M.I. Performed By: #### 1 0, 16925, 83535 #### [facility] [address] [place] [address], [facility] APTTon 03-03-2021 aPTT Coag (Bld) [Time] 27.1 s Normal 25.0-35.0 [facility] Comment on above: Order Comment: No: D [...] PURPOSE. Performed By: #### 8 5499 #### [facility] [address] [place] [address], [facility] BASIC METABOLIC PANELon - Calcium [Mass/Vol] 9.4 mg/dL Normal 8.6-10.3 [facility] Comment on above: Order Comment: No: D o not add to previous draw Performed By: #### 9 9909, 12162, 50581, 08375 #### [facility] [address] [place] [address], [facility] Chloride [Moles/Vol] 95 mmol/L Low 98-107 [facility] Comment on above: Order Comment: No: D o not add to previous draw Performed By: #### 9 9909, 66614, 29827, 82649 #### [facility] [address] [place] [address], [facility] CO2 [Moles/Vol] 30 mmol/L Normal 21-31 [facility] Comment on above: Order Comment: No: D o not add to previous draw Performed By: #### 9 9909, 49769, 44177, 07099 #### [facility] [address] [place] [address], [place] Creatinine [Mass/Vol] 0.73 mg/dL Normal 0.70-1.30 [facility] Comment on above: Order Comment: No: D o not add to previous draw Performed By: #### 9 9909, 98918, 81648, 70497 #### [facility] [address] [place] [id number], [facility] GFR/1.73 sq M.predicted among blacks MDRD (S/P/Bld) [Vol rate/Area] mL/min/{1.73_m2} Normal >60 [facility] Comment on above: Order Comment: No: D o not add to previous draw Performed By: #### 9 9909, 98248, 32209, 69194 #### [facility] [address] [place] [address], [place] GFR/1.73 sq M.predicted among non-blacks MDRD (S/P/Bld) [Vol rate/Area] mL/min/{1.73_m2} Normal >60 [facility] Comment on above: Order Comment: No: D o not add to previous draw Performed By: #### 9 99, 70717, 55926, 67144 #### [facility] [address] [place] [address], [place] Glucose [Mass/Vol] 169 mg/dL High 70-100 [facility] Comment on above: Order Comment: No: D o not add to previous draw Performed By: #### 9 [id number], 09571, 01863, 05479 #### [facility] [address] [place] [address], [place] Potassium [Moles/Vol] 4.2 mmol/L Normal 3.5-5.1 [facility] Comment on above: Order Comment: No: D o not add to previous draw Performed By: #### 9 9909, 63400, 57844, 52549 #### [facility] [address] [place] [address], [place] Sodium [Moles/Vol] 133 mmol/L Low 136-145 [facility] Comment on above: Order Comment: No: D o not add to previous draw Performed By: #### 9 9909, 31456, 42672, 73318 #### [facility] [address] [place] [address], [place] Urea nitrogen [Mass/Vol] 15 mg/dL Normal 7-25 [facility] Comment on above: Order Comment: No: D o not add to previous draw Performed By: #### 9 9909, 70920, 13411, 84010 #### [facility] [address] [place] [address], [facility] CBC COMPLETE BLOOD COUNTon 0 03-03-2021 Erythrocyte distribution width (RBC) [Ratio] 13.4 % Normal 11.5-15.0 [facility] Comment on above: Order Comment: No: D o not add to previous draw Performed By: #### 5 0608 #### [facility] [address] [place] [address], [facility] Hematocrit (Bld) [Volume fraction] 43.2 % Normal 39.0-50.0 [facility] Comment on above: Order Comment: No: D o not add to previous draw Performed By: #### 5 0608 #### [facility] [address] [place] [address], [facility] Hemoglobin (Bld) [Mass/Vol] 14.2 g/dL Normal 13.0-17.0 [facility] Comment on above: Order Comment: No: D o not add to previous draw Performed By: #### 5 0608 #### [facility] [address] [place] [address], [facility] MCH (RBC) [Entitic mass] 28.8 pg Normal 27.0-33.0 [facility] Comment on above: Order Comment: No: D o not add to previous draw Performed By: #### 5 0608 #### [facility] [address] [place] [address], [facility] MCHC (RBC) [Mass/Vol] 32.9 g/dL Normal 32.0-35.0 [facility] Comment on above: Order Comment: No: D o not add to previous draw Performed By: #### 5 0608 #### [facility] [address] [place] [id number], [facility] MCV (RBC) [Entitic vol] 87.6 fL Normal 82.0-98.0 [facility] Comment on above: Order Comment: No: D o not add to previous draw Performed By: #### 5 0608 #### [facility] [address] [place] [address], [facility] Nucleated RBC/100 WBC (Bld) [Ratio] 0 % Normal 0-0 [facility] Comment on above: Order Comment: No: D o not add to previous draw Performed By: #### 5 0608 #### [facility] [address] [place] [address], [facility] PLAT CNT 239 10*3/uL Normal 150-400 [facility] Comment on above: Order Comment: No: D o not add to previous draw Performed By: #### 5 0608 #### [facility] [address] [place] [address], [facility] RBC (Bld) [#/Vol] 4.93 10*6/uL Normal 4.20-5.70 [facility] Comment on above: Order Comment: No: D o not add to previous draw Performed By: #### 5 0608 #### [facility] [address] [place] [address], [facility] WBC (Bld) [#/Vol] 11.12 10*3/uL High 4.00-10.60 [facility] Comment on above: Order Comment: No: D o not add to previous draw Performed By: #### 5 0608 #### [facility] [address] [place] [id number], [facility] HEMOGLOBIN A1Con 03-03-2021 Glucose [Moles/Vol] 286 mmol/L Normal [facility] Comment on above: Order Comment: Yes: Add to Previous draw if able Performed By: #### 3 1791 #### [facility] [address] [place] [address], [facility] HbA1c (Bld) [Mass fraction] 11.6 % High 4.0-6.0 [facility] Comment on above: Order Comment: Yes: Add to Previous draw if able Performed By: #### 3 1791 #### [facility] [address] [place] [address], [facility] LIPID PROFILEon 03-03-2021 Cholesterol [Mass/Vol] 163 mg/dL Normal 120-200 [facility] Comment on above: Result Comment: CHOL ESTEROL REFERENCE RANGE: 20 YEARS AND OLDER CARDIOVASCULAR RISK Less than 200 mg/dl Low Risk 200 to 239 mg/dl Borderline Risk 240 mg/dl and greater High Risk Performed By: #### 9 9909, 64350, 35163, 30408 #### [facility] [address] [place] [address], [facility] Cholesterol in HDL [Mass/Vol] 30 mg/dL Normal 23-92 [facility] Comment on above: Result Comment: Slig ht variation in normal range could be due to gender and/or age. HDL CHOLESTEROL REFERENCE RANGE: 20 years and older Cardiovascular Risk > or =60 mg/dL Desirable 40 TO 59 mg/dL Low Risk <40 mg/dL High Risk Performed By: #### 9 9909, 59428, 48125, 19308 #### [facility] [address] [address], [facility] Cholesterol in LDL [Mass/Vol] 66 mg/dL Normal 0-130 [facility] Comment on above: Result Comment: LDL IS A CALCULATION LDL IS ONLY VALID IF THE TRIG IS LESS THAN 400. Performed By: #### 9 9909, 53802, 71902, 25696 #### [facility] [address] [place] [address], [place] Cholesterol.total/C holesterol in HDL [Mass ratio] 5.4 {ratio} High 0.0-4.5 [facility] Comment on above: Performed By: #### 9 9909, 70019, 83016, 29874 #### [facility] [address] [place] [address], [place] NON-HDL CHOLESTEROL 133 mg/dL Normal [facility] Comment on above: Performed By: #### 9 9909, 79781, 67079, 53433 #### [facility] [address] [place] [address], [facility] Triglyceride [Mass/Vol] 333 mg/dL High 40-149 [facility] Comment on above: Result Comment: TRIG LYCERIDE REFERENCE RANGE: 20 YEARS AND OLDER CARDIOVASCULAR RISK LESS THAN 150 mg/dl LOW RISK 150 TO 199 mg/dl BORDERLINE RISK 200 mg/dl AND GREATER HIGH RISK Performed By: #### 9 9909, 00558, 81297, 26869 #### [facility] [address] [place] [id number], [facility] VLDL CHOL 67 mg/dL High 0-40 [facility] Comment on above: Performed By: #### 9 9909, 48131, 17668, 74243 #### [facility] [address] [place] [id number], [facility] LIVER BATTERYon 03-03-2021 Albumin [Mass/Vol] 4.0 g/dL Normal 3.5-5.7 [facility] Comment on above: Order Comment: No: D o not add to previous draw Performed By: #### 9 9909, 90637, 61935, 83800 #### [facility] [address] [place] [address], [facility] ALKALINE PHOSPH 96 IU/L Normal 34-104 [facility] Comment on above: Order Comment: No: D o not add to previous draw Performed By: #### 9 9909, 40962, 75784, 56783 #### [facility] [address] [place] [address], [facility] ALT [Catalytic activity/Vol] 20 U/L Normal 7-52 [facility] Comment on above: Order Comment: No: D o not add to previous draw Performed By: #### 9 9909, 25784, 31215, 89191 #### [facility] [address] AST [Catalytic activity/Vol] 19 U/L Normal 13-39 [facility] Comment on above: Order Comment: No: D o not add to previous draw Performed By: #### 9 9909, 86221, 68594, 01400 #### [facility] [address] [place] [id number], [facility] Bilirubin [Mass/Vol] 0.7 mg/dL Normal 0.3-1.0 [facility] Comment on above: Order Comment: No: D o not add to previous draw Performed By: #### 9 9909, 30372, 11735, 78019 #### [facility] [address] [facility] [place] [place] [address], [facility] Bilirubin.direct [Mass/Vol] 0.1 mg/dL Normal 0.0-0.2 [facility] Comment on above: Order Comment: No: D o not add to previous draw Performed By: #### 9 9909, 51336, 06747, 50119 #### [facility] [address] [place] [address], [facility] Protein [Mass/Vol] 6.7 g/dL Normal 6.0-8.3 [facility] Comment on above: Order Comment: No: D o not add to previous draw Performed By: #### 9 9909, 07287, 71179, 30579 #### [facility] [address] [facility] [place] [address], [facility] TROPONIN-Ion 03-03-2021 Troponin I.cardiac [Mass/Vol] 1.12 ng/mL Critically high 0.00-0.04 [facility] Comment on above: Order Comment: No: D o not add to previous draw Result Comment: M-TR OPONIN INITIAL CRITICAL HIGH; RESPUN AND RETESTED M-CRITICAL RESULT(S) REVIEWED, CALLED TO AND READ BACK BY Adriana Phelan RN at 1930. REFERENCE RANGES: 0.00 - 0.04 ng/ml NORMAL 0.05 - 0.50 ng/ml INDETERMINATE > 0.50 ng/ml CONSISTENT WITH AN M.I. Performed By: #### 8 5499 #### [facility] [address] [place] [address], [facility] UFH HEPARIN ASSAYon 03-03-20 21 UNFRACTIONATED HEPARIN <0.10 Critically low 0.30-0.70 [facility] Comment on above: Result Comment: Bryant roxaban and Apixaban will interfere with the anti Xa assay used to monitor UFH and LMWH. RESULTS CHECKED AND CALLED. ACCURATELY READ BACK BY kevan sauceda r.n. 2056 Performed By: #### 8 5499 #### [facility] [address] Vital Signs Date Time Vital Sign Value Performing Clinician Facility 05-13-2025 08:30-0400 Body height 175.3 cm Leandro Win Win Slots DO Work Phone: [facility] 05-13-2025 08:30-0400 Body mass index (BMI) [Ratio] 35.29 kg/m2 Leandro Cardiocoreos DO Work Phone: [facility] 05-13-2025 08:30-0400 Body weight 108.41 kg [facility] [employer] Work Phone: [facility] 02-12-2025 10:41-0400 Body height 177.8 cm [facility] 02-12-2025 10:41-0400 Body mass index (BMI) [Ratio] 37.3 kg/m2 [facility] 02-12-2025 10:41-0400 Body weight 117.9 kg [facility] 02-12-2025 10:41-0400 Diastolic blood pressure 72 mm[Hg] [facility] 02-12-2025 10:41-0400 Heart rate 66 /min [facility] 02-12-2025 10:41-0400 Respiratory rate 18 /min [facility] 02-12-2025 10:41-0400 SaO2% (BldA) [Mass fraction] 97 % [facility] 02-12-2025 10:41-0400 Systolic blood pressure 114 mm[Hg] [facility] 07-23-2024 13:34-0500 Blood Pressure Location Henry MAURERL [facility] 07-23-2024 13:34-0500 Diastolic blood pressure 66 mm[Hg] Henry NILL [facility] 07-23-2024 13:34-0500 Heart rate 68 /min Henry NILL [facility] 07-23-2024 13:34-0500 Respiratory rate 16 /min Henyr NILL [facility] 07-23-2024 13:34-0500 Systolic blood pressure 116 mm[Hg] Henry NILL [facility] 06-24-2024 08:17-0400 Body height 177.8 cm [facility] 06-24-2024 08:17-0400 Body mass index (BMI) [Ratio] 39.2 kg/m2 [facility] 06-24-2024 08:17-0400 Body weight 123.94 kg [facility] 06-24-2024 08:17-0400 Diastolic blood pressure 80 mm[Hg] [facility] 06-24-2024 08:17-0400 Heart rate 73 /min [facility] 06-24-2024 08:17-0400 Respiratory rate 16 /min [facility] 06-24-2024 08:17-0400 SaO2% (BldA) [Mass fraction] 98 % [facility] 06-24-2024 08:17-0400 Systolic blood pressure 118 mm[Hg] [facility] 07-02-2023 13:41-0400 Blood Pressure Location Pedrito QUINTERO [facility] 07-02-2023 13:41-0400 Diastolic blood pressure 87 mm[Hg] Pedrito QUINTERO [facility] 07-02-2023 13:41-0400 Heart rate 80 /min Pedrito QUINTERO [facility] 07-02-2023 13:41-0400 Respiratory rate 16 /min Pedrito QUINTERO [facility] 07-02-2023 13:41-0400 Systolic blood pressure 141 mm[Hg] Pedrito QUINTERO [facility] 07-02-2023 09:00-0400 Body height 177.8 cm Adelita Kaplan Other [facility] [employer] Other 07-02-2023 09:00-0400 Body mass index (BMI) [Ratio] 40.69 kg/m2 Adelita Kaplan Other [employer] Other 07-02-2023 09:00-0400 Body weight 128.64 kg Adelita Kaplan Other [employer] Other 07-02-2023 09:00-0400 Diastolic blood pressure 75 mm[Hg] Adelita Kaplan Other [employer] Other 07-02-2023 09:00-0400 Systolic blood pressure 111 mm[Hg] Adelita Kalpan Other [employer] Other 05-28-2023 08:45-0400 Body height 177.8 cm Adelita Kaplan Other [employer] Other 05-28-2023 08:45-0400 Body mass index (BMI) [Ratio] 41 kg/m2 Adelita Kaplan Other [employer] Other 05-28-2023 08:45-0400 Body weight 129.64 kg Adelita Kaplan Other [employer] Other 05-28-2023 08:45-0400 Diastolic blood pressure 76 mm[Hg] Adelita Travis Other [employer] Other 05-28-2023 08:45-0400 Respiratory rate 16 /min Adelita Travis Other [employer] Other 05-28-2023 08:45-0400 Systolic blood pressure 109 mm[Hg] Adelita Travis Other [employer] Other 07-03-2022 12:18-0400 Body temperature 97.7 [degF] [facility] 07-03-2022 12:18-0400 Diastolic blood pressure 72 mm[Hg] [facility] 07-03-2022 12:18-0400 Heart rate 88 /min [facility] 07-03-2022 12:18-0400 Respiratory rate 18 /min [facility] 07-03-2022 12:18-0400 SaO2% (BldA) [Mass fraction] 93 % [facility] 07-03-2022 12:18-0400 Systolic blood pressure 147 mm[Hg] [facility] Encounters Encounter Date Encounter Type Care Provider Facility Start: 05-13-2025 End: 05-13-2025 Bamboo flowsheet Leandro Barberos DO Work Phone: [facility] Start: 05-13-2025 End: 05-13-2025 Bamboo flowsheet Leandro Santoyo DO Work Phone: [facility] Start: 05-13-2025 End: 05-13-2025 Patient encounter procedure Leandro Santoyo DO Work Phone: [facility] Comment on above: Left shoulder pain, unspecified chronicity (Primary Dx); Sprain of left shoulder, subsequent encounter; Left shoulder strain, initial encounter Start: 05-13-2025 End: 05-13-2025 ambulatory LEANDRO Zurita YARELIS Not Available Start: 04-07-2025 End: 04-07-2025 Patient encounter procedure Doe Arias Radatz DO [facility] Work Phone: Start: 04-07-2025 End: 04-07-2025 ambulatory Adelita Kaplan MD Work Phone: [facility] Work Phone: Start: 03-25-2025 End: 03-25-2025 Patient encounter procedure Doe Arias Radatz DO [facility] Work Phone: Start: 03-25-2025 End: 03-25-2025 ambulatory Adelita Kaplan MD Work Phone: [facility] Work Phone: Start: 02-12-2025 End: 02-12-2025 ambulatory [facility] Work Phone: Start: 02-12-2025 End: 02-12-2025 Patient encounter procedure [facility] Work Phone: Start: 12-27-2024 Non-patient / Non-visit [facility] Work Phone: Start: 12-22-2024 End: 12-22-2024 ambulatory [facility] Start: 09-02-2024 ambulatory Henry MOJICA Facility : [place] Start: 07-23-2024 End: 07-23-2024 ambulatory ADELITA KAPLAN Facility:[facility] [place] Start: 07-23-2024 End: 07-23-2024 Patient encounter procedure Henry MOJICA [facility] [place] Start: 07-21-2024 ambulatory ADELITA KAPLAN Facility:[facility] Start: 06-26-2024 ambulatory ADELITA KAPLAN Facility:[facility] Barrera Start: 06-24-2024 Patient encounter status [facility] Start: 06-24-2024 End: 06-24-2024 ambulatory [facility] Work Phone: Start: 06-24-2024 End: 06-24-2024 Encounter for general adult medical examination without abnormal findings [facility] Start: 06-24-2024 End: 06-24-2024 Patient encounter procedure [facility] Work Phone: Start: 08-30-2023 End: 08-30-2023 ambulatory Adelita Kaplan Other [employer] Other Start: 08-30-2023 Telephone encounter Adelita Kaplan [facility] Start: 07-02-2023 End: 07-02-2023 ambulatory Adelita Kaplan Other [facility] Other Start: 07-02-2023 Office outpatient vi sit 15 minutes Adelita Kaplan [facility] Start: 07-02-2023 End: 07-02-2023 Patient encounter procedure Pedrito QUINTERO [facility] Start: 06-06-2023 End: 06-06-2023 ambulatory Adelita Kaplan Other [facility] Other Start: 06-06-2023 Telephone encounter Adelita Kaplan [facility] Start: 05-28-2023 End: 05-28-2023 ambulatory Adelita Kaplan Other [facility] Other Start: 05-28-2023 Office outpatient vi sit 25 minutes Adelita Kaplan [facility] Start: 07-05-[address] ADELITA KAPLAN [facility] ity:H1 Start: 07-03-2022 End: 07-03-2022 Emergency department patient visit Pacheco Linsey Renan [facility] Start: 05-26-2022 End: 05-27-2022 ambulatory WILFRED MARCIAL Facility:[facility] Start: 05-25-2022 End: 05-26-[address] KEN MUKHERJEE Facility:[facility] Start: 02-16-[address] KEN MUKHERJEE Fac ility:[facility] Start: 08-30-2021 End: 08-31-[address] KEN MUKHERJEE Facility:[facility] Start: 08-12-2021 End: 08-12-[address] ADELITA KAPLAN Facility:[facility] Start: 03-03-2021 End: 03-04-2021 Evaluation and management of inpatient RAVINDRA YUN Facility:[facility] Procedures Date Procedure Procedure Detail Performing Clinician Start: 05-13-2025 Radex shoulder compl ete minimum 2 views Leandro Santoyo DO Work Phone: Start: 03-25-2025 Plain X-ray of left shoulder Adelita Kaplan MD Work Phone: Start: 03-03-2021 DILATION [...] Treatment Date Care Activity Detail Author Start: 06-10-2025 End: 06-10-2025 Patient encounter procedure 06/10/2025 8:30 AM EDT Office Visit [facility] [address] [place] [address] Leandro Santoyo DO [address] [place] [address] [facility] Start: 05-18-2025 Influenza vaccination Influenza Vacc ine (#1) [facility] Start: 05-13-2025 End: 05-13-2025 Patient encounter procedure 05/13/2025 8:45 AM EDT Office Visit [facility] [address] [place] [address] Leandro Santoyo DO [address] [place] [address] Arrived [facility] Comment on above: Arrived Start: 06-24-2024 Patient referral [facility] Work Phone: Start: 1965 Screening for malign ant neoplasm of colon [facility] Comprehensive metabo lic 2000 panel - Serum or Plasma [facility] Microalbumin [Mass/volume] in Urine [facility] Patient Education Diabetes and diet [facility] Work Phone: Patient referral [facility] Work Phone: XR Shoulder - left 2 Views XR shoulder 2+ views left Imaging Routine Left shoulder pain, unspecified chronicity 05/13/2025 8:40 AM EDT [facility] Work Phone: [facility] Immunizations Immunization Date Immunization Notes Care Provider Fa raffi 06-27-2021 SARS-CoV-2 (COVID-19 ) mRNA-1273 vaccine Henry LIBERTADDaphne [facility] [place] 05-28-2021 SARS-CoV-2 (COVID-19 ) mRNA-1273 vaccine Henry NILL [facility] Payers Date Payer Category Payer Self-pay 2025 Worker's Compensation [id number] 2025 Worker's Compensation GENERIC WO [employer] COMP [id number] 2025 Worker's Compensation [id number] 2023 [facility] er [id number] 1966 Unknown [id number]. 2.647 1966 Unknown [id number] 11.02.830.1.214583.3.579. 2.593 1966 Unknown [id number] 2.840.1.330734.3.579. 2.593 1966 Unknown [id number] 2.840.1.722985.3.579. 2.593 1966 Unknown [id number] .840.1.937331.3.579. 2.593 1966 Unknown [id number] 2.840.1.988900.3.579. 2.593 1966 Unknown [id number] 2.16840.1.769908.3.579. 2.593 1966 Unknown [id number] 2.16.840.1.730158.3.579. 2.727 1966 Unknown [id number] 2.16.840.1.629372.3.579. 2.727 1966 Unknown [id number] 2.16.840.1.651759.3.579. 2.1259 1966 Unknown [id number] 2.16.840.1.623247.3.579. 2.1259 1966 Unknown [id number] 2.16.840.1.493186.3.579. 2.1259 1966 Unknown [id number] 2.16.840.1.905522.3.579. 2.1259 1959 Self-pay [id number] 1959 Unknown [id number] Unknown [id number] 2.16.840.1.791413.3.579. 2.531 Unknown [id number] 2.16.840.1.682230.3.579. 2.531 Social History Date Type Detail Facility Tobacco smoking status [facility] Start: 05-13-2025 Sex Assigned At Male F [facility] Start: 07-02-2023 End: 05-13-2025 Tobacco smoking status Never smoked tobacco (finding) [facility] Tobacco smoking status Never [facility] Start: 1965 Sex Assigned At Male F [facility] Start: 02-12-2025 [facility] Start: 02-12-2025 Sex Male (finding) [facility] Tobacco smoking stat [facility] Tobacco smoking consumption unknown [facility] Start: 1965 Sex assigned at Not on file [facility] Start: 05-13-2025 Tobacco use and exposure Smokeless tobacco non-user [facility] Start: 05-13-2025 Alcoholic beverage intake Ex-drinker (finding) [facility] Start: 05-13-2025 History of Social function [facility] Healthcare Medical Equipment Procedure Code Equipment Code Equipment [...] Assessment Result Facility 07-23-2024 Functional Status N/A [facility] [place] 07-02-2023 Functional Status N/A [facility] 07-03-2022 Functional Status N/A [facility] Clinical Notes 03-07-2021 to 05-13-2025 Roxy Rodrigues - 05/13/2025 8:45 AM EDT Note Date & Type Note Facility 05-13-2025 History of Presen t illness Narrative Images from the original note were not included. Oscar Riley is a 59 y.o. male presents with chief complaint of left shoulder injury. Consult from Dr. Culp, [facility]. HPI: Oscar is a 59-year-old right hand dominant white male who presents with a left shoulder injury related to work. He does work at [employer]. Date of injury 03-11-2025. 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 He states this is unusual for his normal occupation and job description. He did feel a twinge in the shoulder. The next day he could barely move it. He was seen and evaluated, was given Meloxicam which he did not take because he did not have a [facility] card where it was covered. He has [...] are all reviewed today. OBJECTIVE: Visit Vitals Ht 5' 9 Wt 239 lb BMI 35.29 kg/m Smoking Status Never BSA 2.29 m Physical Exam His orthopedic exam does reveal [...] of flexion abduction. He has no atrophy. [facility] is negative. Examination of the right shoulder [...] fracture. The acromiohumeral interval is well maintained. MRI 04-03-2025 [place], this is a relatively suboptimal study as it is grainy in appearance. He does have some supraspinatus tendonitis, tendinopathy coming into the greater tuberosity where there is some edematous change. There is moderate bursal inflammation, some fluid. No evidence of fracture. The tendon for the most part does appear to be intact. No significant labral pathology identified. ASSESSMENT AND PLAN: Assessment/Plan Left shoulder sprain, as allowed; left shoulder strain, work injury. The findings are discussed. This does appear to be more of a strain pattern than would be described as a sprain. We will go ahead with [...] will be in one month for a recheck and review. All of his questions are otherwise answered. Follow up letter sent to Dr. Culp and Dr. Fernando. Cosigned by Leandro Santoyo DO at 05/15/2025 7:55 AM EDT documented in this encounter [facility] 02-12-2025 Evaluation note Diagnosis Onset Date Resolution CAD (coronary artery disease) acute February 12, 2025 10:31am Dietary counseling and surveillance acute February 12, 2025 10:31am Essential hypertension acute Ma 2024 10:31am Mixed hyperlipidemia acute February 12, 2025 10:31am Obesity, Class II, BMI 35-39.9 acute February 12, 2025 10:31am Type 2 diabetes mellitus with hyperglycemia acute February 12 10:31am [facility] Work Phone: [phone] 193-115404-07-2025 NoteUT Cardiology - [facility] Subjective Oscar Riley is a 59 y.o. year old [...] Alcohol use: Never Drug use: Never HPI Oscar is seen in follow-up. He is a [...] testing since the procedure. PMHx: CAD with CA s/p PCI RCA 03/03/21, HTN, DM type [...] mL) injection, , D (more content not included)...[facility]11-06-2024 NoteGeneral Surgery Office/Clinic Note Chief Complaint consultation [...] Illness 58 yo male with h/o CAD, CA, cardiac stenting, DMII, htn, hypercholesterolemia, MARNI, referred [...] plan excisional biopsy under local anesthesia at [facility], informed consent obtained. Follow-up No qualifying [...] 06/27/2021 Recorded SARS-CoV-2 (COVID-19) mRNA-1273 vaccine 05/28/2021 RecordedAkron Children'S HospitalComment on above:Result Comment: Electronically Signed By: MAGALY REED, Henry Faustin\Date and Time Signed: 07/23/24 14:24 [id number] Hospital Discharge instructions Patient Education 07/02/2023 14:43:30 [...] not rub your skin to dry it. Sdrd-myf-ybjmkk sitz bath To take a sitz bath with an vlte-iif-tcdxuz basin: 1.Follow the skiff operator's instructions. 2.Fill the basin with warm [...] if it cracks, or according to the skiff operator's instructions. Contact a health care provider [...] provider. Document Revised: 05/17/2021 Document Reviewed: 05/19/2021 [employer] Patient Education 2022 [employer]. Follow Up Care 07/02/2023 09:18:48 With:INGRID REED, Pedrito Arreaga, URL Address: [facility] [address], [place] [address]- When: Unknown Comments:Will call pt pending CT results. [facility] 10-16-2023 Evaluation note* Encounter Date Diagnosis [...] 226 fasting. Increase insulin to 25 units. [facility] Other 09-11-2023 Evaluation note* Encounter Date Diagnosis [...] recommended Will have labs also sent to [facility] who he sees next month. May, Prostate cancer screening (ICD-10 - Z12.5) [facility] Other 10-17-2022 Hospital Discharge instructions Patient Education 07/03/2022 13:34:22 Concussion, Adult, Kptj-xf-Sxoc Concussion, Adult A concussion is a brain [...] if you are dizzy. General instructions Take dxaw-ywu-emjoxer and prescription medicines only as told by your doctor. Do not drink alcohol until your doctor says you can. Watch your symptoms and tell other people to do the same. Other problems can occur after a concussion. Older adults have a higher risk of serious problems. Tell your networking specialist, teachers, school nurse, school counselor, high school academic coach, or marine animal trainer about your injury and symptoms. Tell [...] 08/22/2010 Document Revised: 04/24/2019 Document Reviewed: 04/24/2019 [employer] Patient Education 2020 [employer] 07/03/2022 13:34:22 Head Injury, Adult Head [...] Ask your health care provider for a pukq-na-knlq plan for gradually returning to activities. Ask [...] your friends, family, a trusted colleague, and networking specialist about your injury, symptoms, and restrictions. Have them watch for any new or worsening problems. General instructions Take lfny-epf-yiiharu and prescription medicines only as told by [...] 09/03/2006 Document Revised: 10/01/2019 Document Reviewed: 09/26/2019 [employer] Patient Education 2019 [employer]. Follow Up Care 07/03/2022 12:15:09 With:[facility] Address:Unknown When:07/06/2022 13:18:40 Comments:Follow-up with your primary care provider in 3 to 5 days. If symptoms worsen, do not improve, or new symptoms arise please report back to emergency department for further evaluation. [facility]10-17-2022 Evaluation + Plan noteExtracted from: Title:ED Note Author:Josh Murphy PA-C te:07/03/22 Closed head injury without l oss of consciousness (S09.90XA: Unspecified injury of head, initial encounter) [facility]06-21-2021 NoteMR#: [id number] I [facility] Pt. Name: Oscar Riley Admitted: 03/03/2021 Discharged: 03/04/2021 Date of : 1965 Physician: Yaneli Thompson MD DISCHARGE SUMMARY PRIMARY DIAGNOSIS: Non-ST segment elevation myocardial infarction. SECONDARY DIAGNOSES: 1. Hypertension. 2. Diabetes. 3. Obesity. HISTORY OF PRESENT ILLNESS: This patient is a 55-year-old male with past history of hypertension and diabetes, who was sent from [facility] due to NSTEMI. The patient presented to the ER due to substernal pressure-like chest pain radiated to his left arm. His troponin was elevated. HOSPITAL COURSE: 1. NSTEMI status post PCI. The patient was discharged on aspirin, Plavix, Lopressor, and simvastatin. T 2. Rje-fttmglr-dizirzjxd diabetes, uncontrolled. His A1c was 11. The [...] working on discharge planning. Electronically Signed by: Yaneli Thompson MD 03/07/2021 02:34 P Yaneli Thompson MD Date Dict: 03/07/2021/08:40 A/Yaneli Thompson MD Date Trans: 03/07/2021 08:53 A/germaine [id number] cc: Ravindra Yun M.D. [address] [facility] [id number] County Medical CenterEvaluation + Plan note Future Appointments Appointment Date:09/02/2024 02:00:00 PM Scheduled Provider:Henry MOJICA MD Location:[facility] Appointment Type: Post Op 15 [facility] Evaluation noteNo InformationNoGeisinger [facility] Other Evaluation note* Diagnosis Onset Date Resolution Status Essential hypertension acute Type 2 diabetes mellitus with hyperglycemia acute Wellness examination acute [facility] Work Phone: Evaluation note* Diagnosis Onset Date Resolution Status Abscess, scalp acute Essential hypertension acute Nasal fracture acute Nasal obstruction acute Type 2 diabetes mellitus with hyperglycemia acute Wellness examination acute [facility] Work Phone: Evaluation note* Diagnosis Onset Date Resolution Status Admit Date Dietary counseling and surveillance acute February 12, 2025 1 0:31am Essential hypertension acute Ma y 2024 10:31am Mixed hyperlipidemia acute February 12, 2025 10:31am Type 2 diabetes mellitus wit h hyperglycemia acute February 12, 2025 1 0:31am [facility] Work Phone: Evaluation note* Diagnosis Left shoulder pain, unspecified chronicity- Primary Sprain of left shoulder, subsequent encounter Left shoulder strain, initial encounter documented in this encounter [facility] N[facility]ative - Reported* Type Description Date Medical History Obstructive sleep apnea Medical History Essential hypertension Medical History Controlled type 2 diabetes melli tus with hyperglycemia Medical History Morbid (severe) obesity due to e xcess calories Surgical History Appendectomy Surgical History PCI, WITH STENT INSERTION Hospitalization History see surgical history [facility] Other Hospital course Narrative No data available for this section [facility] Dis[facility] instructionsAmbulatory Orders* Referral to ENT Time Frame: 06/24/24, Location: None Selected * Referral to General Surgery Time Frame: 06/24/24, Location: None Selected [facility] Work Phone: Hospital Discharge instructions No data available for this section [facility] Progress note No data available for this section [facility] (narrative)No reason for referral information availableWvumed[facility] Work Phone: Summary Purpose Family History Relationship Condition Age at Onset Recorded Date/T elise mother Congestive heart failure Unknown Chronic obstructive pulmonary disease Unk nown father Unknown Malignant neoplasm Unknown Congestive heart failure Unknown brother Parkinson's disease Unknown Diabetes mellitus Unknown son End stage renal failure on dialysis Unkno wn Advance Directives Advance Directive Response Recorded Date/ Time Advance [...] Ranjith bradley February 12, 2025 10:31 am [facility] gvfoqgd-E-rzo March 25, 2025 8:46a m Reason for [...] Ranjith bradley February 12, 2025 10:31 am S43.402A March 25, 2025 8:46a m S43.402A April 07, 2025 10:0 3am Additional Source Comments (unrecognized sect ion and content) No Status Records FoundNo Status Records FoundNo Status Records FoundNo Status Records FoundNo Status Records FoundNo Status Records Found INFORMATION SOURCE (unrecogn ized section and content) DATE CREATED AUTHOR 03/08/2021 [facility] DATE CREATED AUTHOR AUTHOR'S ORGANIZ ATION 07/24/2022 [facility] [place] [facility] DATE CREATED AUTHOR AUTHOR'S ORGANIZ ATION 07/25/2024 [facility] DATE CREATED AUTHOR AUTHOR'S ORGANIZ ATION 02/21/2025 [place] DATE CREATED AUTHOR AUTHOR'S ORGANIZ ATION 04/22/2025 [facility] DATE CREATED AUTHOR AUTHOR'S ORGANIZ ATION 05/14/2025 [facility] EPIC Patient Care team informatio n (unrecognized section and content) Team Status: Active Member Role Status Dates Adelita Kaplan MD Primary Care Provider Active Team Status: Inactive Member Role Status Dates Adelita Kaplan MD Primary Care Provider Active Start: February 12, 2025 End: February 12, 2025 Ba Moscoso APRN Attending Provider Active Start: February 12, 2025 End: February 12, 2025 Team Status: Inactive Member Role Status Dates Adelita Kaplan MD Primary Care Provider Active Start: March 25, 2025 End: March 25, 2025 Doe Culp Jr, DO Attending Provider Active S tart: March 25, 2025 End: March 25, 2025 Team Status: Inactive Member Role Status Dates Adelita Kaplan MD Primary Care Provider Active Start: April 07, 2025 End: April 07, 2025 Doe Culp Jr, DO Attending Provider Active S tart: April 07, 2025 End: April 07, 2025 Team Status: Active Member Role Status Dates Adelita Kaplan MD Primary Care Provide r, Attending Provider Active Start: December 27, 2024 Team Status: Inactive Member Role Status Dates Adelita Kaplan MD Primary Care Provide r, Attending Provider Active Start: June 24, 2024 End: June 24, 2024 Team Status: Active Member Role Status Dates Adelita Kaplan MD Primary Care Provider Active Start: December 27, 2024 Adelita Kaplan MD Attending Provider Active St art: December 27, 2024 Funeral Location Manager Relationship Specialty Start Date End Date Aedlita Kaplan MD PCP - General Family Medicine 06/25/24 Funeral Location Manager Relationship Specialty Start Date End Date Adelita Kaplan MD PCP - General Family Medicine 06/25/24 REASON FOR VISIT (unrecogniz ed section and content) Reason Comments Pain Goals (unrecognized section and content) Goals may [...] BE BASED ON THE PRIMARY CLINICAL RECORDS. [employer] [facility]. provides no warranty or guarantee of the accuracy or completeness of information in this document.
--- NOTE | 2025-05-17 10:05 | ED.SKABFB1 ---
HPI - Skin/Abscess/Foreign Bdy General Chief complaint: Skin/Abscess/Foreign Body Stated complaint: POSSIBLE SPIDER BITE ON FOREHEAD Time Seen by Provider: 05/17/25 09:58 Source: patient Mode of arrival: walk-in Limitations: no limitations History of Present Illness HPI narrative: The patient is coming to the ER with a forehead redness that he noticed almost 3 days ago, woke up to find that he have this insect like raised area in the forehead and he mentioned that it was itching and over the last 48 hours he noted that the redness is extending down to his nasal bridge The patient denies any fever chills or any other concerns he also denies any head trauma Related Data Home Medications ?Medication ?Instructions ?Recorded ?Confirmed allopurinol 300 mg tablet 300 mg PO DAILY 05/17/25 05/17/25 empagliflozin 25 mg tablet 25 mg PO DAILY 05/17/25 05/17/25 (Jardiance) ezetimibe 10 mg tablet 10 mg PO DAILY 05/17/25 05/17/25 insulin degludec 100 unit/mL (3 20 unit subcut Q24H 05/17/25 05/17/25 mL) subcutaneous pen (Tresiba FlexTouch U-100 insulin) lisinopril 30 mg tablet 30 mg PO DAILY 05/17/25 05/17/25 metformin 500 mg tablet 500 mg PO BID 05/17/25 05/17/25 metoprolol tartrate 25 mg tablet 25 mg PO DAILY 05/17/25 05/17/25 semaglutide 0.25 mg or 0.5 mg (2 0.5 mg subcut .weekly 05/17/25 05/17/25 mg/3 mL) subcutaneous pen injector (Ozempic) simvastatin 40 mg tablet 40 mg PO DAILY 05/17/25 05/17/25 Previous Rx's ?Medication ?Instructions ?Recorded amoxicillin 500 mg tablet 500 mg PO TID 10 days #30 tabs 05/17/25 betamethasone dipropionate 0.05 % 1 applic topical BID PRN rash #60 05/17/25 lotion mL doxycycline hyclate 100 mg tablet 100 mg PO BID 14 days #28 tabs 05/17/25 Allergies Allergy/AdvReac Type Severity Reaction Status Date / Time No Known Drug Allergies Allergy Verified 05/17/25 09:54 Review of Systems ROS Status of ROS 10 or more systems reviewed and unremarkable except as noted in history and below PFSH PFSH Social History Little interest or pleasure in doing things: not at all Feeling down, depressed, or hopeless: not at all Exam Narrative Exam Narrative: Nurses notes and vital signs reviewed and patient is not hypoxic. General: Well-appearing and in no apparent distress. Skin: Warm, dry, no pallor noted. No rash. Head: Normocephalic, atraumatic. There is an abrasion that is at the middle of the forehead that measures almost 2 mm and surrounded by redness extending down to his nasal bridge, mildly warm Neck: Supple, nontender Eye: Pupils are equal, round and EOMI. No scleral icterus. Ears, Nose, Mouth, and Throat: TM are clear, no nasal mucosal hypertrophy. Oral mucosa is moist, no posterior oropharynx erythema, uvula is mid-line Cardiovascular: Regular Rate and Rhythm without murmur, gallop or rub. Respiratory: No accessory muscle use or respiratory distress. Lungs are clear to auscultation, no wheezing, rales or rhonchi Chest Wall: no tenderness Back: No midline thoracic or lumbar vertebral tenderness. No CVA tenderness Musculoskeletal: normal ROM, no calf or popliteal tenderness, no lower extremity edema/swelling GI: Abdomen is soft, non-distended. Normal bowel sounds. No masses appreciated. No tenderness to palpation. No rebound, guarding, or rigidity noted. Neurological: A&O x4. No cranial nerve dysfunction observed. No truncal ataxia. Moves all extremities. Sensation intact. Psychiatric: Cooperative and interactive. Normal mood and affect. Constitutional Vital Signs, click to edit/add: Last Vital Signs Temp 98.2 F 05/17/25 09:51 Pulse 73 05/17/25 09:51 Resp 16 05/17/25 09:51 BP 124/76 05/17/25 09:51 Pulse Ox 95 05/17/25 09:51 O2 Del Method Room Air 05/17/25 09:51 Course Vital Signs Vital signs: Vital Signs Temperature 98.2 F 05/17/25 09:51 Pulse Rate 73 05/17/25 09:51 Respiratory Rate 16 05/17/25 09:51 Blood Pressure 124/76 05/17/25 09:51 Pulse Oximetry 95 05/17/25 09:51 Oxygen Delivery Method Room Air 05/17/25 09:51 Temperature 98.2 F 05/17/25 09:51 Pulse Rate 73 05/17/25 09:51 Respiratory Rate 16 05/17/25 09:51 Blood Pressure 124/76 05/17/25 09:51 Pulse Oximetry 95 05/17/25 09:51 Oxygen Delivery Method Room Air 05/17/25 09:51 MDM - Skin/Abscess/Foreign Bdy MDM Narrative Medical decision making narrative: The patient presentation could be secondary to a cellulitis complicating an insect bite with the patient being diabetic he was started on amoxicillin and doxycycline in addition to local steroid cream Patient was instructed about the importance of monitoring symptoms including fever or increasing redness he is to come back to the ER after 24 hours in case of increasing symptoms The patient is to follow up with primary care physician in next 2-3 days or to return to the emergency department should any of the signs or symptoms worsen or new symptoms develop. The patient agrees with the following Diagnosis and Treatment plan and the patient will be discharged home. Discharge Plan Discharge Chief Complaint: Skin/Abscess/Foreign Body Clinical Impression: Cellulitis, Insect bite of face Patient Disposition: Home, Self-Care Time of Disposition Decision: 10:07 Condition: Good Prescriptions / Home Meds: New betamethasone dipropionate 0.05 % lotion 1 applic topical BID PRN (Reason: rash) Qty: 60 0RF doxycycline hyclate 100 mg tablet 100 mg PO BID 14 Days Qty: 28 0RF amoxicillin 500 mg tablet 500 mg PO TID 10 Days Qty: 30 0RF No Action allopurinol 300 mg tablet 300 mg PO DAILY simvastatin 40 mg tablet 40 mg PO DAILY lisinopril 30 mg tablet 30 mg PO DAILY ezetimibe 10 mg tablet 10 mg PO DAILY metformin 500 mg tablet 500 mg PO BID metoprolol tartrate 25 mg tablet 25 mg PO DAILY Ozempic 0.25 mg or 0.5 mg (2 mg/3 mL) pen injector 0.5 mg SUBCUT .weekly insulin degludec [Tresiba FlexTouch U-100] 100 unit/mL (3 mL) insulin pen 20 unit SUBCUT Q24H Jardiance 25 mg tablet 25 mg PO DAILY Print Language: British Instructions: Cellulitis (ED), Insect Bite or Sting (ED) Referrals: Angela Robles MD [Primary Care Provider, Family Practice] - 1 week Discharge Date/Time: 05/17/25 10:27
[2025-05-17] MEDS: AMOXICILLIN 500 MG CAPSULE PO (10:17)
[2025-05-17] MEDS: DOXYCYCLINE MONOHYDRATE 100 MG CAPSULE PO (10:17)
== END 2025-05-17 10:27 | disposition home or self-care (01) ==
PROVIDERS: Emergency Provider Emergency Medicine; PCP Family Medicine
DX: S00.86XA Insect bite (nonvenomous) of other part of head, initial encounter (principal); L03.211 Cellulitis of face; W57.XXXA Bitten or stung by nonvenomous insect and other nonvenomous arthropods, initial encounter; E11.9 Type 2 diabetes mellitus without complications; Z79.84 Long term (current) use of oral hypoglycemic drugs; Z79.85 Long-term (current) use of injectable non-insulin antidiabetic drugs; Z79.4 Long term (current) use of insulin
CPT/HCPCS: 99283

== ENCOUNTER 2025-05-19 08:31 | Emergency (ER) | payer BC, SELFPAY ==
--- OUTSIDE RECORDS SUMMARY | 2025-05-13 08:45 | XMS_ITS | Encounter Summary ---
Author Organization [facility] Address [address] [facility] [place] [address] Care Team Providers Care Respiratory Therapist Assistant Name Role Phone Angela Robles MD Primary Care Provider [phone] Reason for Visit * Reason Comments Pain Encounter Details Date Type Department Care Team (Late st Contact Info) Description 05/13/2025 8:45 AM EDT Office Visit [facility] [address] [place] [address] Fredy Cheng DO [address] [place] [address] Left shoulder pain, unspecified chronicity (Primary Dx); Sprain of left shoulder, subsequent encounter; Left shoulder strain, initial encounter Social History Tobacco Use Types Packs/Day Years Used Date Smoking Tobacco: Never Smokeless Tobacco: Never Tobacco Cessation:Counseling Given: Not Answered Alcohol Use Standard Drinks/Week Comments Not Currently 0 (1 standard drink = 0.6 oz pur e alcohol) Sex and Gender Information Value Date Recorded Sex Assigned at Not on file Legal Sex Male 1:03 PM EDT Gender Identity Not on file Sexual Orientation Not on file documented as of this encounter Last Filed Vital Signs Vital Sign Reading Time Taken Comments Blood Pressure - - Pulse - - Temperature - - Respiratory Rate - - Oxygen Saturation - - Inhaled Oxygen Concentration - - Weight 108 kg (239 lb) 05/13/2025 8:30 AM EDT Height 175.3 cm (5' 9 ) 05/13/2025 8:30 AM EDT Body Mass Index 35.29 05/13/2025 8:30 AM EDT documented in this encounter Progress Notes * Roxy Rodrigues - 05/13/2025 8:45 AM EDT Images from the original note were not included. Ran Jara is a 59 y.o. male presents with chief complaint of left shoulder injury. Consult from Dr. Culp, [facility]. HPI: Ran is a 59-year-old right hand dominant white male who presents with a left shoulder injury related to work. He does work at [employer]. Date of injury 03-11-2025. 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 He states this isunusual for his normal occupation and job description. He did feel a twinge in the shoulder. The next day he could barely move it. He was seen and evaluated, was given Meloxicam which he did not takebecause he did not have a [facility] card where it was covered. He has taken Tylenol. He has had no other treatment. He states they did recommend therapy, however, his work nurse was insistent upon him having an MRI. He thus went and had an MRI and is referred here. SUBJECTIVE: MEDICATIONS: Current Outpatient Medications Medication Instructions allopurinol (ZYLOPRIM) 300 mg, Daily RT aspirin 81 MG chewable tablet aspirin 81 mg chewable tablet TAKE ONE TABLET BY MOUTH EVERY DAY Continuous Glucose Sensor (FreeStyle Chioma 3 Plus Sensor) misc diclofenac (VOLTAREN) 75 mg, Oral, 2 times daily, Do not crush, chew, or split. ezetimibe (ZETIA) 10 mg, Daily RT Jardiance 25 MG lisinopril 30 mg, Every morning metFORMIN (Glucophage) 500 MG tablet metoprolol tartrate (LOPRESSOR) 25 mg, 2 times daily Ozempic, 0.25 or 0.5 MG/DOSE, 2 MG/3ML solution pen-injector simvastatin (ZOCOR) 40 mg, Nightly Tresiba FlexTouch 100 UNIT/ML injection Inject under the skin ALLERGIES: Allergies Allergen Reactions Egg-Derived Products GI intolerance Pollen Extract Other Reaction(s): Congested SURGICAL HISTORY: History reviewed. No pertinent surgical history. FAMILY HISTORY: No family history on file. SOCIAL HISTORY: Social History Tobacco Use Smoking status: Never Smokeless tobacco: Never Vaping Use Vaping status: Never Used Substance Use Topics Alcohol use: Not Currently Drug use: Never Depression: Not on file REVIEW OF SYMPTOMS: The review of systems, history and current medications list are all reviewed today. OBJECTIVE: Visit Vitals 5' 9 Wt 239 lb BMI 35.29 kg/m?? Smoking Status Never BSA 2.29 m?? Physical Exam His orthopedic exam does reveal some obesity. He is in no acute distress. He is pleasant. He answers all questions appropriately. Examination of the left shoulder does reveal tenderness right over the coracoacromial arch, worse with extension of the shoulder over the supraspinatus. Rotator cuff strength and supraspinatus isolation strength is excellent. He does have a positive impingement sign at roughly 100 degrees of flexion abduction. He has no atrophy. Dunlevy's is negative. Examination of the right shoulder reveals a negative impingement. Cuff strength is excellent. Neurocirculatory status is overall grossly intact. Pulses are brisk. X-rays 03-25-2025 coupled with AP and lateral views of the left shoulder here today with permanent images are saved to the record does show a downsloping acromion. He does have some sclerosis at the greater tuberosity. No evidence of fracture or healing fracture. The acromiohumeral interval is wellmaintained. MRI 04-03-2025 [place], this is a relatively suboptimal study as it is grainy in appearance. He does have some supraspinatus tendonitis, tendinopathy coming into the greater tuberosity where there is some edematous change. There is moderate bursal inflammation, some fluid. No evidence of fracture.The tendon for the most part does appear to be intact. No significant labral pathology identified. ASSESSMENT AND PLAN: Assessment/Plan Left shoulder sprain, as allowed; left shoulder strain, work injury. The findings are discussed. This does appear to be more of a strain pattern than would be describedas a sprain. We will go ahead with C9 additional diagnosis for the same. He is started on Voltaren 75 mg twice daily. We did also recommend for physical therapy and will get this underway. This will need authorization in addition. We did discuss anti-inflammation and he is started on Voltaren 75 mg twice daily with food. We did also discuss Tylenol and its dosing. We will keep him on work restrictions as he does work through the therapy. His return with myself will be in one month for a recheckand review. All of his questions are otherwise answered. Follow up letter sent to Dr. Culp and Dr. Fernando. Cosigned by Fredy Cheng DO at 05/15/2025 7:55 AM EDT documented in this encounter Plan of Treatment Upcoming Encounters Date Type Department Care Team (Late st Contact Info) Description 06/10/2025 8:30 AM EDT Office Visit [facility] [address] [address] Fredy Cheng DO [address] [place] [address] documented as of this encounter Procedures Procedure [...] Result documented in this encounter Visit Diagnoses Diagnosis Left shoulder pain, unspecified chronicity- Primary Sprain of left shoulder, subsequent encounter Left shoulder strain, initial encounter documented in this encounter Care Teams Respiratory Therapist Assistant Relationship Specialty Start Date End Date Angela Robles MD PCP - General Family Medicine 06/25/24 documented as of this encounter
--- OUTSIDE RECORDS SUMMARY | 2025-05-13 08:45 | XMS_ITS | Encounter Summary ---
Author Organization [facility] Address [address] [place] [address] Care Team Providers Care Spring Production Supervisor Name Role Phone Angela Robles MD Primary Care Provider [phone] Encounter Details Date Type Department Care Team (Late st Contact Info) Description 05/13/2025 8:45 AM EDT Ancillary Procedure [facility] [address] [place] [address] Social History Tobacco Use Types [...] Description 06/10/2025 8:30 AM EDT Office Visit [facility] [address] [place] [address] Fredy Cheng DO [address] [place] [address] documented as of this encounter [...] on filedocumented in this encounter Care Teams Spring Production Supervisor Relationship Specialty Start Date End Date Angela Robles MD PCP - General Family Medicine 06/25/24 documented as of this encounter
--- OUTSIDE RECORDS SUMMARY | 2025-05-19 08:39 | XMS_ITS | Encounter Summary ---
Author Organization [facility] Address [address] [facility] [place] [address] Care Team Providers Care Sewing Demonstrator Name Role Phone Angela Robles MD Primary Care Provider [phone] Encounter Details Date Type Department Care Team (Late st Contact Info) Description 05/06/2025 Orders Only [facility] [address] [place] [address] Doe Culp MD [address] [place] [address] Social History Tobacco Use Types [...] Description 06/10/2025 8:30 AM EDT [facility] [address] [place] [address] Fredy Cheng DO [address] [place] [address] documented as of this encounter [...] on filedocumented in this encounter Care Teams Sewing Demonstrator Relationship Specialty Start Date End Date Angela Robles MD PCP - General Family Medicine 06/25/24 documented as of this encounter
--- OUTSIDE RECORDS SUMMARY | 2025-05-19 08:39 | XMS_ITS | Encounter Summary ---
Author Organization [facility] Address [address] [facility] [place] [address] Care Team Providers Care Bullet Slugs Inspector Name Role Phone Angela Robles MD Primary Care Provider [phone] Encounter Details Date Type Department Care Team (Late Contact Info) Description 05/14/2025 Abstract [facility] [place] [facility] [address] [place] [address] Fredy Cheng DO [address] [place], [place] [id number] Social History Tobacco Use Types Packs/Day Years [...] 06/10/2025 8:30 AM EDT [facility] [address] [place] [address] Fredy Cheng DO [address] [place], [place] [id number] documented as of this encounter Visit Diagnoses Not on filedocumented in this encounter Care Teams Bullet Slugs Inspector Relationship Specialty Start Date End Date Angela Robles MD PCP - General Family Medicine 06/25/24 documented as of this encounter
--- OUTSIDE RECORDS SUMMARY | 2025-05-19 08:39 | XMS_ITS | Clinical Summary ---
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 [address] [place] [id number] PCP - General Orthopedics 05/17/15
--- OUTSIDE RECORDS SUMMARY | 2025-05-19 08:39 | XMS_ITS | Clinical Summary ---
Author Organization [facility] Address [address] [place] [address] Care Team Providers Care Seed Potato Cutter Name Role Phone Angela Robles MD Primary Care Provider [phone] Allergies Active Allergy Reactions Criticality Noted Date [...] Type Department Care Team Description 05/14/2025 Abstract [facility] [address] [place] [id number] Fredy Cheng, 05/13/2025 8:45 AM EDT Ancillary Procedure [facility] [address] [place] [address] 05/13/2025 8:45 AM EDT Office Visit [facility] [address] [place] [address] Fredy Cheng, Left shoulder pain, unspecified chronicity (Primary Dx); Sprain of left shoulder, subsequent encounter; Left shoulder strain, initial encounter 05/13/2025 Bamboo flowsheet [facility] [address] [facility] [address] [place] [address] Fredy Cheng, 05/13/2025 Travel 05/06/2025 Orders Only [facility] [address] [place] [address] Doe Culp MD 05/05/2025 Orders Only [facility] [address] [place] [address] Unallocated, Gómez Toro MD from [...] 06/10/2025 8:30 AM EDT Office Visit [facility] [place] [facility] [address] [place] [phone] Fredy Cheng DO [address] [place] [address] Health Maintenance Due Date Last Done Comments [...] from Last 3 Months Insurance Care Teams Seed Potato Cutter Relationship Specialty Start Date End Date Angela Robles MD PCP - General Family Medicine 06/25/24
--- OUTSIDE RECORDS SUMMARY | 2025-05-19 08:39 | XMS_ITS | Encounter Summary ---
Author Organization [facility] Address [address] [facility] [address] Care Team Providers Care Deputy Clerk Of Court Name Role Phone Angela Robles MD Primary Care Provider [phone] Encounter Details Date Type Department Care Team (Late st Contact Info) Description 05/05/2025 Orders Only [facility] [address] [place] [address] Unallocated, Noms Provider, [address] [place] [address] Social History Tobacco Use Types Packs/Day Years [...] Description 06/10/2025 8:30 AM EDT Office Visit [facility] [address] [facility] [address] Fredy Cheng DO [address] [place] [address] documented as of this encounter [...] on filedocumented in this encounter Care Teams Deputy Clerk Of Court Relationship Specialty Start Date End Date Angela Robles MD PCP - General Family Medicine 06/25/24 documented as of this encounter
--- OUTSIDE RECORDS SUMMARY | 2025-05-19 08:39 | XMS_ITS | Encounter Summary ---
Author Organization [facility] Address [address] [place] [address] Care Team Providers Care Geek Squad Agent Name Role Phone Angela Robles MD Primary Care Provider [phone] Encounter Details Date Type Department Care Team [...] 06/10/2025 8:30 AM EDT Office Visit [facility] [address] [place] [id number] Fredy Cheng DO [address] [place] [address] documented as of this encounter Visit Diagnoses Not on filedocumented in this encounter Care Teams Geek Squad Agent Relationship Specialty Start Date End Date Angela Robles MD PCP - General Family Medicine 06/25/24 documented as of this encounter
--- OUTSIDE RECORDS SUMMARY | 2025-05-19 08:39 | XMS_ITS | Encounter Summary ---
Author Organization [facility] Address [address] [facility] [place] [address] Care Team Providers Care Decision Science Analyst Name Role Phone Angela Robles MD Primary Care Provider [phone] Encounter Details Date Type Department Care Team (Late st Contact Info) Description 05/13/2025 Bamboo flowsheet [facility] [address] [facility] [address] [place] [place] [address] Fredy Cheng DO [address] [place] [address] Social History Tobacco Use Types Packs/Day Years [...] [facility] [address] [facility] [place] [phone] Fredy Cheng DO [address] [place] [address] documented as of this encounter Visit Diagnoses Not on filedocumented in this encounter Care Teams Decision Science Analyst Relationship Specialty Start Date End Date Anegla Robles MD PCP - General Family Medicine 06/25/24 documented as of this encounter
--- OUTSIDE RECORDS SUMMARY | 2025-05-19 08:39 | XMS_ITS | Clinical Summary ---
Author Organization [facility] Address [address] [place] [address] Care Team Providers Care Presser Machine Name Role Phone Angela Robles MD Primary Care Provider Allergies No known active allergies Medications allopurinol [...] type, unspecified whether angina present, unspecified whether [place] or transplanted heart TAKE 1 TABLET DAILY DIRECTED 90 tablet 3 05/04/20 25 Active simvastatin (Zocor) 40 mg tabletIndication s:Coronary artery disease, unspecified vessel or lesion type, unspecified whether angina present, unspecified whether [place] or transplanted heart TAKE 1 TABLET AT BEDTIME 90 tablet 3 05/04/20 25 Active simvastatin (Zocor) 40 mg tabletIndication s:Coronary artery disease, unspecified vessel or lesion type, unspecified whether angina present, unspecified whether [place] or transplanted heart TAKE 1 TABLET AT BEDTIME 90 tablet 3 05/13/20 24 025 Discontinued ezetimibe (Zetia) 10 mg tabletIndication s:Coronary artery disease, unspecified vessel or lesion type, unspecified whether angina present, unspecified whether [place] or transplanted heart TAKE 1 TABLET DAILY [...] EDT): Diabetes is referral to endocrinology in [place] DDD (degenerative disc disease), lumbar 05/27/20 15 Sprain of lumbar region 05/27/2015 Encounters Date Type Department Care Team Description 05/02/[address] [place] [address] Franco Fox MD Coronary artery disease, unspecified vessel or lesion type, unspecified whether angina present, unspecified whether [place] or transplanted heart 03/07/[address] [place] [address] Franco Fox MD Primary hypertension (Primary Dx) 02/19/[address] [place] [address] Amber Cancino MA from Last 3 Months [...] Payer ID:[id number] (NAIC) Type:Not on file Address: [facility] [id number] [place] [id number] Care Teams Presser Machine Relationship Specialty Start Date End Date Angela Robles MD [address] [facility] [address] PCP - General 12/15/22
[2025-05-19 08:42] VITALS: BP 118/60; PULSE 73; TEMP 36.6; O2SAT 98; BMI 33.7
--- OUTSIDE RECORDS SUMMARY | 2025-05-19 08:48 | XMS_ITS | CCD ---
Author Organization [facility] Care Team Providers Care Surgical Manager Name Role Phone RAVINDRA YUN Referring Unavailable AL-HOURANIYANELI Admitting Unavailable AL-HOURANI, YANELI Attending Unavailable ADELITA KAPLAN Primary Care Unavailable UNKNOWN, PROVIDER Surgeon Unavailable [place] Procedure Practitioner Unavailab le MO Procedure Practitioner Unavailab EDGAR Roldan Surgeon Unavailable [...] Unavailable ADELITA KAPLAN Primary Care Physician ADELITA KALPAN Referring Unavailable Henry MOJICA Attending Unavailable Henry MOJICA Attending Unavailable MOUKARBKEN GALLAGHER Attending Unavailable Adelita Kaplan MD Primary Care Provider [phone] Adelita Kaplan MD Attending Provider [phone] Ba Moscoso APRN Attending Provider Doe Culp DO Attending Provider [phone] Adelita Kaplan MD Primary Care Provider [phone] Doe Culp Jr Attending Unavailable Adelita Kaplan Primary Care Unavailable Doe Culp Jr Admitting Unavailable Adelita Kaplan Primary Care Unavailable Suni Chen Edryan Admitting Unavailable Doe Culp Jr Attending Unavailable Adelita Kaplan MD Primary Care Provider [phone] LEANDRO SANTOYO Attending Unavailable LEANDRO SANTOYO Referring Unavailable Allergies Allergy Classification Reported Allergen(s) Allergy Type Date of Onset Reaction(s) Facility (4 sources) Eggs or Egg-derived Products Drug allergy Unknown [employer] Other (6 sources) Pollen; Translations: [pollen extracts] Allergy to substance 4 Congested [facility] Comment on above: sneezing (6 sources) Egg Derived; Translations: [Egg Derived] Allergy to substance 4 Upset stomach [facility] (1 source) No Known Medication Allergies; Translations: [No Known Medication Allergies] Propensity to adverse reactions (disorder) [facility] Repository (2 sources) Pollen Allergy to substance 4 [facility] Healthcare (2 sources) Egg-Derived Products Drug Allergy 4 GI intolerance [facility] Medications Current Medications Medication Drug Class(es) [...] Glucose Sensor (FreeStyle [place] 3 Plus Sensor) [facility] (2 sources) Start: 04-30-2025 Continuous Glucose Sensor (FreeStyle [place] 3 Plus Sensor) [facility] 04/30/2025 Active cyclobenzaprine hydrochloride 5 mg oral [...] 01/26/15 Status: Ordered FreeStyle [place] [employer] [place] (4 sources) Start: 12-02-2020 FreeStyle [employer] [place] FreeStyle [place] [employer] [place] , 1 (one) Device Device q 2 [...] disease (13 sources) Atherosclerotic heart disease of [place] coronary artery without angina pectoris; Translations: [Coronary [...] sources) Long-term current use of insulin; Translations: [long-term (current) use of insulin] Episodic Other and [...] Onset: 08-15-2021 Episodic Other aftercare (1 source) 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; Translations: [JAIL USE ORAL HYPOGLYCEMIC DX] Onset: 08-15-2021 Episodic Other aftercare (1 source) 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; Translations: [JAIL CURRENT USE OF ASPIRIN] Onset: 08-15-2021 Episodic Other aftercare (1 source) Other shelter (current) drug therapy; Translations: [OTH HEALTH ADVISOR CURRENT DRUG THERAPY] Onset: 08-15-2021 Episodic Other non-traumatic joint disorders (3 sources) Pain in left ankle and joints of left foot; Translations: [PAIN IN LEFT ANKLE] Onset: 08-12-2021 Episodic Results Test Name Value Interpretation Reference Range Facility X-ray reportOrdered By: Gera Hale on 03-25-2025 Study report [facility] [address] [place] [address] XRay Report Signed Patient: Oscar Riley MR#: [id number] : 1965 Acct:[id number] Age/Sex: 59 / M ADM Date: 5 Loc: CO Room: Type: [facility] Attending Dr: Doe Culp Jr, DO Copies to: Doe Culp DO~ Ordering Provider: Doe Clup DO Date of Service: 03/25/25 XR/XR shoulder LT min 2V*: [facility] XR shoulder LT min 2V* 03/25/2025 9:05 [...] Hale II, MD 03/25/25905 Signed By: 03/25/25906 [facility] Work Phone: XR shoulder LT min 2V*on XR shoulder LT min 2V* [facility] [address] [place] [address] XRay Report Signed Patient: Oscar Riley MR#: [id number] : 1965 Acct:[id number] Age/Sex: 59 / M ADM Date: 03/25/25 Loc: CO Room: Type: [facility] Attending Dr: Doe Culp Jr, DO Copies to: Doe Culp DO Ordering Provider: Doe Culp DO Date of Service: 03/25/25 XR/XR shoulder LT min 2V*: [facility] XR shoulder LT min 2V* 03/25/2025 9:05 [...] 03/25/25905 Signed By: 07/09/25 0907 Normal [facility] 36on 02-19-2025 36 ----- Message ----- From: Ken Mukherjee MD Sent: 02/14/2025 3:56 PM EDT To: Maribell Arndt MA His echo is ok. Blood testing is ok except for high glucose and triglycerides. He needs better control of diabetes, to discuss with PCP. Advised patient of Dr. Mukherjee's findings. Patient states he is seeing a Diabetic provider in [place] and is starting to get better control of his diabetes. Normal [facility] Orders Onlyon 02-13-2025 Orders Only [id number] Jah Riley willian Rosen 1965 M Date Provider Department Center 02/13/2025 [id number], HISTORICAL SANDY Hansen Family History Problem Relation Age of Onset Stroke Mother Cancer Father Family Status - Relation Status Age at Mother Alive Father Brother Alive [facility] HbA1c HPLC (Bld) [Mass fract ion]on 02-12-2025 HbA1c (Bld) [Mass fraction] 10.5 % [facility] No Panel Informationon 02-12 Bedside Glucose 222 [facility] 36on 01-21-2025 36 Regarding lab result s from 12/27/2024: MD Maribell Stovall MA His triglycerides are high and this is due to uncontrolled diabetes (blood sugar 275!) he need to discuss with his PCP. Has he had the echo? Confirmed with [facility] scheduling that echo has not been performed yet. They have left him messages with no call back. I just left him a message also. Lab results faxed to Dr. Kaplan. [facility] Basophils Auto (Bld) [#/Vol] on 12-27-2024 Basophils (Bld) [#/Vol] Automated basophil count 0.0-0.1 [facility] Basophils (Bld) [#/Vol] 0.1 10 3/uL 0.0-0.1 [facility] Basophils/100 WBC Auto (Bld) on 12-27-2024 Basophils/100 WBC (Bld) Automated basophil % 0.2-2.0 [facility] Basophils/100 WBC (Bld) 0.6 % 0.2-2.0 [facility] Cholesterol in LDL Calc [Mas s/Vol]on 12-27-2024 Cholesterol in LDL [Mass/Vol] Cholesterol in LDL [Mass/volume] in Serum or Plasma by calculation [facility] Comment on above: <100 mg/dl [id number] 0-129 mg/dl NEAR OR ABOVE [id number] mg/dl BORDERLINE [id number] mg/dl HIGH>190 mg/dl VERY HIGH Cholesterol in LDL [Mass/Vol] 34.0 mg/dL [facility] Comment on above: <100 mg/dl [id number] 0-129 mg/dl NEAR OR ABOVE [id number] mg/dl BORDERLINE [id number] mg/dl HIGH>190 mg/dl VERY HIGH Cholesterol in VLDL Calc [Ma ss/Vol]on 12-27-2024 Cholesterol in VLDL [Mass/Vol] Cholesterol in VLDL [Mass/volume] in Serum or Plasma by calculation [facility] Cholesterol in VLDL [Mass/Vol] 61.6 mg/dL [facility] Eosinophils/100 WBC Auto (Bl d)on 12-27-2024 Eosinophils/100 WBC (Bld) Automated eosinophil % 0.9-7.0 [facility] Eosinophils/100 WBC (Bld) 5.7 % 0.9-7.0 [facility] Erythrocyte distribution wid th Auto (RBC) [Ratio]on 12-27-2024 Erythrocyte distribution width (RBC) [Ratio] Erythrocyte distribution width [Ratio] by Automated count 11.0-15.0 [facility] Erythrocyte distribution width (RBC) [Ratio] 12.4 % 11.0-15.0 [facility] Estimated glomerular filtrat ion rate (GFR) non- Americanon 12-27-2024 GFR/1.73 sq M.predicted among non-blacks MDRD (S/P/Bld) [Vol rate/Area] Estimated glomerular filtration rate (GFR) non- >=60 mL/min/1.73m 2 [facility] GFR/1.73 sq M.predicted among non-blacks MDRD (S/P/Bld) [Vol rate/Area] mL/min/{1.73_m2} >=60 mL/min/1.73m 2 [facility] Globulin Calc (S) [Mass/Vol] on 12-27-2024 Globulin (S) [Mass/Vol] Serum globulin measurement by calculation (mass/volume) [facility] Globulin (S) [Mass/Vol] 3.6 g/dL [facility] Hematocrit Auto (Bld) [Volum e fraction]on 12-27-2024 Hematocrit (Bld) [Volume fraction] Hematocrit [Volume Fraction] of Blood by Automated count 42.0-54.0 [facility] Hematocrit (Bld) [Volume fraction] 44.0 % 42.0-54.0 [facility] Hemoglobin [Mass/volume] in Bloodon 12-27-2024 Hemoglobin (Bld) [Mass/Vol] Hemoglobin [Mass/volume] in Blood 14.0-18.0 [facility] Hemoglobin (Bld) [Mass/Vol] 14.9 g/dL 14.0-18.0 [facility] Laboratory - Chemistry and C hemistry - challengeon 12-27-2024 Albumin [Mass/Vol] 4.0 g/dL 3.4-5.0 [facility] ALP [Catalytic activity/Vol] 138 U/L High 46-116 [facility] ALT [Catalytic activity/Vol] 22 U/L 16-63 [facility] AST [Catalytic activity/Vol] 14 U/L Low 15-37 [facility] Bilirubin [Mass/Vol] 0.8 mg/dL 0.2-1.0 [facility] Calcium [Mass/Vol] 9.4 mg/dL 8.5-10.1 [facility] Chloride [Moles/Vol] 99 mmol/L 98-107 [facility] Cholesterol [Mass/Vol] 131 mg/dL <=200 [facility] Cholesterol in HDL [Mass/Vol] 36 mg/dL Low 40-60 [facility] Comment on above: > or =60 mg/dl - LOW CARDIOVASCULAR RISK<40 mg/dl - HIGH CARDIOVASCULAR RISK CO2 [Moles/Vol] 31.2 mmol/L 21.0-32.0 [facility] Creatinine [Mass/Vol] 0.88 mg/dL 0.70-1.30 [facility] GFR/1.73 sq M.predicted MDRD (S/P/Bld) [Vol rate/Area] mL/min/{1.73_m2} >=60 mL/min/1.73m 2 [facility] Glucose [Mass/Vol] 275 mg/dL High 74-106 [facility] Potassium [Moles/Vol] 4.4 mmol/L 3.5-5.1 [facility] Protein [Mass/Vol] 7.6 g/dL 6.4-8.2 [facility] Sodium [Moles/Vol] 136 mmol/L 136-145 [facility] Triglyceride [Mass/Vol] 308 mg/dL High <=150 [facility] Urea nitrogen [Mass/Vol] 14.0 mg/dL 7.0-18.0 [facility] Urea nitrogen/Creatinine [Mass ratio] 15.9 mg/mg [facility] Laboratory - Hematology and Cell countson 12-27-2024 Immature granulocytes/100 WBC (Bld) 0.6 % High 0.0-0.5 [facility] Leukocytes [#/volume] correc [place] for nucleated erythrocytes in Blood by Automated counon 12-27-2024 WBC corrected for nucl RBC Auto (Bld) [#/Vol] Leukocytes [#/volume] corrected for nucleated erythrocytes in Blood by Automated coun .0-11.0 [facility] WBC corrected for nucl RBC Auto (Bld) [#/Vol] 9.6 10 3/uL 4.0-11.0 [facility] Lymphocytes Auto (Bld) [#/Vo l]on 12-27-2024 Lymphocytes (Bld) [#/Vol] Lymphocytes [#/volume] in Blood by Automated count 1.2-3.8 [facility] Lymphocytes (Bld) [#/Vol] 3.2 10 3/uL 1.2-3.8 [facility] Lymphocytes/100 WBC Auto (Bl d)on 12-27-2024 Lymphocytes/100 WBC (Bld) Lymphocytes/100 leukocytes in Blood by Automated count 20.5-60.0 [facility] Lymphocytes/100 WBC (Bld) 33.1 % 20.5-60.0 [facility] MCH Auto (RBC) [Entitic mass ]on 12-27-2024 MCH (RBC) [Entitic mass] MCH [Entitic mass] by Automated count 25.9-34.0 [facility] MCH (RBC) [Entitic mass] 29.7 pg 25.9-34.0 [facility] MCHC Auto (RBC) [Mass/Vol]on 12-27-2024 MCHC (RBC) [Mass/Vol] MCHC [Mass/volume] by Automated count 29.9-35.2 [facility] MCHC (RBC) [Mass/Vol] 33.9 g/dL 29.9-35.2 [facility] MCV Auto (RBC) [Entitic vol] on 12-27-2024 MCV (RBC) [Entitic vol] MCV [Entitic volume] by Automated count 80.0-94.0 [facility] MCV (RBC) [Entitic vol] 87.8 fL 80.0-94.0 [facility] Monocytes Auto (Bld) [#/Vol] on 12-27-2024 Monocytes (Bld) [#/Vol] Automated blood monocyte count 0.3-0.8 [facility] Monocytes (Bld) [#/Vol] 0.5 10 3/uL 0.3-0.8 [facility] Monocytes/100 WBC Auto (Bld) on 12-27-2024 Monocytes/100 WBC (Bld) Automated monocyte % 1.7-12.0 [facility] Monocytes/100 WBC (Bld) 5.4 % 1.7-12.0 [facility] Neutrophils Auto (Bld) [#/Vo l]on 12-27-2024 Neutrophils (Bld) [#/Vol] Neutrophils [#/volume] in Blood by Automated count 1.4-6.5 [facility] Neutrophils (Bld) [#/Vol] 5.2 10 3/uL 1.4-6.5 [facility] Neutrophils/100 WBC Auto (Bl d)on 12-27-2024 Neutrophils/100 WBC (Bld) Automated neutrophil % 43.0-75.0 [facility] Neutrophils/100 WBC (Bld) 54.6 % 43.0-75.0 [facility] No Panel Informationon 12-27 Eosinophils # (Auto) 0.6 10 3/uL 0.0-0.7 [facility] Immature Granulocyte # (Auto) 0.06 10 3/uL High 0.00-0.03 [facility] Platelet mean volume Auto (B ld) [Entitic vol]on 12-27-2024 Platelet mean volume (Bld) [Entitic vol] Platelet mean volume [Entitic volume] in Blood by Automated count 9.5-13.5 [facility] Platelet mean volume (Bld) [Entitic vol] 10.8 fL 9.5-13.5 [facility] Platelets Auto (Bld) [#/Vol] on 12-27-2024 Platelets (Bld) [#/Vol] Platelets [#/volume] in Blood by Automated count 150-450 [facility] Platelets (Bld) [#/Vol] 246 10 3/uL 150-450 [facility] RBC Auto (Bld) [#/Vol]on RBC (Bld) [#/Vol] Erythrocytes [#/volu me] in Blood by Automated count 4.70-6.10 [facility] RBC (Bld) [#/Vol] 5.01 10 6/uL 4.70-6.10 [facility] Serum or plasma albumin/glob ulin mass ratioon 12-27-2024 Albumin/Globulin [Mass ratio] Serum or plasma albumin/globulin mass ratio [facility] Albumin/Globulin [Mass ratio] 1.1 {ratio} [facility] Serum or plasma anion gap de terminationon 12-27-2024 Anion gap [Moles/Vol] Serum or plasma anion gap determination [facility] Anion gap [Moles/Vol] 10.2 mmol/L [facility] Serum or plasma total choles terol/high density lipoprotein (HDL) cholesterol mass gustavo 12-27-2024 Cholesterol.total/C holesterol in HDL [Mass ratio] Serum or plasma total cholesterol/high density lipoprotein (HDL) cholesterol mass rat [facility] Comment on above: 3.3 - 4.4 LOW RISK4. 4 - 7.1 AVERAGE RISK7.1 - 11.0 MODERATE RISK>11.0 HIGH RISK Cholesterol.total/C holesterol in HDL [Mass ratio] 3.6 {ratio} [facility] Comment on above: 3.3 - 4.4 LOW RISK4. 4 - 7.1 AVERAGE RISK7.1 - 11.0 MODERATE RISK>11.0 HIGH RISK Office Visiton 12-22-2024 Follow-up visit [id number] Jah Riley Silas 1965 M Date Provider Department Center 12/22/2024 Crystal-KEN MUKHERJEE CARD [facility] Family History Problem Relation Age of Onset Stroke Mother Cancer Father Family Status - Relation Status Age at Mother Alive Father Brother Alive Level of Service:12503 MO OFFICE/OUTPATIENT ESTABLISHED MOD MDM 30 MIN [facility] 36on 08-04-[address] Mojica's [...] order for echo has been refaxed to [facility]. She told me Dr. Mojica will be using local anesthetic for cyst removal so patient does not need cardiac clearance. [facility] Ambulatory Visit Summaryon 1 09-22-2023 [...] PM EST With: Henry MOJICA MD Where: [address], [address], [place] [id number]- Medications What How Much When Instructions Unchanged [...] for choosing us for your care. Normal [facility] RAD - Ultrasound Reporton RAD - Ultrasound Report [id number] Normal [facility] T3, TOTAL (TRIIODOTHYRONINE) on 05-27-2022 T3, TOTAL 133 ng/dL Normal 71-180 [facility] Comment on above: Performed By: #### T 3TOTAL #### [facility] [address] [place] [address] Dr. Derek Frankel CRPon 05-26-2022 CRP 0.3 mg/dL Normal <=1.0 [facility] Comment on above: Performed By: #### C RP, TSH, CMP #### [facility] [address] [place] [address] Dr. Derek Frankel FREE T4on 05-26-2022 Free T4 [Mass/Vol] 1.03 ng/dL Normal 0.76-1.46 [facility] Comment on above: Performed By: #### F T4 #### [facility] [address] [place] [address] Dr. Derek Frankel GLYCOHEMOGLOBIN A1Con 2021 ADA RECOMMENDATION SEE BELOW Normal [facility] Comment on above: Result Comment: ADA RECOMMENDED LIMIT 4.0 - 6.0 ADA THERAPEUTIC TARGET < 7.0 ACTION SUGGESTED > 7.0 Performed By: #### A 1C #### [facility] [address] [place] [address] Dr. Derek Frankel Glucose [Mass/Vol] 283 mg/dL Normal [facility] Comment on above: Performed By: #### A 1C #### [facility] [address] [place] [address] Dr. Derek Frankel HbA1c (Bld) [Mass fraction] 11.5 % Critically high 4.5-6.2 [facility] Comment on above: Performed By: #### A 1C #### [facility] [address] [place] [address] Dr. Derek Frankel HEMOGRAM AND PLATELon 2021 Hematocrit (Bld) [Volume fraction] 44.1 % Normal 42.0-54.0 [facility] Comment on above: Performed By: #### H H #### [facility] [address] [place] [address] Dr. Derek Frankel Hemoglobin (Bld) [Mass/Vol] 14.7 g/dL Normal 14.0-18.0 [facility] Comment on above: Performed By: #### H H #### [facility] [address] [place] [address] Dr. Derek Frankel MCH (RBC) [Entitic mass] 29.2 pg Normal 25.9-34.0 [facility] Comment on above: Performed By: #### H H #### [facility] [address] [place] [address] Dr. Derek Frankel MCHC (RBC) [Mass/Vol] 33.3 g/dL Normal 29.9-35.2 [facility] Comment on above: Performed By: #### H H #### [facility] [address] [place] [address] Dr. Derek Frankel MCV (RBC) [Entitic vol] 87.7 fL Normal 80.0-94.0 [facility] Comment on above: Performed By: #### H H #### [facility] [address] [place] [address] Dr. Derek Frankel PLT 259 103/ul Normal 150-450 [facility] Comment on above: Performed By: #### H H #### [facility] [address] [place] [address] Dr. Derek Frankel RBC 5.03 106/ul Normal 4.70-6.10 [facility] Comment on above: Performed By: #### H H #### [facility] [address] [place] [address] Dr. Derek Frankel WBC 8.7 103/ul Normal 4.0-11.0 [facility] Comment on above: Performed By: #### H H #### [facility] [address] [place] [address] Dr. Derek Frankel PROF 14(COMP METB)on 022 Albumin [Mass/Vol] 3.7 g/dL Normal 3.4-5.0 [facility] Comment on above: Performed By: #### C RP, TSH, CMP #### [facility] [address] [place] [address] [address] Derek Frankel Albumin/Globulin [Mass ratio] 0.9 {ratio} Normal [facility] Comment on above: Performed By: #### C RP, TSH, CMP #### [facility] [address] [place] [address] [address] Derek Frankel ALP [Catalytic activity/Vol] 160 U/L Critically high 46-116 [facility] Comment on above: Performed By: #### C RP, TSH, CMP #### [facility] [address] [place] [address] [address] Derek Frankel ALT [Catalytic activity/Vol] 41 U/L Normal 16-63 [facility] Comment on above: Performed By: #### C RP, TSH, CMP #### [facility] [address] [place] [address] [address] Derek Frankel Anion gap [Moles/Vol] 13.3 mmol/L Normal [facility] Comment on above: Performed By: #### C RP, TSH, CMP #### [facility] [address] [place] [address] [address] Derek Frankel AST [Catalytic activity/Vol] 20 U/L Normal 15-37 [facility] Comment on above: Performed By: #### C RP, TSH, CMP #### [facility] [address] [place] [address] [address] Derek Frankel Bilirubin [Mass/Vol] 0.6 mg/dL Normal 0.2-1.0 [facility] Comment on above: Performed By: #### C RP, TSH, CMP #### [facility] [address] [place] [address] [address] Derek Frankel Calcium [Mass/Vol] 8.9 mg/dL Normal 8.5-10.1 [facility] Comment on above: Performed By: #### C RP, TSH, CMP #### [facility] [address] [place] [address] [address] Derek Frankel Chloride [Moles/Vol] 94 mmol/L Critically low 98-107 [facility] Comment on above: Performed By: #### C RP, TSH, CMP #### [facility] [address] [place] [address] [address] Derek Frankel CO2 [Moles/Vol] 29.2 mmol/L Normal 21.0-32.0 [facility] Comment on above: Performed By: #### C RP, TSH, CMP #### [facility] [address] [place] [address] [address] Derek Frankel Creatinine [Mass/Vol] 0.98 mg/dL Normal 0.70-1.30 [facility] Comment on above: Performed By: #### C RP, TSH, CMP #### [facility] [address] [address] [address] Derek Frankel EGFR-AF AUSTRALIAN >60 Normal >=60 [facility] Comment on above: Performed By: #### C RP, TSH, CMP #### [facility] [address] [place] [address] [address] Derek Frankel EGFR-NON AF AUSTRALIAN >60 Normal >=60 [facility] Comment on above: Performed By: #### C RP, TSH, CMP #### [facility] [address] [place] [address] [address] Derek Frankel Globulin (S) [Mass/Vol] 3.9 g/dL Normal [facility] Comment on above: Performed By: #### C RP, TSH, CMP #### [facility] [address] [place] [address] [address] Derek Frankel Glucose [Mass/Vol] 378 mg/dL Critically high 74-106 [facility] Comment on above: Performed By: #### C RP, TSH, CMP #### [facility] [address] [address] [address] Derek Frankel Potassium [Moles/Vol] 4.5 mmol/L Normal 3.5-5.1 [facility] Comment on above: Performed By: #### C RP, TSH, CMP #### [facility] [address] [address] [address] Derek Frankel Protein [Mass/Vol] 7.6 g/dL Normal 6.4-8.2 [facility] Comment on above: Performed By: #### C RP, TSH, CMP #### [facility] [address] [address] [address] Derek Frankel Sodium [Moles/Vol] 132 mmol/L Critically low 136-145 [facility] Comment on above: Performed By: #### C RP, TSH, CMP #### [facility] [address] [place] [address] Dr. Derek Frankel Urea nitrogen [Mass/Vol] 14.0 mg/dL Normal 7.0-18.0 [facility] Comment on above: Performed By: #### C RP, TSH, CMP #### [facility] [address] [place] [address] Dr. Derek Frankel Urea nitrogen/Creatinine [Mass ratio] 14.3 mg/mg Normal [facility] Comment on above: Performed By: #### C RP, TSH, CMP #### [facility] [address] [place] [address] Dr. Derek Frankel [facility] CENTERRENon 2021 SED RATE 38 mm/hr Critically high <=20 [facility] Comment on above: Performed By: #### S EDR #### [facility] [address] [place] [address] Dr. Derek Frankel TSHon 05-26-2022 TSH 1.636 uIU/mL Normal 0.358-3.740 [facility] Comment on above: Performed By: #### C RP, TSH, CMP #### [facility] [address] [place] [address] Dr. Derek Frankel LIPID PROFILEon 05-25-2022 CHOL-HDL RATIO NORM SEE BELOW Normal [facility] Comment on above: Result Comment: 3.3 - 4.4 LOW RISK 4.4 - 7.1 AVERAGE RISK 7.1 - 11.0 MODERATE RISK >11.0 HIGH RISK Performed By: #### L IPID #### [facility] [address] [place] [address] Dr. Derek Frankel Cholesterol [Mass/Vol] 164 mg/dL Normal <=200 [facility] Comment on above: Performed By: #### L IPID #### [facility] [address] [address] [address] Derek Frankel Cholesterol in HDL [Mass/Vol] 36 mg/dL Critically low 40-60 [facility] Comment on above: Performed By: #### L IPID #### [facility] [address] [address] [address] Derek Frankel Cholesterol in LDL [Mass/Vol] 69.8 mg/dL Normal [facility] Comment on above: Performed By: #### L IPID #### [facility] [address] [address] [address] Derek Frankel Cholesterol.total/C holesterol in HDL [Mass ratio] 4.6 {ratio} Normal [facility] Comment on above: Performed By: #### L IPID #### [facility] [address] [address] [address] Derek Frankel HDL NORMAL > or = 60 mg/dl - LO W CARDIOVASCULAR RISK <40 mg/dl - HIGH CARDIOVASCULAR RISK Normal [facility] Comment on above: Performed By: #### L IPID #### [facility] [address] [address] [address] Derek Frankel LDL CALC NORMAL SEE BELOW Normal [facility] Comment on above: Result Comment: <100 mg/dl OPTIMAL 100 - 129 mg/dl NEAR OR ABOVE OPTIMAL 130 - 159 mg/dl BORDERLINE HIGH 160 - 189 mg/dl HIGH >190 mg/dl VERY HIGH Performed By: #### L IPID #### [facility] [address] [address] [address] Derek Frankel Triglyceride [Mass/Vol] 291 mg/dL Critically high <=150 [facility] Comment on above: Performed By: #### L IPID #### [facility] [address] [address] [address] Derek Frankel VLDL CALC 58.2 mg/dL Normal [facility] Comment on above: Performed By: #### L IPID #### [facility] [address] [address] [address] Derek Frankel LIPID PROFILEon 08-30-2021 CHOL-HDL RATIO NORM SEE BELOW Normal [facility] Comment on above: Result Comment: 3.3 - 4.4 LOW RISK 4.4 - 7.1 AVERAGE RISK 7.1 - 11.0 MODERATE RISK >11.0 HIGH RISK Performed By: #### L IPID ####[facility] [address] [place], [place] [address]Gq. Abiolamatthieu Jostin Cholesterol [Mass/Vol] 172 mg/dL Normal <=200 [facility] Comment on above: Performed By: #### L IPID ####[facility] [address] [place], [place] [address]Lt. Derek Frankel Cholesterol in HDL [Mass/Vol] 36 mg/dL Normal [facility] Comment on above: Performed By: #### L IPID ####[facility] [address] [id number]. Derek Frankel Cholesterol in LDL [Mass/Vol] 83.6 mg/dL Normal [facility] Comment on above: Performed By: #### L IPID ####[facility] [address] [place], [place] [address]Uy. Derek Frankel Cholesterol.total/C holesterol in HDL [Mass ratio] 4.8 {ratio} Normal [facility] Comment on above: Performed By: #### L IPID ####[facility] [address] [id number]. Derek Frankel HDL NORMAL > or = 60 mg/dl - LO W CARDIOVASCULAR RISK <40 mg/dl - HIGH CARDIOVASCULAR RISK Normal [facility] Comment on above: Performed By: #### L IPID ####[facility] [address] [id number]. Derek Frankel LDL CALC NORMAL SEE BELOW Normal [facility] Comment on above: Result Comment: <100 mg/dl OPTIMAL 100 - 129 mg/dl NEAR OR ABOVE OPTIMAL 130 - 159 mg/dl BORDERLINE HIGH 160 - 189 mg/dl HIGH >190 mg/dl VERY HIGH Performed By: #### L IPID ####[facility] [address] [id number] Frankel Triglyceride [Mass/Vol] 262 mg/dL Critically high <=150 [facility] Comment on above: Performed By: #### L IPID ####[facility] [address] [place], [place] [address]FjHernesto Frankel VLDL CALC 52.4 mg/dL Normal [facility] Comment on above: Performed By: #### L IPID ####[facility] [address] [place], [place] [address]MvHernesto Frankel XR ANKLE LT MIN 3 Von [...] HENRY MAST Date: 2021-08-12 08:21 Normal [facility] BASIC METABOLIC PANELon 02-15 Calcium [Mass/Vol] 9.2 mg/dL Normal 8.6-10.3 [facility] Comment on above: Order Comment: No: D o not add to previous draw Performed By: #### 1 0, 58355, 11412 #### [facility] [address] [facility] [place] [address], [facility] Chloride [Moles/Vol] 96 mmol/L Low 98-107 [facility] Comment on above: Order Comment: No: D o not add to previous draw Performed By: #### 1 0070, 08220, 62355 #### [facility] [address] [facility] [place] [address], [facility] CO2 [Moles/Vol] 28 mmol/L Normal 21-31 [facility] Comment on above: Order Comment: No: D o not add to previous draw Performed By: #### 1 0070, 77113, 01592 #### [facility] [address] [place] [address], [place] Creatinine [Mass/Vol] 0.73 mg/dL Normal 0.70-1.30 [facility] Comment on above: Order Comment: No: D o not add to previous draw Performed By: #### 1 0, 34757, 85048 #### [facility] [address] [place] [address], [place] GFR/1.73 sq M.predicted among blacks MDRD (S/P/Bld) [Vol rate/Area] mL/min/{1.73_m2} Normal >60 [facility] Comment on above: Order Comment: No: D o not add to previous draw Performed By: #### 1 0, 81415, 07044 #### [facility] [address] [place] [address], [place] GFR/1.73 sq M.predicted among non-blacks MDRD (S/P/Bld) [Vol rate/Area] mL/min/{1.73_m2} Normal >60 [facility] Comment on above: Order Comment: No: D o not add to previous draw Performed By: #### 1 69, 17812, 51912 #### [facility] [address] [place] [address], [place] Glucose [Mass/Vol] 290 mg/dL High 70-100 [facility] Comment on above: Order Comment: No: D o not add to previous draw Performed By: #### 1 69, 23396, 10194 #### [facility] [address] [place] [address], [place] Potassium [Moles/Vol] 4.3 mmol/L Normal 3.5-5.1 [facility] Comment on above: Order Comment: No: D o not add to previous draw Performed By: #### 1 69, 24963, 68008 #### [facility] [address] [place] [address], [place] Sodium [Moles/Vol] 132 mmol/L Low 136-145 [facility] Comment on above: Order Comment: No: D o not add to previous draw Performed By: #### 1 0, 30760, 64280 #### [facility] [address] [place] [address], [place] Urea nitrogen [Mass/Vol] 13 mg/dL Normal 7-25 [facility] Comment on above: Order Comment: No: D o not add to previous draw Performed By: #### 1 0, 18540, 06392 #### [facility] [address] [place] [address], [facility] CBC COMPLETE BLOOD COUNTon 03-04-2021 Erythrocyte distribution width (RBC) [Ratio] 13.3 % Normal 11.5-15.0 [facility] Comment on above: Order Comment: No: D o not add to previous draw Performed By: #### 8 5499 #### [facility] [address] [place] [address], [facility] Hematocrit (Bld) [Volume fraction] 44.0 % Normal 39.0-50.0 [facility] Comment on above: Order Comment: No: D o not add to previous draw Performed By: #### 8 5499 #### [facility] [address] [place] [address], [place] Hemoglobin (Bld) [Mass/Vol] 14.2 g/dL Normal 13.0-17.0 [facility] Comment on above: Order Comment: No: D o not add to previous draw Performed By: #### 8 5499 #### [facility] [address] [place] [address], [place] MCH (RBC) [Entitic mass] 28.6 pg Normal 27.0-33.0 [facility] Comment on above: Order Comment: No: D o not add to previous draw Performed By: #### 8 5819 #### [facility] [address] MCHC (RBC) [Mass/Vol] 32.3 g/dL Normal 32.0-35.0 [facility] Comment on above: Order Comment: No: D o not add to previous draw Performed By: #### 8 5499 #### [facility] [address] [place] [address], [facility] MCV (RBC) [Entitic vol] 88.7 fL Normal 82.0-98.0 [facility] Comment on above: Order Comment: No: D o not add to previous draw Performed By: #### 8 5499 #### [facility] [address] [place] [address], [facility] Nucleated RBC/100 WBC (Bld) [Ratio] 0 % Normal 0-0 [facility] Comment on above: Order Comment: No: D o not add to previous draw Performed By: #### 8 5499 #### [facility] [address] [place] [address], [facility] PLAT CNT 228 10*3/uL Normal 150-400 [facility] Comment on above: Order Comment: No: D o not add to previous draw Performed By: #### 8 5499 #### [facility] [address] [place] [address], [facility] RBC (Bld) [#/Vol] 4.96 10*6/uL Normal 4.20-5.70 [facility] Comment on above: Order Comment: No: D o not add to previous draw Performed By: #### 8 5499 #### [facility] [address] [place] [id number], [facility] WBC (Bld) [#/Vol] 11.47 10*3/uL High 4.00-10.60 [facility] Comment on above: Order Comment: No: D o not add to previous draw Performed By: #### 8 5499 #### [facility] [address] [place] [address], [facility] Cardiovascular Lab Reporton 03-04-2021 Cardiovascular Lab Report [facility] Patient Name: Oscar Riley MR #: [id number] [facility] Physician: Ken Mukherjee M.D. Department of Service Date: 03/03/2021 Medicine Birthdate: 1965 Division of Room #: 3AB [id number] Cardiology Adult Cardiovascular Services [facility] [address] [facility]. [place] [address] Cardiovascular Laboratory Report INDICATION: The patient is a 55-year-old man who presented to the [facility] with chest pain and elevated cardiac [...] the informed consent. He was brought to dental laboratory worker in a fasting state. The right wrist area was prepped and draped in usual fashion. Modified Sigifredo's test was favorable. Access in the right radial artery was obtained using micropuncture technique. A 6-Somali x 11 cm Hydrophilic sheath was advanced. Verapamil was given through the sheath and heparin was administered intravenously. Bilateral selective coronary angiography was then performed using 6-Somali JL3.5 and JR5 diagnostic catheters. Additional heparin was given as needed and therapeutic ACT confirmed during the rest of the procedure. A 6-Somali JR4 guiding catheter was then advanced and [...] a minimum of [address] and drug-eluting stenting. 3. Follow up in Cardiology Clinic. Electronically Signed by: Ken Mukherjee M.D. 03/08/2021 07:01 A (more content not included)... Normal [facility] MAGNESIUM BLOODon 03-04-2021 Magnesium [Mass/Vol] 1.7 mg/dL Low 1.9-2.7 [facility] Comment on above: Order Comment: No: D o not add to previous draw Performed By: #### 1 0070, 47428, 31238 #### [facility] [address] [place] [address], [facility] POC GLUCOSE LABon 03-04-2021 Glucose [Mass/Vol] 260 mg/dL High 70-100 [facility] Comment on above: Performed By: #### 8 5499 #### [facility] [address] [facility] [place] [place] [address], [facility] Glucose [Mass/Vol] 252 mg/dL High 70-100 [facility] Comment on above: Performed By: #### 8 5499 #### [facility] [address] [facility] [place] [place] [address], [facility] TROPONIN-Ion 03-04-2021 Troponin I.cardiac [Mass/Vol] 1.04 ng/mL Critically high 0.00-0.04 [facility] Comment on above: Order Comment: No: D o not add to previous draw Result Comment: M-MO EVIOUS CRITICAL RESULT REFERENCE RANGES: 0.00 - 0.04 ng/ml NORMAL 0.05 - 0.50 ng/ml INDETERMINATE > 0.50 ng/ml CONSISTENT WITH AN M.I. Performed By: #### 1 0, 29008, 34811 #### [facility] [address] [place] [address], [facility] APTTon 03-03-2021 aPTT Coag (Bld) [Time] 27.1 s Normal 25.0-35.0 [facility] Comment on above: Order Comment: No: [...] PURPOSE. Performed By: #### 8 5499 #### [facility] [address] [place] [address], [facility] BASIC METABOLIC PANELon - Calcium [Mass/Vol] 9.4 mg/dL Normal 8.6-10.3 [facility] Comment on above: Order Comment: No: D o not add to previous draw Performed By: #### 9 9909, 25012, 85549, 56749 #### [facility] [address] [place] [address], [facility] Chloride [Moles/Vol] 95 mmol/L Low 98-107 [facility] Comment on above: Order Comment: No: D o not add to previous draw Performed By: #### 9 9909, 76528, 32117, 86766 #### [facility] [address] [place] [address], [facility] CO2 [Moles/Vol] 30 mmol/L Normal 21-31 [facility] Comment on above: Order Comment: No: D o not add to previous draw Performed By: #### 9 9909, 12415, 51808, 14407 #### [facility] [address] [place] [address], [place] Creatinine [Mass/Vol] 0.73 mg/dL Normal 0.70-1.30 [facility] Comment on above: Order Comment: No: D o not add to previous draw Performed By: #### 9 9909, 94557, 51578, 90109 #### [facility] [address] [place] [id number], [facility] GFR/1.73 sq M.predicted among blacks MDRD (S/P/Bld) [Vol rate/Area] mL/min/{1.73_m2} Normal >60 [facility] Comment on above: Order Comment: No: D o not add to previous draw Performed By: #### 9 9909, 46531, 38431, 92237 #### [facility] [address] [place] [address], [place] GFR/1.73 sq M.predicted among non-blacks MDRD (S/P/Bld) [Vol rate/Area] mL/min/{1.73_m2} Normal >60 [facility] Comment on above: Order Comment: No: D o not add to previous draw Performed By: #### 9 99, 78640, 47669, 80574 #### [facility] [address] [place] [address], [place] Glucose [Mass/Vol] 169 mg/dL High 70-100 [facility] Comment on above: Order Comment: No: D o not add to previous draw Performed By: #### 9 9909, 82141, 17862, 26793 #### [facility] [address] [place] [address], [place] Potassium [Moles/Vol] 4.2 mmol/L Normal 3.5-5.1 [facility] Comment on above: Order Comment: No: D o not add to previous draw Performed By: #### 9 9909, 44820, 18655, 09205 #### [facility] [address] [place] [address], [place] Sodium [Moles/Vol] 133 mmol/L Low 136-145 [facility] Comment on above: Order Comment: No: D o not add to previous draw Performed By: #### 9 9909, 43370, 05901, 58257 #### [facility] [address] [place] [address], [place] Urea nitrogen [Mass/Vol] 15 mg/dL Normal 7-25 [facility] Comment on above: Order Comment: No: D o not add to previous draw Performed By: #### 9 9909, 46701, 02262, 54532 #### [facility] [address] [place] [address], [facility] CBC COMPLETE BLOOD COUNTon 0 03-03-2021 Erythrocyte distribution width (RBC) [Ratio] 13.4 % Normal 11.5-15.0 [facility] Comment on above: Order Comment: No: D o not add to previous draw Performed By: #### 5 0608 #### [facility] [address] [place] [address], [facility] Hematocrit (Bld) [Volume fraction] 43.2 % Normal 39.0-50.0 [facility] Comment on above: Order Comment: No: D o not add to previous draw Performed By: #### 5 0608 #### [facility] [address] [place] [address], [facility] Hemoglobin (Bld) [Mass/Vol] 14.2 g/dL Normal 13.0-17.0 [facility] Comment on above: Order Comment: No: D o not add to previous draw Performed By: #### 5 0608 #### [facility] [address] [place] [address], [facility] MCH (RBC) [Entitic mass] 28.8 pg Normal 27.0-33.0 [facility] Comment on above: Order Comment: No: D o not add to previous draw Performed By: #### 5 0608 #### [facility] [address] [place] [address], [facility] MCHC (RBC) [Mass/Vol] 32.9 g/dL Normal 32.0-35.0 [facility] Comment on above: Order Comment: No: D o not add to previous draw Performed By: #### 5 0608 #### [facility] [address] [place] [id number], [facility] MCV (RBC) [Entitic vol] 87.6 fL Normal 82.0-98.0 [facility] Comment on above: Order Comment: No: D o not add to previous draw Performed By: #### 5 0608 #### [facility] [address] [place] [address], [facility] Nucleated RBC/100 WBC (Bld) [Ratio] 0 % Normal 0-0 [facility] Comment on above: Order Comment: No: D o not add to previous draw Performed By: #### 5 0608 #### [facility] [address] [place] [address], [facility] PLAT CNT 239 10*3/uL Normal 150-400 [facility] Comment on above: Order Comment: No: D o not add to previous draw Performed By: #### 5 0608 #### [facility] [address] [place] [address], [facility] RBC (Bld) [#/Vol] 4.93 10*6/uL Normal 4.20-5.70 [facility] Comment on above: Order Comment: No: D o not add to previous draw Performed By: #### 5 0608 #### [facility] [address] [place] [address], [facility] WBC (Bld) [#/Vol] 11.12 10*3/uL High 4.00-10.60 [facility] Comment on above: Order Comment: No: D o not add to previous draw Performed By: #### 5 0608 #### [facility] [address] [place] [id number], [facility] HEMOGLOBIN A1Con 03-03-2021 Glucose [Moles/Vol] 286 mmol/L Normal [facility] Comment on above: Order Comment: Yes: Add to Previous draw if able Performed By: #### 3 1791 #### [facility] [address] [place] [address], [facility] HbA1c (Bld) [Mass fraction] 11.6 % High 4.0-6.0 [facility] Comment on above: Order Comment: Yes: Add to Previous draw if able Performed By: #### 3 1791 #### [facility] [address] [place] [address], [facility] LIPID PROFILEon 03-03-2021 Cholesterol [Mass/Vol] 163 mg/dL Normal 120-200 [facility] Comment on above: Result Comment: CHOL ESTEROL REFERENCE RANGE: 20 YEARS AND OLDER CARDIOVASCULAR RISK Less than 200 mg/dl Low Risk 200 to 239 mg/dl Borderline Risk 240 mg/dl and greater High Risk Performed By: #### 9 9909, 79955, 27518, 44819 #### [facility] [address] [place] [address], [facility] Cholesterol in HDL [Mass/Vol] 30 mg/dL Normal 23-92 [facility] Comment on above: Result Comment: Slig ht variation in normal range could be due to gender and/or age. HDL CHOLESTEROL REFERENCE RANGE: 20 years and older Cardiovascular Risk > or =60 mg/dL Desirable 40 TO 59 mg/dL Low Risk <40 mg/dL High Risk Performed By: #### 9 9909, 68058, 40782, 74699 #### [facility] [address] [facility] [place] [address], [facility] Cholesterol in LDL [Mass/Vol] 66 mg/dL Normal 0-130 [facility] Comment on above: Result Comment: LDL IS A CALCULATION LDL IS ONLY VALID IF THE TRIG IS LESS THAN 400. Performed By: #### 9 9909, 88872, 07764, 43993 #### [facility] [address] [place] [address], [place] Cholesterol.total/C holesterol in HDL [Mass ratio] 5.4 {ratio} High 0.0-4.5 [facility] Comment on above: Performed By: #### 9 9909, 07609, 60589, 26345 #### [facility] [address] [place] [address], [place] NON-HDL CHOLESTEROL 133 mg/dL Normal [facility] Comment on above: Performed By: #### 9 9909, 24707, 95045, 50923 #### [facility] [address] [place] [address], [facility] Triglyceride [Mass/Vol] 333 mg/dL High 40-149 [facility] Comment on above: Result Comment: TRIG LYCERIDE REFERENCE RANGE: 20 YEARS AND OLDER CARDIOVASCULAR RISK LESS THAN 150 mg/dl LOW RISK 150 TO 199 mg/dl BORDERLINE RISK 200 mg/dl AND GREATER HIGH RISK Performed By: #### 9 9909, 50176, 97280, 92625 #### [facility] [address] [place] [id number], [facility] VLDL CHOL 67 mg/dL High 0-40 [facility] Comment on above: Performed By: #### 9 9909, 23615, 32662, 23562 #### [facility] [address] [place] [id number], [facility] LIVER BATTERYon 03-03-2021 Albumin [Mass/Vol] 4.0 g/dL Normal 3.5-5.7 [facility] Comment on above: Order Comment: No: D o not add to previous draw Performed By: #### 9 9909, 30414, 05816, 10684 #### [facility] [address] [place] [address], [facility] ALKALINE PHOSPH 96 IU/L Normal 34-104 [facility] Comment on above: Order Comment: No: D o not add to previous draw Performed By: #### 9 9909, 34551, 67127, 91846 #### [facility] [address] [place] [address], [facility] ALT [Catalytic activity/Vol] 20 U/L Normal 7-52 [facility] Comment on above: Order Comment: No: D o not add to previous draw Performed By: #### 9 9909, 98555, 47412, 49782 #### [facility] [address] AST [Catalytic activity/Vol] 19 U/L Normal 13-39 [facility] Comment on above: Order Comment: No: D o not add to previous draw Performed By: #### 9 9909, 45806, 02820, 48396 #### [facility] [address] [place] [id number], [facility] Bilirubin [Mass/Vol] 0.7 mg/dL Normal 0.3-1.0 [facility] Comment on above: Order Comment: No: D o not add to previous draw Performed By: #### [id number], [id number], [id number], [id number] #### [facility] [address] [facility] [place] [address], [facility] Bilirubin.direct [Mass/Vol] 0.1 mg/dL Normal 0.0-0.2 [facility] Comment on above: Order Comment: No: D o not add to previous draw Performed By: #### [id number], [id number] #### [facility] [address] [place] [address], [facility] Protein [Mass/Vol] 6.7 g/dL Normal 6.0-8.3 [facility] Comment on above: Order Comment: No: D o not add to previous draw Performed By: #### [id number], [id number], [id number], [id number] #### [facility] [address] [facility] [place] [address], [facility] TROPONIN-Ion 03-03-2021 Troponin I.cardiac [Mass/Vol] 1.12 ng/mL Critically high 0.00-0.04 [facility] Comment on above: Order Comment: No: D o not add to previous draw Result Comment: M-TR OPONIN INITIAL CRITICAL HIGH; RESPUN AND RETESTED M-CRITICAL RESULT(S) REVIEWED, CALLED TO AND READ BACK BY Adriana Phelan RN at 1930. REFERENCE RANGES: 0.00 - 0.04 ng/ml NORMAL 0.05 - 0.50 ng/ml INDETERMINATE > 0.50 ng/ml CONSISTENT WITH AN M.I. Performed By: #### [id number] #### [facility] [address] [place] [address], [facility] UFH HEPARIN ASSAYon 03-03-20 21 UNFRACTIONATED HEPARIN <0.10 Critically low 0.30-0.70 [facility] Comment on above: Result Comment: [place] roxaban and Apixaban will interfere with the anti Xa assay used to monitor UFH and LMWH. RESULTS CHECKED AND CALLED. ACCURATELY READ BACK BY kevan sauceda r.n. 2056 Performed By: #### [id number] #### [facility] [address] Vital Signs Date Time Vital Sign Value Performing Clinician Facility 05-13-2025 08:30-0400 Body height 175.3 cm Leandro BuzzTable DO Work Phone: [facility] 05-13-2025 08:30-0400 Body mass index (BMI) [Ratio] 35.29 kg/m2 Leandro NetIQos DO Work Phone: [facility] 05-13-2025 08:30-0400 Body weight 108.41 kg [facility] [employer] Work Phone: [facility] 02-12-2025 10:41-0400 Body height 177.8 cm [facility] 02-12-2025 10:41-0400 Body mass index (BMI) [Ratio] 37.3 kg/m2 [facility] 02-12-2025 10:41-0400 Body weight 117.9 kg [facility] 02-12-2025 10:41-0400 Diastolic blood pressure 72 mm[Hg] [facility] 02-12-2025 10:41-0400 Heart rate 66 /min [facility] 02-12-2025 10:41-0400 Respiratory rate 18 /min [facility] 02-12-2025 10:41-0400 SaO2% (BldA) [Mass fraction] 97 % [facility] 02-12-2025 10:41-0400 Systolic blood pressure 114 mm[Hg] [facility] 07-23-2024 13:34-0500 Blood Pressure Location Henry MAURERL [facility] 07-23-2024 13:34-0500 Diastolic blood pressure 66 mm[Hg] Henry NILL [facility] 07-23-2024 13:34-0500 Heart rate 68 /min Henry NILL [facility] 07-23-2024 13:34-0500 Respiratory rate 16 /min Henry NILL [facility] 07-23-2024 13:34-0500 Systolic blood pressure 116 mm[Hg] Henry NILL [facility] 06-24-2024 08:17-0400 Body height 177.8 cm [facility] 06-24-2024 08:17-0400 Body mass index (BMI) [Ratio] 39.2 kg/m2 [facility] 06-24-2024 08:17-0400 Body weight 123.94 kg [facility] 06-24-2024 08:17-0400 Diastolic blood pressure 80 mm[Hg] [facility] 06-24-2024 08:17-0400 Heart rate 73 /min [facility] 06-24-2024 08:17-0400 Respiratory rate 16 /min [facility] 06-24-2024 08:17-0400 SaO2% (BldA) [Mass fraction] 98 % [facility] 06-24-2024 08:17-0400 Systolic blood pressure 118 mm[Hg] [facility] 07-02-2023 13:41-0400 Blood Pressure Location Pedrito QUINTERO [facility] 07-02-2023 13:41-0400 Diastolic blood pressure 87 mm[Hg] Pedrito QUINTERO [facility] 07-02-2023 13:41-0400 Heart rate 80 /min Pedrito QUINTERO [facility] 07-02-2023 13:41-0400 Respiratory rate 16 /min Pedrito QUINTERO [facility] 07-02-2023 13:41-0400 Systolic blood pressure 141 mm[Hg] Pedrito QUINTERO [facility] 07-02-2023 09:00-0400 Body height 177.8 cm Adelita Kaplan Other [employer] [facility] [employer] Other 07-02-2023 09:00-0400 Body mass index (BMI) [Ratio] 40.69 kg/m2 Adelita Kaplan Other [employer] Other 07-02-2023 09:00-0400 Body weight 128.64 kg Adelita Kaplan Other [employer] Other 07-02-2023 09:00-0400 Diastolic blood pressure 75 mm[Hg] Adelita Kaplan Other [employer] Other 07-02-2023 09:00-0400 Systolic blood pressure 111 mm[Hg] Adelita Kaplan Other [employer] Other 05-28-2023 08:45-0400 Body height 177.8 cm Adelita Kaplan Other [employer] Other 05-28-2023 08:45-0400 Body mass index (BMI) [Ratio] 41 kg/m2 Adelita Kaplan Other [employer] Other 05-28-2023 08:45-0400 Body weight 129.64 kg Adelita Kaplan Other [employer] Other 05-28-2023 08:45-0400 Diastolic blood pressure 76 mm[Hg] Adelita Travis Other [employer] Other 05-28-2023 08:45-0400 Respiratory rate 16 /min Adelita Travis Other [employer] Other 05-28-2023 08:45-0400 Systolic blood pressure 109 mm[Hg] Adelita Travis Other [employer] Other 07-03-2022 12:18-0400 Body temperature 97.7 [degF] [facility] 07-03-2022 12:18-0400 Diastolic blood pressure 72 mm[Hg] [facility] 07-03-2022 12:18-0400 Heart rate 88 /min [facility] 07-03-2022 12:18-0400 Respiratory rate 18 /min [facility] 07-03-2022 12:18-0400 SaO2% (BldA) [Mass fraction] 93 % [facility] 07-03-2022 12:18-0400 Systolic blood pressure 147 mm[Hg] [facility] Encounters Encounter Date Encounter Type Care Provider Facility Start: 05-13-2025 End: 05-13-2025 Bamboo flowsheet Leandro Barberos DO Work Phone: [facility] Start: 05-13-2025 End: 05-13-2025 Bamboo flowsheet Leandro Santoyo DO Work Phone: [facility] Start: 05-13-2025 End: 05-13-2025 Patient encounter procedure Leandro Santoyo DO Work Phone: [facility] Comment on above: Left shoulder pain, unspecified chronicity (Primary Dx); Sprain of left shoulder, subsequent encounter; Left shoulder strain, initial encounter Start: 05-13-2025 End: 05-13-2025 ambulatory LEANDRO Zurita YARELIS Not Available Start: 04-07-2025 End: 04-07-2025 Patient encounter procedure Doe Arias Radatz DO [facility] Work Phone: Start: 04-07-2025 End: 04-07-2025 ambulatory Adelita Kaplan MD Work Phone: [facility] Work Phone: Start: 03-25-2025 End: 03-25-2025 Patient encounter procedure Doe Arias Radatz DO [facility] Work Phone: Start: 03-25-2025 End: 03-25-2025 ambulatory Adelita Kaplan MD Work Phone: [facility] Work Phone: Start: 02-12-2025 End: 02-12-2025 ambulatory [facility] Work Phone: Start: 02-12-2025 End: 02-12-2025 Patient encounter procedure [facility] Work Phone: Start: 12-27-2024 Non-patient / Non-visit [facility] Work Phone: Start: 12-22-2024 End: 12-22-[address] [facility] Start: 09-02-2024 ambulatory Henry MOJICA Facility : [place] Start: 07-23-2024 End: 07-23-2024 ambulatory ADELITA KAPLAN Facility:[facility] [place] Start: 07-23-2024 End: 07-23-2024 Patient encounter procedure Henry MOJICA [facility] Start: 07-21-2024 ambulatory ADELITA KAPLAN Facility:[facility] Start: 06-26-2024 ambulatory ADELITA KAPLAN Facility:[facility] Barrera Start: 06-24-2024 Patient encounter status [facility] Start: 06-24-2024 End: 06-24-2024 ambulatory [facility] Work Phone: Start: 06-24-2024 End: 06-24-2024 Encounter for general adult medical examination without abnormal findings [facility] Start: 06-24-2024 End: 06-24-2024 Patient encounter procedure [facility] Work Phone: Start: 08-30-2023 End: 08-30-2023 ambulatory Adelita Kaplan Other [employer] Other Start: 08-30-2023 Telephone encounter Adelita Kaplan [facility] Start: 07-02-2023 End: 07-02-2023 ambulatory Adelita Kaplan Other [employer] Other Start: 07-02-2023 Office outpatient vi sit 15 minutes Adelita Kaplan [facility] Start: 07-02-2023 End: 07-02-2023 Patient encounter procedure Pedrito QUINTERO [facility] Start: 06-06-2023 End: 06-06-2023 ambulatory Adelita Kaplan Other [employer] Other Start: 06-06-2023 Telephone encounter Adelita Kaplan [facility] Start: 05-28-2023 End: 05-28-2023 ambulatory Adelita Kaplan Other [employer] Other Start: 05-28-2023 Office outpatient vi sit 25 minutes Adelita Kaplan [facility] Start: 07-05-[address] ADELITA KAPLAN [facility] ity:H1 Start: 07-03-2022 End: 07-03-2022 Emergency department patient visit Pacheco Linsey [facility] Start: 05-26-2022 End: 05-27-2022 ambulatory WILFRED MARCIAL Facility:[facility] Start: 05-25-2022 End: 05-26-[address] KEN MUKHERJEE Facility:[facility] Start: 02-16-[address] KEN MUKHERJEE Fac ility:[facility]1 Start: 08-30-2021 End: 08-31-[address] KEN MUKHERJEE Facility:[facility] Start: 08-12-2021 End: 08-12-[address] ADELITA KAPLAN Facility:[facility] Start: 03-03-2021 End: 03-04-2021 Evaluation and management of inpatient RAVINDRA YUN Facility:[facility] Procedures Date Procedure Procedure Detail Performing [...] procedure 06/10/2025 8:30 AM EDT Office Visit [facility] [address] [place] [address] Leandro Santoyo DO [address] [place] [address] [facility] Start: 05-18-2025 Influenza vaccination Influenza Vacc ine (#1) [facility] Start: 05-13-2025 End: 05-13-2025 Patient encounter procedure 05/13/2025 8:45 AM EDT Office Visit [facility] [address] [place] [address] Leandro Santoyo DO [address] [place] [address] Arrived [facility] Comment on above: Arrived Start: 06-24-2024 Patient referral [facility] Work Phone: Start: 1965 Screening for malign ant neoplasm of colon [facility] Comprehensive metabo lic 2000 panel - Serum or Plasma [facility] Microalbumin [Mass/volume] in Urine [facility] Patient Education Diabetes and diet [facility] Work Phone: Patient referral [facility] Work Phone: XR Shoulder - left 2 Views XR shoulder 2+ views left Imaging Routine Left shoulder pain, unspecified chronicity 05/13/2025 8:40 AM EDT [facility] Work Phone: [facility] Immunizations Immunization Date Immunization Notes Care Provider Fa raffi 06-27-2021 SARS-CoV-2 (COVID-19 ) mRNA-1273 vaccine Henry LIBERTADDaphne [facility] [place] 05-28-2021 SARS-CoV-2 (COVID-19 ) mRNA-1273 vaccine Henry NILL [facility] Payers Date Payer Category Payer Self-pay 2025 Worker's Compensation [id number] 2025 Worker's Compensation GENERIC WO RKERS' COMP [id number] 2025 Worker's Compensation [id number] 2023 [facility] er [id number] 1966 Unknown [id number]. 2.647 1966 Unknown [id number] 11.02.830.1.715395.3.579. 2.593 1966 Unknown [id number] 2.840.1.984832.3.579. 2.593 1966 Unknown [id number] 2.840.1.220689.3.579. 2.593 1966 Unknown [id number] .840.1.989255.3.579. 2.593 1966 Unknown [id number] 2.840.1.179873.3.579. 2.593 1966 Unknown [id number] 2.16840.1.157606.3.579. 2.593 1966 Unknown [id number] 2.16.840.1.524190.3.579. 2.727 1966 Unknown [id number] 2.16.840.1.902442.3.579. 2.727 1966 Unknown [id number] 2.16.840.1.054002.3.579. 2.1259 1966 Unknown [id number] 2.16.840.1.410185.3.579. 2.1259 1966 Unknown [id number] 2.16.840.1.654415.3.579. 2.1259 1966 Unknown [id number] 2.16.840.1.693139.3.579. 2.1259 1959 Self-pay [id number] 1959 Unknown [id number] Unknown [id number] 2.16.840.1.016135.3.579. 2.531 Unknown [id number] 2.16.840.1.264233.3.579. 2.531 Social History Date Type Detail Facility Tobacco smoking status [facility] Start: 05-13-2025 Sex Assigned At Male F [facility] Start: 07-02-2023 End: 05-13-2025 Tobacco smoking status Never smoked tobacco (finding) [facility] Tobacco smoking status Never [facility] Start: 1965 Sex Assigned At Male F [facility] Start: 02-12-2025 [facility] Start: 02-12-2025 Sex Male (finding) [facility] Tobacco smoking stat [facility] Tobacco smoking consumption unknown [facility] Start: 1965 Sex assigned at Not on file [facility] Start: 05-13-2025 Tobacco use and exposure Smokeless tobacco non-user [facility] Start: 05-13-2025 Alcoholic beverage intake Ex-drinker (finding) [facility] Start: 05-13-2025 History of Social function [facility] Healthcare Medical Equipment Procedure Code Equipment Code [...] Assessment Result Facility 07-23-2024 Functional Status N/A [facility] [place] 07-02-2023 Functional Status N/A [facility] 07-03-2022 Functional Status N/A [facility] Clinical Notes 03-07-2021 to 05-13-2025 Roxy Rodrigues - 05/13/2025 8:45 AM EDT Note Date & Type Note Facility 05-13-2025 History of Presen t illness Narrative Images from the original note were not included. Oscar Riley is a 59 y.o. male presents with chief complaint of left shoulder injury. Consult from Dr. Culp, [facility]. HPI: Oscar is a 59-year-old right hand dominant white male who presents with a left shoulder injury related to work. He does work at [employer]. Date of injury 03-11-2025. He states [...] take because he did not have a [facility] card where it was covered. He [...] of flexion abduction. He has no atrophy. Codington's is negative. Examination of the right shoulder [...] 7:55 AM EDT documented in this encounter [facility] 02-12-2025 Evaluation note Diagnosis Onset Date Resolution CAD (coronary artery disease) acute February 12, 2025 10:31am Dietary counseling and surveillance acute February 12, 2025 10:31am Essential hypertension acute Ma 2024 10:31am Mixed hyperlipidemia acute February 12, 2025 10:31am Obesity, Class II, BMI 35-39.9 acute February 12, 2025 10:31am Type 2 diabetes mellitus with hyperglycemia acute February 12 10:31am [facility] Work Phone: 1(212) 787-725804-07-2025 NoteUT Cardiology - [facility] Subjective Oscar Riley is a [...] testing since the procedure. PMHx: CAD with CT s/p PCI RCA 03/03/21, HTN, DM type [...] mL) injection, , D (more content not included)...[facility]11-06-2024 NoteGeneral Surgery Office/Clinic Note Chief Complaint consultation [...] Illness 58 yo male with h/o CAD, CT, cardiac stenting, DMII, htn, hypercholesterolemia, MARNI, referred [...] plan excisional biopsy under local anesthesia at [facility], informed consent obtained. Follow-up No qualifying [...] 06/27/2021 Recorded SARS-CoV-2 (COVID-19) mRNA-1273 vaccine 05/28/2021 [facility] Hospital[facility] on above:Result Comment: Electronically Signed By: MAGALY REED, Henry Faustin\Date and Time Signed: 07/23/24 14:24 [id number] Hospital Discharge instructions Patient Education 07/02/2023 14:43:30 [...] not rub your skin to dry it. Vlbv-mkj-kyrguy sitz bath To take a sitz bath with an eedc-ddz-frudjx basin: 1.Follow the shade hanger's instructions. 2.Fill the basin with warm water. [...] if it cracks, or according to the shade hanger's instructions. Contact a health care provider if: [...] provider. Document Revised: 05/17/2021 Document Reviewed: 05/19/2021 [employer] Patient Education 2022 [employer]. Follow Up Care 07/02/2023 09:18:48 With:INGRID REED, Pedrito Arreaga, URL Address: [facility] [address], [place] [address]- When: Unknown Comments:Will call pt pending CT results. [facility] 10-16-2023 Evaluation note* Encounter Date Diagnosis Assessment [...] 226 fasting. Increase insulin to 25 units. [employer] Other 09-11-2023 Evaluation note* Encounter Date Diagnosis [...] recommended Will have labs also sent to [facility] Cardiology who he sees next month. May, Prostate cancer screening (ICD-10 - Z12.5) [employer] Other 10-17-2022 Hospital Discharge instructions Patient Education 07/03/2022 13:34:22 Concussion, Adult, Lwlm-fe-Oeey Concussion, Adult A concussion is a brain [...] if you are dizzy. General instructions Take nhpc-mca-bjugfmo and prescription medicines only as told by your doctor. Do not drink alcohol until your doctor says you can. Watch your symptoms and tell other people to do the same. Other problems can occur after a concussion. Older adults have a higher risk of serious problems. Tell your bench worker apprentice, teachers, school nurse, school counselor, head track coach, or hydraulic strainer operator about your injury and symptoms. Tell them [...] 08/22/2010 Document Revised: 04/24/2019 Document Reviewed: 04/24/2019 [employer] Patient Education 2020 [employer] 07/03/2022 13:34:22 Head Injury, Adult Head [...] Ask your health care provider for a jugj-wf-eqvj plan for gradually returning to activities. Ask [...] your friends, family, a trusted colleague, and bench worker apprentice about your injury, symptoms, and restrictions. Have them watch for any new or worsening problems. General instructions Take lspy-tmx-hicqokb and prescription medicines only as told by [...] 09/03/2006 Document Revised: 10/01/2019 Document Reviewed: 09/26/2019 [employer] Patient Education 2019 [employer]. Follow Up Care 07/03/2022 12:15:09 With:[employer] Address:Unknown When:07/06/2022 13:18:40 Comments:Follow-up with your primary care provider in 3 to 5 days. If symptoms worsen, do not improve, or new symptoms arise please report back to emergency department for further evaluation. [facility]10-17-2022 Evaluation + Plan noteExtracted from: Title:ED Note Author:Josh Murphy PA-C te:07/03/22 Closed head injury without l oss of consciousness (S09.90XA: Unspecified injury of head, initial encounter) [facility]06-21-2021 NoteMR#: [id number] I [facility] Pt. Name: Oscar Riley Admitted: 03/03/2021 Discharged: 03/04/2021 Date of : 1965 Physician: Yaneli Thompson MD DISCHARGE SUMMARY PRIMARY DIAGNOSIS: Non-ST segment elevation myocardial infarction. SECONDARY DIAGNOSES: 1. Hypertension. 2. Diabetes. 3. Obesity. HISTORY OF PRESENT ILLNESS: This patient is a 55-year-old male with past history of hypertension and diabetes, who was sent from [facility] due to NSTEMI. The patient presented to the ER due to substernal pressure-like chest pain radiated to his left arm. His troponin was elevated. HOSPITAL COURSE: 1. NSTEMI status post PCI. The patient was discharged on aspirin, Plavix, Lopressor, and simvastatin. T 2. Pwe-jlyvfyi-mkqtoxxuy diabetes, uncontrolled. His A1c was 11. The [...] Thompson MD Date Trans: 03/07/2021 08:53 A/germaine [id number] cc: Ravindra Yun M.D. [address] [facility] [address] HospitalEvaluation + Plan note Future Appointments Appointment Date:09/02/2024 02:00:00 PM Scheduled Provider:Henry MOJICA MD Location:[facility] Appointment Type: Post Op 15 [facility] Evaluation noteNo [facility]NoP[facility] [employer] Other Evaluation note* Diagnosis Onset Date Resolution Status Essential hypertension acute Type 2 diabetes mellitus with hyperglycemia acute Wellness examination acute [facility] Work Phone: Evaluation note* Diagnosis Onset Date Resolution Status Abscess, scalp acute Essential hypertension acute Nasal fracture acute Nasal obstruction acute Type 2 diabetes mellitus with hyperglycemia acute Wellness examination acute [facility] Work Phone: Evaluation note* Diagnosis Onset Date Resolution Status Admit Date Dietary counseling and surveillance acute February 12, 2025 1 0:31am Essential hypertension acute Ma y 2024 10:31am Mixed hyperlipidemia acute February 12, 2025 10:31am Type 2 diabetes mellitus wit h hyperglycemia acute February 12, 2025 1 0:31am [facility] Work Phone: Evaluation note* Diagnosis Left [...] STENT INSERTION Hospitalization History see surgical history [facility] [employer] Other Hospital course Narrative No data available for this section [facility] instructionsAmbulatory Orders* Referral to ENT Time Frame: 06/24/24, Location: None Selected * Referral to General Surgery Time Frame: 06/24/24, Location: None Selected [facility] Work Phone: Hospital Discharge instructions No data available for this section [facility] Progress note No data available for this section [facility] for [facility] (narrative)No reason for referral information [facility] Work Phone: Summary Purpose Family [...] Ranjith bradley February 12, 2025 10:[address] [facility] [id number]-[id number] March 25, 2025 8:46a m Reason for [...] section and content) DATE CREATED AUTHOR 03/08/2021 [facility] DATE CREATED AUTHOR AUTHOR'S ORGANIZ ATION 07/24/2022 [facility] DATE CREATED AUTHOR AUTHOR'S ORGANIZ ATION 07/25/2024 [facility] DATE CREATED AUTHOR AUTHOR'S ORGANIZ ATION 02/21/2025 [facility] DATE CREATED AUTHOR AUTHOR'S ORGANIZ ATION 04/22/2025 [facility] DATE CREATED AUTHOR AUTHOR'S ORGANIZ ATION 05/14/2025 [facility] EPIC Patient Care [...] Status: Inactive Member Role Status Dates Adelita Kaplna MD Primary Care Provider Active Start: March [...] Status: Inactive Member Role Status Dates Adelita Kalpan MD Primary Care Provide r, Attending Provider Active Start: June 24, 2024 End: June 24, 2024 Team Status: Active Member Role Status Dates Adelita Kaplan MD Primary Care Provider Active Start: December 27, 2024 Adelita Kaplan MD Attending Provider Active St art: December 27, 2024 Surgical Manager Relationship Specialty Start Date End Date Adelita Kaplan MD PCP - General Family Medicine 06/25/24 Surgical Manager Relationship Specialty Start Date End Date [...] BE BASED ON THE PRIMARY CLINICAL RECORDS. [employer] [facility]. provides no warranty or guarantee of the accuracy or completeness of information in this document.
--- NOTE | 2025-05-19 09:03 | ED.GENADUL1 ---
HPI HPI - General Adult General Chief complaint: Skin/Abscess/Foreign Body Stated complaint: SPIDER BITE Time Seen by Provider: 05/19/25 08:42 Source: patient Mode of arrival: walk-in Limitations: no limitations History of Present Illness HPI narrative: Patient is a 59-year-old male presenting to the emergency department for a wound check. Patient states he was diagnosed with an insect bite/infection of his face 2 days ago. He was seen in the emergency department here at that time, and was prescribed amoxicillin and doxycycline. He states he has been taking his medications as prescribed. He states that he is concerned because the infection has not seemed to get better. He states that since taking the antibiotics his symptoms have not gotten any better but have not gotten any worse. He denies any fevers or chills. No nausea or vomiting. He states that his vision was a little bit blurry this morning in the right eye, but this is since resolved. He denies any current changes in his vision, double vision, or any other ocular complaints. Related Data Home Medications ?Medication ?Instructions ?Recorded ?Confirmed allopurinol 300 mg tablet 300 mg PO DAILY 05/17/25 05/17/25 empagliflozin 25 mg tablet 25 mg PO DAILY 05/17/25 05/17/25 (Jardiance) ezetimibe 10 mg tablet 10 mg PO DAILY 05/17/25 05/17/25 insulin degludec 100 unit/mL (3 20 unit subcut Q24H 05/17/25 05/17/25 mL) subcutaneous pen (Tresiba FlexTouch U-100 insulin) lisinopril 30 mg tablet 30 mg PO DAILY 05/17/25 05/17/25 metformin 500 mg tablet 500 mg PO BID 05/17/25 05/17/25 metoprolol tartrate 25 mg tablet 25 mg PO DAILY 05/17/25 05/17/25 semaglutide 0.25 mg or 0.5 mg (2 0.5 mg subcut .weekly 05/17/25 05/17/25 mg/3 mL) subcutaneous pen injector (Ozempic) simvastatin 40 mg tablet 40 mg PO DAILY 05/17/25 05/17/25 Previous Rx's ?Medication ?Instructions ?Recorded amoxicillin 500 mg tablet 500 mg PO TID 10 days #30 tabs 05/17/25 betamethasone dipropionate 0.05 % 1 applic topical BID PRN rash #60 05/17/25 lotion mL doxycycline hyclate 100 mg tablet 100 mg PO BID 14 days #28 tabs 05/17/25 Allergies Allergy/AdvReac Type Severity Reaction Status Date / Time No Known Drug Allergies Allergy Verified 05/19/25 08:41 Opioid HPI Opioid Management Most Recent Opioid Data: Last Pain Scale 3 Today, 08:42 Review of Systems ROS Status of ROS 10 or more systems reviewed and unremarkable except as noted in history and below PFSH PFSH Social History Little interest or pleasure in doing things: not at all Feeling down, depressed, or hopeless: not at all Exam Narrative Exam Narrative: CONSTITUTIONAL: Well-appearing, answering questions and following commands appropriately SKIN: There is a small, healing abrasion over the center of the forehead. The forehead is mildly erythematous with mild soft tissue swelling. There is no induration, drainage, crepitus, or significant tenderness to palpation. EYES: PERRLA. EOMI. Sclera white. Visual acuity intact. No periorbital edema. EARS, NOSE, THROAT: Moist oral mucosa. RESPIRATORY: Nonlabored respirations CARDIOVASCULAR: Normal rate and regular rhythm. There is no S3, S4, murmur, rub. GASTROINTESTINAL: Abdomen is nondistended. MUSCULOSKELETAL: No peripheral edema. NEUROLOGIC: Patient is awake and alert. Facies were symmetrical. Constitutional Vital Signs, click to edit/add: Last Vital Signs Temp 98 F 05/19/25 08:42 Pulse 73 05/19/25 08:42 Resp 16 05/19/25 08:42 BP 118/60 05/19/25 08:42 Pulse Ox 98 05/19/25 08:42 O2 Del Method Room Air 05/19/25 08:42 Course Vital Signs Vital signs: Vital Signs Temperature 98 F 05/19/25 08:42 Pulse Rate 73 05/19/25 08:42 Respiratory Rate 16 05/19/25 08:42 Blood Pressure 118/60 05/19/25 08:42 Pulse Oximetry 98 05/19/25 08:42 Oxygen Delivery Method Room Air 05/19/25 08:42 Temperature 98 F 05/19/25 08:42 Pulse Rate 73 05/19/25 08:42 Respiratory Rate 16 05/19/25 08:42 Blood Pressure 118/60 05/19/25 08:42 Pulse Oximetry 98 05/19/25 08:42 Oxygen Delivery Method Room Air 05/19/25 08:42 Medical Decision Making MDM Narrative Medical decision making narrative: Patient is a 59-year-old male presenting to the emergency department for wound check. Patient was diagnosed with facial cellulitis 2 days ago, and has since been on amoxicillin and doxycycline. His vital signs today are within normal limits. He is afebrile and hemodynamically stable. His examination is consistent with mild cellulitis. It does not appear to be significantly infected, and he is already on the appropriate antibiotic therapy. He has only been taking antibiotics for the last 2 days, I do believe his symptoms should continue to improve over the next few days. The infection is localized to the soft tissues of the forehead/nasal bridge, and does not involve the orbits to suggest periorbital cellulitis. I do believe the patient is stable for discharge at this time. They were instructed to follow up with his family doctor, he actually has an appointment scheduled for next week. Return precautions were given including any new or worsening symptoms. Patient understands and agrees to the plan. FINAL IMPRESSION: #Acute facial cellulitis DISPOSITION: Discharged home CONDITION: Good Medical Records Medical records reviewed: Yes I reviewed the patient's medical records Discharge Plan Discharge Chief Complaint: Skin/Abscess/Foreign Body Clinical Impression: Cellulitis Qualifiers: Site of cellulitis: face Qualified Code(s): L03.211 - Cellulitis of face Patient Disposition: Home, Self-Care Time of Disposition Decision: 08:54 Condition: Good Mode of Transportation: Private Vehicle Prescriptions / Home Meds: No Action allopurinol 300 mg tablet 300 mg PO DAILY simvastatin 40 mg tablet 40 mg PO DAILY lisinopril 30 mg tablet 30 mg PO DAILY ezetimibe 10 mg tablet 10 mg PO DAILY metformin 500 mg tablet 500 mg PO BID metoprolol tartrate 25 mg tablet 25 mg PO DAILY Ozempic 0.25 mg or 0.5 mg (2 mg/3 mL) pen injector 0.5 mg SUBCUT .weekly insulin degludec [Tresiba FlexTouch U-100] 100 unit/mL (3 mL) insulin pen 20 unit SUBCUT Q24H Jardiance 25 mg tablet 25 mg PO DAILY betamethasone dipropionate 0.05 % lotion 1 applic topical BID PRN (Reason: rash) Qty: 60 0RF doxycycline hyclate 100 mg tablet 100 mg PO BID 14 Days Qty: 28 0RF amoxicillin 500 mg tablet 500 mg PO TID 10 Days Qty: 30 0RF Print Language: Thai Instructions: Cellulitis (ED) Referrals: Angela Robles MD [Primary Care Provider, Family Practice] - 1 week Discharge Date/Time: 05/19/25 09:01
== END 2025-05-19 09:01 | disposition home or self-care (01) ==
PROVIDERS: Emergency Provider Student in an Organized Health Care Education/Training Program; PCP Family Medicine
DX: L03.211 Cellulitis of face (principal); T63.301A Toxic effect of unspecified spider venom, accidental (unintentional), initial encounter
CPT/HCPCS: 99281